=== PATIENT | female | born 1960 | race Caucasian/White ===

== ENCOUNTER → 2020-06-10 09:47 | Outpatient (CLI) | payer MEDICAID, SELFPAY ==
[2020-06-10 11:53] LABS: Absolute Lymphocyte Count 2.56 X10^3/uL (0.83-4.51); Basophil# 0.05 X10^3/uL; Basophil% 0.7 % (0-1); Eosinophil# 0.15 X10^3/uL; Hematocrit 39.7 % (37-47); Hemoglobin 12.9 g/dL (12.0-15.0); Lymphocyte # 2.56 X10^3/ul (4.0); Mean Corp Hgb Conc 32.5 g/dL (32-36); Mean Corpuscular Hgb 30.7 pg (27.0-32.0); Mean Corpuscular Volume 94.5 fL (81-99); Mean Platelet Vol. 10.2 fl (6.2-12.0); Monocyte# 0.74 X10^3/uL; Monocyte% 9.8 % (0-10); NRBC Flagged by Analyzer 0 % (0-5); Neutrophil % 53.2 % (47-70); Platelet Count 291 K/mm3 (150-450); RBC Distribution Width CV 11.9 % (11.6-14.6); RBC Distribution Width SD 41.1 fl (35.1-43.9); White Blood Count 7.5 K/mm3 (4.4-11.0)
[2020-06-10 13:00] LABS: AST(SGOT) 19 U/L (15-37); Alanine Aminotransfer ALT/SGPT 33 U/L (13-56); Albumin, Serum 3.8 g/dL (3.2-5.0); Alkaline Phosphatase 79 U/L (45-117); Anion Gap 7 (5-15); BUN 11 mg/dL (7-18); BUN/Creat Ratio 15.7 RATIO (10-20); Chloride 104 mmol/L (98-107); Cholesterol 204 mg/dL (200); EST Glomerular Filtration Rate 91 mL/min (>60); Est Glom Filt Rate - Afr Amer 110 mL/min (>60); Globulin 3.7 g/dL (2.2-4.2); Glucose 91 mg/dL (74-106); High Density Lipoprotein 48 mg/dL; Potassium 3.7 mmol/L (3.5-5.1); Protein, Total 7.5 g/dL (6.4-8.2); Sodium Level 141 mmol/L (136-145); Triglycerides 190 mg/dL; Very Low Density Lipoprotein 38 mg/dL (5-40)
== END ==
PROVIDERS: Referring Provider Nurse Practitioner Adult Health
DX: I10 Essential (primary) hypertension (principal)
CPT/HCPCS: 36415; 80053; 80061; 84443; 85025

== ENCOUNTER → 2024-01-16 | Outpatient (CLI) | payer MEDICAID, SELFPAY | END | disposition home or self-care (01) | LOC: LAB.FUTURE 12:29 | DX: N39.0 Urinary tract infection, site not specified (principal) ==

== ENCOUNTER → 2024-04-22 | Outpatient (CLI) | payer MEDICARE, SELFPAY | END | disposition home or self-care (01) | LOC: VSLAB 04-23 08:50 → LAB.FUTURE 04-23 08:50 | PROVIDERS: PCP Nurse Practitioner Family; Visit Provider Nurse Practitioner Family | DX: N39.0 Urinary tract infection, site not specified (principal); R81 Glycosuria | CPT/HCPCS: 87086; 87088 ==

== ENCOUNTER → 2024-05-07 | Outpatient (CLI) | payer MEDICARE, SELFPAY ==
[2024-05-07 17:29] LABS: Absolute Lymphocyte Count 2.91 X10^3/uL (0.83-4.51); Absolute Neutrophil Count 4.9 X10^3/uL (2.0-7.7); Basophil# 0.04 X10^3/uL; Basophil% 0.5 % (0-1); Eosinophils% 1.2 % (0-5); Hematocrit 36.6 % (37-47); Hemoglobin 11.6 g/dL (12.0-15.0); Lymphocyte # 2.91 X10^3/ul (0.83-4.51); Lymphocyte % 33.8 % (19-41); Mean Corp Hgb Conc 31.7 g/dL (32-36); Mean Corpuscular Hgb 29.2 pg (27.0-32.0); Mean Corpuscular Volume 92.2 fL (81-99); Mean Platelet Vol. 9.6 fl (6.2-12.0); Monocyte# 0.69 X10^3/uL; NRBC Flagged by Analyzer 0 % (0-5); Neutrophil # 4.86 X10^3/uL (2.7-7.7); Neutrophil % 56.3 % (47-70); Platelet Count 368 K/mm3 (150-450); RBC Distribution Width CV 12.6 % (11.6-14.6); RBC Distribution Width SD 42.6 fl (35.1-43.9); Red Blood Count 3.97 M/mm3 (4.2-5.4); White Blood Count 8.6 K/mm3 (4.4-11.0)
[2024-05-08 01:59] LABS: Anion Gap 14 (5-15); BUN 11 mg/dL (4-19); BUN/Creat Ratio 16.5 RATIO (10-20); Calcium 8.8 mg/dL (7.6-11.0); Carbon Dioxide 21.5 mmol/L (22.0-29.0); Chloride 101 mmol/L (96-108); Creatinine, Serum 0.7 mg/dL (0.6-1.0); EST Glomerular Filtration Rate 97 (>60); Glucose 215 mg/dL (70-99); Sodium Level 136 mmol/L (133-145)
[2024-05-08 19:23] LABS: Hemoglobin A1c 5.9 % (<=5.6)
== END | disposition home or self-care (01) ==
LOC: VSLAB 16:03
PROVIDERS: PCP Nurse Practitioner Family; Referring Provider Nurse Practitioner Family; Visit Provider Nurse Practitioner Family
DX: N39.0 Urinary tract infection, site not specified (principal); R81 Glycosuria
CPT/HCPCS: 36415; 80048; 83036; 85025

== ENCOUNTER → 2024-05-23 | Outpatient (CLI) | payer MEDICARE, SELFPAY ==
--- NOTE | 2024-05-23 13:34 | US_ITS ---
EXAM: US Retroperitoneal Limited, Renal CLINICAL INDICATION: UTI TECHNIQUE: Real-time limited ultrasound of the retroperitoneum with image documentation. COMPARISON: No relevant prior studies available. FINDINGS: RIGHT KIDNEY: Unremarkable. No stones. No hydronephrosis. The right kidney measures 10.9 x 5.4 x 4.6 cm. LEFT KIDNEY: Unremarkable. No stones. No hydronephrosis. The left kidney measures 10.9 x 5.0 x 5.5 cm. BLADDER: Urinary bladder not visualized, likely empty. US/Kidney and Bladder IMPRESSION: Unremarkable exam. Reading Location: [facility]
== END | disposition home or self-care (01) ==
LOC: US 13:33
PROVIDERS: PCP Nurse Practitioner Family; Referring Provider Urology; Visit Provider Urology
DX: N39.0 Urinary tract infection, site not specified (principal)
CPT/HCPCS: 76770

== ENCOUNTER → 2024-06-04 | Outpatient (CLI) | payer MEDICARE, SELFPAY | END | disposition home or self-care (01) | LOC: LABSPEC 16:37 | PROVIDERS: PCP Nurse Practitioner Family; Visit Provider Physician Assistant | DX: R82.90 Unspecified abnormal findings in urine (principal) | CPT/HCPCS: 87077; 87086; 87088; 87186 ==

== ENCOUNTER → 2024-06-08 | Outpatient (CLI) | payer MEDICARE, SELFPAY ==
--- NOTE | 2024-06-08 06:33 | MRI_ITS ---
PROCEDURE: LOWER EXT JOINT ONLY (ROUTINE) 06/08/2024 REASON FOR EXAM: L HIP PAIN AFTER FALL 02/2023; LEG SHORTENING + TECHNIQUE: MRI of the left hip without contrast COMPARISON: Left hip radiographs 05/06/2024. FINDINGS: Bone Marrow: Abnormal marrow signal within the left femoral head epiphysis, with ill-defined marrow replacing mass within the posterolateral femoral head, measuring approximately 3.6 x 2.8 x 2.3 cm (AP x TV x CC, series 6, image 12 and series 5, image 11). There is an additional ill-defined area of T1 hypo enhancing, T2 hyper enhancing marrow signal within the left intertrochanteric region. Well-circumscribed T1 isointense and STIR hyperintense lesions within the left acetabulum. The right hip is grossly unremarkable. Effusion: Small left joint effusion. Soft Tissues: Edema throughout the musculature of the anterior compartment of the thigh (left iliopsoas, vastus medialis, intermedius and lateralis). Left lower pelvic lymphadenopathy. Irregular calcified mass adjacent to the left lower uterus, measuring approximately 2.7 x 2.6 cm (AP x CC, series 8, image 1). The uterus is atrophic with diffuse ill-defined parenchymal thickening and enhancement. Additional incompletely evaluated areas of hypoenhancement throughout the uterus. The visualized lower abdominal bowel loops are normal in caliber. Normal appendix. MRI/Lower Ext Joint Only (Routine) IMPRESSION: 1. Pathologic fracture of the left femoral head with marrow replacing mass, com patible with osseous metastatic disease. Additional marrow lesions throughout the left hip as described, compatible with osseous metastatic disease. 2. Irregularly calcified mass adjacent to the uterus with ill-defined uterine p arenchymal thickening and enhancement, incompletely evaluated by MRI. Additional left lower pelvic lymphadenopathy. 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 CT abdomen pelvis recommended for further evalua tion. Dr. Fagan discussed these findings with Bernard, operational trainer working with Ifrah Ace NP, at 3:55 pm on 06/11/24. Reading Location: [facility]
== END | disposition home or self-care (01) ==
LOC: MRI 06:33
PROVIDERS: PCP Nurse Practitioner Family; Referring Provider Nurse Practitioner Family; Visit Provider Nurse Practitioner Family
DX: M16.9 Osteoarthritis of hip, unspecified (principal); S79.912A Unspecified injury of left hip, initial encounter; S79.922A Unspecified injury of left thigh, initial encounter; X58.XXXA Exposure to other specified factors, initial encounter
CPT/HCPCS: 73721

== ENCOUNTER → 2024-06-17 | Outpatient (CLI) | payer MEDICARE, SELFPAY ==
[2024-06-17 14:58] LABS: Absolute Lymphocyte Count 2.89 X10^3/uL (0.83-4.51); Absolute Neutrophil Count 6.4 X10^3/uL (2.0-7.7); Basophil# 0.04 X10^3/uL; Basophil% 0.4 % (0-1); Eosinophil# 0.13 X10^3/uL; Eosinophils% 1.2 % (0-5); Hematocrit 36.1 % (37-47); Hemoglobin 11.9 g/dL (12.0-15.0); Lymphocyte # 2.89 X10^3/ul (0.83-4.51); Lymphocyte % 27.3 % (19-41); Mean Corpuscular Hgb 30.1 pg (27.0-32.0); Mean Corpuscular Volume 91.4 fL (81-99); Monocyte# 1.12 X10^3/uL; Monocyte% 10.6 % (0-10); NRBC Flagged by Analyzer 0 % (0-5); Neutrophil # 6.38 X10^3/uL (2.7-7.7); Neutrophil % 60.1 % (47-70); Platelet Count 467 K/mm3 (150-450); RBC Distribution Width CV 12.9 % (11.6-14.6); RBC Distribution Width SD 42.9 fl (35.1-43.9); Red Blood Count 3.95 M/mm3 (4.2-5.4); White Blood Count 10.6 K/mm3 (4.4-11.0)
[2024-06-17 16:30] LABS: ALB/GLOB Ratio 1.1 RATIO (0.9-2.4); AST(SGOT) 27 U/L (<=31); Alanine Aminotransfer ALT/SGPT 41 U/L (<=34); Albumin, Serum 4.1 g/dL (3.4-4.8); Alkaline Phosphatase 111 U/L (35-104); Anion Gap 12 (5-15); BUN 18 mg/dL (4-19); BUN/Creat Ratio 23.4 RATIO (10-20); Chloride 106 mmol/L (98-108); Creatinine, Serum 0.77 mg/dL (0.70-1.20); EST Glomerular Filtration Rate 85 (>60); Globulin 3.6 g/dL (2.2-4.2); Glucose 117 mg/dL (70-99); Potassium 4.6 mmol/L (3.3-5.1); Protein, Total 7.7 g/dL (5.9-8.4); Sodium Level 141 mmol/L (133-145)
== END | disposition home or self-care (01) ==
LOC: LAB 14:27
PROVIDERS: PCP Nurse Practitioner Family; Referring Provider Orthopaedic Surgery; Visit Provider Orthopaedic Surgery
DX: M16.12 Unilateral primary osteoarthritis, left hip (principal)
CPT/HCPCS: 36415; 80053; 83036; 85025

== ENCOUNTER → 2024-08-26 | Outpatient (CLI) | payer MEDICARE, SELFPAY | END | disposition home or self-care (01) | LOC: LABSPEC 15:20 | PROVIDERS: PCP Nurse Practitioner Family; Referring Provider Otolaryngology; Visit Provider Otolaryngology | DX: H92.10 Otorrhea, unspecified ear (principal) | CPT/HCPCS: 87070; 87075; 87077; 87186; 87205 ==

== ENCOUNTER → 2024-10-11 | Outpatient (CLI) | payer MEDICARE, SELFPAY | END | disposition home or self-care (01) | LOC: MTRAD 12:03 | PROVIDERS: PCP Nurse Practitioner Family; Referring Provider Orthopaedic Surgery | DX: M16.12 Unilateral primary osteoarthritis, left hip (principal); Z96.642 Presence of left artificial hip joint | CPT/HCPCS: 73502 ==

== ENCOUNTER → 2025-02-20 | Outpatient (CLI) | payer MEDICARE, SELFPAY ==
--- NOTE | 2025-02-20 13:50 | BD_ITS ---
PROCEDURE: DEXA BONE DENSITY STUDY 02/20/2025 REASON FOR EXAM: F, age 64 y/o . Postmenopausal. TECHNIQUE: Procedure Code: BDDBD Modality: DX Procedure: DEXA BONE DENSITY STUDY COMPARISON: None FINDINGS: BMD and T-SCORES Lumbar spine: 1.362 g/cm2, T-score 2.8 Levels: L1 through L4 Right femoral neck: 0.859 g/cm2, T-score 0.1 Femoral neck comparison data not recommended for monitoring change. Right total hip: 1.106 g/cm2, T-score 1.4 The World Health Organization has defined the following categories based on bone density: Normal bone density: T-score equal to or greater than -1.0 Osteopenia: T-score between -1.0 and -2.5 Osteoporosis: T-score equal to or less than -2.5 FRAX (or Comparable) Fracture Risk Assessment: 10 Year Probability of Fracture: Major Osteoporotic Fracture: 19% Hip Fracture: 0.5% (Note: FRAX is not to be reported in setting of normal range bone density, osteoporosis on DEXA, known history of osteoporosis, prior osteoporotic hip or vertebral fracture, or for any patient undergoing pharmacological treatment for bone loss.) The National Osteoporosis Foundation (NOF) recommends pharmacological treatment for patients with a FRAX 10-year risk of 3% or higher for a hip fracture, or 20% or higher for a major osteoporotic fracture, to prevent osteoporosis and reduce fracture risk. The patient does meet the pharmacological treatment recommendations for prevention of osteoporosis. BD/Dexa Bone Density Study IMPRESSION: NORMAL T-SCORES. Recommend follow-up as clinically warranted. Reading Location: [place] [id number]
--- OUTSIDE RECORDS SUMMARY | 2025-02-20 16:52 | XMS RPT_ITS | CCD ---
Author Organization [facility] Care Team Providers Care Payroll Professional Name Role Phone Dalila Pandey CNP Primary Care Provider Carlos PROGRAMMING DEVELOPMENT PROJECT MANAGER-C, Irene Primary Care Provider Carlos PROGRAMMING DEVELOPMENT PROJECT MANAGER-C, Irene Attending Provider Carlos PROGRAMMING DEVELOPMENT PROJECT MANAGER-C, Irene Referring Provider Db PROGRAMMING DEVELOPMENT PROJECT MANAGER-C, Silvina Attending Provider Sudha MOBLEY, Dr. Wesley Attending Provider Laurie MOBLEY, Dr. Reeves Attending Provider Dr. Llaa Sullivan MD Referring Provider Ruslan Pack Attending Provider [phone] Db PROGRAMMING DEVELOPMENT PROJECT MANAGER-C, Silvina Referring Provider [facility], [facility] Primary Care Provider Krishan rKuse MD Attending Provider Krishan Kruse MD Referring Provider Irene Gonzalez Primary Care Provider Zuleika RNSheri Unavailable [facility], [facility] Primary Care Provider [phone] Dalila Pandey CNP Primary Care Provider Krishan Kruse MD Unavailable KRUSE, KRISHAN Admitting Unavailable KRUSE, KRISHAN Attending Unavailable CARLOS, IRENE Primary Care Unavailable AARON LIVINGSTON Consulting Unavailable KRUSE, KRISHAN Attending Unavailable KRUSE, KRISHAN Referring Unavailable CARLOS, IRENE Primary Care Unavailable ANDREA ARROYO Attending Unavailable ANDREA ARROYO Referring Unavailable CARLOS, IRENE Primary Care Unavailable KRUSE, KRISHAN Admitting Unavailable KRUSE, KRISHAN Attending Unavailable CARLOS, IRENE Primary Care Unavailable ANDREA ARROYO Referring Unavailable CARLOS, IRENE Primary Care Unavailable KRUSE, KRISHAN Attending Unavailable ANDREA ARROYO Attending Unavailable CARLOS, IRENE Primary Care Unavailable ANDREA ARROYO Attending Unavailable KRUSE, KRISHAN Admitting Unavailable KRUSE, KRISHAN Attending Unavailable CARLOS, IRENE Primary Care Unavailable Carlos PROGRAMMING DEVELOPMENT PROJECT MANAGER-C, Irene Primary Care Provider Carlos PROGRAMMING DEVELOPMENT PROJECT MANAGER-C, Irene Attending Provider Anselmo MOBLEY, Dr. Mckenzie Attending Provider Dr. Jonah Briones MD Referring Provider TRUNGSWETHA Verma Attending Unavailable PANDEY, DALILA K Primary Care Unavailable TRUNGSWETHA Attending Unavailable PANDEY, DALILA K Primary Care Unavailable Carlos PROGRAMMING DEVELOPMENT PROJECT MANAGER-C, Irene Primary Care Provider Laurie MOBLEY, Dr. Reeves Attending Provider [phone] ANDREA ARROYO Attending Provider Krishan Kruse MD Referring Provider Carlos PROGRAMMING DEVELOPMENT PROJECT MANAGER-C, Irene Referring Provider Carlos PROGRAMMING DEVELOPMENT PROJECT MANAGER-C, Irene Primary Care Physician Anselmo MOBLEY, Dr. Mckenzie Attending Physician Laurie MOBLEY, Dr. Reeves Attending Physician ANDREA ARROYO Attending Physician Carlos VS, Irene Primary Care UnavailLala Amaro Attending Unavailable Lala Sullivan Referring Unavailable Carlos VSC, Irene Primary Care Unavailabl e Kruse, Krishan Referring Unavailable Kruse, Krishan Attending Unavailable Carlos VSC, Irene Primary Care Unavailabl e Carlos VSC, Irene Referring Unavailabl Silvina Thompson Attending Unavailable Carlos VSC, Irene Primary Care Unavailabl e Lupillo Haley Attending Unavailable Carlos VSC, Irene Primary Care Unavailabl e Carlos VSC, Irene Referring Unavailabl Lala Rey Attending Unavailable Carlos VSC, Irene Primary Care Unavailabl e Carlos VSC, Irene Referring Unavailabl Lala Rey Attending Unavailable Carlos VSC, [facility] Care Unavailabl e [facility], Irene Referring Unavailabl e Silvina Ace Attending Unavailable [facility], [facility] Primary Care Unavailabl e [facility], [facility] Referring Unavailabl e Ruslan Pack Attending Unavailable [facility], [facility] Primary Care Unavailabl e Lupillo Haley Attending Unavailable [facility], [facility] Primary Care Unavailabl e Ruslan Pack Attending Unavailable [facility], [facility] Primary Care Unavailabl e WartmannJonah Referring Unavailabl e Jonah Briones Attending Unavailabl e MAGALIEISIDORO INFANTE Attending Unavailable MAGALIEISIDORO INFANTE Primary Care Unavailable [facility], [facility] Primary Care Unavailabl e MAGALIEISIDORO RODAS Attending Unavailable Krishan Kruse Referring Unavailable [facility], [facility] Primary Care Unavailabl e [facility], Irene Attending Unavailabl e [facility], [facility] Primary Care Unavailabl e Silvina Ace Referring Unavailable Silvina Ace Attending Unavailable [facility], [facility] Primary Care Unavailabl e [facility], [facility] Referring Unavailabl e [facility], Irene Attending Unavailabl e Allergies Allergy Classification Reported Allergen(s) Allergy Type Date of Onset Reaction(s) Facility (20 sources) Sulfonamides (Antibiotic); Translations: [SULFA (SULFONAMIDE ANTIBIOTICS)] Drug Allergy 8 Other: See Comments, Other [facility] (9 sources) Pollen Allergy to substance 5 Itchy watery eyes [facility] (9 sources) Sulfonamides (Antibiotic) Allergy to substance 5 PT UNSURE OF REACTION [facility] (18 sources) Pollen Allergy to substance 5 Other [facility] (6 sources) Bee pollen; Translations: [BEE POLLEN] Drug Allergy 5 Unknown [facility] (4 sources) Adhesive Tape; Translations: [ADHESIVE TAPE (ROSINS)] Allergy to substance 5 Itching [facility] (1 source) Pollen Drug allergy (disorder) 5 [facility] (1 source) Sulfonamides (Antibiotic) Drug allergy (disorder) 5 [facility] Medications Current Medications Medication Drug Class(es) Dates Sig (Normalized) Sig (Original) 8 hr acetaminophen 650 mg extended release oral tablet (11 sources) Start: 07-11-2024 End: 08-12-2024 take 1 tablet by mouth every eight hours as needed for pain and pain acetaminophen (Tylenol 8 Hour) 650 MG ER tablet Take 1 tablet (650 mg) by mouth every 8 hours as needed for mild pain (1-3) or moderate pain (4-6) (take as needed for pain). Do not crush, chew, or split. 90 tablet 07/12/2024 10:51 AM EDT 07/11/2024 08/12/2024 Active Start: 07-11-2024 End: 07-12-2024 take 1 tablet by mouth every six hours 650 mg, Oral, Every 6 hours, First dose on [facility] 07/11/24 at 1500, Phase II/On Unit Start: 07-11-2024 End: 07-11-2024 take 1000 mg by mouth once, then take 4000 mg by mouth every twenty-four hours 1,000 mg, Oral, Once, On [facility] 07/11/24 at 0900, For 1 dose, Preprocedure, Maximum dose of acetaminophen is 4000 mg from all sources in 24 hours. Do not administer if patient has taken tylenol ascorbic acid 500 mg chewable tablet (9 sources) Vitamin C take 1 tablet by vanessa th once daily ascorbic acid (Vitamin C) 500 MG tablet Take 500 mg by mouth daily. Active Calcium Carbonate (9 sources) Calcium Carbonat e (CALTRATE 600 PO) Take by mouth daily. Suspended Calcium Carbonat e (CALTRATE 600 PO) Take by mouth daily. Active calcium carbonate 1500 mg / cholecalciferol 800 unt chewable tablet (9 sources) Vitamin D Start: 05-06-2024 Calcium Carbonate-Vitamin D3 (Caltrate 600 Plus D) 600 mg-20 mcg (800 unit) tablet,chewable Active 1 {tbl} PO daily May 06, 2024 1:00am Complies with drug therapy cholecalciferol 0.025 mg oral tablet (20 sources) Vitamin D Start: 05-06-2024 take 1 tablet by mouth once daily Cholecalciferol (Vitamin D3) 25 mcg (1,000 unit) tablet Active 25 ug PO daily May 06, 2024 1:00am Complies with drug therapy take 1 capsule by mouth once delmi ly Cholecalciferol, Vitamin D3, 25 mcg (1,000 unit) cap Take 1,000 Units by mouth once daily. Active Cholecalciferol (Vitamin D3) 25 MCG capsule Take by mouth daily. Active ciprofloxacin 500 mg oral tablet (9 sources) Quinolone Antimicrobial Start: 06-10-2024 take 1 tablet by mouth every twelve hours ciprofloxacin HCl (CIPRO) 500 mg tablet Take 1 tablet by mouth every 12 hours. 06/10/2024 Active Start: 06-10-2024 take 1 tablet by vanessa th twice daily Ciprofloxacin Hcl 500 mg tablet Active 500 mg PO TWICE A DAY 10 June 10, 2024 12:00am Complies with drug therapy clobetasol propionate 0.5 mg/ml topical cream (20 sources) Corticosteroid Start: 08-30-2024 clobetasol (TE MOVATE) 0.05 % cream Apply to affected area 2x/day for 2 weeks, then 1x/day for a week, than 1-3x/week for maintenance. 60 g 08/30/2024 Active Start: 05-16-2024 clobetasol (Te movate) 0.05 % external solution Apply topically 2 times daily. 05/16/2024 Active Start: 05-06-2024 End: 05-06-2024 Clobetasol 0.05 % ointment A ctive 1 NMA TOPICAL TWICE A DAY as needed May 06, 2024 4:13pm Complies with drug therapy Start: 06-21-2021 End: 09-19-2021 clobetasol (TEMOVATE) 0.05 % ointment Apply 1 application to affected area twice daily. 30 g 2 06/21/2021 09/19/2021 Active Comment on above: Apply 1 application to affected area twice daily. cranberry preparation 500 mg oral capsule (9 sources) Non-Standardized Food Allergenic Extract, Non-Standardized Plant Allergenic Extract take 1 capsule by mouth once daily Cranberry 500 MG capsule Take by mouth daily. Active estradiol 0.1 mg/ml vaginal cream (1 source) Estrogen Start: Start: 12-05-2024 fluticasone propionate 0.05 mg/actuat metered dose nasal spray (20 sources) Corticosteroid Start: 05-06-2024 fluticasone (F lonase) 50 MCG/ACT nasal spray Fluticasone Propionate 50 mcg/actuation spray,suspension Active 2 NMA INTRANASAL AT BEDTIME May 06, 2024 1:00am 05/06/2024 Active Start: 05-06-2024 Fluticasone Pr opionate 50 mcg/actuation spray,suspension Active 2 NMA INTRANASAL AT BEDTIME May 06, 2024 1:00am Complies with drug therapy loratadine 10 mg oral tablet (20 sources) Start: 05-06-2024 take 1 tablet by mouth once daily Loratadine (Claritin) 10 mg tablet Active 10 mg PO daily May 06, 2024 1:00am Complies with drug therapy Magnesium (9 sources) Start: 05-06-2024 take 1 tablet by mouth once daily Magnesium 250 mg tablet Active 250 mg PO daily May 06, 2024 1:00am Complies with drug therapy Start: 05-06-2024 take 1 tablet by vanessa th once daily Magnesium 250 mg tablet Active 250 mg PO daily May 06, 2024 1:00am MAGNESIUM GLUCONATE (9 sources) MAGNESIUM GLUCON ATE PO Take by mouth daily. Suspended MAGNESIUM GLUCON ATE PO Take by mouth daily. Active Multiple Vitamins-Minerals ( MULTIVITAMIN GUMMIES WOMENS PO) (9 sources) Multiple Vitamin s-Minerals (MULTIVITAMIN GUMMIES WOMENS PO) Take by mouth daily. Suspended Multiple Vitamin s-Minerals (MULTIVITAMIN GUMMIES WOMENS PO) Take by mouth daily. Active Multivitamin tablet (9 sources) Start: 05-06-2024 Multivitamin t ablet Active 1 {tbl} PO daily May 06, 2024 1:00am Complies with drug therapy Start: 05-06-2024 Multivitamin t ablet Active 1 {tbl} PO daily May 06, 2024 1:00am Potassium Chloride (9 sources) Potassium Chlori de (K+ POTASSIUM PO) Take by mouth daily. Suspended Potassium Chlori de (K+ POTASSIUM PO) Take by mouth daily. Active potassium gluconate 2.5 meq oral tablet (9 sources) Start: 05-06-2024 take 1 tablet by mouth once daily Potassium Gluconate 595 mg (99 mg) tablet Active 595 mg PO daily May 06, 2024 1:00am Complies with drug therapy Probiotic Product (PROBIOTIC BLEND PO) (9 sources) Probiotic Produc t (PROBIOTIC BLEND PO) Take by mouth daily. Suspended Probiotic Produc t (PROBIOTIC BLEND PO) Take by mouth daily. Active psyllium 400 mg oral capsule (9 sources) take 2 capsules by mouth once daily psyllium (Metamucil) 0.36 g capsule Take 2 capsules by mouth daily. Active Turmeric extract (9 sources) Start: 05-06-2024 take 1 capsule by mouth once daily Turmeric 400 mg capsule Active 400 mg PO daily May 06, 2024 1:00am Complies with drug therapy Start: 05-06-2024 take 1 capsule by mo [facility] once daily Turmeric 400 mg capsule Active 400 mg PO daily May 06, 2024 1:00am Completed/Discontinued Medications Medication Drug Class(es) Dates Sig (Normalized) Sig (Original) aspirin 81 mg delayed release oral tablet (9 sources) Platelet Aggregation Inhibitor, Nonsteroidal Anti-inflammatory Drug Start: 07-11-2024 End: 08-12-2024 aspirin (ASPIR) 81 MG EC tablet Take 1 tablet (81 mg) by mouth 2 times daily. Take 2 times a day for 30 days. This is for blood clot prevention. 60 tablet 07/12/2024 10:51 AM EDT 07/11/2024 08/12/2024 Discontinued (Therapy completed) bisacodyl 5 mg delayed release oral tablet (2 sources) Stimulant Laxative Start: 07-11-2024 End: 07-12-2024 take 1 tablet by mouth every twenty-four hours as needed for constipation calcium chloride 0.0014 meq/ml / potassium chloride 0.004 meq/ml / sodium chloride 0.103 meq/ml / sodium lactate 0.028 meq/ml injectable solution (3 sources) Start: 07-11-2024 End: 07-11-2024 take 50 mL intravenously every hour 50 mL/hr, IntraVENous, Continuous, Starting on [facility] 07/11/24 at 0900, Preprocedure, Upon admission to sameday - please start iv if patient does not have iv access. Use 500ml NS for patients on dialysis. cefadroxil 500 mg oral capsule (5 sources) Cephalosporin Antibacterial Start: 07-11-2024 End: 08-12-2024 take 1 capsule by mouth twice daily cefadroxil (Duricef) 500 MG capsule Take 1 capsule (500 mg) by mouth 2 times daily for 7 days. Take 2 times a day for 7 days. Take this entire prescription. 14 capsule 07/12/2024 10:51 AM EDT 07/11/2024 08/12/2024 Discontinued (Therapy completed) ceFAZolin (Ancef) 2,000 mg in sodium chloride 0.9 % 100 mL IVPB (3 sources) Start: 07-11-2024 End: 07-12-2024 take 2000 mg intravenously every eight hours 2,000 mg, IntraVENous, at 200 mL/hr, Administer over 30 Minutes, Every 8 hours, First dose on [facility] 07/11/24 at 1900, For 2 doses, Phase II/On Unit, Mini-Bag Plus bag, Suspected Indication (Select all that apply): Surgical Prophylaxis Start: 07-11-2024 End: 07-11-2024 2,000 mg, IntraVENous, at 20 0 mL/hr, Administer over 30 Minutes, Tank Carpenter to O.R., On [facility] 07/11/24 at 0900, For 1 dose, Preprocedure, Administer within 1 hour prior to incision. Recommend to repeat in 3-4 hours after initial dose if still intra-op. Mini-Bag Plus bag, Suspected Indication (Select all that apply): Surgical Prophylaxis 1 ml dexamethasone phosphate 10 mg/ml injection (3 sources) Corticosteroid Start: 07-11-2024 End: 07-12-2024 take 8 mg intravenously every six hours 8 mg, IntraVENous, Every 6 hours, First dose on [facility] 07/11/24 at 1700, For 2 doses, Phase II/On Unit Start: 07-11-2024 End: 07-11-2024 IntraVENous, As needed, Star ting on [facility] 07/11/24 at 1112, Anesthesia Intraprocedure [id number]-qu inephrine (TAP) syringe (1 source) Start: 07-11-2024 End: 07-11-2024 Injection, Once PRN Procedure, Starting on [facility] 07/11/24 at 1330, For 1 dose, Anesthesia Intraprocedure diphenhydrAMINE (BENADryl) tablet/capsule 25 mg (2 sources) Start: 07-11-2024 End: 07-12-2024 take 1 tablet by mouth every six hours as needed diphenhydrAMINE (BENADryl) tablet/capsule 25 mg docusate sodium 100 mg oral capsule (7 sources) Start: 07-11-2024 End: 08-12-2024 docusate sodium (Colace) 100 MG capsule Take 1 capsule (100 mg) by mouth 2 times daily. Take 2 times a day as needed for constipation. 60 capsule 07/12/2024 10:51 AM EDT 07/11/2024 08/12/2024 Discontinued (Therapy completed) Estrogens, Conjugated ([facility]) (6 sources) Estrogen End: 08-29-2024 estrogens, conjugated (PREMARIN VAGINAL) Use vaginally. 08/29/2024 Discontinued estrogens, conju gated (PREMARIN VAGINAL) Use vaginally. Active estrogens, conju gated (PREMARIN VAGINAL) Use vaginally. 0 Active Comment on above: Use vaginally. famotidine 20 mg oral tablet (4 sources) Histamine-2 Receptor Antagonist Start: 07-11-2024 End: 07-12-2024 take 20 mg by mouth twice daily 20 mg, Oral, 2 times daily, First dose on [facility] 07/11/24 at 2100, Phase II/On Unit Start: 07-11-2024 End: 07-11-2024 take 20 mg by mouth once 20 mg, Oral, Once, On [facility] 07/11/24 at 0900, For 1 dose, Preprocedure 1 ml glycopyrrolate 0.2 mg/ml injection (1 source) Start: 07-11-2024 End: 07-11-2024 IntraVENous, As needed, Starting on [facility] 07/11/24 at 1052, Anesthesia Intraprocedure 1 ml HYDROmorphone hydrochloride 1 mg/ml cartridge (2 sources) Opioid Agonist Start: 07-11-2024 End: 07-11-2024 0.5 mg, IntraVENous, Every 5 min PRN, severe pain (7-10), Starting on [facility] 07/11/24 at 1309, For 4 doses, Recovery (only), Phase I and Phase II- Initial therapy for severe pain (7-10). Restricted to a 90 minute time frame starting when the patient can verbally state their pain score. If after 2 doses the pain score does not decrease by more than one point, then call the provider. If oral meds are utilized, do not return to initial therapy medications. HYDROmorphone (Dilaudid) injection 0.25 mg (2 sources) Start: 07-11-2024 End: 07-12-2024 HYDROmorphone (Dilaudid) injection 0.25 mg ibuprofen 200 mg oral tablet (14 sources) Nonsteroidal Anti-inflammatory Drug End: 07-12-2024 take 2 tablets by mouth three times daily ibuprofen 200 MG tablet Take 400 mg by mouth 3 times daily. 07/12/2024 Discontinued (Stop taking at discharge) isopropyl alcohol 0.7 ml/ml medicated pad (2 sources) Start: 07-11-2024 End: 07-11-2024 2 Swab (1 Package), Topical, Once, On Mon07/11/24 at 0900, For 1 dose, Preprocedure, Flip ampule around in paper sleeve to expose swab tip. Shake well. With sleeve on ampule, crush at dot to pop. Squeeze to wet swab tip. Swab around nostril rims 8 times in each direction. Squeeze to rewet swab tip and repeat. Repeat for other nostril. Caution : Do not extend in nose beyond swab tip. Appy to skin only. Discard after use. 1 ml ketorolac tromethamine 15 mg/ml cartridge (2 sources) Nonsteroidal Anti-inflammatory Drug, Cyclooxygenase Inhibitor Start: 07-11-2024 End: 07-12-2024 take 15 mg intravenously every six hours 15 mg, IntraVENous, Every 6 hours, First dose on Mon07/11/24 at 1500, For 2 doses, Phase II/On Unit lisinopril 20 mg oral tablet (20 sources) Angiotensin Converting Enzyme Inhibitor Start: 07-12-2024 End: 07-12-2024 take 40 mg by mouth once daily 40 mg, Oral, Daily, First dose on Mon07/12/24 at 0900 Start: 09-15-2019 take 1 tablet by [facility] once daily Lisinopril 40 mg tablet Active 40 mg PO daily May 06, 2024 1:00am Complies with drug therapy Comment on above: Take 1 tablet by [facility] once daily. magnesium citrate 58.2 mg/ml oral solution (2 sources) Start: 07-11-2024 End: 07-12-2024 meloxicam 7.5 mg oral tablet (12 sources) Nonsteroidal Anti-inflammatory Drug Start: 07-12-2024 End: 07-12-2024 take 15 mg by mouth once daily 15 mg, Oral, Daily, First dose on Mon07/12/24 at 0900, Phase II/On Unit Start: 07-11-2024 End: 08-12-2024 take 1 tablet by mouth once daily meloxicam (MOBIC) 15 mg tablet Take 15 mg by mouth once daily. 07/11/2024 Active 20 ml mepivacaine hydrochloride 20 mg/ml injection (1 source) Amide Local Anesthetic Start: 07-11-2024 End: 07-11-2024 Intrathecal, Once PRN Procedure, Starting on [facility] 07/11/24 at 1055, For 1 dose, Anesthesia Intraprocedure 2 ml midazolam 1 mg/ml injection (1 source) Benzodiazepine Start: 07-11-2024 End: 07-11-2024 IntraVENous, As needed, Starting on [facility] 07/11/24 at 1052, Anesthesia Intraprocedure 1 ml naloxone hydrochloride 0.4 mg/ml injection (2 sources) Opioid Antagonist Start: 07-11-2024 End: 07-12-2024 nitrofurantoin, macrocrystals 25 mg / nitrofurantoin, monohydrate 75 mg oral capsule (7 sources) Nitrofuran Antibacterial Start: 06-04-2024 End: 06-09-2024 take 1 capsule by mouth every twelve hours at mealtime Nitrofurantoin Monohyd/M-Cryst (Macrobid) 100 mg capsule Discontinued 100 mg PO Q12H 10 5 0 June 04, 2024 12:00am June 08, 2024 12:00am June 09, 2024 6:34am must administer with a meal/food ondansetron 4 mg oral tablet (8 sources) Serotonin-3 Receptor Antagonist Start: 07-11-2024 End: 08-12-2024 take 1 tablet by mouth every eight hours ondansetron (Zofran) 4 MG tablet Take 1 tablet (4 mg) by mouth every 8 hours. Take 1 tablet every 8 hours as needed for nausea and/or vomiting. May take 2 tablets if needed. 10 tablet 07/12/2024 10:51 AM EDT 07/11/2024 08/12/2024 Discontinued (Therapy completed) Start: 07-11-2024 End: 05-01-2025 IntraVENous, As needed, Star ting on [facility] 07/11/24 at 1246, Anesthesia Intraprocedure ondansetron ODT (Zofran-ODT) disintegrating tablet 4 mg (2 sources) Start: 07-11-2024 End: 07-12-2024 take 1 tablet by mouth every eight hours as needed for nausea and vomiting ondansetron ODT (Zofran-ODT) disintegrating tablet 4 mg oxyCODONE hydrochloride 5 mg oral tablet (9 sources) Opioid Agonist Start: 07-11-2024 End: 07-12-2024 take 1 tablet by mouth every four hours as needed for pain 10 mg, Oral, Every 4 hours PRN, severe pain (7-10), Starting on [facility] 07/11/24 at 1455, Phase II/On Unit Start: 07-11-2024 End: 08-12-2024 take 1 tablet by mouth every six hours as needed for pain oxyCODONE (Roxicodone) 5 MG immediate release tablet Indications: Arthritis of left hip Take 1 tablet (5 mg) by mouth every 6 hours as needed for severe pain (7-10) or moderate pain (4-6) for up to 7 days. Continue to wean off as pain becomes more tolerable. 28 tablet 07/12/2024 10:51 AM EDT 07/11/2024 08/12/2024 Discontinued (Therapy completed) pantoprazole 20 mg delayed release oral tablet (7 sources) Proton Pump Inhibitor Start: 07-11-2024 End: 08-12-2024 pantoprazole (Protonix) 20 MG EC tablet Take 1 tablet (20 mg) by mouth every morning (before breakfast). Do not crush, chew, or split. Take 1 time a day. 30 tablet 07/12/2024 10:51 AM EDT 07/11/2024 08/12/2024 Discontinued (Therapy completed) Phenylephrine HCl (Pressors) 1 MG/10ML injection (1 source) Start: 07-11-2024 End: 07-11-2024 IntraVENous, As needed, Starting on [facility] 07/11/24 at 1147, Anesthesia Intraprocedure 20 ml propofol 10 mg/ml injection (1 source) General Anesthetic Start: 07-11-2024 End: 07-11-2024 IntraVENous, Continuous PRN, Starting on [facility] 07/11/24 at 1106, Anesthesia Intraprocedure ropivacaine (Naropin) 5 MG/ML 15 mL, EPINEPHrine (Adrenalin) 30 MG/30ML 0.125 mL, ketorolac (Toradol) 30 MG/ML 0.5 mL in sodium chloride (PF) 0.9 % 15 mL syringe (4 sources) Start: 07-11-2024 End: 07-11-2024 1 Syringe, Intra-artICUlar, Once, On [facility] 07/11/24 at 1100, For 1 dose, Intraprocedure 5 ml sodium chloride 9 mg/ml injection (8 sources) Start: 07-11-2024 End: 07-12-2024 10 mL, IntraVENous, Every 12 hours scheduled (2 times per day), First dose on [facility] 07/11/24 at 2100, Phase II/On Unit Start: 07-11-2024 End: 07-12-2024 take 125 mL intravenously every hour 125 mL/hr, IntraVENous, Continuous, Starting on [facility] 07/11/24 at 1500, Phase II/On Unit Start: 07-11-2024 End: 07-12-2024 Start: 07-11-2024 End: 07-12-2024 traMADol hydrochloride 50 mg oral tablet (7 sources) Opioid Agonist Start: 07-11-2024 End: 08-12-2024 take 1 tablet by mouth every six hours as needed for pain traMADol (Ultram) 50 MG tablet Indications: Arthritis of left hip Take 1 tablet (50 mg) by mouth every 6 hours as needed for severe pain (7-10) or moderate pain (4-6) for up to 7 days. Wean off as pain becomes more tolerable. 28 tablet 07/12/2024 10:51 AM EDT 07/11/2024 08/12/2024 Discontinued (Therapy completed) 10 ml tranexamic acid 100 mg/ml injection (1 source) Antifibrinolytic Agent Start: 07-11-2024 End: 07-11-2024 IntraVENous, As needed, Starting on [facility] 07/11/24 at 1105, Anesthesia Intraprocedure Problems Active Problems Problem Classification Problem Date Documented Da te Episodic/Chronic Allergic reactions (9 sources) Environmental allergy; Translations: [Other allergy status, other than to drugs and biological substances] 05-06-2024 Episodic Benign neoplasm of uterus (2 sources) Uterine leiomyoma; Translations: [Leiomyoma of uterus, unspecified] Onset: 07-09-2024 07-09-2024 Episodic Essential hypertension (9 sources) Hypertensive disorder; Translations: [Essential (primary) hypertension] 05-06-2024 Chronic Inflammatory diseases of female pelvic organs (2 sources) Vaginitis; Translations: [Acute vaginitis] Episodic Menopausal disorders (2 sources) Atrophy of vagina; Translations: [Postmenopausal atrophic vaginitis] Chronic Osteoarthritis (20 sources) Osteoarthritis of hip; Translations: [Osteoarthritis of hip, unspecified] Onset: 06-11-2024 05-06-2024 Chronic Other connective tissue disease (3 sources) History of total hip arthroplasty; Translations: [Presence of left artificial hip joint] 07-26-2024 Chronic Other connective tissue disease (2 sources) Presence of left artificial hip joint; Translations: [Presence of left artificial hip joint] Onset: 08-12-2024 Chronic Other female genital disorders (1 source) Polyp of cervix; Translations: [Polyp of cervix uteri] Episodic Other female genital disorders (2 sources) Leukoplakia of vulva; Translations: [Circumscribed scleroderma] Episodic Other female genital disorders (1 source) Vulval irritation; Translations: [Other specified noninflammatory disorders of vulva and perineum] 08-29-2024 Episodic Other female genital disorders (1 source) Other specified noninflammatory disorders of vulva and perineum; Translations: [Vulvar irritation] Onset: 08-29-2024 Episodic Other gastrointestinal disorders (9 sources) Abdominal mass; Translations: [Intra-abdominal and pelvic swelling, mass and lump, unspecified site] Episodic Other injuries and conditions due to external causes (17 sources) Injury of hip and thigh; Translations: [Unspecified injury of left hip, initial encounter] 05-06-2024 Episodic Other non-traumatic joint disorders (9 sources) Hip pain; Translations: [Pain in left hip] 05-06-2024 Episodic Other skin disorders (9 sources) Lichen sclerosus et atrophicus; Translations: [Lichen sclerosus et atrophicus] 05-06-2024 Chronic Pathological fracture (7 sources) Pathological fracture of femur; Translations: [Pathological fracture, unspecified femur, initial encounter for fracture] 06-12-2024 Episodic Residual codes; unclassified (1 source) Postmenopausal state; Translations: [Asymptomatic menopausal state] Episodic Unclassified (2 sources) R19.09 - Other intra-abdominal and pelvic swelling, mass and lump Unclassified (2 sources) Patient Education; Translations: [Patient Education] Onset: 07-03-2024 Urinary tract infections (1 source) Urinary tract infection, site not specified; Translations: [Urinary tract infection, site not specified] Onset: 11-29-2024 Episodic Past or Other Problems Problem Classification Problem Date Documented Da te Episodic/Chronic Genitourinary symptoms and ill-defined conditions (4 sources) Dysuria; Translations: [Dysuria] Onset: 06-04-2024 08-29-2024 Episodic Other ear and sense organ disorders (1 source) Otorrhea, unspecified ear; Translations: [Otorrhea, unspecified ear] Onset: 08-29-2024 Episodic Other non-traumatic joint disorders (1 source) Pain in left hip; Translations: [Pain in left hip] Onset: 05-06-2024 Episodic Results Test Name Value Interpretation Reference Range Facility /Mikel 11-29-2024 /AD [facility] [address], [address] [place] [address] OFFICE VISIT Date of Service: 11/29/24 MR#: [id number] Acct: [id number] Name: KEIRY MILLER Rep #: [id number] : 1960 Provider: Dr. Lala Haynes i, MD Age/Sex: 64/F Location: [facility] [place] Status: Signed Intake Vital Signs 06/12/24 09:27 11/29/24 12:55 Height 5 ft 6 in 5 ft 6 in Weight: 206 lb BMI 33.2 BP 134/82 H Pulse 68 Temp 98 F Intake Visit Reasons: VAGINAL BURNING Chief Complaint: Vaginal burning Student Records Specialist Required: No Is patient in pain?: Yes Allergies pollen extracts Allergy (Verified 06/04/24 15:50) Itchy watery eyes Sulfa (Sulfonamide Antibiotics) Allergy (Verified 06/04/24 15:50) PT UNSURE OF REACTION Medications ???Medication ???Instructions ???Recorded ???Confirmed ???Type calcium 600 mg (as carbonate)-vit 1 tab PO QDAY 05/06/24 11/29/24 H istory D3 20 mcg (800 unit) chewable tablet (Caltrate plus D) cholecalciferol (vitamin D3) 25 25 mcg PO QDAY 05/06/24 11/29/24 H istory mcg (1,000 unit) tablet clobetasol 0.05 % topical ointment 1 applic topical BID PRN 5 11/29/24 History fluticasone propionate 50 2 spray intranasal QHS 05/06/24 History mcg/actuation nasal spray,suspension lisinopril 40 mg tablet 40 mg PO QDAY 05/06/24 11/29/24 Hi story loratadine 10 mg tablet (Claritin) 10 mg PO QDAY 05/06/24 11/29/24 History magnesium 250 mg tablet 250 mg PO QDAY 05/06/24 11/29/24 H istory multivitamin 1 tab PO QDAY 05/06/24 11/29/24 Hi story potassium gluconate 595 mg (99 mg) 595 mg PO QDAY 05/06/24 11/29/24 History tablet turmeric 400 mg capsule 400 mg PO QDAY 05/06/24 11/29/24 H istory ciprofloxacin HCl 500 mg tablet 500 mg PO BID #10 tabs 06/10/24 Rx estradiol 0.01% (0.1 mg/gram) 1 g vaginal 3XW 3 months #42.5 Rx vaginal cream grams Have you fallen in the past year?: No PFSH Medical History Acute vaginitis Environmental allergies Hypertension Lichen sclerosus Family History Father Heart disease Mother Hypertension Brother Heart disease Social History household members: spouse current occupational status: retired Smoking Status: Never smoker alcohol intake: never substance use type: does not use what type of physical activity do you participate in: none do you feel safe at home: Yes HPI HPI Urology Chief Complaint: Vaginal burning Details: KEIRY MILLER, is a 64 F. Patient having severe burning in external vaginal area, open sores and just raw feeling. There is no vaginal bleeding, discharge or odor present. No sensation of urinary tract infection. No hematuria, dysuria. No fever, chills, nausea or vomiting. ROS Const Constitutional: No chills, fatigue, fever(s), headache(s), night sweats, weakness, weight change, abnormal sleep pattern or change in appetite Eyes Eyes: No change in vision ENT ENT: No headache(s) or dry mouth Resp Respiratory: No cough, chest congestion, shortness of breath or wheezing Cardio Cardiology: Positive for other (No chest pain.); No shortness of breath, irregular heart rhythm or lightheadedness Gastro GI: Positive for other (No nausea.); No abdominal pain, change in bowel habits, constipation, diarrhea or vomiting Musc Musculoskeletal: No abnormal gait Skin Skin: Positive for itchy eyes and sores; No yellowing of the eye, lesions or rash Neuro Neurology: No abnormal gait, confusion, dizziness, weakness, headache(s) or memory loss Psych Psychiatric: No abnormal sleep pattern, No change in appetite, No confusion and No memory loss Endo Endocrine: No fatigue, increased thirst/drinking or weight change Aller/Imm Allergy/Immunologic: Positive for itchy eyes; No wheezing Bo/Lymp Hematologic/Lymphatic: No easy bleeding, easy bruising or enlarged lymph nodes Exam Const General: cooperative, healthy appearing, comfortable and no acute distress [facility] Head: normocephalic and atraumatic Ears: hearing grossly normal bilaterally and external ears normal Nose: external nose normal Eyes General: appearance normal, both eyes and all related structures Neck Neck: normal visual inspection and trachea midline Chest Chest palpation inspection: normal inspection of the chest Resp Effort Inspection: normal respiratory effort, able to speak in complete sentences and symmetric chest movement Cardio Rate: regular rate GI Inspection: normal to inspection Palpation: soft and nontender General: No CVA tenderness External Female Exam: external swelling, lesion (multiple shallow ulcerations with erythema and e (more content not included)... Normal [facility] - Chemistry and C hemistry - challengeOrdered By: Lala Sullivan on 11-25-2024 Bilirubin Ql (U) Negative [facility] Glucose Ql (U) Negative [facility] Ketones Ql (U) Negative [facility] pH (U) 6 [pH] [facility] Specific gravity (U) [Rel density] 1.015 [facility] Urobilinogen (U) [Mass/Vol] 0.4422185 mg/dL [facility] - Hematology and Cell countsOrdered By: Lala Sullivan on 11-25-2024 Hemoglobin Ql (U) Negative [facility] - Specimen inform ationOrdered By: Lala Sullivan on 11-25-2024 Color (U) YELLOW [facility] - UrinalysisOrder ed By: Lala Sullivan on 11-25-2024 Nitrite Ql (U) Negative [facility] Protein Ql (U) Negative [facility] No Panel InformationOrdered By: Lala Sullivan on 11-25-2024 Urine Leukocytes Negatve [facility] Office Visit Reporton 2024 Office Visit Report [facility] [address] [place] [address] OFFICE VISIT Date of Service: 11/25/24 MR#: [id number] Acct: [id number] Patient: KEIRY MILLER Rep #: [id number] : 1960 Provider: Dr. Lala Haynes i, MD Age/Sex: 64/F [place] [facility] [place] Status: Signed Intake Vital Signs 06/12/24 09:27 Height 5 ft 6 in Intake Visit Reasons: POSSIBLE UTI Chief Complaint: MRI result follow-up Allergies pollen extracts Allergy (Verified 06/04/24 15:50) Itchy watery eyes Sulfa (Sulfonamide Antibiotics) Allergy (Verified 06/04/24 15:50) PT UNSURE OF REACTION Have you fallen in the past year?: No Results POC UA Auto w/o Microscopy Office Urine Color YELLOW Last Edit by Pauline Cummings on 11/25/24 16:05 Office Urine Clarity Last Edit by Pauline Cummings on 11/25/24 16:05 Office Urine Glucose Negative Last Edit by Pauline Cummings on 11/25/24 16:05 Office Urine Ketones Negative Last Edit by Pauline Cummings on 11/25/24 16:05 Office Urine Bilirubin Negative Last Edit by Pauline Cummings on 11/25/24 16:05 Office Urine Urobilinogen 0.2 mg/dL Last Edit by Pauline Cummings on 11/25/24 16:05 Off Ur Spec [place] 1.015 Last Edit by Pauline Cummings on 11/25/24 16:05 Office Urine pH 6 Last Edit by Pauline Cummings on 11/25/24 16:05 Office Urine Protein Negative Last Edit by Pauline Cummings on 11/25/24 16:05 Office Urine Blood Negative Last Edit by Pauline Cummings on 11/25/24 16:05 Office Urine Blood Hemolyzed Last Edit by Pauline Cummings on 11/25/24 16:05 Office Urine Nitrate Negative Last Edit by Pauline Cummings on 11/25/24 16:05 Off Ur Leukocytes Negatve Last Edit by Pauline Cummings on 11/25/24 16:05 Nursing Note Patient was here today, possible urinary tract infection. Symptoms started about 4-5 days ago. Burning, voiding razor blades and frequency. No vomiting, no fever and no hematuria. UA and C S was completed. Assessment and Plan Assessment and Plan Orders: Orders POC UA Auto w/o Microscopy 11/25/24 N39.0 - Urinary tract infection, site not specified Clinical Quality Measures Falls Risk Screening/Assistive Devices Have you fallen in the past year?: No 11/26/24 0831 Date Lala Bolden Signature: Date (if applicable) CC: Normal [facility] HIP, UNI W/ Pelvis 2-3 Views on 10-11-2024 HIP, UNI W/ Pelvis 2-3 Views [facility] [address] [place] [address] HIP, UNI W/ Pelvis 2-3 Views MR#: [id number] Acct: [id number] Name: ANGELAKEIRY J Rep #: [id number] : 1960 F 64 From: Bulmaro Bermudez PCP: Irene Gonzalez, [facility], PROGRAMMING DEVELOPMENT PROJECT MANAGER-C Status: REG CLI Study: HIP, UNI W/ Pelvis 2-3 Views Date of Exam: 04/06 Exam# [id number] Ordering Dr: ANDREA ARROYO PROCEDURE: HIP, UNI W/ PELVIS 2-3 VIEWS 10/11/2024 REASON FOR EXAM: S/P KOTA TECHNIQUE: HIP, UNI W/ PELVIS 2-3 VIEWS COMPARISON: Left hip and pelvis series 05/06/2024. RAD/HIP, UNI W/ Pelvis 2-3 Views IMPRESSION: Prominent degenerative changes of the visualized lower lumbar spine noted. Mild sacroiliac joint degenerative changes are seen. Stable mild right hip joint degenerative changes. A left total hip prosthesis remains in place, with stable alignment. No evidence of loosening or metallic fracture. Calcified left uterine fibroid again seen. No fracture or dislocation is evident. Reading Location: [place] [address] CC: [facility] PROGRAMMING DEVELOPMENT PROJECT MANAGER-C Irene Gonzalez; ANDREA ARROYO Shot Peening Operator: Signed [facility] CNPN Telephone (OBGYWM) KEIRY MILLER ([id number]) 1960 F Date Time Provider Department 08/30/24 SWETHA NINO OBGYWRon During your visit today, we recorded the following information about you: Argentina Worrell RN 08/30/2024 8:24 AM Signed Swetha Nino APRN.LOURDES 08/30/24 7:11 AM Note Please let the pt know that her vaginal cultures are negative and I will send in the Clobetasol cream for her to use as discussed at the visit. Swetha Nino APRN.Argentina Richards RN 08/30/2024 8:24 AM Signed Left message for patient to call office. BARRY Perez Lindsey, RN 09/02/2024 10:43 AM Signed Patient notified and voiced understanding. Karmen Yoder RN Allergies As of Date: 08/30/2024 Noted Allergy Reaction ADHESIVE TAPE (ROSINS) 05/27/2024 9 - Itching BEE POLLEN 05/06/2024 16 - Unknown Comments: Other Reaction(s): Itchy watery eyes SULFA (SULFONAMIDE ANTIBIOTICS) 06/26/2017 14 - Other: See Comments Comments: Tightness of chest. Date Reviewed: 08/29/2024 Reviewed by: Augusta Mckinney LPN - Fully Assessed Reason for Visit: Results [95] Prescriptions as of 09/02/2024 - clobetasol (TEMOVATE) 0.05 % cream Apply to affected area 2x/day for 2 weeks, then 1x/day for a week, than 1-3x/week for maintenance. - Cholecalciferol, Vitamin D3, 25 mcg (1,000 unit) cap Take 1,000 Units by mouth once daily. - ciprofloxacin HCl (CIPRO) 500 mg tablet Take 1 tablet by mouth every 12 hours. - loratadine (CLARITIN) 10 mg tablet Take 10 mg by mouth once daily. - meloxicam (MOBIC) 15 mg tablet Take 15 mg by mouth once daily. - lisinopril (ZESTRIL, PRINIVIL) 40 mg tablet Take 1 tablet by mouth once daily. Problem List As Of Date: 08/30/2024 (None) Encounter Status:Closed by KARMEN YODER on 09/02/[address] [facility] Culture, Anaerobic Any Sourc jennifer 08-30-2024 CUAN MUST DO SENSITIVITIE S EAR DRAINAGE No anaerobic bacteria isolated. Normal [facility] Comment on above: Performed By: #### M 100.2000, M100.4001, M100.2700 #### [facility] [address] [place], [address] Ear/Mast Cultureon [facility] MUST DO SENSITIVITIE S EAR DRAINAGE Staphylococcus auricularis Amount Growth Rare Yeast, not Ibrahima albicans Amount Growth Rare Staphylococcus auricularis: REACTION cefOXitin Susc Islt POS Doxycycline Islt WILL <=0.5 S Clindamycin Islt WILL <=0.12 S Clindamycin.induced Susc Islt NEG Erythromycin Islt WILL <=0.25 S Gentamicin Islt WILL <=0.5 S Linezolid Islt WILL 2 S Oxacillin Susc Islt R Tetracycline Islt WILL <=1 S TMP SMX Islt WILL <=10 S Vancomycin Islt WILL <=0.5 S Normal [facility] Comment on above: Performed By: #### M 100.2000, M100.4001, M100.2700 #### [facility] [address] [place], [address] BACTERIAL VAGINOSIS NAATon 0 08-29-2024 Lactobacillus crispatus+gasseri+jense jalen + Gardnerella vaginalis + Atopobium vaginae rRNA EMMA+probe Ql (Vag fld) Not detected Normal Not detected [facility] Comment on above: Order Comment: Speci men Type: SWAB Ordering Facility: [facility] Address: [address] [place] [address] Performed By: #### B VAMP, CVTV #### [facility] CLIA [id number] [address] [place] [address] [place] IBRAHIMA/TRICHOMONAS NAATon 0 08-29-2024 C. glabrata RNA EMMA+probe Ql (Vag fld) Not detected Normal Not detected [facility] Comment on above: Order Comment: Speci men Type: SWAB Ordering Facility: [facility] Address: [address] [place] [address] Performed By: #### B VAMP, CVTV #### [facility] CLIA [id number] [address] [place] [address] [place] Ibrahima sp DNA EMMA+probe Ql (Vag fld) Not detected Normal Not detected [facility] Comment on above: Order Comment: Speci men Type: SWAB Ordering Facility: [facility] Address: [address] [place] [address] Result Comment: The Ibrahima species group target includes C. albicans, C. tropicalis, C. parapsilosis, and C. dubliniensis. Performed By: #### B VAMP, CVTV #### [facility] CLIA [id number] [address] [place] [address] STATES OF [facility] T. vaginalis DNA EMMA+probe Ql (Unsp spec) Not detected Normal Not detected [facility] Comment on above: Order Comment: Speci men Type: SWAB Ordering Facility: [facility] Address: [address] [place] [address] Performed By: #### B VAMP, CVTV #### [facility] CLIA [id number] [address] [place] [address] OF [place] CNOVon 08-29-2024 CNOV Office Visit (OBGYWM ) KEIRY MILLER ([id number]) 1960 F Date Time Provider Department 08/29/24 1:15 PM SWETHA NINO OBTANNERWRon During your visit today, we recorded the following information about you: Blood pressure Weight 148/86 89.9 kg Swetha Nino APRN.INTERNET MARKETING SPECIALIST 08/29/2024 2:01 PM Signed Patient declined microbiology lab technician. Keiry Miller is a 64 year old female who presents for problem visit vaginal irritation, external. HPI: Patient states that she noticed mostly external irritation over the past week or so. She states that when urine hits the skin it campoverde. She has tried several different creams with no resolve of symptoms. Patient had hip replacement done in July and is doing well at this time. OB History Gravida1 Para0 Term0 Preterm0 AB0 Living1 SAB0 IAB0 Ectopic0 Multiple0 Live Births0 Cutter Grinder History LMP: Postmenopausal Age at Menarche: Age at First : Age at Menopause: Cutter Grinder History Comments: Sexual Activity: Not Currently; No partner data on record Contraception: No contraception data on record PAST MEDICAL HISTORY Diagnosis Date H/O cervical polypectomy 06/2021 Hypertension Lichen sclerosus PAST SURGICAL HISTORY Procedure Laterality Date EXTRACTION ERUPTED TOOTH/EXR Pt reproted age 20 HIP SURGERY HX Left Pt reported History reviewed. No pertinent family history. Social History Tobacco Use Smoking status: Never Smokeless tobacco: Never Vaping Use Vaping status: Never Used Substance Use Topics Alcohol use: Never Drug use: Never Current Outpatient Medications Medication Sig Cholecalciferol, Vitamin D3, 25 mcg (1,000 unit) cap Take 1,000 Units by mouth once daily. ciprofloxacin HCl (CIPRO) 500 mg tablet Take 1 tablet by mouth every 12 hours. loratadine (CLARITIN) 10 mg tablet Take 10 mg by mouth once daily. meloxicam (MOBIC) 15 mg tablet Take 15 mg by mouth once daily. lisinopril (ZESTRIL, PRINIVIL) 40 mg tablet Take 1 tablet by mouth once daily. No current facility-administered medications for this visit. Allergies As of Date: 08/29/2024 Allergen Noted Reaction ADHESIVE TAPE (ROSINS) 05/27/2024 Itching BEE POLLEN 05/06/2024 Unknown SULFA (SULFONAMIDE ANTIBIOTICS) 06/26/2017 Other: See Comments Fully Assessed 08/29/2024 REVIEW OF SYSTEMS Expanded ROS: N/A Allergies and current medication updated:Yes SENSITIVE EXAM: The sensitive examination was discussed with the Patient or Patient's Authorized Weights And Measures Inspector. As applicable, any other physician, advance practice provider, medical student, or other health professional student that will be observing or involved in the sensitive examination for educational or training purposes was discussed with the Patient or Authorized Weights And Measures Inspector. The Patient or Authorized Weights And Measures Inspector has agreed to proceed with the sensitive examination. (Sensitive examination includes inspection and/or palpation of the breasts, pelvis, prostate and anorectal regions). EXAM: BP 148/86 Wt 198 lb 3.2 oz (89.9kg) GENERAL: pleasant, female in no apparent distress HEENT: Normocephalic, atraumatic, mucus membranes moist, and no lesions CHEST: Normal inspiratory effort PELVIC: external genitalia normal, normal Bartholin's glands, urethra, Neshkoro's glands, physiologic discharge present, normal appearing perineal body and perianal region, +fissure to lower left groin, sloughing of skin on the inner labia BIMANUAL: deferred NEURO: alert and oriented x3,exam grossly non-focal EXTREMITIES: normal ASSESSMENT/PLAN: 1. Vulvar irritation - ICD9: 624.8, ICD10: N90.89 (primary diagnosis) - IBRAHIMA/TRICHOMONAS NAAT - BACTERIAL VAGINOSIS NAAT If results are negative will order Clobetasol 2. Dysuria - ICD9: 788.1, ICD10: R30.0 acute - UA positive for hanna esterase - Patient education for prevention given - UA DIP, URINE (POC) Will notify patient of test results. Swetha Nino APRN.LOURDES Medical Decision Making: Problems: Low: Acute, uncomplicated illness or injury Data: Unique test(s) ordered: 3+ Risk: Low: Low risk from testing/treatment Medical Decision Making Level: 3 - Low Allergies As of Date: 08/29/2024 Noted Allergy Reaction ADHESIVE TAPE (ROSINS) 05/27/2024 9 - Itching BEE POLLEN 05/06/2024 16 - Unknown Comments: Other Reaction(s): Itchy watery eyes SULFA (SULFONAMIDE ANTIBIOTICS) 06/26/2017 14 - Other: See Comments Comments: Tightness of chest. Date Reviewed: 08/29/2024 Reviewed by: Augusta Mckinney LPN - Fully Assessed Reason for Visit: Problem Visit [Other] Primary Visit Diagnosis:Vulvar irritation [N90.89] Other Visit Diagnosis:Dysuria [R30.0] Order(s):IBRAHIMA/TRICHO MONAS NAAT [SQCVTV] Order #: [id number]. #:[id number] BACTERIAL VAGINOSIS NAAT [SQBVAMP] Order #: [id number]. #:[id number] UA DIP, URINE (POC) [[id number]] Order #: [id number]. #:[id number] (more content not included)... Normal [facility] UA DIP, URINE (POC)on 2024 BILIRUBIN UA (POCT) Negative Negative [facility] CLARITY UA (POCT) Clear [facility] COLOR UA (POCT) Yellow [facility] GLUCOSE UA (POCT) Negative Negative mg/dL [facility] Hemoglobin Ql (U) Negative Negative [facility] Interpretation and review of laboratory results Abnormal [facility] KETONE UA (POCT) Negative Negative mg/dL [facility] LEUKOCYTES UA (POCT) Small Abnormal Negative [facility] NITRITE UA (POCT) Negative Negative [facility] PH UA (POCT) 7 4.5 - 8.0 [facility] Protein Ql (U) Negative Negative mg/dL [facility] SPECIFIC GRAVITY UA (POCT) 1.01 1.005 - 1.030 [facility] UROBILINOGEN UA (POCT) 0.2 Slime l E.U./dL [facility] Location:[facility], [address], [place], [address] [facility] POINT OF CARE [facility] Gram Stainon 08-27-2024 GS MUST DO SENSITIVITIE S EAR DRAINAGE Gram Stain 2+ Gram positive cocci No White Blood Cells Normal [facility] Comment on above: Performed By: #### M 100.2000, M100.4001, M100.2700 #### [facility] [address] [place], [place], [address] Aerobic bacterial ear cultur eOrdered By: Jonah Briones on 08-26-2024 Bacteria identified Aer cx Nom (Ear) Staphylococcus auricularis Abnormal [facility] Bacteria identified Aer cx Nom (Ear) Yeast, not Ibrahima albicans Abnormal [facility] Anaerobic cultureOrdered By: Jonah Briones on 08-26-2024 Bacteria identified Anaer cx Nom (Unsp spec) No anaerobic bacteria isolated. [facility] Gram stainOrdered By: Homero Briones on 08-26-2024 Microscopic observation Gram stain Nom (Unsp spec) [facility] Office Visiton 08-12-2024 Follow-up visit [id number] Lisa Miller 1960 F Date Provider Department Center 08/12/2024 [id number] ARROYO [facility] None Family History Problem Relation Age of Onset Arthritis Mother Hypertension Mother Heart disease Father Stroke Father Stroke Paternal Grandmother Depression Brother Hypertension Brother Hypertension Sister Family Status - Relation Status Age at Mother Father Paternal Grandmother Brother Sister Level of Service:[address] [place] [employer] FOLLOW UP VISIT RELATED TO ORIGINAL PX Reason for Visit and Comments: Post-op [483] - Left total hip arthroplasty, DOS 07/12/2024 Normal [facility] Progress Noteon 08-12-2024 Progress Note [facility] [place] [address] [facility] [address] [place] [address] Dept: [phone] Dept 08/12/2024 Chief Complaint Patient presents with Post-op Left total hip arthroplasty, DOS 07/12/2024 Subjective: Keiry is approximately 4 week(s) out from a left total hip arthroplasty, DOS 07/12/2024. Pain is mild. Patient has noted issues with: nothing out of the ordinary. Assistive device for ambulation: none. Pre-operative symptoms are improved. The patient is able to walk 1 blocks and is able to use stairs. Patient denies calf pain or unusual swelling. ED visit since surgery: No Hospital re-admit since surgery: No Complication since surgery: No Physical Therapy: Home therapy ended last . She does not wish to have additional formal therapy. She performs home exercises. Review of Systems Constitutional: Negative for chills and fever. HENT: Negative for congestion. Respiratory: Negative for cough. Musculoskeletal: Positive for joint swelling. Negative for gait problem. Neurological: Positive for numbness. Negative for weakness. Objective: BP 132/85 (BP Location: Left arm, Patient Position: Sitting, BP Cuff Size: Large adult) Pulse 87 Ht 5' 6.5 (1.689 m) Wt 200 lb (90.7 kg) BMI 31.80 kg/m? Ortho Exam [place] well today and non-toxic. Gait is antalgic. Incision healing well, no significant drainage, no dehiscence. Skin otherwise is warm, dry and intact. Swelling is mild. Hip ROM is smooth and non-tender with no signs or symptoms of instability. Keiry remains neuro intact to the operative leg. No evidence of DVT seen on physical exam. Negative Alex's sign. No cords or calf tenderness. The patient does not appreciate a leg length discrepancy. XRAYS: New images obtained today in office reviewed and interpreted. Indication: Status post left total hip arthroplasty. Exam Ordered: Radiographs taken today include an anteroposterior pelvis, an AP, and lateral view of the left proximal femur including the hip joint. Details of Examination: Exam show a well fixed, well positioned hip arthroplasty with no evidence of wear, osteolysis, fracture, or loosening. Impression: Status post left total hip arthroplasty, implant in good position with no abnormality. Assessment 1. Primary osteoarthritis of left hip 2. S/P total left hip arthroplasty Plan Keiry will continue with WBAT and therapy exercises. I would like to check the patient back in 3 month(s) with a low AP pelvis and lateral of the proximal femur. She [place] further away. Will get new xrays in 3 months rather than following up in person. If any concerns arise then will see in person at that time. Otherwise, she is doing well and minimal to no pain. Treated with tylenol. Finished home PT and will continue exercises on her own. We reviewed signs and symptoms of common post-operative issues including infection. We reviewed the need for prophylaxis with dental or other procedures. She will call and return sooner for questions, issues, or concerns. Andrea Arroyo PA-C Orthopedic Surgery Hip and Knee Reconstruction [facility] 08/12/2024 at 12:48 PM. Normal [facility] XR HIP 2 OR 3 VW LEFTon XR HIP 2 OR 3 VW LEFT Indication: Status post left total hip arthroplasty. Exam Ordered: Radiographs taken today include an anteroposterior pelvis, an AP, and lateral view of the left proximal femur including the hip joint. Details of Examination: Exam show a well fixed, well positioned hip arthroplasty with no evidence of wear, osteolysis, fracture, or loosening. Impression: Status post left total hip arthroplasty, implant in good position with no abnormality. Normal [facility] XR Hip - left 3 Viewson Indication: Status p ost left total hip arthroplasty. Exam Ordered: Radiographs taken today include an anteroposterior pelvis, an AP, and lateral view of the left proximal femur including the hip joint. Details of Examination: Exam show a well fixed, well positioned hip arthroplasty with no evidence of wear, osteolysis, fracture, or loosening. Impression: Status post left total hip arthroplasty, implant in good position with no abnormality. [facility] Radiology Study observation (narrative) Justen salazar Progress Noteon 07-26-2024 Progress Note DOS: 07/11/24 Surgery: Left Total Hip Arthroplasty Surgeon: Teena Assistive devices used: a cane Wound/incision concerns: Denies Erythema, Drainage, and Dehiscence Fevers/Chills/Night sweats: Denies Any new symptoms following surgery: No Any improvement in preoperative symptoms: Yes and she is doing very well. Minimal pain at this time treated with tylenol. She is very happy with recovery. She is working with Pt. No concerns with incision at this time. DVT Prophylaxis: Aspirin 81mg BID x 4 weeks Pain Control: Tylenol and Mobic Any postoperative refills requested: No If narcotics requested, was an OARRS reviewed: No, Not Applicable Post op restrictions reviewed: Weight Bearing As Tolerated Home PT: Yes Outpatient Scheduled: No, will discuss at 4 week post-op visit 4 Week Follow-up Scheduled: Yes I had a discussion with the patient today regarding postoperative care, see above. All questions and concerns were addressed. We will plan to see the patient for their standard 4 week postoperative visit in the office. Should they have any questions or concerns prior to that appointment, they were instructed to contact our office. Andrea Arroyo PA-C TOTAL TIME SPENT ON PATIENT ENCOUNTER TODAY: 5 MINUTES: Chart review and preparation, telephone discussion, and documentation. Patient was identified and seen today via Telehealth by agreement and consent. I used the following Telehealth technology: Audio capability only. Total length of call 5 minutes. The patient was offered and advised video for a more comprehensive evaluation, but the patient declined or was unable to use video. Patient location: Patient Location: Home. This patient encounter is appropriate and reasonable under the circumstances: recent surgery . The patient has been advised of the potential risks and limitations of this mode of treatment (including but not limited to the absence of in-person examination) and has agreed to be treated in a remote fashion in spite of them. Any and all of the patient's/patient's family's questions on this issue have been answered and I have made no promises or guarantees to the patient. The patient has also been advised to contact this office for worsening conditions or problems, and seek emergency medical treatment and/or call 911 if the patient deems either necessary. The patient stated that they are currently in the state [facility]. If the patient is a minor, permission has been obtained by the parent or guardian for the patient to receive medical care at this visit. [facility] 36on 07-22-2024 36 Keiry called to see if she can stopped the meloxicam. Discussed meloxicam is as needed. She was also wondering about protonix. Discussed it is for 1 month while she is on the aspirin. [facility] 36on 07-18-2024 36 POD #7 LTHA Keiry states she is doing great. She has stopped taking the narcotics a couple of days ago. She had been constipated but it has resolved. She has worked with home PT. They are supposed to come again tomorrow and are going to remove the incisional dressing at that time. She verbalized understanding to call with any questions or concerns. [facility] [id number] 07-14-2024 [id number] Patient Choice Patient Name: KEIRY MILLER Date of : 1960 [facility] [id number] 07-12-2024 [id number] POD #1 LTHA Patient ambulating with PT. She has a FWW. She is hoping to be discharged home today with home health. Her daughter will be helping her at home as needed. Primary Caregiver: self If assistance needed, confirmed caregiver ready, willing and able to care for patient at discharge: Yes Confirmed with: sister [facility] 30on 07-12-2024 30 Problem: Pain - Adul t Goal: Verbalizes/displays adequate comfort level or baseline comfort level Outcome: Adequate for Discharge Problem: Safety - Adult Goal: Free from fall injury Outcome: Adequate for Discharge Problem: Discharge Planning Goal: Discharge to home or other facility with appropriate resources Outcome: Adequate for Discharge Problem: Chronic Conditions and Co-morbidities Goal: Patient's chronic conditions and co-morbidity symptoms are monitored and maintained or improved Outcome: Adequate for Discharge Problem: Skin/Tissue Integrity - Adult Goal: Skin integrity remains intact Outcome: Adequate for Discharge Goal: Incisions, wounds, or drain sites healing without S/S of infection Outcome: Adequate for Discharge Problem: Musculoskeletal - Adult Goal: Return mobility to safest level of function Outcome: Adequate for Discharge Goal: Maintain proper alignment of affected body part Outcome: Adequate for Discharge Goal: Return ADL status to a safe level of function Outcome: Adequate for Discharge [facility] [id number] 07-12-2024 [id number] Next Site of Care Admission Date: 07/11/2024 08:40 AM Patient Name: KEIRY MILLER Location: [facility] [id number] A Date of : 1960 - Placement Information - Referral Type:Home Health Care Services - New Referral ID:[id number] Provider Name:[facility] Address 1:[address] [place] [address] Address 2: City:[place] Selection Factors:Patient/Family Choice [facility] 07-12-2024 36 Keiry called because she saw no refills on the pain medication. She was wondering if she needed refills what to do and where they would be sent. Instructed Keiry that if she ends up needing refill on the pain medications to call Dr. Kruse office and refills will be sent to her normal pharmacy. Normal [facility] BASIC METABOLIC PANELon 05-0 Anion gap [Moles/Vol] 9 mmol/L Normal 3-13 [facility] Comment on above: Performed By: #### L AB15 ####Telephone Directory Distributor Driver: DINA NASCIMENTO ([id number])[facility] [place] (SBHLAB)[address] Calcium [Mass/Vol] 8.3 mg/dL Low 8.8-10.0 [facility] Comment on above: Performed By: #### L AB15 ####Telephone Directory Distributor Driver: DINA NASCIMENTO ([id number])[facility] [place] (SBHLAB)[address] Chloride [Moles/Vol] 102 mmol/L Normal 98-107 [facility] Comment on above: Performed By: #### L AB15 ####Telephone Directory Distributor Driver: DINA NASCIMENTO ([id number])[facility] [place] (SBHLAB)[address] [place] [address] [place] CO2 [Moles/Vol] 20 mmol/L Low 23-31 [facility] Comment on above: Performed By: #### L AB15 ####Telephone Directory Distributor Driver: DINA NASCIMENTO ([id number])[facility] [place] (SBHLAB)[address] Creatinine [Mass/Vol] 0.92 mg/dL Normal 0.57-1.11 [facility] Comment on above: Performed By: #### L AB15 ####Telephone Directory Distributor Driver: DINA NASCIMENTO ([phone])[facility] [place] (SBHLAB)[address] [place] [address] [place] GLOMERULAR FILTRATION RATE ML/MIN/1.73 SQ M.PREDICTED 69.2 mL/min/1.73m*2 Normal >60.0 [facility] Comment on above: Result Comment: Calc ulation based on the Chronic Kidney Disease Epidemiology Collaboration (CKD-EPI) equation refit without adjustment for race Performed By: #### L AB15 ####Telephone Directory Distributor Driver: DINA NASCIMENTO ([id number])[facility]ESAD[facility] (SBHLAB)[address] Glucose [Mass/Vol] 211 mg/dL High 82-115 [facility] Comment on above: Performed By: #### L AB15 ####Telephone Directory Distributor Driver: DINA NASCIMENTO ([phone])[facility] (SBHLAB)[address] Potassium [Moles/Vol] 4.5 mmol/L Normal 3.5-5.1 [facility] Comment on above: Result Comment: [facility] potassium values may be up to 0.5 mmol/L lower than serum values. Performed By: #### L AB15 ####Telephone Directory Distributor Driver: DINA NASCIMENTO ([id number])[facility] PAR[facility]ESAV[facility] (SBHLAB)[address] [place] [address] Sodium [Moles/Vol] 131 mmol/L Low 136-145 [facility] Comment on above: Performed By: #### L AB15 ####Telephone Directory Distributor Driver: DINA NASCIMENTO ([id number])[facility] (SBHLAB)[address] Urea nitrogen [Mass/Vol] 20 mg/dL Normal 9-23 [facility] Comment on above: Performed By: #### L AB15 ####Telephone Directory Distributor Driver: DINA NASCIMENTO ([id number])[facility] (SBHLAB)[address] [place] [address] Basic metabolic 1998 panelon 07-12-2024 Anion gap [Moles/Vol] 9 mmol/L 3 - 13 mmol/L [facility] Calcium [Mass/Vol] 8.3 mg/dL Low 8.8 - 10. 0 mg/dL [facility] Chloride [Moles/Vol] 102 mmol/L 98 - 10 7 mmol/L [facility] CO2 [Moles/Vol] 20 mmol/L Low 23 - 31 mmol/L [facility] Creatinine [Mass/Vol] 0.92 mg/dL 0.57 - 1.11 mg/dL [facility] GFR/1.73 sq M.predicted (S/P/Bld) [Vol rate/Area] 69.2 mL/min - PINF [facility] Comment on above: Calculation based on the Chronic Kidney Disease Epidemiology Collaboration (CKD-EPI) equation refit without adjustment for race Glucose [Mass/Vol] 211 mg/dL High 82 - 115 mg/dL [facility] Interpretation and review of laboratory results Abnormal [facility] Potassium [Moles/Vol] 4.5 mmol/L 3.5 - 5.1 mmol/L [facility] Comment on above: Plasma potassium jimmy ues may be up to 0.5 mmol/L lower than serum values. Sodium [Moles/Vol] 131 mmol/L Low 136 - 145 mmol/L [facility] Urea nitrogen [Mass/Vol] 20 mg/dL 9 - 23 mg/dL [facility] HEMOGLOBIN AND HEMATOCRIT, B LOODon 07-12-2024 Hematocrit (Bld) [Volume fraction] 29.1 % Low 35.0-47.0 [facility] Comment on above: Performed By: #### L [id number] #### Telephone Directory Distributor Driver: DINA NASCIMENTO ([id number]) [facility] ([facility]) [address] [place] [address] Hemoglobin (Bld) [Mass/Vol] 9.7 g/dL Low 11.7-16.0 [facility] Comment on above: Performed By: #### L AB753 #### Telephone Directory Distributor Driver: DINA NASCIMENTO ([id number]) [facility] ([facility]) [address] [place] [address] Hemoglobin (Bld) [Mass/Vol]o n 07-12-2024 Hematocrit (Bld) [Volume fraction] 29.1 % Low 35.0 - 47.0 % [facility] Interpretation and review of laboratory results Abnormal [facility] Laboratory - Hematology and Cell countson 07-12-2024 Hemoglobin (Bld) [Mass/Vol] 9.7 g/dL Low 11.7 - 16.0 g/dL [facility] Nursing Noteon 07-12-2024 Nursing Note Reviewed home going instructions with patient. Verbalized understanding. Normal [facility] Progress Noteon 07-12-2024 Progress Note PHYSICAL THERAPY [facility] Treatment Note Name/MRN: Keiry Miller ([id number]) Date of : 1960 Age: 64 y.o. Room/Bed: B1-166/B1-166 A Visit #: 1 out of 6 visits Discharge Recommendation: Home with Home health PT Equipment Needed: No Prior Level of Function Prior Level of ADL Function: Independent Prior Level of Mobility: Independent; Device: Straight Cane and Quad cane Prior Level of Transfers: Independent Assessment Pt demonstrates improvement in functional mobility with achieving goals established. Pt demonstrates independence with all functional goals with need for supervision assist with curb management. Pt demonstrates good teach back of exercises and quad firing with good pain control. All questions answered to pt's satisfaction. Pt safe to return home with assist as needed and continue therapy to further improve strength, ROM and functional independence Subjective Pt agreeable to therapy. Observation Pt dressed, PIV intact Vitals Vitals Heart Rate: 96 Heart Rate Source: Monitor BP: 144/78 MAP (mmHg): 100 Pain: 0-10 pain scale: 1/10 pre ( stiff) and 3 post treatment Location: L hip Medical Precautions: No active isolations Proper PPE donned/doffed in accordance with facility standards. Fall Risk: St Fall Risk Score: 60 (High Risk) Precautions/Restriction s: Left LE Weight Bearing: Weight Bearing As Tolerated Hip Precautions: Anterior Hip Precautions Overall Cognitive Status: WNL Overall Orientation Status: Oriented x4 Family/Caregiver Present: none Objective Bed Mobility Supine to sit: Independent Sit to supine: Independent Pt demonstrated safe transfer with maintaining of hip precautions/alignment on level surface without usage of bed rails. Transfers/Mobility Sit to stand: Modified Independent Stand to sit: Modified Independent Car transfers: unable to assess: Discussed technique with pt able to verbally teach back proper sequencing. Educated on placement of seat and back rest for maintaining of hip precautions and increased leg room for transition. Pt reports needing to climb up 2 steps to get into a truck. But going home in her daughters car. Recommended she practice the truck transfer with [facility] to assure proper and safe technique. Pt verbalizes comprehension Pt demonstrates proper hand and LE placement with good stability and eccentric control during transitions. Device(s) used: Front wheeled walker Ambulation Ambulation 1 Assistive device(s) used: Front wheeled walker Assist level: Modified Independent Distance (ft): 200' x 1 Quality of gait: Pt walks with a semi quick pace and cued to decrease for increased awareness to technique. Pt walks with a reciprocal pattern but with tendency to internally rotate L LE. Pt able to correct with cueing but tends to revert. Pt also required cueing x 1 to remain within walker at all times especially on turns for safety with good carry over. Pt educated on usage of FWW at all times until instructed by future therapists. Pt verbalizes comprehension. Exercises Exercises Straight Leg Raise: Cued to not perform Quad Sets: 1 set / 10 reps in supine L LE Heelslides: 1 set / 10 reps in supine L LE Hip Abduction:1 set / 10 reps in sitting B LE isometrically Hip Adduction: 1 set / 10 reps in sitting B LE isometrically Knee Long Arc Quad: 1 set / 10 reps in sitting L LE Knee Short Arc Quad: 1 set / 10 reps in supine L LE Ankle Pumps: 1 set / 10 reps in supine L LE Comments: . HEP provided and reviewed with pt able to demonstrate good teach back of exercises and quad firing present. Exercises performed to improve strength, joint integrity and circulation for wound healing and mobility. Pt instructed to perform exercises 2 x per day and to walk once an hour when awake. Pt voices comprehension. Curb Curb Height: 6 # of Curbs: 1 x 2 Assistive device(s) used: Front wheeled walker Assist level: Supervision Additional factors: Pt educated on technique with teach back of a step to pattern with ability to manage walker and supervision to ensure safety. Reviewed hip precautions/restriction s with pt able to recall 2/4 without cueing and demonstrated compliance during activities. Plan Discontinue therapy secondary to goals met Safety/Education Safety Safety Devices in place: All fall risk precautions in place, call light within reach, left in chair, gait belt, and nurse notified Restraints: No Education Education Given To: patient Education Provided: PT Role, PT Goals, Gait Training, Plan of Care, Home Exercise Program, Precautions, Transfer Training, Equipment, and Discharge Recommendations Education Method: Verbal, Demonstration, Teach Back, and Printed Information Barriers to Learning: None Education Outcome: Verbalized Understanding and Demonstrated Understanding Outcome Measures AM-PAC AM-PAC Inpatient Mobility Raw Score (No Stairs) : 20 (more content not included)... Normal [facility] Progress Note OCCUPATIONAL THERAPY [facility] Treatment Note Name/MRN: Keiry Miller ([id number]) Date of : 1960 Age: 64 y.o. Room/Bed: B1-166/B1-166 A Visit #: 1 out of 3 visits Discharge Recommendation: Home with Home health OT, Home with assist PRN Equipment Needed: Yes Mobility Devices: Hip kit Prior Level of Function Prior Level of ADL Function: Independent Prior Level of Mobility: Independent; Device: SPC vs quadcane Prior Level of Transfers: Independent Assessment Pt training LE dressing with AE, UE dressing, transfers, toileting, and mob this date at overall Mod I with cues for tech and good teachback. Pt will require a hip kit for completing ADLs at home, however has access to all included AE other than a sock aid, and wishes to purchase on her own. Pt has assist available from at home for socks as well. Pt is adequate for DC from OT this date d/t having met or demonstrated the ability to meet all current OT goals, re-order OT if changes occur. OT rec DC home with [facility] OT and assist PRN. Subjective Pt supine in bed on arrival, pleasant and cooperative with OT tx. Pain: Becerril-Siegel Pain Ratin = Hurts little more Pain Location: L hip Vitals Temp: 37.2 ?C (98.9 ?F) Temp Source: Temporal Heart Rate: 89 SpO2: 97 % Heart Rate Source: Monitor BP: 133/64 MAP (mmHg): 87 Medical Precautions: No active isolations Proper PPE donned/doffed in accordance with facility standards. Fall Risk: St Fall Risk Score: 70 (High Risk) Precautions/Restriction s: Left LE Weight Bearing: Weight Bearing As Tolerated Hip Precautions: Anterior Hip Precautions Family/Caregiver Present: none Objective ADLs LE Dressing: Modified Independent Toileting: Modified Independent UE Dressing: Modified Independent Pt edu on LE dressing with AE completing at Mod I. 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 Pt wishing to purchase sock aid indep of hip kit. Pt demonstrating ability to complete toileting and UE dressing at Mod I. Bed Mobility Supine to sit: Modified Independent HOB Elevated Use of bed rail(s) Pt seated in recliner at end of session. Transfers/Mobility Sit to stand: Modified Independent Stand to sit: Modified Independent Toilet: Modified Independent Shower: decline Standing balance: Modified Independent Functional mobility: Modified Independent Pt training transfers and mob this date at overall Mod I with cues for tech and good teachback. Pt using clarissa grab bars during toilet transfer to simulate at home set up. Pt declining shower transfer this date reporting no concerns d/t owning grab bars, shower seat with a back, and walk-in shower, as well as having assist from for showering. Pt completing bal and mob in raman x3 mins at overall Mod I for completing. Device(s) used: Front wheeled walker and Grab bars Cognition WFL Plan Continue acute OT per plan of care. Safety/Education Safety Safety Devices in place: All fall risk precautions in place, call light within reach, left in chair, gait belt, patient at risk for falls, nurse notified, and no alarms engaged upon entry Restraints: No Education Education Given To: patient Education Provided: OT Role, Plan of Care, Precautions, ADL Adaptive Strategies, Transfer Training, Equipment, Fall Prevention Education, Discharge Recommendations, and Benefits of Increasing Activity Education Method: Verbal, Demonstration, and Teach Back Barriers to Learning: None Education Outcome: Verbalized Understanding and Demonstrated Understanding AM-PAC AM-PAC Inpatient Daily Activity Raw Score: 23 ADL Inpatient CMS G-Code Modifier: CI Goals Patient Stated Goal: to return home. Encounter Problems Encounter Problems (Resolved) Dressing Upper Extremities Patient will complete upper body dressing MOD I (Goal Met) Start: 07/11/24 Expected End: 07/13/24 Resolved: 07/12/24 Dressings Lower Extremities Patient will dress lower body MOD I with AE (Goal Met) Start: 07/11/24 Expected End: 07/13/24 Resolved: 07/12/24 Mobility Patient will demonstrate functional mobility with MOD I and FWW (Goal Met) Start: 07/11/24 Expected End: 07/13/24 Resolved: 07/12/24 Toileting Patient will complete toileting tasks at standard toilet with modified independence. (Goal Met) Start: 07/11/24 Expected End: 07/13/24 Resolved: 07/12/24 Transfers Patient will complete functional transfer with rolling walker with modified independence in order to prepare for ambulation. (Goal Met) Start: 07/11/24 Expected End: 07/13/24 Resolved: 07/12/24 Therapy Time Individual Co-treatment Time In 721 Time Out 0751 Minutes 29 Timed Code Treatment Minutes: 29 Minutes (1ADL, 1ACT) Viktoriya Giraldo I personally guided the care care of this patients treatment with the [employer] student and agree with the above note. PEE Owens/Barb [facility] Progress Note Adult Hip and Knee Reconstruction Service Patient Name: Keiry Miller Date of : 1960 Date: 07/12/24 Assessment: s/p Left KOTA on 07/11/2024 doing well Plan: -Weight bearing: WBAT -Range of motion parameters: Anterior hip precautions, otherwise ROM as tolerated -Immobilization: No immobilization needed -Consults: none -Antibiotics: Abx 24hrs post-op; Duricef at discharge -Dressings: Keep bandage clean dry and intact for 7-10 days post operatively, then ok to leave open to air if incision is without drainage -Diet: no restrictions from ortho standpoint -Continue PT/OT -Pain control -Ice and elevate -DVT prophylaxis: ASA/SCDs -DC planning: home when clears PT -Ortho following, please page it security consulting director resident with questions or concerns. Subjective: Overall patient is doing great this morning. Pain is well controlled with pain medication. Patient has been up to the bathroom. Reports voiding without difficulty. Working with OT this AM. Denies nausea or vomiting. Denies numbness/tingling. Denies SOB or calf pain. Medications: acetaminophen, 650 mg, Oral, q6h aspirin, 81 mg, Oral, BID famotidine, 20 mg, Oral, BID lisinopril, 40 mg, Oral, Daily meloxicam, 15 mg, Oral, Daily sodium chloride 0.9%, 10 mL, IntraVENous, 2 times per day traMADol, 50 mg, Oral, q6h Physical Exam: Vitals: 07/12/24 0804 BP: 144/78 Pulse: 96 Resp: Temp: SpO2: Intake and Output Summary (Last 24 hours) at Date Time Intake/Output Summary (Last 24 hours) at 07/12/2024 0816 Last data filed at 07/11/2024 1316 Gross per 24 hour Intake 1300 ml Output 300 ml Net 1000 ml General appearance - no acute distress Musculoskeletal - Dressing C/D/I Fires quad/TA/EHL/GSC SILT SP/DP/TN WWP distally Posterior tibial pulse 2+ bilaterally Calves soft, nontender bilateral. No edema, erythema or warmth noted to calves. Labs: Lab Results Component Value Date HGB 9.7 (L) 07/12/2024 , Lab Results Component Value Date WBC 8.5 07/03/2024 HGB 9.7 (L) 07/12/2024 HCT 29.1 (L) 07/12/2024 MCV 90.0 07/03/2024 PLT 338 07/03/2024 , Lab Results Component Value Date GLUCOSE 211 (H) 07/12/2024 CALCIUM 8.3 (L) 07/12/2024 NA 131 (L) 07/12/2024 K 4.5 07/12/2024 CO2 20 (L) 07/12/2024 CL 102 07/12/2024 BUN 20 07/12/2024 CREATININE 0.92 07/12/2024 , No results found for: CRP, CREACTIVEPRO , and No results found for: SEDRATE, SEDRATEBYMOD Rads: Radiological Procedure reviewed. Signed by: Delaney Damon PA-C [facility] 30on 07-11-2024 30 Problem: Pain - Adul t Goal: Verbalizes/displays adequate comfort level or baseline comfort level Outcome: Progressing Problem: Safety - Adult Goal: Free from fall injury Outcome: Progressing Problem: Chronic Conditions and Co-morbidities Goal: Patient's chronic conditions and co-morbidity symptoms are monitored and maintained or improved Outcome: Progressing Problem: Musculoskeletal - Adult Goal: Return mobility to safest level of function Outcome: Progressing Normal [facility] [id number] 07-11-2024 [id number] Reviewed chart. Post op LTHA. Therapy evaluated and recommended home with [facility]. tool liaison is following. Will be discharged on ASA for anticoagulation needs. Ortho nurse navigator following for equipment needs. Tentative discharge plan is home with [facility] when medically stable. Case management will continue to follow and assist with discharge planning as needed. .. [facility] Consulton 07-11-2024 Consult --- Attestation signed by Aaron Livingston MD at 07/12/2024 8:14 AM Chart reviewed and agree with treatment plan and discussed with [facility] Hospital Medicine Consult Patient - Keiry Miller, Age - 64 y.o. - 1960 Room Number - [id number] Consulting - Krishan Kruse MD Primary Care Physician - IRENE [facility]ZALEZ [facility] - [id number] Date of Admission - 07/11/2024 8:40 AM Hospital Day - 0 Reason for Consult: Medical Management HISTORY OF PRESENT ILLNESS: Keiry is a 64 y.o. female pmhx OA of left hip, hypertension, prediabetes who is s/p left total hip arthroplasty. Hospital medicine consulted for medical management. Patient was seen and examined in room 166, she sitting up in chair with legs reclined up just finished eating dinner, patient currently denies having any pain, fever/chills, chest pain, shortness of breath, lightheadedness or dizziness, she has been up to the bathroom with assistance to toilet, denies N/V/D, denies calf pain tenderness or swelling. Past Medical History: Past Medical History: Diagnosis Date Arthritis Hypertension Joint pain Motion sickness Prediabetes Past Surgical History: Past Surgical History: Procedure Laterality Date DENTAL SURGERY as teen TOTAL HIP ARTHROPLASTY Left 07/11/2024 Medications: Scheduled PRN acetaminophen, 650 mg, Oral, q6h aspirin, 81 mg, Oral, BID ceFAZolin, 2,000 mg, IntraVENous, q8h dexAMETHasone, 8 mg, IntraVENous, q6h famotidine, 20 mg, Oral, BID ketorolac, 15 mg, IntraVENous, q6h [START ON 07/12/2024] meloxicam, 15 mg, Oral, Daily sodium chloride 0.9%, 10 mL, IntraVENous, 2 times per day traMADol, 50 mg, Oral, q6h PRN medications: bisacodyl, diphenhydrAMINE OR diphenhydrAMINE, HYDROmorphone OR HYDROmorphone, magnesium citrate, naloxone, ondansetron ODT OR ondansetron, oxyCODONE, oxyCODONE, sodium chloride, sodium chloride 0.9% Continuous sodium chloride, 125 mL/hr Allergies: Pollen extract and Sulfa antibiotics Social History: Social History Socioeconomic History Marital status: Spouse name: Not on file Number of children: Not on file Years of education: Not on file Highest education level: Not on file Occupational History Not on file Tobacco Use Smoking status: Never Smokeless tobacco: Never Vaping Use Vaping status: Never Used Substance and Sexual Activity Alcohol use: Never Drug use: Never Sexual activity: Not Currently Partners: Male control/protection: None Other Topics Concern Not on file Social History Narrative Not on file Social Drivers of Health Financial Resource Strain: Not on file Food Insecurity: Not on file Transportation Needs: Not on file Physical Activity: Not on file Stress: Not on file Social Connections: Not on file Intimate Partner Violence: Not At Risk (07/11/2024) Humiliation, Afraid, Rape, and Kick questionnaire Fear of Current or Ex-Partner: No Emotionally Abused: No Physically Abused: No Sexually Abused: No Housing Stability: Not on file Family History: Family History Problem Relation Name Age of Onset Arthritis Mother Argelia Hypertension Mother Argelia Heart disease Father Griffin Stroke Father Griffin Stroke Paternal Grandmother Antonia Depression Brother Oneil Hypertension Brother Oneil Hypertension Sister Caitlin REVIEW OF SYSTEMS: 10 point ROS obtained, as per HPI, otherwise NEG Physical Exam: Vitals: BP 139/70 Pulse 74 Temp 36.4 ?C (97.6 ?F) (Temporal) Resp 18 Ht 1.689 m (5' 6.5) Wt 90.7 kg (200 lb) SpO2 100% BMI 31.80 kg/m? BMI Classification: Obese (BMI 30.0-39.9) Pulse Ox: SpO2 Av.9 % Min: 97 % Max: 100 % Supplemental O2: Physical Exam Vitals and nursing note reviewed. Constitutional: Appearance: She is obese. HENT: Head: Normocephalic. Mouth/Throat: Mouth: Mucous membranes are dry. Eyes: Conjunctiva/sclera: Conjunctivae normal. Pupils: Pupils are equal, round, and reactive to light. Cardiovascular: Rate and Rhythm: Normal rate and regular rhythm. Pulmonary: Effort: Pulmonary effort is normal. Breath sounds: Normal breath sounds. Abdominal: General: Bowel sounds are normal. Palpations: Abdomen is soft. Musculoskeletal: General: Normal range of motion. Comments: S/p left KOTA, both legs are warm 2++ pulses present, can wiggle toes and feet without any concerns Skin: General: Skin is warm and dry. Neurological: General: No focal deficit present. Mental Status: She is alert and oriented to person, place, and time. Psychiatric: Mood and Affect: Mood normal. Thought Content: Thought content normal. LABS: No results found for this or any previous visit (from the past 24 hours). Urine Culture: No results found for this or any previous visit. IM (more content not included)... Normal [facility] No Panel Informationon 07-11 There is no interpretation needed for this exam. IMAGING Nursing Noteon 07-11-2024 Nursing Note Patient educated on importance of coughing/ deep breathing after surgery to reduce risk of pneumonia. Patient educated on importance of early mobility to reduce the risk of blood clots. Falls prevention information reviewed with patient. Post-operative pain control and ways to prevent constipation discussed with patient. Daughter at bedside [facility] Op Noteon 07-11-2024 Op Note [facility] MAIN OR [address] [facility] [address] Dept: [phone] Loc: [phone] Operative Report Patient Name: Keiry Miller Date of : 1960 Date of Surgery: 07/11/24 DATE OF SURGERY: 07/11/24 PREOPERATIVE DIAGNOSIS: LEFT Hip Degenerative Arthritis - M16.12, POSTOPERATIVE DIAGNOSIS: Same PROCEDURE PERFORMED: Primary cementless left total hip arthroplasty, direct anterior approach with Anish robot SURGEON: Krishan Kruse MD ASSISTANTS: Jamilah Arroyo PA-C PGY-V ANESTHESIA: Monitored Anesthesia Care , Spinal Anaesthesia, and Quadratus Lumborum Block Post-op INTRAVENOUS FLUIDS: 1,000 mL ESTIMATED BLOOD LOSS: 300 mL DRAIN: None. COMPLICATIONS: Patient tolerated the procedure well without anesthetic or surgical/operative complications. COMPONENTS: Waqar Trident 2 multi-hole acetabular component size 52 mm, 36 neutral highly crosslinked polyethylene acetabular liner, a 36 +2.5 Biolox delta ceramic femoral head, [place] Insignia femoral component size 3 high offset, four divergent acetabular screws INTRAOPERATIVE FINDINGS: The intra-operative finding confirmed the clinical and radiographic finding of end-stage osteoarthritis characterized by complete bone loss on the femoral head and acetabulum with presence of osteophytes. Significant bone loss, requiring multi-hole cup TISSUE REMOVED OR ALTERED: Femoral head and acetabular reamings removed via standard resection. COMORBIDITIES: No date: Arthritis No date: Hypertension No date: Joint pain No date: Motion sickness No date: Prediabetes SPECIMEN: None OPERATIVE NOTE ADDENDUM: 1) The first-educational program assistant was critical to all steps of the operation, including retraction and leg stabilization during exposure and bone preparation, as well as the deep and superficial wound closure. I understand that section 1842(b)(7)(D) of the Social Security Act generally prohibits Medicare physician fee schedule payment for the services of assistants at surgery in teaching hospitals when qualified residents are available to furnish such services. I certify that the services for which payment is claimed were medically necessary and that no qualified resident was available to perform the services. I further understand that these services are subject to post-payment review by the Medicare carrier. 2) Operative note addendum for unusual increased surgical complexity for a complex surgical case. This particular patient's condition and surgery, satisfies the criteria for unusual and increased surgical complexity and resulted in significantly increased difficulty for this surgical procedure. Due to severity of arthritis and requirement to utilize a multi-hole acetabular component the procedure required additional surgical dissection, additional assistance with tissue retraction, and more complicated exposure techniques to satisfactorily perform the procedure. In addition, the energy expenditure was substantially increased for the surgeon and assistants. These factors increased the complexity, surgical risks, and duration of the procedure. The duration of this procedure in this patient was increased by approximately 40% due to the above-mentioned factors. HISTORY: The patient has progressive and debilitating hip pain secondary to end-stage osteoarthritis, supported by clinical and radiographic evidence and has failed nonoperative management. The patient was deemed appropriate for a total hip arthroplasty. Risks, benefits ,and alternatives to surgical treatment were discussed in detail with the patient and the patient wished to proceed with the total hip arthroplasty. The patient was seen and thoroughly evaluated by a medical asst preoperatively and was optimized for surgical intervention. SURGICAL PROCEDURE: Prior to initiation of the operative procedure a surgical time-out was taken and the patient's name, medical record, number, [id number], and operative side was verified with the surgical consent form. Additionally it was verified that the appropriate doris-operative antibiotic administration was completed, as well as that radiographs were available and the correct operative instrumentation and implants were available. After routine preparation and draping of the patient in the total joint operating room on a regular table, a direct anterior approach was made to the hip joint. The skin and subcutaneous tissues were incised. Electrocautery was utilized to maintain hemostasis along the skin edges. The subcutaneous fat was bluntly dissected. Subsequently the tensor fascia lizzette muscle was visualized and the medial and lateral borders identified. The medial border was identified by the fat strip that lies just medial to the muscle. The tip of the knife blade was used to gently incise the TFL fascia at the junction of the medial third and middle third of the TFL mus (more content not included)... [facility] Peripheral Blockon 5 Ronnell Hung CRNA 07/11/2024 3:45 PM Peripheral Block Time Out: 07/11/2024 1:30 PM Patient location during procedure: post-op Start time: 07/11/2024 1:30 PM End time: 07/11/2024 1:35 PM Reason for block: at surgeon's request and post-op pain management Staffing Performed: MANAGER OF FINANCIAL REPORTING Resident/MANAGER OF FINANCIAL REPORTING: SNEHA Hung CRNA Preanesthetic Checklist Completed: patient identified, IV checked, site marked, risks and benefits discussed, surgical consent, monitors and equipment checked, pre-op evaluation and timeout performed Region: [place] Primary: Quadratus Lumborum Peripheral Block Patient position: right lateral Prep: ChloraPrep Patient monitoring: heart rate, secured entrance monitor, continuous pulse ox and continuous capnometry O2: ETT/LMA Laterality: left Injection technique: single-shot Guidance: ultrasound guided -image retained in chart, tip of the needle identified by ultraound during injection. Needle Needle: 21G X 110 mm Additional Notes 07/11/2024 1:30 PM Assessment Injection assessment: negative aspiration for heme, no paresthesia on injection, incremental injection and local visualized surrounding nerve on ultrasound Paresthesia pain: none Heart rate change: no Slow fractionated injection: yes Required Documentation: Relevant anatomy identified (Nerves, Vessels, Muscles), Local anesthetic spread visualized around nerves or plane., Local anesthetic injected without difficulty, No EKG changes noted, Negative for blood on aspiration, Local anesthetic injected incrementally with intermittent aspiration every 5 mL, No symptoms of toxicity, No paresthesias reported by patient during injection and Normal resistance with injectionMedications dexAMETHasone-bupivacai ne-epinephrine (TAP) syringe - Injection 50 mL - 07/11/2024 1:30:00 PM [facility] Spinal Blockon 07-11-2024 SNEHA Singletary CRNA 07/11/2024 11:43 AM Spinal Block Time Out: 07/11/2024 10:55 AM Patient location during procedure: OR Start time: 07/11/2024 10:55 AM End time: 07/11/2024 11:00 AM Reason for block: primary anesthetic Staffing Performed: [facility] Resident/MANAGER OF FINANCIAL REPORTING: SNEHA Singletary CRNA Other staff: Autumn Haynes RN Preanesthetic Checklist Completed: patient identified, IV checked, site marked, risks and benefits discussed, surgical consent, monitors and equipment checked, pre-op evaluation and timeout performed Spinal Block Patient position: sitting Prep: ChloraPrep Sterility prep: gloves, hand hygiene and mask Sedation level: light sedation Patient monitoring: continuous pulse oximetry and heart rate Approach: midline Location: L3-4 Injection technique: single-shot Needle Needle type: pencil-tip Needle gauge: 24 G Needle length: 10 cm Medications Administered mepivacaine PF (Carbocaine) 2 % injection - Intrathecal 60 mg - 07/11/2024 10:55:00 AM Assessment Sensory level: T10 Block outcome: block to be assessed in the OR Number of attempts: 1 Procedure assessment: patient sedated but conversant throughout procedure Additional Notes Free flow CSF. No Heme. No Parathesia [facility] XR PELVIS 1-2 VIEWSon 2024 XR PELVIS 1-2 VIEWS Patient Name: KEIRY MILLER : 1960 Exam Date/Time: 07/11/2024 13:40 Procedure: XR PELVIS 1-2 VIEWS Ordering Provider: ARROYO WILLIAM Reason For Exam: s/p KOTA EXAMINATION: XR PELVIS 1-2 VIEWS HISTORY: s/p KOTA. TECHNIQUE: XR PELVIS 1-2 VIEWS COMPARISON: Radiograph 07/06/2024, CT 06/28/2024 RESULT: Status post interval left total hip arthroplasty. Hardware is grossly intact. Alignment is satisfactory without acute fracture or dislocation within constraints of AP view. Soft tissue gas present, expected postoperatively. Small osteophytes of the right hip joint which is otherwise grossly intact. Partially imaged degenerative changes of the lower lumbar spine. 3.3 cm calcified lesion projecting over the left pelvis is likely a calcified uterine fibroid. Remainder of the imaged bony pelvis is unchanged. IMPRESSION: Baseline exam status post interval left total hip arthroplasty Report Dictated on Electronically Signed By: Nicho Nathan MD Electronically Signed Date/Time: 07/11/2024 2:41 PM EDT [facility] XR Pelvis 1 or 2 Viewson Baseline exam status post interval left total hip arthroplasty Report Dictated on Electronically Signed By: Nicho Nathan MD Electronically Signed Date/Time: 07/11/2024 2:41 PM EDT [facility] [address] [facility] Patient Name: KEIRY MILLER : 1960 Exam Date/Time: 07/11/2024 13:40 Procedure: XR PELVIS 1-2 VIEWS Ordering Provider: ARROYO WILLIAM Reason For Exam: s/p KOTA EXAMINATION: XR PELVIS 1-2 VIEWS HISTORY: s/p KOTA. TECHNIQUE: XR PELVIS 1-2 VIEWS COMPARISON: Radiograph 07/06/2024, CT 06/28/2024 RESULT: Status post interval left total hip arthroplasty. Hardware is grossly intact. Alignment is satisfactory without acute fracture or dislocation within constraints of AP view. Soft tissue gas present, expected postoperatively. Small osteophytes of the right hip joint which is otherwise grossly intact. Partially imaged degenerative changes of the lower lumbar spine. 3.3 cm calcified lesion projecting over the left pelvis is likely a calcified uterine fibroid. Remainder of the imaged bony pelvis is unchanged. [facility] Nicho Nathan MD - 07/11/2024 Patient Name: KEIRY MILLER : 1960 Exam Date/Time: 07/11/2024 13:40 Procedure: XR PELVIS 1-2 VIEWS Ordering Provider: ARROYO WILLIAM Reason For Exam: s/p KOTA EXAMINATION: XR PELVIS 1-2 VIEWS HISTORY: s/p KOTA. TECHNIQUE: XR PELVIS 1-2 VIEWS COMPARISON: Radiograph 07/06/2024, CT 06/28/2024 RESULT: Status post interval left total hip arthroplasty. Hardware is grossly intact. Alignment is satisfactory without acute fracture or dislocation within constraints of AP view. Soft tissue gas present, expected postoperatively. Small osteophytes of the right hip joint which is otherwise grossly intact. Partially imaged degenerative changes of the lower lumbar spine. 3.3 cm calcified lesion projecting over the left pelvis is likely a calcified uterine fibroid. Remainder of the imaged bony pelvis is unchanged. IMPRESSION: Baseline exam status post interval left total hip arthroplasty Report Dictated on Electronically Signed By: Nicho Nathan MD Electronically Signed Date/Time: 07/11/2024 2:41 PM EDT [facility] Radiology Study observation (narrative) [facility] alth XR Pelvis 1 or 2 ViewsOrdere d By: Nicho Nathan on 07-11-2024 [facility] Work Phone: 36on 07-10-2024 36 Clearance has been scanned in. Normal [facility] 3607-09-2024 36 Keiry called to make sure fax was received from gyn. Gaspar states fax was received and will be scanned into media tab. Normal [facility] CNCOon 07-09-[address] [facility] CNOVon 07-09-2024 CNOV Office Visit (OBGYWM ) KEIRY MILLER ([id number]) 1960 F Date Time Provider Department 07/09/24 9:00 AM SWETHA NINO OBGYWRon During your visit today, we recorded the following information about you: Blood pressure Weight 162/88 90.5 kg Swetha Nino APRN.INTERNET MARKETING SPECIALIST 07/09/2024 9:56 AM Signed Keiry Miller is a 64 year old female who presents for problem visit follow up for Dx fibroid 07/06/2024. HPI: Patient not completely sure why she needed this appointment, she is having hip replacement surgery on July 11. After several conversations with doctors offices by rooming nurse, the concern was for a calcified uterine fibroid. Room nurses understanding was that patient had told to separate doctors office visits that she had cancer. There has been no diagnosis of cancer and this was the reasoning for her appointment today with us. 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 Our office has results of recent Paps or mammograms. OB History No obstetric history on file. 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 Social History Tobacco Use Smoking status: Never Smokeless tobacco: Never Vaping Use Vaping status: Never Used Substance Use Topics Alcohol use: Never Drug use: Never Current Outpatient Medications Medication Sig estrogens, conjugated (PREMARIN VAGINAL) Use vaginally. lisinopril (ZESTRIL, PRINIVIL) 40 mg tablet Take 1 tablet by mouth once daily. No current facility-administered medications for this visit. Allergies As of Date: 07/09/2024 Allergen Noted Reaction BEE POLLEN 05/06/2024 Unknown SULFA (SULFONAMIDE ANTIBIOTICS) 06/26/2017 Other: See Comments Fully Assessed 07/09/2024 REVIEW OF SYSTEMS Expanded ROS: N/A Allergies and current medication updated:Yes SENSITIVE EXAM: Sensitive exam not performed. EXAM: BP 162/88 Wt 199 lb 9.6 oz (90.5kg) GENERAL: pleasant, female in no apparent distress HEENT: Normocephalic, atraumatic, mucus membranes moist, and no lesions CHEST: Normal inspiratory effort NEURO: alert and oriented x3,exam grossly non-focal ASSESSMENT/PLAN: 1. Uterine leiomyoma, unspecified location - ICD9: 218.9, ICD10: D25.9 Letter provided to patient and will be faxed to surgeon's office stating that CT finding of a calcified fibroid is noncancerous finding. This office would be unable to obtain an ultrasound and report for further evaluation prior to surgery on July 11. Swetha Nino APRN.INTERNET MARKETING SPECIALIST Allergies As of Date: 07/09/2024 Noted Allergy Reaction BEE POLLEN 05/06/2024 16 - Unknown Comments: Other Reaction(s): Itchy watery eyes SULFA (SULFONAMIDE ANTIBIOTICS) 06/26/2017 14 - Other: See Comments Comments: Tightness of chest. Date Reviewed: 07/09/2024 Reviewed by: Augusta Mckinney LPN - Fully Assessed Reason for Visit: Problem Visit [Other] Primary Visit Diagnosis:Uterine leiomyoma, unspecified location [D25.9] Prescriptions as of 07/09/2024 - estrogens, conjugated (PREMARIN VAGINAL) Use vaginally. - lisinopril (ZESTRIL, PRINIVIL) 40 mg tablet Take 1 tablet by mouth once daily. Problem List As Of Date: 07/09/2024 (None) Level of Service: OFFICE/OUTPATIENT NEW COUNT INCLUDES THE [facility] 30 MINUTES [39035] LOS History for Encounter - Level of Service: OFFICE/OUTPATIENT NEW LOW [facility] 30 MINUTES[60242] Date AND Time: 07-09-2024 9:55 AM Recorded by User: SWETHA NINO Encounter Status:Closed by SWETHA NINO on 07/09/[address] [facility] [place] 07-09-2024 [facility] Telephone (OBGYWM) KEIRY MILLER ([id number]) 1960 F Date Time Provider Department 07/09/24 SWETHA NINO OBGYWM During your visit today, we recorded the following information about you: Augusta Mckinney LPN 07/09/2024 10:34 AM Signed Patient had office visit on 07/09/2024 requesting note to be faxed to Dr. Kruse office spoke to ([facility]) to review CT scan 3.1 cm presumed fibroid. Letter as requested faxed x [address] with [address] pages [address] Dr. Kruse attn: Chasity [phone]. Augusta Mckinney LPN Allergies As of Date: 07/09/2024 Noted Allergy Reaction BEE POLLEN 05/06/2024 16 - Unknown Comments: Other Reaction(s): Itchy watery eyes SULFA (SULFONAMIDE ANTIBIOTICS) 06/26/2017 14 - Other: See Comments Comments: Tightness of chest. Date Reviewed: 07/09/2024 Reviewed by: Augusta Mckinney LPN - Fully Assessed Prescriptions as of 07/09/2024 - estrogens, conjugated (PREMARIN VAGINAL) Use vaginally. - lisinopril (ZESTRIL, PRINIVIL) 40 mg tablet Take 1 tablet by mouth once daily. Problem List As Of Date: 07/09/2024 (None) Encounter Status:Closed by AUGUSTA MCKINNEY on 07/09/24 [facility] 36on 07-08-2024 36 It's precaution. She had a lot of people saying she had cancer when I don't think she does nor does Dr. Watson. Just wanted her to get checked on to make sure we're playing it safe. Doesn't change surgery date or anything. Just needs to keep us posted if manager gyn has any concerns. Thank you! 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 She states she is unsure why she needs to follow up with gynecology. She states she has had the fibroid for a long time. She states her hip is bothering her more then any gynecological issue. She verbalized understanding to keep appointment for Monday. [facility] ECG 12-LEADon 07-04-2024 ECG 12-LEAD IMPRESSION: Sinus rhythm No previous ECG available for comparison Electronically Signed On 07-04-2024 11:05:34 EDT by Kapil Scherer [facility] [id number] 07-03-2024 [id number] Medication List Accurate as of July 03, 2024 1:58 PM. Always use your most recent med list. ascorbic acid 500 MG tablet Commonly known as: Vitamin C CALTRATE 600 PO clobetasol 0.05 % external solution Commonly known as: Temovate Cranberry 500 MG capsule fluticasone 50 MCG/ACT nasal spray Commonly known as: Flonase Medication Adjustments for Surgery: Take morning of surgery ibuprofen 200 MG tablet Medication Adjustments for Surgery: Stop 1 day before surgery K+ POTASSIUM PO lisinopril 40 MG tablet Medication Adjustments for Surgery: Hold morning of surgery loratadine 10 MG tablet Commonly known as: Claritin Medication Adjustments for Surgery: Take morning of surgery MAGNESIUM GLUCONATE PO MULTIVITAMIN GUMMIES WOMENS PO PROBIOTIC BLEND PO Medication Adjustments for Surgery: Take morning of surgery psyllium 0.36 g capsule Commonly known as: Metamucil Medication Adjustments for Surgery: Hold morning of surgery Vitamin D3 25 MCG capsule Additional Instructions: You may take your prescription pain medication. You may take Tylenol for pain. NO Motrin, ibuprofen or Advil for 24 hours prior to surgery or longer if instructed by your surgeon. NO Aleve or Naprosyn for 5 days prior to surgery or longer if instructed by your surgeon. Hold vitamins starting now Shower with an antibacterial soap such as Dial or Safeguard or shower kit provided to you before coming to the hospital. No makeup, lotion, powder, deodorant or body spays. No hair products. Remove all jewelry and leave it at home. Wear loose comfortable clothing to go home in. You may brush your teeth morning of surgery. Do not wear contacts day of surgery. No marijuana (THC), smoking or alcohol for 24 hours prior to surgery. Please arrange for a responsible adult to drive you home after your surgery and that there is a responsible adult with you for 24 hours post discharge. If you have specific questions, please call your surgeon. You will receive a call the day before your surgery to verify your arrival time and date. You will be asked to arrive at least two hours prior to your scheduled surgery time. Please bring your [facility] Surgical folder and medication list with you day of surgery. We encourage you to write down any questions you may have for the surgeon, anesthesiologist, or other members of the surgical team and bring it with you the day of surgery. Please bring photo ID and insurance information. Normal [facility] 94on 07-03-2024 94 Keiry in attendance for [employer]. Switcher person (daughter) is in attendance with patient. Education given on the coaches' role in surgical process and the importance of having a support person to help after surgery with household tasks, transportation and emotional support. Patient attended Optimizing health prior to surgery: no tobacco use, no alcohol use, no dental procedures 1 month prior or 3 months after surgery. Discussion on importance of proper nutrition. Patient given Ensure Surgery and Ensure Pre-Surgery. Instructions for Ensure Surgery: drink 1 bottle daily for 5 days prior to surgery. If diabetic drink half a bottle of ensure surgery twice a day for 5 days prior to surgery. Instructions for Ensure Pre-Surgery: drink 1 bottle the night before surgery. If diabetic do not drink ensure surgery. Instructed not to drink any ensure on the day of surgery. Discussion on what to prepare at home prior to surgery, preparing for surgery,common discomforts from surgery, same day surgeries, incision care and fall prevention. Patient instructed to not eat after midnight prior to surgery. Patient may drink clear fluids up to 2 hours before surgery. Patient and sustainability coach to arrive 2 hours prior to time of surgery. Patient given chlorhexidine solution at [facility]. Explained the solution is used to reduce the risk of infection at the surgical site. Instructions to patient: Take a normal shower the night before surgery, then apply 1/2 bottle of chlorhexidine solution to mitt and wash body. Keep away from face and privates. Rinse off solution and put on clean clothes. Morning of surgery apply the second half of chlorhexidine solution to rere and massage into skin, do not apply to face or privates. Rinse off solution. Do not apply lotions or deodorant. Put on clean clothes. Presentations from dietary staff, pharmacy staff, physical/occupational therapy staff and transitional childcare center administrator. Keiry given a copy of PowerPoint slides for the [employer]. DME: needs a walker Switcher: daughter Tentative plans after surgery: overnight Attended class in person. All questions answered at this time. Patient and sustainability coach verbalized understanding to call ONN (Orthopedic Nurse Navigator) at [phone] with any questions. Normal [facility] CBC W Auto Differential pane l (Bld)on 07-03-2024 Basophils (Bld) [#/Vol] 0 10*3/uL 0.0 - 0.2 10*3/uL [facility] Basophils/100 WBC (Bld) 0.2 % 0.0 - 2.0 % [facility] Eosinophils (Bld) [#/Vol] 0.1 10*3/uL 0.0 - 0.5 10*3/uL [facility] Eosinophils/100 WBC (Bld) 0.9 % 0.0 - 6.0 % [facility] Erythrocyte distribution width (RBC) [Ratio] 12.9 % 11.5 - 15.0 % [facility] Hematocrit (Bld) [Volume fraction] 36.8 % 35.0 - 47.0 % [facility] Hemoglobin (Bld) [Mass/Vol] 12.4 g/dL 11.7 - 16.0 g/dL [facility] Immature granulocytes (Bld) [#/Vol] 0 10*3/uL NINF - 0.1 10*3/uL [facility] Immature granulocytes/100 WBC (Bld) 0.4 % 0.0 - 2.0 % [facility] Interpretation and review of laboratory results Normal [facility] Lymphocytes (Bld) [#/Vol] 2.2 10*3/uL 1.0 - 4.3 10*3/uL [facility] Lymphocytes/100 WBC (Bld) 26.4 % 15.0 - 45.0 % [facility] MCH (RBC) [Entitic mass] 30.3 pg 26.0 - 34.0 pg [facility] MCHC (RBC) [Mass/Vol] 33.7 % 30.5 - 36.0 % [facility] MCV (RBC) [Entitic vol] 90 fL 77.0 - 99.0 fL [facility] Monocytes (Bld) [#/Vol] 0.6 10*3/uL 0.0 - 0.9 10*3/uL [facility] Monocytes/100 WBC (Bld) 7.2 % 5.0 - 13.0 % [facility] Neutrophils (Bld) [#/Vol] 5.5 10*3/uL 1.8 - 7.5 10*3/uL [facility] Neutrophils/100 WBC (Bld) 64.9 % 38.0 - 82.0 % [facility] Nucleated RBC/100 WBC (Bld) [Ratio] 0 % [facility] Platelet mean volume (Bld) [Entitic vol] 9.2 fL 9.0 - 12.7 fL [facility] Platelets (Bld) [#/Vol] 338 10*3/uL 140 - 440 10*3/uL [facility] RBC (Bld) [#/Vol] 4.09 10*6/uL 3.80 - 5.2 0 10*6/uL [facility] WBC (Bld) [#/Vol] 8.5 10*3/uL 3.6 - 10.7 10*3/uL [facility] CBC WITH AUTO DIFFERENTIALon 07-03-2024 Basophils (Bld) [#/Vol] 0.0 10*3/uL Normal 0.0-0.2 [facility] Comment on above: Performed By: #### L [id number] ####Telephone Directory Distributor Driver: DINA NASCIMENTO ([phone])[facility] (SB[facility])[address] [place] [address] Basophils/100 WBC (Bld) 0.2 % Normal 0.0-2.0 [facility] Comment on above: Performed By: #### L [id number] ####Telephone Directory Distributor Driver: DINA NASCIMENTO ([phone])[facility] ([facility])[address] [place] [address] Eosinophils (Bld) [#/Vol] 0.1 10*3/uL Normal 0.0-0.5 [facility] Comment on above: Performed By: #### L [id number] ####Telephone Directory Distributor Driver: DINA PUGAHarryDEBBY ([phone])[facility] [place] ([facility])[address] [place] [address] Eosinophils/100 WBC (Bld) 0.9 % Normal 0.0-6.0 [facility] Comment on above: Performed By: #### L [id number] ####Telephone Directory Distributor Driver: DINA TERRYDEBBY ([phone])[facility] ([facility])[address] Erythrocyte distribution width (RBC) [Ratio] 12.9 % Normal 11.5-15.0 [facility] Comment on above: Performed By: #### L [id number] ####Telephone Directory Distributor Driver: DINA PILY ([id number])[facility] ([facility])[address] [place] [address] Hematocrit (Bld) [Volume fraction] 36.8 % Normal 35.0-47.0 [facility] Comment on above: Performed By: #### L [id number] ####Telephone Directory Distributor Driver: DINA PILY ([id number])[facility] ([facility])[address] [place] [address] Hemoglobin (Bld) [Mass/Vol] 12.4 g/dL Normal 11.7-16.0 [facility] Comment on above: Performed By: #### L [id number] ####Telephone Directory Distributor Driver: DINA TERRYDEBBY ([phone])[facility] ([facility])[address] [place] [address] IMMATURE GRANS % 0.4 % Normal 0.0-2.0 [facility] Comment on above: Performed By: #### L [id number] ####Telephone Directory Distributor Driver: DINA TERRYDEBBY ([phone])[facility] ([facility])[address] [place] [address] IMMATURE GRANS ABSOLUTE 0.0 10*3/uL Normal <0.1 [facility] Comment on above: Performed By: #### L [id number] ####Telephone Directory Distributor Driver: DINAALTON NASCIMENTO ([phone])[facility] CENTERRonnell PAREDESADVANCED CARE HOS[facility] (SBHLAB)[address] Lymphocytes (Bld) [#/Vol] 2.2 10*3/uL Normal 1.0-4.3 [facility] Comment on above: Performed By: #### L [id number] ####Telephone Directory Distributor Driver: DINA PILY ([phone])[facility] CENTERRonnell BARBADVANCED CARE HOS[facility] (SB[facility])[address] Lymphocytes/100 WBC (Bld) 26.4 % Normal 15.0-45.0 [facility] Comment on above: Performed By: #### L [id number] ####Telephone Directory Distributor Driver: DINA NASCIMENTO ([phone])[facility]ENTERRonnell PAREDESADVANCED [facility] ([facility])[address] [place] [address] MCH (RBC) [Entitic mass] 30.3 pg Normal 26.0-34.0 [facility] Comment on above: Performed By: #### L [id number] ####Telephone Directory Distributor Driver: DINA NASCIMENTO ([phone])[facility]ENT[facility] [place] (SB[facility])[address] [place] [address] MCHC 33.7 % Normal 30.5-36.0 [facility] Comment on above: Performed By: #### L [id number] ####Telephone Directory Distributor Driver: DINA TERRYDEBBY ([phone])[facility]ENT[facility]onnell PAREDESADVANCED [facility] ([facility])[address] [place] [address] MCV (RBC) [Entitic vol] 90.0 fL Normal 77.0-99.0 [facility] Comment on above: Performed By: #### L [id number] ####Telephone Directory Distributor Driver: DINA PILY ([id number])[facility] ([facility])[address] [place] [address] Monocytes (Bld) [#/Vol] 0.6 10*3/uL Normal 0.0-0.9 [facility] Comment on above: Performed By: #### L [id number] ####Telephone Directory Distributor Driver: DINA NASCIMENTO ([id number])[facility] (SB[facility])[address] Monocytes/100 WBC (Bld) 7.2 % Normal 5.0-13.0 [facility] Comment on above: Performed By: #### L [id number] ####Telephone Directory Distributor Driver: DINA NASCIMENTO ([phone])[facility] [place] ([facility])[address] NEUTROPHILS ABSOLUTE 5.5 10*3/uL Normal 1.8-7.5 [facility] Comment on above: Performed By: #### L [id number] ####Telephone Directory Distributor Driver: DINA NASCIMENTO ([id number])[facility] [place] ([facility])[address] Neutrophils/100 WBC (Bld) 64.9 % Normal 38.0-82.0 [facility] Comment on above: Performed By: #### L [id number] ####Telephone Directory Distributor Driver: DINA NASCIMENTO ([phone])[facility] [place] ([facility])[address] NRBC 0.0 /100 WBCs Normal 0.0-2.0 [facility] Comment on above: Performed By: #### L [id number] ####Telephone Directory Distributor Driver: DINA NASCIMENTO ([id number])[facility] [place] ([facility])[address] Platelet mean volume (Bld) [Entitic vol] 9.2 fL Normal 9.0-12.7 [facility] Comment on above: Performed By: #### L [id number] ####Telephone Directory Distributor Driver: DINA NASCIMENTO ([id number])[facility] [place] ([facility])[address] Platelets (Bld) [#/Vol] 338 10*3/uL Normal 140-440 [facility] Comment on above: Performed By: #### L [id number] ####Telephone Directory Distributor Driver: DINA NASCIMENTO ([id number])[facility]ENTERRonnell ELIASN (SB[facility]AB)[address] RBC (Bld) [#/Vol] 4.09 10*6/uL Normal 3.80-5.20 [facility] Comment on above: Performed By: #### L [id number] ####Telephone Directory Distributor Driver: DINA NASCIMENTO ([id number])[facility]ENTERRonnell PAREDESADVANCED CARE [facility] ([facility])[address] WBC (Bld) [#/Vol] 8.5 10*3/uL Normal 3.6-10.7 [facility] Comment on above: Performed By: #### L [id number] ####Telephone Directory Distributor Driver: DINA NASCIMENTO ([id number])[facility]ENTERRonnell PAREDESADVANCED [facility]ARE [facility] ([facility])[address] [place] [address] COMPREHENSIVE METABOLIC PANE Vijay 07-03-2024 Albumin [Mass/Vol] 3.8 g/dL Normal 3.4-4.8 [facility] Comment on above: Performed By: #### L [id number] ####Telephone Directory Distributor Driver: DINA NASCIMENTO ([id number])[facility] [place] ([facility])[address] ALP [Catalytic activity/Vol] 92 U/L Normal 40-150 [facility] Comment on above: Performed By: #### L [id number] ####Telephone Directory Distributor Driver: DINA NASCIMENTO ([id number])[facility] ([facility])[address] ALT [Catalytic activity/Vol] 45 U/L High <30 [facility] Comment on above: Performed By: #### L [id number] ####Telephone Directory Distributor Driver: DINA NASCIMENTO ([id number])[facility] ([facility])[address] Anion gap [Moles/Vol] 11 mmol/L Normal 3-13 [facility] Comment on above: Performed By: #### L [id number] ####Telephone Directory Distributor Driver: DINA NASCIMENTO ([id number])[facility] ([facility])[address] AST [Catalytic activity/Vol] 27 U/L Normal <34 [facility] Comment on above: Performed By: #### L [id number] ####Telephone Directory Distributor Driver: DINA NASCIMENTO ([id number])[facility] [place] ([facility])[address] Bilirubin [Mass/Vol] 0.3 mg/dL Normal <1.2 [facility] Comment on above: Performed By: #### L [id number] ####Telephone Directory Distributor Driver: DINA NASCIMENTO ([id number])[facility] [place] ([facility])[address] Calcium [Mass/Vol] 8.8 mg/dL Normal 8.8-10.0 [facility] Comment on above: Performed By: #### L [id number] ####Telephone Directory Distributor Driver: DINA NASCIMENTO ([id number])[facility] [place] ([facility])[address] Chloride [Moles/Vol] 99 mmol/L Normal 98-107 [facility] Comment on above: Performed By: #### L [id number] ####Telephone Directory Distributor Driver: DINA NASCIMENTO ([id number])[facility] [place] ([facility])[address] CO2 [Moles/Vol] 24 mmol/L Normal 23-31 [facility] Comment on above: Performed By: #### L [id number] ####Telephone Directory Distributor Driver: DINA NASCIMENTO ([id number])[facility] [place] ([facility])[address] Creatinine [Mass/Vol] 0.78 mg/dL Normal 0.57-1.11 [facility] Comment on above: Performed By: #### L [id number] ####Telephone Directory Distributor Driver: DINA NASCIMENTO ([id number])[facility] [place] ([facility])[address] GLOMERULAR FILTRATION RATE ML/MIN/1.73 SQ M.PREDICTED 84.4 mL/min/1.73m*2 Normal >60.0 [facility] Comment on above: Result Comment: Calc ulation based on the Chronic Kidney Disease Epidemiology Collaboration (CKD-EPI) equation refit without adjustment for race Performed By: #### L [id number] ####Telephone Directory Distributor Driver: DINA NASCIMENTO ([phone])[facility] ([facility])[address] Glucose [Mass/Vol] 158 mg/dL High 82-115 [facility] Comment on above: Performed By: #### L [id number] ####Telephone Directory Distributor Driver: DINA NASCIMENTO ([id number])[facility] ([facility])[address] Potassium [Moles/Vol] 4.4 mmol/L Normal 3.5-5.1 [facility] Comment on above: Result Comment: [facility] potassium values may be up to 0.5 mmol/L lower than serum values. Performed By: #### L [id number] ####Telephone Directory Distributor Driver: DINA NASCIMENTO ([id number])[facility] ([facility])[address] Protein [Mass/Vol] 7.6 g/dL Normal 6.4-8.3 [facility] Comment on above: Performed By: #### L [id number] ####Telephone Directory Distributor Driver: DINA NASCIMENTO ([id number])[facility] ([facility])[address] Sodium [Moles/Vol] 134 mmol/L Low 136-145 [facility] Comment on above: Performed By: #### L [id number] ####Telephone Directory Distributor Driver: DINA NASCIMENTO ([id number])[facility] ([facility])[address] Urea nitrogen [Mass/Vol] 11 mg/dL Normal 9-23 [facility] Comment on above: Performed By: #### L [id number] ####Telephone Directory Distributor Driver: DINA NASCIMENTO ([id number])[facility] (SBHLAB)[address] [place] [address] Comprehensive metabolic 1998 panelon 07-03-2024 Albumin [Mass/Vol] 3.8 g/dL 3.4 - 4.8 g/dL [facility] ALP [Catalytic activity/Vol] 92 U/L 40 - 150 U/L [facility] ALT [Catalytic activity/Vol] 45 U/L High NINF - 30 U/L [facility] Anion gap [Moles/Vol] 11 mmol/L 3 - 13 mmol/L [facility] AST [Catalytic activity/Vol] 27 U/L NINF - 34 U/L [facility] Bilirubin [Mass/Vol] 0.3 mg/dL NINF - 1.2 mg/dL [facility] Calcium [Mass/Vol] 8.8 mg/dL 8.8 - 10. 0 mg/dL [facility] Chloride [Moles/Vol] 99 mmol/L 98 - 10 7 mmol/L [facility] CO2 [Moles/Vol] 24 mmol/L 23 - 31 mmol/L [facility] Creatinine [Mass/Vol] 0.78 mg/dL 0.57 - 1.11 mg/dL [facility] GFR/1.73 sq M.predicted (S/P/Bld) [Vol rate/Area] 84.4 mL/min - PINF [facility] Comment on above: Calculation based on the Chronic Kidney Disease Epidemiology Collaboration (CKD-EPI) equation refit without adjustment for race Glucose [Mass/Vol] 158 mg/dL High 82 - 115 mg/dL [facility] Interpretation and review of laboratory results Abnormal [facility] Potassium [Moles/Vol] 4.4 mmol/L 3.5 - 5.1 mmol/L [facility] Comment on above: Plasma potassium jimmy ues may be up to 0.5 mmol/L lower than serum values. Protein [Mass/Vol] 7.6 g/dL 6.4 - 8.3 g/dL [facility] Sodium [Moles/Vol] 134 mmol/L Low 136 - 145 mmol/L [facility] Urea nitrogen [Mass/Vol] 11 mg/dL 9 - 23 mg/dL [facility] HEMOGLOBIN A1Con 07-03-2024 Glucose [Mass/Vol] 114 mg/dL Normal [facility] Comment on above: Result Comment: ORDE R COMMENTS: HbA1c values of 5.7-6.4 percent indicate an increased risk for developing diabetes mellitus. HbA1c values greater than or equal to 6.5 percent are diagnostic of diabetes mellitus. For diagnosis of diabetes in individuals without unequivocal hyperglycemia, results should be confirmed by repeat testing. Performed By: #### L AB90 ####Telephone Directory Distributor Driver: DINA NASCIMENTO ([phone])[facility] ([facility])[address] [place] [address] HEMOGLOBIN A1C 5.6 %HbA1C Normal <5.7 [facility] Comment on above: Result Comment: Norm al less than 5.7% Prediabetes 5.7% to 6.4% Diabetes 6.5% or higher --HgbA1C levels may not be accurate in patients who have renal disease, received recent blood transfusions, are anemic, or who have dyshemoglobinemia. Performed By: #### L AB90 ####Telephone Directory Distributor Driver: DINA NASCIMENTO ([phone])[facility] ([facility])[address] [place] [address] Hemoglobin A1con 07-03-2024 Average glucose Estimated from glycated hemoglobin (Bld) [Mass/Vol] 114 mg/dL [facility] HbA1c (Bld) [Mass fraction] 5.6 % NINF [facility] Comment on above: Normal less than 5.7 % Prediabetes 5.7% to 6.4% Diabetes 6.5% or higher --HgbA1C levels may not be accurate in patients who have renal disease, received recent blood transfusions, are anemic, or who have dyshemoglobinemia. HbA1c values of 5.7- 6.4 percent indicate an increased risk for developing diabetes mellitus. HbA1c values greater than or equal to 6.5 percent are diagnostic of diabetes mellitus. For diagnosis of diabetes in individuals without unequivocal hyperglycemia, results should be confirmed by repeat testing. [facility] Progress Noteon 07-03-2024 Progress Note [facility] Miller : 1960 Primary Care Physician: IRENE GONZALEZ The patient and/or family/surrogate voluntarily agreed to participate in ACP services. Patient?s cognitive capacity: AXO3 Code Status: [x] [FULL CODE - Continue all advanced life support: CPR,intubation,invasive procedures] [_] [DNR-CCA - DO NOT do CPR, intubation] [_] [DNR-TRAINING ENGINEER - Comfort care only] [_] DNR form [was/was not] signed Summary of discussion: The patient health care POA/ surrogate is the following: None . [Condition that instigated the ACP on this DOS, relevant PMH, functional status, goals of care, and whom this was discussed with including names and relationship to the patient, and any relevant advance care documentation discussion] I answered all the patient/family questions that I could within the range and scope of the current medical situation. We discussed the medical conditions, risks, benefits, outcomes, and goals of care at this time for the patient's medical issues at hand in the face of the patient's chronic issues and current presentation. Total time spent: 5 minutes were spent discussing the patient's resuscitation status, advance care planning, and end of life care, with patient and/or family/surrogate. Matt Quiroz PA-C [facility] care [facility] 07/03/2024, 2:04 PM [facility] 36on 07-01-2024 36 Keiry is a 64 y.o. , scheduled for a left total hip replacement with Dr. Kruse on 07/11/2024. Patient notified of the role of the Orthopedic Nurse Navigator (ONN). Discussed with Keiry the importance of having a support person before, during and after joint replacement surgery. Patient states her daughter will be Her support person/sustainability coach for this process. Explained to patient about the [email or web address] being a preoperative class to prepare for elective joint replacement surgery. Class will have further discussion on the entire surgical process and what to except. Keiry will attend the [employer] on 07/03/2024 at 11 am and have a PAT (Pre-Admission Testing) appointment the same day at 1:30 pm. DME: has a walker Switcher: daughter Tentative plans after surgery: ovenright All of Keiry 's questions at this time were answered. Keiry is to call ONN with questions pertaining to joint replacement surgery process. [facility] CT HIP LEFT WO IV CONTRASTon 06-29-2024 CT HIP LEFT WO IV CONTRAST Patient Name: KEIRY MILLER : 1960 Exam Date/Time: 06/28/2024 14:46 Procedure: CT HIP LEFT WO IV CONTRAST Ordering Provider: KRUSE RYAN Reason For Exam: Hip pain, chronic, osteoarthritis suspected Left Hip CT without contrast INDICATION: Presurgical planning according to the ANISH protocol. TECHNIQUE: Transaxial axial images through the pelvis to the level of the mid femur are obtained without contrast. Additional transaxial images through the level of the right and left knees are obtained without contrast. Dose reduction was employed with automated exposure control. COMPARISON: None FINDINGS: No free fluid or lymphadenopathy in the visualized pelvis. No evidence of bowel obstruction or inflammatory change. No aneurysmal dilation of the aortoiliac vessels. Presumed calcified uterine leiomyoma. Advanced left hip osteoarthrosis is present with joint space narrowing, subchondral cystic change, sclerosis, and marginal osteophytosis. No fracture or dislocation. The right hip is intact without evidence of fracture, dislocation, or osteonecrosis. The visualized pelvic ring is intact without evidence of fracture or diastases. No erosion or widening of the sacroiliac joints. Multilevel degenerative changes of the lower lumbar spine/lumbosacral junction. No focal osseous lesions. The knee joints are intact without evidence of fracture or dislocation. IMPRESSION: Limited CT of the pelvis and knees for the purposes of presurgical planning according to the ANISH protocol. Report Dictated on Electronically Signed By: Yves Grayson MD Electronically Signed Date/Time: 06/29/2024 7:26 AM EDT Table formatting from the original note was not included. Hip pain, chronic, osteoarthritis suspected; Hip surgical planning Dx: Primary osteoarthritis of left hip ANISH PROTOCOL [facility] CT Hip - left WO contraston 06-29-[address] of the pelvis and knees for the purposes of presurgical planning according to the ANISH protocol. Report Dictated on Electronically Signed By: Yves Grayson MD Electronically Signed Date/Time: 06/29/2024 7:26 AM EDT [facility] Patient Name: KEIRY MILLER : 1960 Exam Date/Time: 06/28/2024 14:46 Procedure: CT HIP LEFT WO IV CONTRAST Ordering Provider: KRUSE RYAN Reason For Exam: Hip pain, chronic, osteoarthritis suspected Left Hip CT without contrast INDICATION: Presurgical planning according to the ANISH protocol. TECHNIQUE: Transaxial axial images through the pelvis to the level of the mid femur are obtained without contrast. Additional transaxial images through the level of the right and left knees are obtained without contrast. Dose reduction was employed with automated exposure control. COMPARISON: None FINDINGS: No free fluid or lymphadenopathy in the visualized pelvis. No evidence of bowel obstruction or inflammatory change. No aneurysmal dilation of the aortoiliac vessels. Presumed calcified uterine leiomyoma. Advanced left hip osteoarthrosis is present with joint space narrowing, subchondral cystic change, sclerosis, and marginal osteophytosis. No fracture or dislocation. The right hip is intact without evidence of fracture, dislocation, or osteonecrosis. The visualized pelvic ring is intact without evidence of fracture or diastases. No erosion or widening of the sacroiliac joints. Multilevel degenerative changes of the lower lumbar spine/lumbosacral junction. No focal osseous lesions. The knee joints are intact without evidence of fracture or dislocation. [facility] Yves Grayson MD - 06/29/2024 Patient Name: KEIRY MILLER : 1960 Exam Date/Time: 06/28/2024 14:46 Procedure: CT HIP LEFT WO IV CONTRAST Ordering Provider: KRUSE RYAN Reason For Exam: Hip pain, chronic, osteoarthritis suspected Left Hip CT without contrast INDICATION: Presurgical planning according to the ANISH protocol. TECHNIQUE: Transaxial axial images through the pelvis to the level of the mid femur are obtained without contrast. Additional transaxial images through the level of the right and left knees are obtained without contrast. Dose reduction was employed with automated exposure control. COMPARISON: None FINDINGS: No free fluid or lymphadenopathy in the visualized pelvis. No evidence of bowel obstruction or inflammatory change. No aneurysmal dilation of the aortoiliac vessels. Presumed calcified uterine leiomyoma. Advanced left hip osteoarthrosis is present with joint space narrowing, subchondral cystic change, sclerosis, and marginal osteophytosis. No fracture or dislocation. The right hip is intact without evidence of fracture, dislocation, or osteonecrosis. The visualized pelvic ring is intact without evidence of fracture or diastases. No erosion or widening of the sacroiliac joints. Multilevel degenerative changes of the lower lumbar spine/lumbosacral junction. No focal osseous lesions. The knee joints are intact without evidence of fracture or dislocation. IMPRESSION: Limited CT of the pelvis and knees for the purposes of presurgical planning according to the [facility] protocol. Report Dictated on Electronically Signed By: Yves Grayson MD Electronically Signed Date/Time: 06/29/2024 7:26 AM EDT [facility] CT Hip - left WO contrastOrd ered By: Yves Grayson on 06-29-2024 [facility] Work Phone: 36on 06-28-2024 36 Submitted auth higinio Tay. Status approved. Auth# [id number] Normal [facility] CT Hip - left WO contraston 06-28-2024 Radiology Study observation (narrative) [facility] Progress Noteon 06-28-2024 Progress Note Anish scan in Normal [facility] 36on 06-27-2024 36 Insurance Info: MMO PAT: TBD Sx: 07/11 @ 1100 Dx: M16.12 CPT: 20080 Case #: [id number] BOOKING INSTRUCTIONS Procedure: Left Total Hip Arthroplasty - 27556 with anterior approach and robotic assisted guidance - 0055T Time: 1 hour(s) - last case of day Diagnosis: 1. Primary osteoarthritis of left hip Blood: Not anticipated to be given Important Labs to Obtain: Routine PAT protocol Anesthesia: Spinal and quadratus lumborum block DVT Prophylaxis: ASA Return to Office: No Repeat Xrays: Anish CT Anticipated Discharge To: Home, 23-HR Stay Implants: Waqar Trident 2 Cup, Insignia Stem with Anish Equipment: Regular table, fluoro Other: TXA, No Rao, OpSite, Will send femoral head for permanent specimen Normal [facility] 36on 06-20-2024 36 Noted Normal [facility] 36 Hello The following patient called in to cancel her CT hip on 06/27/24 at [place]. Patient is getting test performed elsewhere. If you have any questions, please call Central scheduling Thank you [facility] 36on 06-17-[address] approved via [employer] Normal [facility] 36 Picked SX date for , office note not signed yet. Needs ANISH. Normal [facility] Absolute lymphocyte countOrd ered By: Krishan Kruse on 06-17-2024 Lymphocytes Auto (Unsp spec) [#/Vol] 2.89 10*3/uL 0.83-4.51 [facility] Absolute neutrophil countOrd ered By: Krishan Kruse on 06-17-2024 Neutrophils (Bld) [#/Vol] 6.4 10*3/uL 2.0-7.7 [facility] Anion gap in Serum or Plasma Ordered By: Krishan Kruse on 06-17-2024 Anion gap [Moles/Vol] 12 mmol/L 5-15 [facility] Automated lymphocyte count a s percentage of total leukocytesOrdered By: Krishan Kruse on 06-17-2024 Lymphocytes/100 WBC Auto (Unsp spec) 27.3 % 19-41 [facility] BUN/creatinine ratioOrdered By: Krishan Lemuss on 06-17-2024 Urea nitrogen/Creatinine [Mass ratio] 23.4 mg/mg High 10-20 [facility] Basophil percentageOrdered B y: Krishan Kruse on 06-17-2024 Basophils/100 WBC (Bld) 0.4 % 0-1 [facility] Bilirubin, totalOrdered By: Krishan Kruse on 06-17-2024 Bilirubin [Mass/Vol] 0.20 mg/dL 0.00-1.30 [facility] CBC W/Diff, Automatedon Absolute Lymph 2.89 X10 3/uL Normal 0.83-4.51 [facility] Comment on above: Performed By: #### M 100.2000, M100.4001, M100.2700 #### [facility] [address] [place], [place], [id number] Absolute Neut 6.4 X10 3/uL Normal 2.0-7.7 [facility] Comment on above: Performed By: #### M 100.2000, , M1.2700 #### [facility] [address] [place], [address] Basophils/100 WBC (Bld) 0.4 % Normal 0-1 [facility] Comment on above: Performed By: #### M , , .2700 #### [facility] [address] [place], [address] Eosinophils/100 WBC (Bld) 1.2 % Normal 0-5 [facility] Comment on above: Performed By: #### M , , .2700 #### [facility] [address] [place], [address] Erythrocyte distribution width (RBC) [Ratio] 12.9 % Normal 11.6-14.6 [facility] Comment on above: Performed By: #### M , , 2700 #### [facility] [address] [place], [address] Hematocrit (Bld) [Volume fraction] 36.1 % Low 37-47 [facility] Comment on above: Performed By: #### M , , .2700 #### [facility] [address] [place], [address] Hemoglobin (Bld) [Mass/Vol] 11.9 g/dL Low 12.0-15.0 [facility] Comment on above: Performed By: #### M , , M1.2700 #### [facility] [address] [place], [address] IG% 0.400 Normal 0.0-0.9 [facility] Comment on above: Result Comment: IG% - Immature Granulocytes (promyelocytes, myelocytes and metamyelocytes) > 1% indicates that a LEFT SHIFT is Present. Performed By: #### M , .4000, M1.2700 #### [facility] [address] [place], [address] Lymphocytes/100 WBC (Bld) 27.3 % Normal 19-41 [facility] Comment on above: Performed By: #### M , , .270 #### [facility] [address] [place], [address] MCH (RBC) [Entitic mass] 30.1 pg Normal 27.0-32.0 [facility] Comment on above: Performed By: #### M , , 2700 #### [facility] [address] [place], [address] MCHC (RBC) [Mass/Vol] 33.0 g/dL Normal 32-36 [facility] Comment on above: Performed By: #### M , , 270 #### [facility] [address] [place], [address] MCV (RBC) [Entitic vol] 91.4 fL Normal 81-99 [facility] Comment on above: Performed By: #### M , , 270 #### [facility] [address] [place], [address] Monocytes/100 WBC (Bld) 10.6 % High 0-10 [facility] Comment on above: Performed By: #### M , , 270 #### [facility] [address] [place], [address] Neutrophils/100 WBC (Bld) 60.1 % Normal 47-70 [facility] Comment on above: Performed By: #### M , , #### [facility] [address] [place], [address] Nucleated RBC (Bld) [#/Vol] 0 10*3/uL Normal 0-5 [facility] Comment on above: Performed By: #### M , , #### [facility] [address] [place], [address] Platelet mean volume (Bld) [Entitic vol] 9.0 fL Normal 6.2-12.0 [facility] Comment on above: Performed By: #### M , , #### [facility] [address] [place], [address] Platelets (Bld) [#/Vol] 467 10*3/uL High 150-450 [facility] Comment on above: Performed By: #### M , , #### [facility] [address] [place], [address] RBC (Bld) [#/Vol] 3.95 10*6/uL Low 4.2-5.4 [facility] Comment on above: Performed By: #### M , , #### [facility] [address] [place], [address] RDW SD 42.9 fl Normal 35.1-43.9 [facility] Comment on above: Performed By: #### M , , #### [facility] [address] [place], [address] WBC (Bld) [#/Vol] 10.6 10*3/uL Normal 4.4-11.0 [facility] Comment on above: Performed By: #### M , , #### [facility] [address] [place], [address] Carbon dioxide, total [Moles /volume] in Central venous bloodOrdered By: Krishan Kruse on 06-17-2024 CO2 [Moles/Vol] 23.0 mmol/L 21.0-32.0 [facility] Chloride assayOrdered By: Ady rodas Kruse on 06-17-2024 Chloride [Moles/Vol] 106 mmol/L 98-108 [facility] Comprehensive Metabolic Prof ilon 06-17-2024 Albumin [Mass/Vol] 4.1 g/dL Normal 3.4-4.8 [facility] Comment on above: Performed By: #### M , , #### [facility] [address] [place], [address] Albumin/Globulin [Mass ratio] 1.1 {ratio} Normal 0.9-2.4 [facility] Comment on above: Performed By: #### M , , #### [facility] [address] [place], [address] ALK PHOS 111 U/L High 35-104 [facility] Comment on above: Performed By: #### M , , #### [facility] [address] [place], [address] ALT [Catalytic activity/Vol] 41 U/L High <=34 [facility] Comment on above: Performed By: #### M , , #### [facility] [address] [place], [address] AST [Catalytic activity/Vol] 27 U/L Normal <=31 [facility] Comment on above: Performed By: #### M , , #### [facility] [address] [place], [address] Bilirubin [Mass/Vol] 0.20 mg/dL Normal 0.00-1.30 [facility] Comment on above: Performed By: #### M , , #### [facility] [address] [place], [address] BUN/CRE 23.4 RATIO High 10-20 [facility] Comment on above: Performed By: #### M , , #### [facility] [address] [place], [address] Calcium [Mass/Vol] 9.0 mg/dL Normal 7.6-11.0 [facility] Comment on above: Performed By: #### M , , #### [facility] [address] [place], [address] Chloride [Moles/Vol] 106 mmol/L Normal 98-108 [facility] Comment on above: Performed By: #### M , , #### [facility] [address] [place], [address] CO2 [Moles/Vol] 23.0 mmol/L Normal 21.0-32.0 [facility] Comment on above: Performed By: #### M , , 270 #### [facility] [address] [place], [address] Creatinine [Mass/Vol] 0.77 mg/dL Normal 0.70-1.20 [facility] Comment on above: Performed By: #### M , , #### [facility] [address] [place], [address] GAP 12 Normal 5-15 [facility] Comment on above: Performed By: #### M , , #### [facility] [address] [place], [address] GFR/1.73 sq M.predicted among non-blacks MDRD (S/P/Bld) [Vol rate/Area] 85 mL/min/{1.73_m2} Normal >60 [facility] Comment on above: Result Comment: mL/m in/1.73m2 CKD-EPI Creatinine Equation (2020) Performed By: #### M , , #### [facility] [address] [place], [address] Globulin (S) [Mass/Vol] 3.6 g/dL Normal 2.2-4.2 [facility] Comment on above: Performed By: #### M , , #### [facility] [address] [place], [address] Glucose [Mass/Vol] 117 mg/dL High 70-99 [facility] Comment on above: Performed By: #### M , , #### [facility] [address] [place], [address] Potassium [Moles/Vol] 4.6 mmol/L Normal 3.3-5.1 [facility] Comment on above: Performed By: #### M , , #### [facility] [address] [place], [address] Sodium [Moles/Vol] 141 mmol/L Normal 133-145 [facility] Comment on above: Performed By: #### M , M100.4001, M100.2700 #### [facility] [address] [place], [address] T PROT 7.7 g/dL Normal 5.9-8.4 [facility] Comment on above: Performed By: #### M 100.1999, M100.4001, M100.2700 #### [facility] [address] [place], [address] Urea nitrogen [Mass/Vol] 18 mg/dL Normal 4-19 [facility] Comment on above: Performed By: #### M 100.1999, M100.4001, M100.2700 #### [facility] [address] [place], [address] Eosinophil percentageOrdered By: Krishan Kruse on 06-17-2024 Eosinophils/100 WBC (Bld) 1.2 % 0-5 [facility] Erythrocyte distribution wid th (RBC) [Ratio]Ordered By: Krishan Kruse on 06-17-2024 Erythrocyte distribution width (RBC) [Entitic vol] 42.9 fL 35.1-43.9 [facility] Erythrocyte distribution wid th ratioOrdered By: Krishan Lemuss on 06-17-2024 Erythrocyte distribution width (RBC) [Ratio] 12.9 % 11.6-14.6 [facility] Erythrocyte distribution wid th standard deviationOrdered By: Krishan Lemuss on 06-17-2024 Erythrocyte distribution width (RBC) [Ratio] 42.9 fl 35.1-43.9 [facility] GFR/1.73 sq M.predicted mi g non-blacks MDRD (S/P/Bld) [Vol rate/Area]Ordered By: Krishan Kruse on 06-17-2024 Estimated GFR (MDRD) Non-Af Amer 85 >60 [facility] Comment on above: mL/min/1.73m2 CKD-EP I Creatinine Equation (2020) Glomerular filtration rate ( GFR) estimation/1.73 sq m using serum, plasma, or whole bOrdered By: Krishan Kruse on 06-17-2024 GFR/1.73 sq M.predicted among non-blacks MDRD (S/P/Bld) [Vol rate/Area] 85 mL/min/{1.73_m2} >60 [facility] Comment on above: mL/min/1.73m2 CKD-EP I Creatinine Equation (2020) Hematocrit Auto (Bld) [Volum e fraction]Ordered By: Krishan Kruse on 06-17-2024 Hematocrit (Bld) [Volume fraction] 36.1 % Low 37-47 [facility] Hemoglobin A1con 06-17-2024 HbA1c (Bld) [Mass fraction] 6.0 % Normal <=5.6 [facility] Comment on above: Performed By: #### M 100.2000, M100.4001, M100.2700 #### [facility] [address] [place], [address] Hemoglobin A1c percentageOrd ered By: Krishan Kruse on 06-17-2024 HbA1c (Bld) [Mass fraction] 6.0 % >5.7 [facility] Hemoglobin measurementOrdere d By: Krishan Kruse on 06-17-2024 Hemoglobin (Bld) [Mass/Vol] 11.9 g/dL Low 12.0-15.0 [facility] Immature granulocytes/100 WB C Auto (Bld)Ordered By: Krishan Kruse on 06-17-2024 Immature granulocytes/100 WBC (Bld) 0.400 % 0.0-0.9 [facility] Comment on above: IG% - Immature Granu locytes (promyelocytes, myelocytes and metamyelocytes) > 1% indicates that a LEFT SHIFT is Present. Laboratory - Chemistry and C hemistry - challengeOrdered By: Krishan Kruse on 06-17-2024 AST [Catalytic activity/Vol] 27 U/L <32 [facility] Lymphocytes Auto (Unsp spec) [#/Vol]Ordered By: Krishan Kruse on 06-17-2024 Lymphocytes (Bld) [#/Vol] 2.89 10*3/uL 0.83-4.51 [facility] Lymphocytes/100 WBC Auto (Un sp spec)Ordered By: Krishan Kruse on 06-17-2024 Lymphocytes/100 WBC (Bld) 27.3 % 19-41 [facility] MCV (mean corpuscular volume ) determinationOrdered By: Krishan Kruse on 06-17-2024 MCV (RBC) [Entitic vol] 91.4 fL 81-99 [facility] Mean corpuscular hemoglobin (MCH) determinationOrdered By: Krishan Kruse on 06-17-2024 MCH (RBC) [Entitic mass] 30.1 pg 27.0-32.0 [facility] Mean corpuscular hemoglobin concentration (MCHC) determinationOrdered By: Krishan Kruse on 06-17-2024 MCHC (RBC) [Mass/Vol] 33.0 g/dL 32-36 [facility] Mean platelet volume determi nationOrdered By: Krishan Kruse on 06-17-2024 Platelet mean volume (Bld) [Entitic vol] 9.0 fL 6.2-12.0 [facility] Monocyte percentageOrdered B y: Krishan Kruse on 06-17-2024 Monocytes/100 WBC (Bld) 10.6 % High 0-10 [facility] Neutrophil percentageOrdered By: Krishan Kruse on 06-17-2024 Neutrophils/100 WBC (Bld) 60.1 % 47-70 [facility] Nucleated red blood cell per centageOrdered By: Krishan Kruse on 06-17-2024 Nucleated RBC/100 WBC (Bld) [Ratio] 0 % 0-5 [facility] Office Visiton 06-17-2024 Follow-up visit [id number] Lisa Miller aida 1960 F Date Provider Department Center 06/17/2024 [id number], [facility] None Family History Problem Relation Age of Onset Arthritis Mother Hypertension Mother Heart disease Father Stroke Father Stroke Paternal Grandmother Depression Brother Hypertension Brother Hypertension Sister Family Status - Relation Status Age at Mother Father Paternal Grandmother Brother Sister Level of Service:13710 [place] OFFICE/OUTPATIENT NEW MODERATE MDM 45 MINUTES Reason for Visit and Comments: New Patient [542] - Left hip pain Normal [facility] Platelet countOrdered By: Ady Kruse on 06-17-2024 Platelets (Bld) [#/Vol] 467 10*3/uL High 150-450 [facility] Potassium (Unsp spec) [Mass/ Vol]Ordered By: Krishan Kruse on 06-17-2024 Potassium [Moles/Vol] 4.6 mmol/L 3.3-5.1 [facility] Potassium measurement (mass/ volume)Ordered By: Krishan Kruse on 06-17-2024 Potassium (Unsp spec) [Mass/Vol] 4.6 mmol/L 3.3-5.1 [facility] Progress Noteon 06-17-2024 Progress Note Keiry didn't get a W B pelvis at [facility]. Will need this done prior to surgery. Like literally a day before is fine. Ko likely closest for her? Tell her we're sorry about this getting missed. Normal [facility] Progress Note [facility] [place] [address] [facility] [address] [facility] [address] Dept: [phone] Dept 06/17/2024 Chief Complaint Patient presents with New Patient Left hip pain Subjective: Keiry is a 64 y.o. female who presents for evaluation of the left hip. Symptoms began suddenly 2 years ago. She describes the symptoms as sharp and shooting. Pain location: side of hip/laterally and radiation down the leg. Symptoms improve with rest, heat, physical therapy, the use of a cane, avoiding painful activities. The symptoms are exacerbated by stair climbing, weight bearing. Able to walk 0-1 blocks and is able to use stairs. Overall, the patient feels as if this condition is moderately impacting their quality of life and ability to do activities of daily living. No associated radicular pain contributing nor any radiating hip pain. Previous Surgery: No Non-operative treatment has consisted of: NSAIDS: No Cortisone injections: No Assistive Devices: Yes Therapy: No Narcotics: No Activity modification: No Attempted Weight Loss: No Medications reviewed Review of Systems Constitutional: Negative for activity change. HENT: Negative for congestion. Cardiovascular: Negative for leg swelling. Musculoskeletal: Positive for arthralgias, gait problem and joint swelling. Skin: Negative for wound. Neurological: Negative for weakness. No past medical history on file. No past surgical history on file. Social History Socioeconomic History Marital status: Spouse name: Not on file Number of children: Not on file Years of education: Not on file Highest education level: Not on file Occupational History Not on file Tobacco Use Smoking status: Never Smokeless tobacco: Never Substance and Sexual Activity Alcohol use: Never Drug use: Never Sexual activity: Not on file Other Topics Concern Not on file Social History Narrative Not on file Social Drivers of Health Financial Resource Strain: Not on file Food Insecurity: Not on file Transportation Needs: Not on file Physical Activity: Not on file Stress: Not on file Social Connections: Not on file Intimate Partner Violence: Not on file Housing Stability: Not on file No family history on file. Allergies Allergen Reactions Pollen Extract Other Reaction(s): Itchy watery eyes Sulfa Antibiotics Other Reaction(s): Other (See Comments), Other: See Comments, PT UNSURE OF REACTION Tightness of chest. Objective: Ht 5' 6.5 (1.689 m) Wt 206 lb (93.4 kg) BMI 32.75 kg/m? Pt is a WD/WN female in no acute distress. She appears her stated age. Mood and affect are normal. She is A&O x 3. Gait: antalgic. RIGHT HIP: Skin is warm, dry and intact. There are no rashes, lesions, or obvious scars. No tenderness to palpation. Greater trochanter is not tender. ROM shows flexion 90, IR 30, ER 40, without pain. Stinchfield exam: negative. +PF/DF/EHL. SILT distally. DP/PT palpable. Straight leg raise negative for inciting radicular symptoms. LEFT HIP: Skin is warm, dry and intact. There are no rashes, lesions, or obvious scars. No tenderness to palpation. Greater trochanter is tender. ROM shows flexion 90, IR 5, ER 30, with pain. Stinchfield exam: positive. +PF/DF/EHL. SILT distally. DP/PT palpable. Straight leg raise negative for inciting radicular symptoms. The patient does have a leg length discrepancy and measures 5-6mm short on the left. Lab Findings: RELEVANT LABS: No results found for: HGBA1C Radiology Findings: 05/06/2024 images obtained by outside radiology department independently reviewed by myself today in office. XRAYS: Indication: Left hip pain Exam Ordered: Radiographs include an anteroposterior pelvis, an anteroposterior and lateral view of the proximal femur including the hip joint. Details of Examination: Exam shows evidence of significant joint space narrowing (bone on bone), significant peripheral osteophyte formation, and subchondral sclerosis; all consistent with end-stage degenerative changes of the hip. No other significant findings are noted. Impression: Degenerative Arthritis, left hip MRI reviewed from outside institution, 06/08/2024: Severe degenerative arthritis left hip, severe cystic formation of femoral head and acetabulum. 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 Uterine calcified lesion, appears to be fibroid. Assessment 1. Primary osteoarthritis of left hip Plan Left Total Hip Arthroplasty. Previous MRI read concerning for metastatic disease, however, appears to be degenerative cyst formation in femoral head and acetabulum. Low concern for neoplasm, would be rare to see lesions on both sides of joint and unlikely to spread from uterus. Will send femoral head and possible reamings for pathologic evaluation. Discussed anything encountered that is unusual during the surgery we may have to get (more content not included)... Normal [facility] Progress Note CD UPLOADED, IMAGES IN AGFA DISC RETURNED TO PATIENT Normal [facility] RBC Auto (Bld) [#/Vol]Ordere d By: Krishan Kruse on 06-17-2024 RBC (Bld) [#/Vol] 3.95 10*6/uL Low 4.2-5.4 [facility] Serum creatinine measurement (mass/volume)Ordered By: Krishan Kruse on 06-17-2024 Creatinine [Mass/Vol] 0.77 mg/dL 0.70-1.20 [facility] Serum globulin measurementOr dered By: Krishan Kruse on 06-17-2024 Globulin (S) [Mass/Vol] 3.6 g/dL 2.2-4.2 [facility] Serum glucose measurement (m ass/volume)Ordered By: Krishan Kruse on 06-17-2024 Glucose [Mass/Vol] 117 mg/dL High 70-99 [facility] Serum or plasma alanine mitchell otransferase (ALT) measurementOrdered By: Krishan Kruse on 06-17-2024 ALT [Catalytic activity/Vol] 41 U/L High <35 [facility] Serum or plasma albumin liz urement (mass/volume)Ordered By: Krishan Kruse on 06-17-2024 Albumin [Mass/Vol] 4.1 g/dL 3.4-4.8 [facility] Serum or plasma albumin/glob ulin mass ratioOrdered By: Krishan Kruse on 06-17-2024 Albumin/Globulin [Mass ratio] 1.1 {ratio} 0.9-2.4 [facility] Serum or plasma alkaline marga sphatase measurementOrdered By: Krishan Kruse on 06-17-2024 ALP [Catalytic activity/Vol] 111 U/L High 35-104 [facility] Serum or plasma calcium liz urement (mass/volume)Ordered By: Krishan Kruse on 06-17-2024 Calcium [Mass/Vol] 9.0 mg/dL 7.6-11.0 [facility] Serum or plasma urea nitroge n measurement (mass/volume)Ordered By: Krishan Kruse on 06-17-2024 Urea nitrogen [Mass/Vol] 18 mg/dL 4-19 [facility] Sodium levelOrdered By: Krishan Kruse on 06-17-2024 Sodium [Moles/Vol] 141 mmol/L 133-145 [facility] Total proteinOrdered By: Lakeisha Kruse on 06-17-2024 Protein [Mass/Vol] 7.7 g/dL 5.9-8.4 [facility] White blood cell (WBC) count Ordered By: Krishan Kruse on 06-17-2024 WBC (Bld) [#/Vol] 10.6 10*3/uL 4.4-11.0 [facility] 36on 06-14-2024 36 Noted Normal [facility] 36 Dr Watson reviewed images, also were sent to [facility] he feels DR Kruse should see the patient for KOTA Appt scheduled for Monday06/17/24 @ 10 AM Called Silvina ELMORE with plan DR Watson recommends she see AUTOMOTIVE FUEL INJECTION SERVICER for the uterus issues she will place an urgent referral today for [facility] Spoke to daughter Kasia with plan she will come with her mom on Monday Normal [facility] 36on 06-12-2024 36 Name of caller: Puneet morales Contact phone number: [phone] Relationship to Patient: Daughter Provider: Shirley Practice: Ortho Chief Complaint/Reason for Call: Pt is being referred from Celina Ace NP at [facility] in [place] for pathological fx lt femoral bone with lesions and mass. Kasia called in to see if information has been received to schedule and appt. Pt had an MRI done on Monday. Kasia is asking for a return call. Please advise. Best time of day caller can be reached: Any Patient advised that office/PCP has 24-48 business hours to return their call: N/A Normal [facility] Orthopedic Visit Reporton Orthopedic Visit Report [facility] [address] [place] [id number] OFFICE VISIT Date of Service: 06/12/24 MR#: [id number] Acct: [id number] Name: KEIRY MILLER Rep #: [id number] : 1960 Provider: REMA graves Age/Sex: 64/F Location: [facility] Status: Signed with Addenda ADDENDUM by REMA Ace on 06/12/24 at 1125 Assessment and Plan Assessment and Plan (1) Pathologic femoral fracture: Status: Acute Qualifiers: Pathology associated with fracture: neoplastic disease Encounter type: initial encounter Laterality: left Qualified Code(s): M84.552A - Pathological fracture in neoplastic disease, left femur, initial encounter for fracture Plan: 11:25-spoke with patient's daughter, Kasia, x 14 minutes to review findings, multiple specialty referrals for Ortho oncology at [facility], and [facility] provided with telephone numbers. Encouraged follow-up with PCP for an [facility] appointment, additional testing is indicated. Family or patient to contact our office to assist with referral process once a specialist is selected (2) Abdominal mass: Status: Acute Qualifiers: Abdominal location: other location Qualified Code(s): R19.09 - Other intra-abdominal and pelvic swelling, mass and lump (3) Injury of left hip and thigh: Status: Acute Qualifiers: Encounter type: initial encounter Qualified Code(s): S79.912A - Unspecified injury of left hip, initial encounter; S79.922A - Unspecified injury of left thigh, initial encounter 06/12/24 1125 Date Silvina Ace cc: * Signed Intake Vital Signs 06/04/24 15:49 06/12/24 09:27 Height 5 ft 6 in 5 ft 6 in Intake Visit Reasons: LEFT HIP Chief Complaint: MRI result follow-up Allergies pollen extracts Allergy (Verified 06/04/24 15:50) Itchy watery eyes Sulfa (Sulfonamide Antibiotics) Allergy (Verified 06/04/24 15:50) PT UNSURE OF REACTION Have you fallen in the past year?: Yes PFSH Medical History (Updated 06/12/24 @ 10:09 by REMA Borrero) Environmental allergies Hypertension Lichen sclerosus Family History (Updated 05/06/24 @ 15:15 by Irene Quiroz) Father Heart disease Mother Hypertension Brother Heart disease Social History (Updated 05/06/24 @ 15:16 by Irene Quiroz) household members: spouse current occupational status: retired Smoking Status: Never smoker alcohol intake: never substance use type: does not use what type of physical activity do you participate in: none do you feel safe at home: Yes HPI LEFT HIP Details: This documentation accurately reflects the service provided and the decisions made by me, REMA Borrero 06/12/2428. KEIRY MILLER is a 64 year old F scheduled for a phone follow-up for MRI result review. Today's visit was completed over telephone per pt request. MRI was completed 06/08/2024 and resulted late afternoon yesterday. Patient states her symptoms have progressed since her last visit here, she is having increased difficulty with weightbearing and describes instability sensation of the distal femur with weightbearing and feels like her bone is shifting, increasing pain to the knee. She is currently using 2 canes to bear weight. No new injuries. ROS Const All systems reviewed are unremarkable except as noted in H and other (A O x 3, no apparent distress. No recent illness.) Denies chills, Denies fatigue, Denies fever(s), Denies frequent falls, Denies headache(s) and Reports weakness ENT Denies dizziness or headache(s) Card Denies chest pain, Denies dyspnea, Denies edema and Reports other (No palpitations) Resp Denies cough, Denies dyspnea and Reports other (No recent URI) GI Reports system reviewed and no additional complaints, except as documented, Denies nausea and Denies vomiting Denies urinary incontinence Musc Reports as per HPI, Reports arthralgias, Reports joint swelling, Denies numbness, Reports stiffness and Denies tingling Skin/Breast Denies rash Neuro No dizziness, No frequent falls, No headache(s), No numbness, No tingling and Yes weakness Psych Reports system reviewed and no additional complaints, except as documented Endo Denies fatigue Bo/Lymph Denies easy bleeding and Denies easy bruising Supplemental Info IMPRESSION: 1. Pathologic fracture of the left femoral head with marrow replacing mass, compatible with osseous metastatic disease. Additional marrow lesions throughout the left hip as described, compatible with osseous metastatic disease. 2. Irregularly calcified mass adjacent to the uterus with ill-defined uterine parenchymal thickening and enhancement, incompletely evaluated by MRI. Additional left lower pelvic lymphadenopathy. Findings are most compatible wit (more content not included)... Normal [facility] Magnetic resonance imaging r eportOrdered By: Octavia Fagan on 06-11-2024 Study report [facility] Imaging Services [address] [place], [place] [address] Lower Ext Joint Only (Routine) MR#: [id number] Acct: [id number] Name: KEIRY MILLER Rep #: [id number] : 1960 F 64 From: Tahira Fagan MD PCP: JOSIAH Lassiter, PROGRAMMING DEVELOPMENT PROJECT MANAGER-C Status: REG CLI Study:Lower Ext Joint Only (Routine) Date of Exam: 06/08/24 Exam# [id number] Ordering Dr: Monique Ace PROCEDURE: LOWER EXT JOINT ONLY (ROUTINE) 06/08/2024 REASON FOR EXAM: L HIP PAIN AFTER FALL 02/2023; LEG SHORTENING + TECHNIQUE: MRI of the left hip without contrast COMPARISON: Left hip radiographs 05/06/2024. FINDINGS: Bone Marrow: Abnormal marrow signal within the left femoral head epiphysis, withill-defined marrow replacing mass within the posterolateral femoral head, measuring approximately 3.6 x 2.8 x 2.3 cm (AP x TVx CC, series 6, image 12 and series 5, image 11). There is an additional ill-defined area of T1 hypo enhancing, T2 hyper enhancing marrow signal within the left intertrochanteric region. Well-circumscribed T1 isointense and STIR hyperintense lesions within the left acetabulum. The right hip is grossly unremarkable. Effusion: Small left joint effusion. Soft Tissues: Edema throughout the musculature of the anterior compartment of the thigh (left iliopsoas, vastus medialis, intermedius and lateralis). Left lower pelvic lymphadenopathy. Irregular calcified mass adjacent to the left lower uterus, measuring approximately 2.7 x 2.6 cm (AP x CC, series 8, image 1). The uterus is atrophic with diffuse ill-definedparenchymal thickening and enhancement. Additional incompletely evaluated areas of hypoenhancement throughout the uterus. The visualized lower abdominal bowel loops are normal in caliber. Normal appendix. MRI/Lower Ext Joint Only (Routine) IMPRESSION: 1. Pathologic fracture of the left femoral head with marrow replacing mass, compatible with osseous metastatic disease. Additional marrow lesions throughout the left hip as described, compatible with osseous metastatic disease. 2. Irregularly calcified mass adjacent to the uterus with ill-defined uterine parenchymal thickening and enhancement, incompletely evaluated by MRI. Additional left lower pelvic lymphadenopathy. 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 CT abdomen pelvis recommended for further evaluation. Dr. Fagan discussed these findings with Bernard, it trainer working with Ifrah Ace NP, at 3:55 pm on 06/11/24. Reading Location: [id number] CC: REMA Ace; [facility] LEE ANN-Yessy Gonzalez ~ Shot Peening Operator: Signed [facility] Lower Ext Joint Only (Routin e)on 06-08-2024 Lower Ext Joint Only (Routine) [facility] Imaging Services [address] [place] [address] Lower Ext Joint Only (Routine) MR#: [id number] Acct: [id number] Name: KEIRY MILLER Rep #: [id number] : 1960 F 64 From: Octavia Gaytan nd, MD PCP: JOSIAH Lassiter, LEE ANN-Yessy Status: REG CLI Study: Lower Ext Joint Only (Routine) Date of Exam: 0 06/08/24 Exam# [id number] Ordering Dr: Silvina Ace PROCEDURE: LOWER EXT JOINT ONLY (ROUTINE) 06/08/2024 REASON FOR EXAM: L HIP PAIN AFTER FALL 02/2023; LEG SHORTENING + TECHNIQUE: MRI of the left hip without contrast COMPARISON: Left hip radiographs 05/06/2024. FINDINGS: Bone Marrow: Abnormal marrow signal within the left femoral head epiphysis, with ill-defined marrow replacing mass within the posterolateral femoral head, measuring approximately 3.6 x 2.8 x 2.3 cm (AP x TV x CC, series 6, image 12 and series 5, image 11). There is an additional ill-defined area of T1 hypo enhancing, T2 hyper enhancing marrow signal within the left intertrochanteric region. Well-circumscribed T1 isointense and STIR hyperintense lesions within the left acetabulum. The right hip is grossly unremarkable. Effusion: Small left joint effusion. Soft Tissues: Edema throughout the musculature of the anterior compartment of the thigh (left iliopsoas, vastus medialis, intermedius and lateralis). Left lower pelvic lymphadenopathy. Irregular calcified mass adjacent to the left lower uterus, measuring approximately 2.7 x 2.6 cm (AP x CC, series 8, image 1). The uterus is atrophic with diffuse ill-defined parenchymal thickening and enhancement. Additional incompletely evaluated areas of hypoenhancement throughout the uterus. The visualized lower abdominal bowel loops are normal in caliber. Normal appendix. MRI/Lower Ext Joint Only (Routine) IMPRESSION: 1. Pathologic fracture of the left femoral head with marrow replacing mass, compatible with osseous metastatic disease. Additional marrow lesions throughout the left hip as described, compatible with osseous metastatic disease. 2. Irregularly calcified mass adjacent to the uterus with ill-defined uterine parenchymal thickening and enhancement, incompletely evaluated by MRI. Additional left lower pelvic lymphadenopathy. 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 CT abdomen pelvis recommended for further evaluation. Dr. Fagan discussed these findings with Bernard, it trainer working with Ifrah Ace NP, at 3:55 pm on 06/11/24. Reading Location: [id number] CC: REMA Ace; [facility] REMA Gonzalez Shot Peening Operator: Signed Normal [facility] Urine Cultureon 06-06-2024 URC Klebsiella pneumonia e sp pneum [place] Count 25,000-50,000 Klebsiella pneumoniae sp pneum: REACTION Ampicillin Islt WILL >=32 Ampicillin+Sulbac Islt WILL 4 S Cefepime Islt WILL <=0.12 S cefTRIAXone Islt WILL <=0.25 S Ciprofloxacin Islt WILL <=0.06 S B-Lactamase Extended Susc Islt NEG Gentamicin Islt WILL <=1 S levoFLOXacin Islt WILL <=0.12 S Meropenem Islt WILL <=0.25 S Nitrofurantoin Islt WILL 64 I Pip+Tazo Islt WILL <=4 S TMP SMX Islt WILL <=20 S Normal [facility] Comment on above: Performed By: #### M 100.2200 #### [facility] [address] [place], [address] Laboratory - Chemistry and C hemistry - challengeOrdered By: Ruslan Shay on 06-04-2024 Bilirubin Ql (U) Negative [facility] Glucose Ql (U) Negative [facility] Ketones Ql (U) Negative [facility] pH (U) 6.0 [pH] [facility] Specific gravity (U) [Rel density] 1.020 [facility] Urobilinogen (U) [Mass/Vol] Negative [facility] Laboratory - Hematology and Cell countsOrdered By: Ruslan Shay on 06-04-2024 Hemoglobin Ql (U) Negative [facility] Laboratory - Specimen inform ationOrdered By: Ruslan Shay on 06-04-2024 Clarity (U) Cloudy [facility] Color (U) Dk Yellow [facility] Laboratory - UrinalysisOrder ed By: Ruslan Shay on 06-04-2024 Nitrite Ql (U) Negative [facility] Protein Ql (U) Trace [facility] No Panel InformationOrdered By: Ruslan Shay on 06-04-2024 Urine Leukocytes Positive [facility] Urine Non-Hemolyzed Blood Negative [facility] Urgent Care Visit Reporton 0 06-04-2024 Urgent Care Visit Report [facility] [address] , [address] [place] [address] OFFICE VISIT Date of Service: 06/04/24 MR#: [id number] Acct: [id number] Name: KEIRY MILLER Rep #: [id number] : 1960 Provider: CATARINA Herrera Age/Sex: 64/F Location[facility] Status: Signed Intake Vital Signs 05/06/24 15:25 06/04/24 15:49 Height 5 ft 6.5 in 5 ft 6 in Weight: 206 lb 205 lb 4 oz BMI 32.7 33.1 BP 138/68 H Blood Pressure Location Lt brachial Position Sitting Respiration 17 Pulse 67 Pulse Source NIBP Temp 98.1 F Temp Source Oral Pulse Oximetry (%) 97 Oxygen Delivery Method room air Intake Visit Reasons: CONCERN FOR UTI Chief Complaint: urinary frequency Student Records Specialist Required: No Is patient in pain?: No Allergies pollen extracts Allergy (Verified 06/04/24 15:50) Itchy watery eyes Sulfa (Sulfonamide Antibiotics) Allergy (Verified 06/04/24 15:50) PT UNSURE OF REACTION Is last menstrual period known: No Post menopausal: Yes Patient : No Have you fallen in the past year?: No Nurse's Note: urinary frequency today. denies abd pain, back pain, fever. concern for UTI PFSH Medical History (Updated 05/06/24 @ 16:13 by REMA Borrero) Environmental allergies Hypertension Lichen sclerosus Family History (Updated 05/06/24 @ 15:15 by Irene Quiroz) Father Heart disease Mother Hypertension Brother Heart disease Social History (Updated 05/06/24 @ 15:16 by Irene Quiroz) household members: spouse current occupational status: retired Smoking Status: Never smoker alcohol intake: never substance use type: does not use what type of physical activity do you participate in: none do you feel safe at home: Yes HPI HPI Chief Complaint: urinary frequency Details: KEIRY MILLER, is a 64 F who presents to the office today for initial evaluation at the [facility] for approximately 8-10 hour history of dysuria and urinary frequency with suprapubic pressure - w/ L CVA tender appreciated this morning (but resolved now). No complaints of fever, chills, sweats, lightheadedness/dizzine ss, nausea/vomiting, or chest pain/shortness of breath/dyspnea on exertion/back pain. No changes in color/ character of urine or stool; no urethral/ vaginal discharge. No oewn-ybq-rvnzzsc products taken to assist. No other associated symptoms and no alleviating/aggravating factors. ROS Const Constitutional: No other (As above) Exam Const General: cooperative, healthy appearing and no acute distress Orientation: alert, awake and oriented x3 Chest Chest palpation inspection: normal inspection of the chest Resp Effort Inspection: normal respiratory effort and able to speak in complete sentences Auscultation: Bilateral: Clear to Auscultation Cardio Palpation: normal PMI Rate: regular rate Rhythm: regular rhythm Heart Sounds: S1 normal, S2 normal, no gallops, no murmurs and no rubs Pulses: radial pulses present GI Inspection: normal to inspection Palpation: soft and tender suprapubic (Patient describes upon self-palpation) General: No CVA tenderness Skin General: no rashes or lesions noted Neuro General: patient alert, patient awake and patient oriented x3 Cognition: normal cognition Speech: speech normal Psych Appearance: grossly normal Mental Status: mental status grossly normal Mood: congruent mood Affect: normal affect Speech and Movement: speech and movement normal Attitude: cooperative Diagnoses Urinary tract infection N39.0 Assessment and Plan Assessment and Plan (1) Urinary tract infection: Status: Acute Plan: See POC results; urine sent to lab for UA and C/S. Macrobid as prescribed today. Supportive measures as instructed today. Follow-up with PCP in 3 to 5 days should symptoms not improve, sooner should symptoms only worsen or any other concerns develop. Patient states acknowledging understanding all the above. Coding Level of Care Code Off vis,new,level 3 Assessment and Plan Assessment and Plan Orders: Orders POC Urinalysis Dip (Clinic) Today R35.0 - Frequency of micturition Culture, Urine Today R82.90 - Unspecified abnormal findings in urine Medications: New nitrofurantoin monohyd/m-cryst 100 mg (Macrobid) must administer with a meal/food 100 mg PO Q12H 5 days 10 caps 0RF Clinical Quality Measures Falls Risk Screening/Assistive Devices Have you fallen in the past year?: No 06/04/24 1600 Date Ruslan ELMORE Cosigner Signature: Date (if applicable) CC: Normal [facility] Urine cultureOrdered By: Mal Shay on 06-04-2024 Bacteria identified Cx Nom (U) Klebsiella pneumoniae sp pneum Abnormal [facility] Kidney and Bladderon 025 Kidney and Bladder [facility] Imaging Services [address] [place], [place] [address] Kidney and Bladder MR#: [id number] Acct: [id number] Name: KEIRY MILLER Rep #: [id number] : 1960 F 64 From: Enrico Shafer MD PCP: Irene Gonzalez [facility], PROGRAMMING DEVELOPMENT PROJECT MANAGER-C Status: REG CLI Study: Kidney and Bladder Date of Exam: 05/23/24 Exam# [id number] Ordering Dr: Lala Sullivan MD EXAM: US Retroperitoneal Limited, Renal CLINICAL INDICATION: UTI TECHNIQUE: Real-time limited ultrasound of the retroperitoneum with image documentation. COMPARISON: No relevant prior studies available. FINDINGS: RIGHT KIDNEY: Unremarkable. No stones. No hydronephrosis. The right kidney measures 10.9 x 5.4 x 4.6 cm. LEFT KIDNEY: Unremarkable. No stones. No hydronephrosis. The left kidney measures 10.9 x 5.0 x 5.5 cm. BLADDER: Urinary bladder not visualized, likely empty. US/Kidney and Bladder IMPRESSION: Unremarkable exam. Reading Location: [facility] CC: [facility] PROGRAMMING DEVELOPMENT PROJECT MANAGER-C Irene Gonzalez; Dr. Lala Sullivan MD Shot Peening Operator: Signed Normal [facility] Basic Metabolic Profile (BMP )on 05-08-2024 Anion gap [Moles/Vol] 14 mmol/L Normal 5-15 [facility] Comment on above: Order Comment: A1C Performed By: #### M 100.2000, M100.4001, M100.2700 #### [facility] [address] [place], [address] BUN/CRE 16.5 RATIO Normal 10-20 [facility] Comment on above: Order Comment: A1C Performed By: #### M , , 2700 #### [facility] [address] [place], [address] Calcium [Mass/Vol] 8.8 mg/dL Normal 7.6-11.0 [facility] Comment on above: Order Comment: A1C Performed By: #### M , , 0 #### [facility] [address] [place], [address] Chloride [Moles/Vol] 101 mmol/L Normal 96-108 [facility] Comment on above: Order Comment: A1C Performed By: #### M , , #### [facility] [address] [place], [address] CO2 [Moles/Vol] 21.5 mmol/L Low 22.0-29.0 [facility] Comment on above: Order Comment: A1C Performed By: #### M , , 2700 #### [facility] [address] [place], [address] Creatinine [Mass/Vol] 0.7 mg/dL Normal 0.6-1.0 [facility] Comment on above: Order Comment: A1C Performed By: #### M , , [id number] #### [facility] [address] [place], [address] GFR/1.73 sq M.predicted among non-blacks MDRD (S/P/Bld) [Vol rate/Area] 97 mL/min/{1.73_m2} Normal >60 [facility] Comment on above: Order Comment: A1C Result Comment: mL/m in/1.73m2 CKD-EPI Creatinine Equation (2020) Performed By: #### M , M100.400, M100.2700 #### [facility] [address] [place], [address] Glucose [Mass/Vol] 215 mg/dL High 70-99 [facility] Comment on above: Order Comment: A1C Performed By: #### M , .400, .2700 #### [facility] [address] [place], [address] Potassium [Moles/Vol] 4.0 mmol/L Normal 3.3-5.1 [facility] Comment on above: Order Comment: A1C Performed By: #### M , .400, .2700 #### [facility] [address] [place], [address] Sodium [Moles/Vol] 136 mmol/L Normal 133-145 [facility] Comment on above: Order Comment: A1C Performed By: #### M , .400, M1.2700 #### [facility] [address] [place], [address] Urea nitrogen [Mass/Vol] 11 mg/dL Normal 4-19 [facility] Comment on above: Order Comment: A1C Performed By: #### M , .4000, .2700 #### [facility] [address] [place], [address] Hemoglobin A1con 05-08-2024 HbA1c (Bld) [Mass fraction] 5.9 % Normal <=5.6 [facility] Comment on above: Performed By: #### M , .400, M1.2700 #### [facility] [address] [place], [address] Absolute lymphocyte countOrd ered By: [facility] Irene Gonzalez on 05-07-2024 Lymphocytes Auto (Unsp spec) [#/Vol] 2.91 10*3/uL 0.83-4.51 [facility] Absolute neutrophil countOrd ered By: [facility] Irene Gonzalez on 05-07-2024 Neutrophils (Bld) [#/Vol] 4.9 10*3/uL 2.0-7.7 [facility] Automated lymphocyte count a s percentage of total leukocytesOrdered By: [facility] Irene Gonzalez on 05-07-2024 Lymphocytes/100 WBC Auto (Unsp spec) 33.8 % [facility] BUN/creatinine ratioOrdered By: [facility] Irene Gonzalez on 05-07-2024 Urea nitrogen/Creatinine [Mass ratio] 16.5 mg/mg 10- [facility] Basophil percentageOrdered B y: [facility] Irene Gonzalez on 05-07-2024 Basophils/100 WBC (Bld) 0.5 % 0-1 [facility] CBC W/Diff, Automatedon 04-14 Absolute Lymph 2.91 X10 3/uL Normal 0.83-4.51 [facility] Comment on above: Performed By: #### M 100, M1.4000, M100.2700 #### [facility] [address] [place], [address] Absolute Neut 4.9 X10 3/uL Normal 2.0-7.7 [facility] Comment on above: Performed By: #### M 100.1999, , M1.2700 #### [facility] [address] [place], [address] Basophils/100 WBC (Bld) 0.5 % Normal 0-1 [facility] Comment on above: Performed By: #### M 100.1999, M1.4000, M100.2700 #### [facility] [address] [place], [address] Eosinophils/100 WBC (Bld) 1.2 % Normal 0-5 [facility] Comment on above: Performed By: #### M 100.1999, , #### [facility] [address] [place], [address] Erythrocyte distribution width (RBC) [Ratio] 12.6 % Normal 11.6-14.6 [facility] Comment on above: Performed By: #### M , , #### [facility] [address] [place], [address] Hematocrit (Bld) [Volume fraction] 36.6 % Low 37-47 [facility] Comment on above: Performed By: #### M , , #### [facility] [address] [place], [address] Hemoglobin (Bld) [Mass/Vol] 11.6 g/dL Low 12.0-15.0 [facility] Comment on above: Performed By: #### , , #### [facility] [address] [place], [address] IG% 0.200 Normal 0.0-0.9 [facility] Comment on above: Result Comment: IG% - Immature Granulocytes (promyelocytes, myelocytes and metamyelocytes) > 1% indicates that a LEFT SHIFT is Present. Performed By: #### M , , #### [facility] [address] [place], [address] Lymphocytes/100 WBC (Bld) 33.8 % Normal 19-41 [facility] Comment on above: Performed By: #### M , , #### [facility] [address] [place], [address] MCH (RBC) [Entitic mass] 29.2 pg Normal 27.0-32.0 [facility] Comment on above: Performed By: #### M , , M1.2700 #### [facility] [address] [place], [address] MCHC (RBC) [Mass/Vol] 31.7 g/dL Low 32-36 [facility] Comment on above: Performed By: #### M , , .2700 #### [facility] [address] [place], [address] MCV (RBC) [Entitic vol] 92.2 fL Normal 81-99 [facility] Comment on above: Performed By: #### M , , 2700 #### [facility] [address] [place], [address] Monocytes/100 WBC (Bld) 8.0 % Normal 0-10 [facility] Comment on above: Performed By: #### M , , .2700 #### [facility] [address] [place], [address] Neutrophils/100 WBC (Bld) 56.3 % Normal 47-70 [facility] Comment on above: Performed By: #### M , , 2700 #### [facility] [address] [place], [address] Nucleated RBC (Bld) [#/Vol] 0 10*3/uL Normal 0-5 [facility] Comment on above: Performed By: #### M , , .2700 #### [facility] [address] [place], [address] Platelet mean volume (Bld) [Entitic vol] 9.6 fL Normal 6.2-12.0 [facility] Comment on above: Performed By: #### M , M100.400, M100.2700 #### [facility] [address] [place], [address] Platelets (Bld) [#/Vol] 368 10*3/uL Normal 150-450 [facility] Comment on above: Performed By: #### M , M100.400, M100.2700 #### [facility] [address] [place], [address] RBC (Bld) [#/Vol] 3.97 10*6/uL Low 4.2-5.4 [facility] Comment on above: Performed By: #### M , , M1.2700 #### [facility] [address] [place], [address] RDW SD 42.6 fl Normal 35.1-43.9 [facility] Comment on above: Performed By: #### M , M1, M1.2700 #### [facility] [address] [place], [address] WBC (Bld) [#/Vol] 8.6 10*3/uL Normal 4.4-11.0 [facility] Comment on above: Performed By: #### M , M1, M1.2700 #### [facility] [address] [place], [address] Carbon dioxide measurementOr dered By: [facility] Irene Gonzalez on 05-07-2024 CO2 [Moles/Vol] 21.5 mmol/L Low 22.0-29.0 [facility] Chloride measurementOrdered By: [facility] Irene Gonzalez on 05-07-2024 Chloride [Moles/Vol] 101 mmol/L 96-108 [facility] Creatinine [Moles/Vol]Ordere d By: [facility] Irene Gonzalez on 05-07-2024 Creatinine [Mass/Vol] 0.7 mg/dL 0.6-1.0 [facility] Eosinophil percentageOrdered By: [facility] Irene Gonzalez on 05-07-2024 Eosinophils/100 WBC (Bld) 1.2 % 0-5 [facility] Erythrocyte distribution wid th ratioOrdered By: [facility] Irene Gonzalez on 05-07-2024 Erythrocyte distribution width (RBC) [Ratio] 12.6 % 11.6-14.6 [facility] Erythrocyte distribution wid th standard deviationOrdered By: [facility] Irene Gonzalez on 05-07-2024 Erythrocyte distribution width (RBC) [Entitic vol] 42.6 fL 35.1-43.9 [facility] Erythrocyte distribution width (RBC) [Ratio] 42.6 fl 35.1-43.9 [facility] GFR/1.73 sq M.predicted mi g non-blacks MDRD (S/P/Bld) [Vol rate/Area]Ordered By: [facility] Irene Gonzalez on 05-07-2024 Estimated GFR (MDRD) Non-Af Amer 97 >60 [facility] Comment on above: mL/min/1.73m2 CKD-EP I Creatinine Equation (2020) Glomerular filtration rate ( GFR) estimation/1.73 sq m using serum, plasma, or whole bOrdered By: [facility] Irene Gonzalez on 05-07-2024 GFR/1.73 sq M.predicted among non-blacks MDRD (S/P/Bld) [Vol rate/Area] 97 mL/min/{1.73_m2} >60 [facility] Comment on above: mL/min/1.73m2 CKD-EP I Creatinine Equation (2020) Hematocrit Auto (Bld) [Volum e fraction]Ordered By: [facility] Irene Gonzalez on 05-07-2024 Hematocrit (Bld) [Volume fraction] 36.6 % Low 37-47 [facility] Hemoglobin A1c percentageOrd ered By: [facility] Irene Gonzalez on 05-07-2024 HbA1c (Bld) [Mass fraction] 5.9 % >5.7 [facility] Hemoglobin measurementOrdere d By: [facility] Irene Gonzalez on 05-07-2024 Hemoglobin (Bld) [Mass/Vol] 11.6 g/dL Low 12.0-15.0 [facility] Immature granulocytes/100 WB C Auto (Bld)Ordered By: [facility] Irene Gonzalez on 05-07-2024 Immature granulocytes/100 WBC (Bld) 0.200 % 0.0-0.9 [facility] Comment on above: IG% - Immature Granu locytes (promyelocytes, myelocytes and metamyelocytes) > 1% indicates that a LEFT SHIFT is Present. Lymphocytes Auto (Unsp spec) [#/Vol]Ordered By: [facility] Irene Gonzalez on 05-07-2024 Lymphocytes (Bld) [#/Vol] 2.91 10*3/uL 0.83-4.51 [facility] Lymphocytes/100 WBC Auto (Un sp spec)Ordered By: [facility] Irene Gonzalez on 05-07-2024 Lymphocytes/100 WBC (Bld) 33.8 % 19-41 [facility] MCV (mean corpuscular volume ) determinationOrdered By: [facility] Irene Gonzalez on 05-07-2024 MCV (RBC) [Entitic vol] 92.2 fL 81-99 [facility] Mean corpuscular hemoglobin (MCH) determinationOrdered By: [facility] Irene Gonzalez on 05-07-2024 MCH (RBC) [Entitic mass] 29.2 pg 27.0-32.0 [facility] Mean corpuscular hemoglobin concentration (MCHC) determinationOrdered By: [facility] Irene Gonzalez on 05-07-2024 MCHC (RBC) [Mass/Vol] 31.7 g/dL Low 32-36 [facility] Mean platelet volume determi nationOrdered By: [facility] Irene Gonzalez on 05-07-2024 Platelet mean volume (Bld) [Entitic vol] 9.6 fL 6.2-12.0 [facility] Monocyte percentageOrdered B y: [facility] Irene Gonzalez on 05-07-2024 Monocytes/100 WBC (Bld) 8.0 % 0-10 [facility] Neutrophil percentageOrdered By: [facility] Irene Gonzalez on 05-07-2024 Neutrophils/100 WBC (Bld) 56.3 % 47-70 [facility] Nucleated red blood cell per centageOrdered By: [facility] Irene Gonzalez on 02-25-2025 Nucleated RBC/100 WBC (Bld) [Ratio] 0 % 0-5 [facility] Platelet countOrdered By: [facility] Irene Gonzalez on 05-07-2024 Platelets (Bld) [#/Vol] 368 10*3/uL 150-450 [facility] RBC Auto (Bld) [#/Vol]Ordere d By: [facility] Irene Gonzalez on 05-07-2024 RBC (Bld) [#/Vol] 3.97 10*6/uL Low 4.2-5.4 [facility] Serum glucose measurement (m ass/volume)Ordered By: [facility] Irene Gonzalez on 05-07-2024 Glucose [Mass/Vol] 215 mg/dL High 70-99 [facility] Serum or plasma anion gap de termination (moles/volume)Ordered By: [facility] Irene Gonzalez on 05-07-2024 Anion gap [Moles/Vol] 14 mmol/L 5-15 [facility] Serum or plasma calcium liz urement (mass/volume)Ordered By: [facility] Irene Gonzalez on 05-07-2024 Calcium [Mass/Vol] 8.8 mg/dL 7.6-11.0 [facility] Serum or plasma creatinine m easurement (moles/volume)Ordered By: [facility] Irene Gonzalez on 05-07-2024 Creatinine [Moles/Vol] 0.7 mg/dL 0.6-1.0 [facility] Serum or plasma potassium me asurementOrdered By: [facility] Irene Gonzalez on 05-07-2024 Potassium [Moles/Vol] 4.0 mmol/L 3.3-5.1 [facility] Serum or plasma sodium measu rement (moles/volume)Ordered By: [facility] Irene Gonzalez on 05-07-2024 Sodium [Moles/Vol] 136 mmol/L 133-145 [facility] Serum or plasma urea nitroge n measurement (mass/volume)Ordered By: [facility] Irene Gonzalez on 05-07-2024 Urea nitrogen [Mass/Vol] 11 mg/dL 4-19 [facility] White blood cell (WBC) count Ordered By: [facility] Irene Gonzalez on 05-07-2024 WBC (Bld) [#/Vol] 8.6 10*3/uL 4.4-11.0 [facility] HIP, UNI W/ Pelvis 2-3 Views on 05-06-2024 HIP, UNI W/ Pelvis 2-3 Views [facility] Imaging Services [address] [place] [address] HIP, UNI W/ Pelvis 2-3 Views MR#: [id number] Acct: [id number] Name: KEIRY MILLER Rep #: [id number] : 1960 F 64 From: Scott Maurice i DO PCP: JOSIAH Lassiter, 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 COMPARISON: None. FINDINGS: Three views of the pelvis/left hip were obtained. Bones are osteopenic. Degenerative changes in the lower lumbar spine. No displaced pelvic fracture. 3.1 cm coarse calcification projecting over the left central pelvis, possible degenerated fibroid. Proximal femurs are intact. No acute fracture or dislocation left hip. Severe degenerative change of the left hip joint. RAD/HIP, UNI W/ Pelvis 2-3 Views IMPRESSION: Osteopenia. No acute bony abnormality of the pelvis/left hip. Severe degenerative change of the left hip joint. Reading Location: [facility] CC: REMA Ace; [facility] REMA Gonzalez Shot Peening Operator: Signed Normal [facility] Orthopedic Visit Reporton Orthopedic Visit Report [facility] [address] [place] [address] [address] [place] [address] OFFICE VISIT Date of Service: 05/06/24 MR#: [id number] Acct: [id number] Name: KEIRY MILLER Rep #: [id number] : 1960 Provider: REMA graves Age/Sex: 64/F [place] [facility] [place] Status: Signed Intake Vital Signs 05/06/24 15:25 Height 5 ft 6.5 in Weight: 206 lb BMI 32.7 Intake Visit Reasons: LEFT HIP Student Records Specialist Required: No Accompanied by: Self Is patient in pain?: Yes (left hip/LLE) Pain scale (1-10): 8 Allergies pollen extracts Allergy (Verified 05/06/24 15:10) Itchy watery eyes Sulfa (Sulfonamide Antibiotics) Allergy (Verified 05/06/24 15:10) PT UNSURE OF REACTION Medications ???Medication ???Instructions ???Recorded ???Confirmed ???Type calcium 600 mg (as carbonate)-vit 1 tab PO QDAY 05/06/24 05/06/24 H istory D3 20 mcg (800 unit) chewable tablet (Caltrate plus D) cholecalciferol (vitamin D3) 25 25 mcg PO QDAY 05/06/24 05/06/24 H istory mcg (1,000 unit) tablet clobetasol 0.05 % topical ointment 1 applic topical BID PRN 5 05/06/24 History fluticasone propionate 50 2 spray intranasal QHS 05/06/24 History mcg/actuation nasal spray,suspension lisinopril 40 mg tablet 40 mg PO QDAY 05/06/24 05/06/24 Hi story loratadine 10 mg tablet (Claritin) 10 mg PO QDAY 05/06/24 05/06/24 History magnesium 250 mg tablet 250 mg PO QDAY 05/06/24 05/06/24 H istory multivitamin 1 tab PO QDAY 05/06/24 05/06/24 Hi story potassium gluconate 595 mg (99 mg) 595 mg PO QDAY 05/06/24 05/06/24 History tablet turmeric 400 mg capsule 400 mg PO QDAY 05/06/24 05/06/24 H istory Have you fallen in the past year?: Yes PFSH Medical History (Updated 05/06/24 @ 16:13 by REMA Borrero) Environmental allergies Hypertension Lichen sclerosus Family History (Updated 05/06/24 @ 15:15 by Irene Quiroz) Father Heart disease Mother Hypertension Brother Heart disease Social History (Updated 05/06/24 @ 15:16 by Irene Quiroz) household members: spouse current occupational status: retired Smoking Status: Never smoker alcohol intake: never substance use type: does not use what type of physical activity do you participate in: none do you feel safe at home: Yes HPI LEFT HIP Details: This documentation accurately reflects the service provided and the decisions made by me, Silvina Aec, ALFONSOC 05/06/24 5078. Part of today???s visit was documented by [ ], acting as scribe. KEIRY MILLER is a 64 year old F here today for left hip and LLE pain s/p fall 03/12/2023. left hip pain radiates occasionally to groin or anterior or lateral thigh to knee. Left thigh and LLE tightness in evenings. Walking, stairs or standing exacerbates pain. Seen by PCP and chiropractor seen. Home stretches slightly helpful. LLE weakness. Denies numbness or tingling. Ice, heat, Aspercreme, massage, ibuprofen or tylenol with short term relief. Denies hx of left hip surgeries or injections. Agree with above. Keiry is a pleasant 64-year-old presenting today for initial orthopedic evaluation of left hip pain. She has not had any imaging to date. States symptoms minimally improved since the injury on 03/12/2023. Weakness as noted above. At times, patient states it feels like she has a deep bony pain in the thigh region, other times it is achy. Also reports some sensation of instability or bone moving to the femur, this is less frequent in occurrence than after the fall. Patient notes limited range of motion at the hip with majority of pain to the anterior hip. Patient is wearing a left shoe insert and was told by the chiropractor that her left leg is shorter than her right, patient feels this is slightly advancing since onset. Walks with a straight cane. Difficulty doing previously well-tolerated tasks including getting up from seated position, stair use, being physically active, and inability to sit on the ground to play with her grandchildren. ROS Const All systems reviewed are unremarkable except as noted in H and other (A O x 3, no apparent distress. No recent illness.) Denies chills, Denies fatigue, Denies fever(s), Denies frequent falls, Denies headache(s) and Reports weakness ENT Denies dizziness or headache(s) Card Denies chest pain, Denies dyspnea, Denies edema and Reports other (No palpitations) Resp Denies cough, Denies dyspnea and Reports other (No recent URI) GI Reports system reviewed and no additional complaints, except as documented, Denies nausea and Denies vomiting Denies urinary incontinence Musc Reports as per HPI, Reports arthralgias, Reports joint swelling, Denies numbness, Reports stiffness and Denies tingling Skin/Breast Denies rash Neuro No dizziness, No (more content not included)... Normal [facility] Urine Cultureon 04-25-2024 URC #1 #2 Below infectio n level. Mixed Gram Pos Gram Neg Org [place] Count 11,000-25,000 MIXC Mixed contaminants. Submit a new specimen if indicated. Normal [facility] Comment on above: Performed By: #### M 100.2200 #### [facility] [address] [place], [address] Urine cultureOrdered By: [facility] Irene Gonzalez on 04-22-2024 Bacteria identified Cx Nom (U) Mixed Gram Pos & Gram Neg Org Abnormal [facility] Bacteria Ur Culton 4 Bacteria identified Cx Nom (U) ORGANISM ID: 1 10,000 -<50,000 CFU/ml Mixed microbiota No further workup. Mixed microbiota can be due to???urine???contaminat ion with skin bacteria at time of collection or presence of a long-term urinary catheter. If a new culture is needed, please consider re-education of the patient on proper midstream collection technique or straight catheterization for???urine???collectio n. Normal [facility] Comment on above: Performed By: #### 6 30-4 #### [facility] CLIA [id number] [address] [place], [place] [address] [id number] [address] [place] URINALYSIS, DIPSTICK ONLYon 01-16-2024 Bilirubin Ql (U) Negative Normal Negative [facility] Comment on above: Order Comment: Speci men Type: URINE SPECIMEN Ordering Facility: Josee Slade [facility] Address: [address] [place] [address] Performed By: #### U A #### [facility] CLIA [id number] [address] [place] [address] [place] Clarity (Unsp spec) Clear Normal Clear [facility] Comment on above: Order Comment: Speci men Type: URINE SPECIMEN Ordering Facility: [facility] Address: [address] [place] [address] Performed By: #### U A #### [facility] CLIA [id number] [address] [place] [address] [place] Color (U) Yellow Normal Yellow [facility] Comment on above: Order Comment: Speci men Type: URINE SPECIMEN Ordering Facility: [facility] Address: [address] [place] [address] Performed By: #### U A #### [facility] CLIA [id number] [facility] [place] [address] [place] Glucose Test strip (U) [Mass/Vol] Negative Normal Negative [facility] Comment on above: Order Comment: Speci men Type: URINE SPECIMEN Ordering Facility: [facility] Address: [address] [place] [address] Performed By: #### U A #### [facility] CLIA [id number] [address] [place] [address] [place] Hemoglobin Ql (U) Trace Abnormal Negative [facility] Comment on above: Order Comment: Speci men Type: URINE SPECIMEN Ordering Facility: [facility] Address: [address] [place] [address] Performed By: #### U A #### [facility] CLIA [id number] [address] [place] [address] [place] Ketones Ql (U) Negative Normal Negative [facility] Comment on above: Order Comment: Speci men Type: URINE SPECIMEN Ordering Facility: [facility] Address: [address] [place] [address] Performed By: #### U A #### [facility] CLIA [id number] [address] [place] [address] [place] Leukocyte esterase Test strip Ql (U) 3+ Abnormal Negative [facility] Comment on above: Order Comment: Speci men Type: URINE SPECIMEN Ordering Facility: [facility] Address: [address] [place] [address] Performed By: #### U A #### [facility] CLIA [id number] [facility] [place] [address] [place] Nitrite Ql (U) Negative Normal Negative [facility] Comment on above: Order Comment: Speci men Type: URINE SPECIMEN Ordering Facility: [facility] Address: [address] [place] [address] Performed By: #### U A #### [facility] CLIA [id number] [address] [place] [address] [place] pH (U) 7.0 [pH] Normal <8.5 [facility] Comment on above: Order Comment: Speci men Type: URINE SPECIMEN Ordering Facility: [facility] Address: [address] [place] [address] Performed By: #### U A #### [facility] CLIA [id number] [address] [place] [address] [place] Protein (U) [Mass/Vol] Negative Normal Negative [facility] Comment on above: Order Comment: Speci men Type: URINE SPECIMEN Ordering Facility: [facility] Address: [address] [place] [address] Performed By: #### U A #### [facility] CLIA [id number] [address] [place] [id number] [place] Specific gravity (U) [Rel density] 1.009 Normal 1.005-1.030 [facility] Comment on above: Order Comment: Speci men Type: URINE SPECIMEN Ordering Facility: [facility] Address: [address] [place] [address], [place] [address] Performed By: #### U A #### [facility] CLIA [id number] [address] [place] [address] [place] Urobilinogen Ql (U) 0.2 EU/dL Normal 0.2-1.0 EU/dL [facility] Comment on above: Order Comment: Speci men Type: URINE SPECIMEN Ordering Facility: [facility] Address: [address] [place] [address] Performed By: #### U A #### [facility] CLIA [id number] [address] [place] [address] [place] ALBUMIN/CREATININE RATIO, UR INEon 10-09-2023 Albumin DL <= 20 mg/L (U) [Mass/Vol] mg/dL Normal [facility] Comment on above: Order Comment: Speci men Type: URINE SPECIMEN Ordering Facility: [facility] Address: [address] [place] [address] Performed By: #### U ACR #### [facility] CLIA [id number] [address] [place] [address] [place] Albumin/Creatinine (U) [Mass ratio] <21 Normal <30 [facility] Comment on above: Order Comment: Speci men Type: URINE SPECIMEN Ordering Facility: [facility] Address: [address] [place] [address] Result Comment: Adul t Male and Female Nephrotic Criteria: <30 mg/g is considered normal to mildly increased 30-300 mg/g is considered moderately increased >300 mg/g is considered severely increased KDIGO. (2013). KDIGO 2012 Clinical Practice Guideline for the Evaluation and Management of Chronic Kidney Disease. Official Journal of the International Society of Nephrology, 3(1), 1-150. Performed By: #### U ACR #### [facility] CLIA [id number] [address] [place] [address] [place] Creatinine (U) [Mass/Vol] 57.5 mg/dL Normal 20.0-300.0 [facility] Comment on above: Order Comment: Speci men Type: URINE SPECIMEN Ordering Facility: [facility] Address: [address] [place] [address], [place] [address] Performed By: #### U ACR #### [facility] CLIA [id number] [address] [place], [place] [address] [place] Comprehensive metabolic 2000 panelon 10-09-2023 Albumin [Mass/Vol] 4.4 g/dL Normal 3.9-4.9 [facility] Comment on above: Order Comment: Speci men Type: BLOOD SPECIMEN Ordering Facility: [facility] Address: [address] [place] [address], [place] [address] Performed By: #### 2 4331-1, 45735-6 #### [facility] CLIA [id number] [address] [place] [address] [place] ALP [Catalytic activity/Vol] 103 U/L Normal 34-123 [facility] Comment on above: Order Comment: Speci men Type: BLOOD SPECIMEN Ordering Facility: [facility] Address: [address] [place] [address], [place] [address] Performed By: #### 2 4331-1, 57720-8 #### [facility] CLIA [id number] [address] [place], [place] [address] [place] ALT [Catalytic activity/Vol] 35 U/L Normal 7-38 [facility] Comment on above: Order Comment: Speci men Type: BLOOD SPECIMEN Ordering Facility: [facility] Address: [address] [place] [address], [place] [address] Performed By: #### 2 4331-1, 64287-9 #### [facility] CLIA [id number] [facility] [place] [address] [place] Anion gap [Moles/Vol] 11 mmol/L Normal 8-15 [facility] Comment on above: Order Comment: Speci men Type: BLOOD SPECIMEN Ordering Facility: [facility] Address: [address] [place] [address], [place] [address] Performed By: #### 2 4331-1, #### [facility] CLIA [id number] [address] [place] [address] [place] AST [Catalytic activity/Vol] 34 U/L Normal 13-35 [facility] Comment on above: Order Comment: Speci men Type: BLOOD SPECIMEN Ordering Facility: [facility] Address: [address] [place] [address], [place] [address] Performed By: #### 2 4331-1, 23260-5 #### [facility] CLIA [id number] [address] [place] [address] [place] Bilirubin [Mass/Vol] 0.2 mg/dL Normal 0.2-1.3 [facility] Comment on above: Order Comment: Speci men Type: BLOOD SPECIMEN Ordering Facility: [facility] Address: [address] [place] [address], [place] [address] Performed By: #### 2 4331-1, 18218-0 #### [facility] CLIA [id number] [address] [place] [address] [place] Calcium [Mass/Vol] 9.7 mg/dL Normal 8.5-10.2 [facility] Comment on above: Order Comment: Speci men Type: BLOOD SPECIMEN Ordering Facility: [facility] Address: [address] [place] [address], [place] [address] Performed By: #### 2 4331-1, 31899-0 #### [facility] CLIA [id number] [address] [place] [address] [place] Chloride [Moles/Vol] 100 mmol/L Normal 98-107 [facility] Comment on above: Order Comment: Speci men Type: BLOOD SPECIMEN Ordering Facility: [facility] Address: [address] [place] [address] Performed By: #### 2 4331-1, 10829-4 #### [facility] CLIA [id number] [address] [place] [address] [place] CO2 [Moles/Vol] 26 mmol/L Normal 22-30 [facility] Comment on above: Order Comment: Speci men Type: BLOOD SPECIMEN Ordering Facility: [facility] Address: [address] [place] [address] Performed By: #### 2 4331-1, 03224-7 #### [facility] CLIA [id number] [address] [place] [address] [place] Creatinine [Mass/Vol] 0.71 mg/dL Normal 0.58-0.96 [facility] Comment on above: Order Comment: Speci men Type: BLOOD SPECIMEN Ordering Facility: [facility] Address: [address] [place] [address] Performed By: #### 2 4331-1, 01652-4 #### [facility] CLIA [id number] [address] [place] [address] OF [facility] Creatinine and Glomerular filtration rate.predicted panel (S/P/Bld) 95 mL/min/1.73m??? Normal >=60 [facility] Comment on above: Order Comment: Speci men Type: BLOOD SPECIMEN Ordering Facility: [facility] Address: [address] [place] [address] Result Comment: Neida mated Glomerular Filtration Rate (eGFR) is calculated using the 2020 CKD-EPI creatinine equation. This equation utilizes serum creatinine, sex, and age as parameters. The creatinine assay has traceable calibration to isotope dilution-mass spectrometry. Refer to KDIGO guidelines for clinical interpretation. In patients with unstable renal function, e.g. those with acute kidney injury, the eGFR may not accurately reflect actual GFR. Performed By: #### 2 4331-1, 07472-0 #### [facility] CLIA [id number] [address] [address] [place] Glucose [Mass/Vol] 83 mg/dL Normal 74-99 [facility] Comment on above: Order Comment: Hanane martinez Type: BLOOD SPECIMEN Ordering Facility: [facility] Address: [address] [place] [address], [place] [address] Result Comment: The [place] Diabetes Association (ADA) provides guidance for cutoff values for fasting glucose and random glucose. The ADA defines fasting as no caloric intake for at least 8 hours. Fasting plasma glucose results between 100 to 125 mg/dL indicate increased risk for diabetes (prediabetes). Fasting plasma glucose results greater than or equal to 126 mg/dL meet the criteria for diagnosis of diabetes. In the absence of unequivocal hyperglycemia, results should be confirmed by repeat testing. In a patient with classic symptoms of hyperglycemia or hyperglycemic crisis, random plasma glucose results greater than or equal to 200 mg/dL meet the criteria for diagnosis of diabetes. Reference: Standards of Medical Care in Diabetes 2016, [place] Diabetes Association. Diabetes Care. 2016.39(Suppl 1). Performed By: #### 2 4331-1, 22360-0 #### [facility] CLIA [id number] [address] [place] [address] [place] Potassium [Moles/Vol] 4.6 mmol/L Normal 3.7-5.1 [facility] Comment on above: Order Comment: Hanane martinez Type: BLOOD SPECIMEN Ordering Facility: [facility] Address: [address] [place] [address], [place] [address] Performed By: #### 2 4331-1, 30589-3 #### [facility] CLIA [id number] [address] [address] [place] Protein [Mass/Vol] 6.7 g/dL Normal 6.3-8.0 [facility] Comment on above: Order Comment: Hanane martinez Type: BLOOD SPECIMEN Ordering Facility: [facility] Address: [address] [place] [address], [place] [address] Performed By: #### 2 4331-1, 30970-9 #### [facility] CLIA [id number] [address] [address] [place] Sodium [Moles/Vol] 137 mmol/L Normal 136-144 [facility] Comment on above: Order Comment: Speci men Type: BLOOD SPECIMEN Ordering Facility: [facility] Address: [address] [place] [address] Performed By: #### 2 4331-1, 44594-1 #### [facility] CLIA [id number] [address] [place] [address] [place] Urea nitrogen [Mass/Vol] 10 mg/dL Normal 7-21 [facility] Comment on above: Order Comment: Speci men Type: BLOOD SPECIMEN Ordering Facility: [facility] Address: [address] [place] [address] Performed By: #### 2 4331-1, 48201-1 #### [facility] CLIA [id number] [address] [place], [place] [address] [place] Lipid 1996 panelon 4 Cholesterol [Mass/Vol] 199 mg/dL Normal <200 [facility] Comment on above: Order Comment: Speci men Type: BLOOD SPECIMEN Ordering Facility: [facility] Address: [address] [place] [address], [place] [address] Result Comment: <200 mg/dL, Desirable 200-239 mg/dL, Borderline high >239 mg/dL, High Performed By: #### 2 4331-1, 94230-7 #### [facility] CLIA [id number] [address] [place] [address] [place] Cholesterol in HDL [Mass/Vol] 38 mg/dL Low >39 [facility] Comment on above: Order Comment: Speci men Type: BLOOD SPECIMEN Ordering Facility: [facility] Address: [address] [place] [address], [place] [address] Result Comment: 40-5 9 mg/dL, Acceptable >59 mg/dL, High: Negative risk factor for coronary heart disease <40 mg/dL, Low: Positive risk factor for coronary heart disease Performed By: #### 2 4331-1, 00703-3 #### [facility] CLIA [id number] [address] [place] [address] [place] Cholesterol in LDL [Mass/Vol] 100 mg/dL High <100 [facility] Comment on above: Order Comment: Hanane men Type: BLOOD SPECIMEN Ordering Facility: [facility] Address: [address] [place] [address], [place] [address] Result Comment: <100 mg/dL, Optimal 100-129 mg/dL, Near optimal/above optimal 130-159 mg/dL, Borderline high 160-189 mg/dL, High >189 mg/dL, Very high Secondary prevention optimal LDL Cholesterol levels are recommended to be < 70 mg/dL Performed By: #### 2 4331-1, #### [facility] CLIA [id number] [address] [place] [address] [place] Cholesterol in LDL/Cholesterol in HDL [Mass ratio] 2.63 {ratio} High <2.54 [facility] Comment on above: Order Comment: Hanane men Type: BLOOD SPECIMEN Ordering Facility: [facility] Address: [address] [place] [address], [place] [address] Result Comment: Adarsh wright: 1. National Cholesterol Education Program ATP III Guideline At-A-Glance Quick Desk Reference: National Heart, Lung, and Blood [place]. National Institutes of Health. 2001: NIH Publication No. 01-3305. 2. An International Atherosclerosis Society position paper: global recommendations for the management of dyslipidemia: executive summary, Atherosclerosis. 2014: 232(2):410-413. Performed By: #### 2 4331-1, 91609-2 #### [facility] CLIA [id number] [address] [place] [address] [place] Cholesterol in VLDL [Mass/Vol] 61 mg/dL High <30 [facility] Comment on above: Order Comment: Hanane men Type: BLOOD SPECIMEN Ordering Facility: [facility] Address: [address] [place] [address], [place] [address] Performed By: #### 2 4331-1, #### [facility] CLIA [id number] [address] [place] [address] [place] Cholesterol non HDL [Mass/Vol] 161 mg/dL High <130 [facility] Comment on above: Order Comment: Speci men Type: BLOOD SPECIMEN Ordering Facility: [facility] Address: [address] [place] [address], [place] [address] Result Comment: <130 mg/dL, Optimal 130-159 mg/dL, Near optimal/above optimal 160-189 mg/dL, Borderline high 190-219 mg/dL, High >219 mg/dL, Very high Secondary prevention optimal non HDL Cholesterol levels are recommended to be <100 mg/dL Performed By: #### 2 4331-1, #### [facility] CLIA [id number] [address] [place] [address] [place] Cholesterol.total/Arlette sterol in HDL [Mass ratio] 5.24 {ratio} High <5.10 [facility] Comment on above: Order Comment: Speci men Type: BLOOD SPECIMEN Ordering Facility: [facility] Address: [address] [place] [address], [place] [address] Performed By: #### 2 4331-, #### [facility] CLIA [id number] [address] [place] [address] [place] FASTING TIME unknown Normal [facility] Comment on above: Order Comment: Speci men Type: BLOOD SPECIMEN Ordering Facility: [facility] Address: [address] [place] [address], [place] [address] Performed By: #### 2 4331-1, #### [facility] CLIA [id number] [address] [place] [address] [place] Triglyceride [Mass/Vol] 305 mg/dL High <150 [facility] Comment on above: Order Comment: Speci men Type: BLOOD SPECIMEN Ordering Facility: Josee Slade [facility] Address: [address] [place] [address] Result Comment: <150 mg/dL, Normal 150-199 mg/dL, Borderline high 200-499 mg/dL, High >499 mg/dL, Very high Performed By: #### 2 4331-1, 52330-7 #### [facility] CLIA [id number] [address] [place], [place] [address] [address] [place] Vital Signs Date Time Vital Sign Value Performing Clinician Facility 11-29-2024 12:55-0400 Body height 167.64 cm Irene Gonzalez PROGRAMMING DEVELOPMENT PROJECT MANAGER-C Work Phone: [phone] [place] [address] 11-29-2024 12:55-0400 Body mass index (BMI) [Ratio] 33.2 kg/m2 Irene Gonzalez PROGRAMMING DEVELOPMENT PROJECT MANAGER-C Work Phone: [phone] [address] 11-29-2024 12:55-0400 Body temperature 98 [degF] Irene Gonzalez PROGRAMMING DEVELOPMENT PROJECT MANAGER-C Work Phone: [phone] [place] [address] 11-29-2024 12:55-0400 Body weight 93.44 kg Irene Gonzalez PROGRAMMING DEVELOPMENT PROJECT MANAGER-C Work Phone: [phone] [place] [address] 11-29-2024 12:55-0400 Diastolic blood pressure 82 mm[Hg] Irene Gonzalez PROGRAMMING DEVELOPMENT PROJECT MANAGER-C Work Phone: [phone] [place] [address] 11-29-2024 12:55-0400 Heart rate 68 /min Irene Gonzalez PROGRAMMING DEVELOPMENT PROJECT MANAGER-C Work Phone: [phone] [place] [address] 11-29-2024 12:55-0400 Systolic blood pressure 134 mm[Hg] Irene Gonzalez PROGRAMMING DEVELOPMENT PROJECT MANAGER-C Work Phone: [phone] [place] [address] 08-29-2024 13:08-0400 Body weight 89.9 kg Swetha Trung KENNEL SUPERVISOR.INTERNET MARKETING SPECIALIST Work Phone: [facility] 08-29-2024 13:08-0400 Diastolic blood pressure 86 mm[Hg] Swetha Clio KENNEL SUPERVISOR.INTERNET MARKETING SPECIALIST Work Phone: [facility] 08-29-2024 13:08-0400 Systolic blood pressure 148 mm[Hg] Swetha Muellergiselle BALESINTERNET MARKETING SPECIALIST Work Phone: [facility] 08-12-2024 12:28-0400 Body height 168.9 cm Andrea Arroyo PA-C Work Phone: [facility] [employer] 08-12-2024 12:28-0400 Body mass index (BMI) [Ratio] 31.8 kg/m2 Andrea Arroyo PA-C Work Phone: [facility] [employer] 08-12-2024 12:28-0400 Body weight 90.72 kg Andrea Arroyo PA-C Work Phone: [facility] [employer] 08-12-2024 12:28-0400 Diastolic blood pressure 85 mm[Hg] Andrea Arroyo PA-C Work Phone: [facility] [employer] 08-12-2024 12:28-0400 Heart rate 87 /min Andrea Arroyo PA-C Work Phone: [facility] [employer] 08-12-2024 12:28-0400 Systolic blood pressure 132 mm[Hg] Andrea Arroyo PA-C Work Phone: [facility] [employer] 07-12-2024 08:04-0400 Diastolic blood pressure 78 mm[Hg] Krishan Kruse MD Work Phone: [facility] [employer] 07-12-2024 08:04-0400 Heart rate 96 /min Krishan Kruse MD Work Phone: [facility] [employer] 07-12-2024 08:04-0400 Systolic blood pressure 144 mm[Hg] Krishan Kruse MD Work Phone: [facility] [employer] 07-12-2024 07:27-0400 Body temperature 98.91 [degF] Krishan Kruse MD Work Phone: [facility] [employer] 07-12-2024 07:27-0400 SaO2% (BldA) [Mass fraction] 97 % Krishan Kruse MD Work Phone: [facility] [employer] 07-12-2024 04:22-0400 Respiratory rate 16 /min Krishan Kruse MD Work Phone: [facility] 07-11-2024 09:05-0400 Body height 168.9 cm Krishan Kruse MD Work Phone: [facility] 07-11-2024 09:05-0400 Body mass index (BMI) [Ratio] 31.8 kg/m2 Krishan Kruse MD Work Phone: [facility] 07-11-2024 09:05-0400 Body weight 90.72 kg Krishan Kruse MD Work Phone: [facility] 07-09-2024 09:34-0400 Body weight 90.54 kg Swetha Trung KENNEL SUPERVISOR.INTERNET MARKETING SPECIALIST Work Phone: [facility] 07-09-2024 09:34-0400 Diastolic blood pressure 88 mm[Hg] Swetha Trung KENNEL SUPERVISOR.INTERNET MARKETING SPECIALIST Work Phone: [facility] 07-09-2024 09:34-0400 Systolic blood pressure 162 mm[Hg] Swetha Clio KENNEL SUPERVISOR.INTERNET MARKETING SPECIALIST Work Phone: [facility] 06-17-2024 10:32-0400 Body height 168.9 cm Krishan Kruse MD Work Phone: [facility] 06-17-2024 10:32-0400 Body mass index (BMI) [Ratio] 32.75 kg/m2 Krishan Kruse MD Work Phone: [facility] 06-17-2024 10:32-0400 Body weight 93.44 kg Krishan Kruse MD Work Phone: [facility] 06-12-2024 09:27-0400 Body height 167.64 cm Irene HAMILTONC Work Phone: [facility] 06-04-2024 15:49-0400 Body height 167.64 cm Irene Gonzalez NP-C Work Phone: [facility] 06-04-2024 15:49-0400 Body mass index (BMI) [Ratio] 33.1 kg/m2 Irene Gonzalez NP-C Work Phone: [phone] [place] [address] 06-04-2024 15:49-0400 Body temperature 98.1 [degF] Irene Gonzalez PROGRAMMING DEVELOPMENT PROJECT MANAGER-C Work Phone: [phone] [place] [address] 06-04-2024 15:49-0400 Body weight 93.09 kg Irene Gonzalez PROGRAMMING DEVELOPMENT PROJECT MANAGER-C Work Phone: 6(330)[phone] [place] [address] 06-04-2024 15:49-0400 Diastolic blood pressure 68 mm[Hg] Irene Gonzalez PROGRAMMING DEVELOPMENT PROJECT MANAGER-C Work Phone: 0([phone] [place] [address] 06-04-2024 15:49-0400 Heart rate 67 /min Irene Gonzalez PROGRAMMING DEVELOPMENT PROJECT MANAGER-C Work Phone: 2(022)[phone] [place] [address] 06-04-2024 15:49-0400 Respiratory rate 17 /min Irene Gonzalez PROGRAMMING DEVELOPMENT PROJECT MANAGER-C Work Phone: [phone] [place] [address] 06-04-2024 15:49-0400 SaO2% (BldA) [Mass fraction] 97 % Irene Gonzalez PROGRAMMING DEVELOPMENT PROJECT MANAGER-C Work Phone: [phone] [place] [address] 06-04-2024 15:49-0400 Systolic blood pressure 138 mm[Hg] Irene Gonzalez PROGRAMMING DEVELOPMENT PROJECT MANAGER-C Work Phone: [phone] [place] [address] 05-06-2024 15:25-0500 Body height 168.91 cm Irene Gonzalez PROGRAMMING DEVELOPMENT PROJECT MANAGER-C Work Phone: [phone] [place] [address] 05-06-2024 15:25-0500 Body mass index (BMI) [Ratio] 32.7 kg/m2 Irene Gonzalez PROGRAMMING DEVELOPMENT PROJECT MANAGER-C Work Phone: [phone] [place] [address] 05-06-2024 15:25-0500 Body weight 93.44 kg Irene Gonzalez PROGRAMMING DEVELOPMENT PROJECT MANAGER-C Work Phone: [phone] [place] [address] 09-20-2021 15:56-0400 Body weight 90.72 kg Keturah Otoole APRN.CNM Work Phone: [facility] 09-20-2021 15:56-0400 Diastolic blood pressure 70 mm[Hg] Keturah Otoole APRN.CNM Work Phone: [facility] 09-20-2021 15:56-0400 Systolic blood pressure 126 mm[Hg] Keturah Otoole KENNEL SUPERVISOR.CNM Work Phone: [facility] 06-21-2021 13:54-0400 Body weight 92.99 kg Keturah Otoole KENNEL SUPERVISOR.CNM Work Phone: [facility] 06-21-2021 13:54-0400 Diastolic blood pressure 70 mm[Hg] Keturah Otoole KENNEL SUPERVISOR.CNM Work Phone: [facility] 06-21-2021 13:54-0400 Systolic blood pressure 120 mm[Hg] Keturah Otoole KENNEL SUPERVISOR.CNM Work Phone: [facility] Encounters Encounter Date Encounter Type Care Provider Facility Start: 11-29-2024 End: 11-29-[address] Lala Sullivan MD -[facility] Work Phone: Start: 11-29-2024 End: 11-29-2024 ambulatory Irene Gonzalez PROGRAMMING DEVELOPMENT PROJECT MANAGER-C Work Phone: -[facility] Start: 11-25-2024 End: 11-25-[address] Lala Sullivan MD -[facility] Work Phone: Start: 11-25-2024 End: 11-25-2024 ambulatory Irene Gonzalez PROGRAMMING DEVELOPMENT PROJECT MANAGER-C Work Phone: -[facility] Start: 10-11-2024 End: 10-11-2024 Patient encounter procedure Irene Gonzalez PROGRAMMING DEVELOPMENT PROJECT MANAGER-C Work Phone: -[facility] Work Phone: Start: 10-11-2024 End: 10-11-2024 ambulatory Irene Gonzalez PROGRAMMING DEVELOPMENT PROJECT MANAGER-C Work Phone: -[facility] Start: 10-11-2024 End: 10-11-2024 ambulatory Irene Gonzalez VSC Facility:[facility] Start: 09-10-2024 Non-patient / Non-visit Dr. Lala bowles MD -[facility] Work Phone: Start: 08-30-2024 End: 10-30-2024 Follow-up encounter Swetha Nino KENNEL SUPERVISOR.INTERNET MARKETING SPECIALIST Work Phone: OB/Gynecology Comment on above: Results Start: 08-30-2024 End: 09-02-2024 Telephone encounter Swetha Nino KENNEL SUPERVISOR.INTERNET MARKETING SPECIALIST Work Phone: OB/Gynecology Comment on above: Results Start: 08-29-2024 End: 08-29-2024 Patient encounter procedure Swetha Nino KENNEL SUPERVISOR.INTERNET MARKETING SPECIALIST Work Phone: OB/Gynecology Comment on above: Vulvar irritation (P rimary Dx); Dysuria Start: 08-29-2024 End: 08-29-2024 ambulatory SWETHA NINO Facility:[facility] Start: 08-26-2024 End: 08-26-2024 ambulatory Irene Carlos PROGRAMMING DEVELOPMENT PROJECT MANAGER-C Work Phone: [facility] Work Phone: Start: 08-26-2024 End: 08-26-[address] Jonah Briones MD -[facility] Work Phone: Start: 08-26-2024 End: 08-26-2024 ambulatory Irene Gonzalez VSC Facility:[facility] Start: 08-12-2024 End: 08-12-2024 Postop follow up visit related to original px Andrea Arroyo PA-C Work Phone: [facility] [place] Comment on above: Primary osteoarthrit is of left hip (Primary Dx); S/P total left hip arthroplasty Start: 08-12-2024 End: 08-12-2024 ambulatory [facility] Start: 07-26-2024 End: 07-26-2024 Postop follow up visit related to original px Andrea Arroyo PA-C Work Phone: [facility] [place] Comment on above: Primary osteoarthrit is of left hip (Primary Dx); S/P total left hip arthroplasty Start: 07-26-2024 End: 07-26-2024 ambulatory [facility] Start: 07-18-2024 End: 07-18-2024 Telephone encounter Krishan Kruse MD Work Phone: [facility] Comment on above: Nurse Navigation (ON N follow up call) Start: 07-11-2024 End: 07-11-2024 Anesthesia consultation Dusty Song MD Work Phone: [facility] Start: 07-11-2024 End: 07-12-2024 Subsequent hospital visit by physician Krishan Kruse MD Work Phone: [facility] Comment on above: Arthritis of left hi p (Primary Dx); Unilateral primary osteoarthritis, left hip Start: 07-11-2024 End: 07-12-2024 Unknown [facility] Start: 07-09-2024 End: 07-09-2024 Telephone encounter Swetha Clio KENNEL SUPERVISOR.INTERNET MARKETING SPECIALIST Work Phone: OB/Gynecology Start: 07-09-2024 End: 07-09-2024 Office outpatient new 30 minutes Swetha Clio KENNEL SUPERVISOR.INTERNET MARKETING SPECIALIST Work Phone: OB/Gynecology Comment on above: Uterine leiomyoma, u nspecified location (Primary Dx) Start: 07-09-2024 End: 07-09-2024 ambulatory SWETHA TRUNG Facility:[facility] Start: 07-06-2024 End: 07-06-2024 ambulatory [facility] Start: 07-06-2024 End: 07-06-2024 Subsequent hospital visit by physician Andrea Arroyo PA-C Work Phone: [facility] Comment on above: Arthritis of left hi p Start: 07-03-2024 End: 07-03-2024 ambulatory [facility] Start: 07-03-2024 End: 07-03-2024 Encounter for other preprocedural examination [facility] Start: 07-03-2024 End: 07-03-2024 ambulatory [facility] Start: 06-28-2024 End: 06-28-2024 Subsequent hospital visit by physician Krishan Kruse MD Work Phone: [facility] Comment on above: Primary osteoarthrit is of left hip Start: 06-28-2024 End: 06-28-2024 ambulatory [facility] Start: 06-27-2024 End: 07-09-2024 Telephone encounter Krishan Kruse MD Work Phone: [facility] - [facility] [place] Comment on above: Surgery Scheduling ( LTHA ) Start: 06-17-2024 End: 06-17-2024 ambulatory Irene Gonzalez PROGRAMMING DEVELOPMENT PROJECT MANAGER-C Work Phone: [facility] Work Phone: Start: 06-17-2024 End: 06-17-2024 Patient encounter procedure Krishan Kruse MD -Laboratory Work Phone: Start: 06-17-2024 End: 06-17-2024 Telephone encounter Krishan Kruse MD Work Phone: [facility] - [place] Comment on above: Surgery Scheduling Start: 06-17-2024 End: 06-17-2024 Office outpatient new 45 minutes Krishan Kruse MD Work Phone: [facility] - [place] Comment on above: Primary osteoarthrit is of left hip Start: 06-17-2024 End: 06-17-2024 ambulatory [facility] Start: 06-17-2024 End: 06-17-2024 ambulatory Irene Gonzalez [facility] Facility:[facility] Start: 06-12-2024 End: 06-12-2024 Patient encounter procedure Silvina Ace PROGRAMMING DEVELOPMENT PROJECT MANAGER-C -[facility] Work Phone: Start: 06-12-2024 End: 06-12-2024 ambulatory Irene Gonzalez VSC Facility:[facility] Start: 06-08-2024 End: 06-08-2024 ambulatory Irene Gonzalez PROGRAMMING DEVELOPMENT PROJECT MANAGER-C Work Phone: [facility] Work Phone: Start: 06-08-2024 End: 06-08-2024 Patient encounter procedure Silvina Ace NP-C -MRI - [facility] Work Phone: Start: 06-08-2024 End: 06-08-2024 ambulatory Irene Gonzalez [facility] Facility:[facility] Start: 06-04-2024 End: 06-04-2024 Patient encounter procedure Ruslan Shay PA -[facility] Work Phone: Start: 06-04-2024 End: 06-04-2024 ambulatory Irenerick Gonzalez PROGRAMMING DEVELOPMENT PROJECT MANAGER-C Work Phone: [facility] Work Phone: Start: 06-04-2024 End: 06-04-2024 ambulatory Irene Gonzalez [facility] Facility:[facility] Start: 05-23-2024 End: 05-23-2024 ambulatory Irene Gonzalez PROGRAMMING DEVELOPMENT PROJECT MANAGER-C Work Phone: [facility] Work Phone: Start: 05-23-2024 End: 05-23-[address] Lala Sullivan MD -Ultrasound, [facility] Work Phone: Start: 05-23-2024 End: 05-23-2024 ambulatory Irene Gonzalez [facility] Facility:[facility] Start: 05-07-2024 End: 05-07-2024 ambulatory Irene Gonzalez PROGRAMMING DEVELOPMENT PROJECT MANAGER-C Work Phone: [facility] Work Phone: Start: 05-07-2024 End: 05-07-2024 Patient encounter procedure [facility] Irene Gonzalez NP-C -[facility] Start: 05-06-2024 End: 05-06-2024 Patient encounter procedure Silvina Ace PROGRAMMING DEVELOPMENT PROJECT MANAGER-C -[facility] Work Phone: Start: 05-06-2024 End: 05-07-2024 ambulatory Irene Gonzalez [facility] Facility:[facility] Start: 04-22-2024 End: 04-22-2024 Patient encounter procedure [facility] Irene Gonzalez PROGRAMMING DEVELOPMENT PROJECT MANAGER-C -Laboratory,[facility] Work Phone: Start: 04-22-2024 End: 04-22-2024 ambulatory Irene Gonzalez JOSIAH Facility:[facility] Start: 01-16-2024 End: 01-16-2024 ambulatory ISIDORO MEJIAS Facility:[facility] Start: 09-20-2021 End: 09-20-2021 Patient encounter procedure Keturah Sedalona KENNEL SUPERVISOR.CNM Work Phone: OB/Gynecology Comment on above: Post-menopause (Prim johana Dx); Lichen sclerosus of vulva; Vaginal atrophy Start: 06-28-2021 Telephone encounter Keturah fuentes KENNEL SUPERVISOR.CNM Work Phone: OB/Gynecology Comment on above: Vaginal Problem Start: 06-21-2021 End: 06-21-2021 Patient encounter procedure Keturah Otoole KENNEL SUPERVISOR.CNM Work Phone: OB/Gynecology Comment on above: Recurrent vaginitis (Primary Dx); Polyp of cervix uteri; Vaginal atrophy; Lichen sclerosus of vulva Start: 06-17-2021 Telephone encounter Jyoti Strong MD Work Phone: OB/Gynecology Comment on above: Received Outside Med ical Records Procedures Date Procedure Procedure Detail Performing Clinician Start: 10-11-2024 Plain x-ray of pelvi s and lower extremity Irene Carlos PROGRAMMING DEVELOPMENT PROJECT MANAGER-C Work Phone: Start: 08-29-2024 Urnls dip stick/tabl et rgnt auto w/o microscopy Swetha Clio KENNEL SUPERVISOR.INTERNET MARKETING SPECIALIST Work Phone: Start: 08-26-2024 Aerobic microbial culture Irene Carlos PROGRAMMING DEVELOPMENT PROJECT MANAGER-C Work Phone: Start: 08-26-2024 Anaerobic microbial culture Irene Carlos PROGRAMMING DEVELOPMENT PROJECT MANAGER-C Work Phone: Start: 08-26-2024 Gram stain microscopy Taye laura Carlos PROGRAMMING DEVELOPMENT PROJECT MANAGER-C Work Phone: Start: 07-12-2024 Basic metabolic pane l calcium total Andrea Arroyo PA-C Work Phone: Start: 07-11-2024 Radiologic examinati on pelvis 1/2 views Andrea Arroyo PA-C Work Phone: Start: 07-11-2024 Peripheral block anesthesia Mayur Bone KENNEL SUPERVISOR - MANAGER OF FINANCIAL REPORTING Work Phone: Start: 07-11-2024 FL GUIDANCE OR USE O NLY - NON-RESULTABLE Krishan Kruse MD Work Phone: Start: 07-11-2024 Spinal anesthesia Guevara Eller KENNEL SUPERVISOR - MANAGER OF FINANCIAL REPORTING Work Phone: Start: 07-11-2024 End: 07-11-2024 Arthrp acetblr/prox fem prostc agrft/algrft Krishan Kruse MD Work Phone: Start: 07-03-2024 Comprehensive metabo lic panel Krishan Kruse MD Work Phone: Start: 06-28-2024 Ct lower extremity w /o contrast material Krishan Kruse MD Work Phone: Start: 06-08-2024 MRI of joint of lowe r extremity Irenerick Gonzalez PROGRAMMING DEVELOPMENT PROJECT MANAGER-C Work Phone: Start: 06-04-2024 Urine culture Irene Verma ranklin PROGRAMMING DEVELOPMENT PROJECT MANAGER-C Work Phone: Start: 05-23-2024 Complete ultrasound of kidneys and bladder Irenerick Gonzalez PROGRAMMING DEVELOPMENT PROJECT MANAGER-C Work Phone: Start: 05-06-2024 Plain x-ray of pelvi s and lower extremity Irenerick Gonzalez PROGRAMMING DEVELOPMENT PROJECT MANAGER-C Work Phone: Start: 04-22-2024 Urine culture Irene Verma ranklin PROGRAMMING DEVELOPMENT PROJECT MANAGER-C Work Phone: Start: 10-09-2023 Lipid 1996 panel - S adebayo or Plasma Swethajosefina Nino KENNEL SUPERVISOR.INTERNET MARKETING SPECIALIST Work Phone: Plan of Treatment Date Care Activity Detail Author Start: 2034 RSV Immunization for Adults (1 - 1-dose 75+ series) RSV Immunization for Adults (1 - 1-dose 75+ series) [facility] Start: 2034 RSV Vaccine (1 - 1-d ose 75+ series) RSV Vaccine (1 - 1-dose 75+ series) [facility] Start: 10-08-2028 Lipid panel Lipid Screening [facility] Start: 07-13-2027 Diabetes Screening Diabetes Screenin [facility] Start: 07-04-2027 Diabetes mellitus screening Diabetes Screening [facility] Start: 07-04-2027 Diabetes Screening Diabetes Screenin g [facility] Start: 06-20-2025 Diabetes mellitus screening Diabetes Screening [facility] Start: 11-29-2024 [facility] Start: 11-11-2024 Influenza vaccination S [facility] Start: 08-26-2024 Aerobic microbial culture Ear Culture [facility] Start: 08-26-2024 Anaerobic microbial culture Anaerobic Culture [facility] Start: 08-26-2024 Source specific culture [facility] Start: 08-12-2024 End: 08-12-2025 XR Hip - left 3 Views XR hip left 2 or 3 views Imaging Routine Primary osteoarthritis of left hip S/P total left hip arthroplasty Expected: 08/12/2024, Expires: 08/12/2025 [facility] Work Phone: Comment on above: Expected: 08/12/2024 , Expires: 08/12/2025 Start: 08-12-2024 End: 08-12-2024 Patient encounter procedure [facility] [place] Start: 07-11-2024 End: 07-11-2024 Admission to same day surgery center 07/11/2024 11:00 AM EDT - 07/11/2024 1:00 PM EDT Surgery [facility] [address] [place] [address] Krishan Kruse MD 1 [facility] [address] [place] [id number] LEFT TOTAL HIP ARTHROPLASTY [21404 (CPT )] [facility] Comment on above: LEFT TOTAL HIP ARTHR OPLASTY [43022 (CPT )] Start: 07-11-2024 End: 07-11-2024 Anesthesia consultation 07/11/2024 11:00 AM EDT Anesthesia Event [facility] [address] [place] [address] Matt Quiroz PA-C [address] [place] [address] [facility] Start: 07-11-2024 End: 07-11-2024 Arthrp acetblr/prox fem prostc agrft/algrft [facility] Start: 07-11-2024 Subsequent hospital visit by physician 07/11/2024 9:00 AM EDT Hospital Encounter [facility] [address] [place] [address] Krishan Kruse MD [address] [place] [address] [place] [id number] [facility] Start: 07-03-2024 End: 07-03-2024 Admission to [facility] 07/03/2024 1:30 PM EDT Pre-Admission Testing [facility] Pre-Admit Testing [address] [place] [id number] [facility] Pre-Admit Testing Start: 07-03-2024 End: 07-03-2024 ambulatory 07/03/2024 11:00 AM EDT Education [facility] Pre-[facility]mit Testing [address] [place] [address] [facility] Start: 06-17-2024 End: 06-17-2025 CBC W Auto Differential panel - Blood CBC auto differential Lab Routine Primary osteoarthritis of left hip Expected: 06/17/2024 (Approximate), Expires: 06/17/2025 [employer] Comment on above: Expected: 06/17/2024 (Approximate), Expires: 06/17/2025 Start: 06-17-2024 End: 06-17-2025 Comprehensive metabolic 1998 panel - Serum or Plasma Comprehensive metabolic panel Lab Routine Primary osteoarthritis of left hip Expected: 06/17/2024 (Approximate), Expires: 06/17/2025 [employer] Comment on above: Expected: 06/17/2024 (Approximate), Expires: 06/17/2025 Start: 06-17-2024 End: 06-17-2025 CT Hip - left WO contrast CT hip left wo IV contrast Imaging Routine Primary osteoarthritis of left hip Expected: 06/17/2024, Expires: 06/17/2025 [facility] Work Phone: Comment on above: Expected: 06/17/2024 , Expires: 06/17/2025 Start: 06-17-2024 End: 06-17-2025 Hemoglobin A1c measurement Hemoglobin A1c Lab Routine Primary osteoarthritis of left hip Expected: 06/17/2024 (Approximate), Expires: 06/17/2025 [facility] Comment on above: Expected: 06/17/2024 (Approximate), Expires: 06/17/2025 Start: 06-14-2024 Patient referral [facility] Work Phone: Start: 06-08-2024 MR Lower Extremity Joint [facility] Start: 06-08-2024 MRI of joint of lowe r extremity Lower Ext Joint Only (Routine) [facility] Start: 2024 Advance Directive Discussion Advance Directive Discussion [facility] Start: 2024 Screening for osteoporosis Bone Density Screening [facility] Start: 03-13-2024 Medicare Advantage Annual Wellness Visit Medicare Advantage Annual Wellness Visit [facility] Start: 11-12-2023 COVID-19 Vaccine ( season) COVID-19 Vaccine ( season) [facility] Start: 11-12-2023 Influenza vaccination Influenza Vacc ine (#1) [facility] Start: 11-11-2021 Influenza vaccination [facility] Start: 2009 Pneumococcal Vaccine : 50+ (1 of 1 - PCV) Pneumococcal Vaccine: 50+ (1 of 1 - PCV) [facility] Start: 2009 Pneumococcal Vaccine : 50+ Years (1 of 1 - PCV) Pneumococcal Vaccine: 50+ Years (1 of 1 - PCV) [facility] Start: 2009 SHINGRIX VACCINE (1 of 2) SHINGRIX VACCINE (1 of 2) [facility] Start: 2009 Zoster Vaccines (1 o f 2) Zoster Vaccines (1 of 2) [facility] Start: 2004 COLOGUARD (FIT-DNA) COLOGUARD (FIT-D NA) [facility] Start: 2004 Colonoscopy COLONOSCOPY [facility] Start: 2004 COLORECTAL CANCER SCREENING COLORECTAL CANCER SCREENING [facility] Start: [address] COLONOGRAPHY [facility] Start: 2004 DIABETES SCREEN DIABETES SCREEN [facility] Start: 2004 FECAL OCCULT BLOOD FECAL OCCULT BLOO D [facility] Start: 2004 LIPID SCREEN LIPID SCREEN [facility] Start: 2004 Screening for malign ant neoplasm of colon [facility] Start: 2004 SIGMOIDOSCOPY SIGMOIDOSCOPY [facility] Start: 1999 Mammography MAMMOGRAM [facility] Start: 1999 Screening for malign ant neoplasm of breast [facility] Start: 1989 HPV TESTING HPV TESTING [facility] Start: 1989 Screening for malign ant neoplasm of cervix [facility] Start: 1980 PAP TESTING PAP TESTING [facility] Start: 1980 Screening for malign ant neoplasm of cervix Pap Smear [facility] Start: 1978 DTaP/Tdap/Td Vaccine s (1 - Tdap) DTaP/Tdap/Td Vaccines (1 - Tdap) [facility] Start: 1978 Urine microalbumin profile [facility] Start: 1977 Anxiety Screening Anxiety Screening [facility] Start: 1977 Depression Screening Depression Scre ening [facility] Start: 1977 HEPATITIS C SCREENING HEPATITIS C [facility] Start: 1977 Hepatitis C screening Hepatitis C [facility] Start: 1977 HIV SCREENING HIV SCREENING [facility] Start: 1977 HIV screening HIV Screening [facility] Start: 1971 Adult depression screening assessment DEPRESSION SCREENING [facility] Start: 1964 COVID-19 VACCINE (1) COVID-19 VACCIN E (1) [facility] Start: 1960 MMR Vaccines (1 of 1 - Standard series) MMR Vaccines (1 of 1 - Standard series) [facility] Start: 1959 COVID-19 VACCINE (#1) COVID-19 VACCI NE (#1) [facility] Start: 1959 Annual wellness visit Medicare Initial Physical (IPPE) [facility] Start: 1959 Lipid panel Lipid Panel [facility] Start: 1959 Screening for malign ant neoplasm of colon [facility] Start: 1959 Screening for osteoporosis [facility] [facility] BACTERIAL VAGINOSIS AMPLIFICATION BACTERIAL VAGINOSIS AMPLIFICATION Lab Routine Recurrent vaginitis 06/21/2021 2:55 PM EDT [facility] Work Phone: BACTERIAL VAGINOSIS NAAT BACTERIAL VAGINOSIS NAAT Lab Routine Vulvar irritation 08/29/2024 1:29 PM EDT [facility] IBRAHIMA / TRICHOMONA S AMPLIFICATION IBRAHIMA / TRICHOMONAS AMPLIFICATION Lab Routine Recurrent vaginitis 06/21/2021 2:55 PM EDT [facility] Work Phone: IBRAHIMA/TRICHOMONAS NAAT IBRAHIMA/TRICHOMONAS NAAT Lab Routine Vulvar irritation 08/29/2024 1:29 PM EDT [facility] Work Phone: MR Lower Extremity Joint [facility] Patient referral [facility] Work Phone: SURGICAL PATHOLOGY SURGICAL PATH OLOGY Lab Routine Polyp of cervix uteri 06/21/2021 2:55 PM EDT [facility] Work Phone: Tissue exam [facility] Work Phone: Comment on above: Release Upon Orderin g for 1 Occurrences starting 07/11/2024, 1 completed End: 07-06-2024 XR Pelvis 1 or 2 Views [facility] Work Phone: Comment on above: Once for 1 Occurrenc es starting 07/06/2024 until 07/06/2024 [facility] Payers Date Payer Category Payer Medicare (Managed Care) MMO MEDADVANTAGE HMO Member Subscriber Plan / Payer (Effective 2024-Present) Name: Keiry Miller Relation to Subscriber: Self Name: Keiry Miller Payer ID: Not on file Type: HMO Address: [place] [id number] 2024 Medicare HMO [id number] 2024 Medicare [id number] 2024 Medicaid [id number] 2024 Self-pay 2020 Medicaid [place] MED[place] MEDICAID [id number] 2020-[facility] [phone] [facility] [address] [place] [address] Medicaid [id number] Unknown [id number] 2.16.840.1.831577.3.579.2. 462 Unknown [id number] 2.16.840.1.329026.3.579.2. 462 Unknown [id number] 2.16.840.1.215062.3.579.2. 462 Unknown [id number] 2.16.840.1.096705.3.579.2. 462 Unknown [id number] 2.16.840.1.784016.3.579.2. 462 Unknown [id number] 2.16.840.1.384667.3.579.2. 462 Unknown [id number] 2.16.840.1.420315.3.579.2. 462 Unknown [id number] 2.16.840.1.902754.3.579.2. 462 Unknown [id number] 2.16.840.1.089987.3.579.2. 462 Unknown [id number] 2.16.840.1.920170.3.579.2. 462 Unknown [id number] 2.16.840.1.164056.3.579.2. 462 Unknown [id number] 2.16.840.1.185995.3.579.2. 462 Unknown [id number] 2.16.840.1.625761.3.579.2. 462 Unknown [id number] 2.16.840.1.296006.3.579.2. 462 Unknown [id number] 2.16.840.1.504641.3.579.2. 462 Unknown [id number] 2.16.840.1.570627.3.579.2. 462 Social History Date Type Detail Facility Start: 12-09-2019 End: 05-06-2024 Tobacco smoking status NHIS Never smoked tobacco [facility] Start: 12-09-2019 End: 07-09-2024 Tobacco use and exposure Smokeless tobacco non-user [facility] Start: 1960 Sex Assigned At Not on file [facility] Start: 06-07-2021 End: 06-17-2021 Exposure to SARS-CoV-2 (event) Not sure [facility] Work Phone: Start: 05-20-2024 End: 06-12-2024 Sex Female (finding) [facility] Start: 1960 Sex Assigned At Female [facility] Start: 06-17-2024 End: 08-29-2024 Alcoholic beverage intake Lifetime non-drinker (finding) [facility] Start: 06-17-2024 End: 07-09-2024 History of Social function [facility] Start: 06-17-2024 End: 07-09-2024 Tobacco use panel [facility] Start: 02-12-2012 National Score (1-10 0), lower number is lower risk 48 [facility] Within the last year , have you been afraid of your partner or ex-partner? No [facility] Medical Equipment Procedure Code Equipment Code Equipment Origin al Text Equipment Identifier Dates Comp Cup Tri2 Mu lti Bushra 52mm - [id number] [id number], 137291[facility] FDA Start: 07-11-2024 Comp Liner Tri X 3 0d 36mm Bushra - [id number] [id number], 137300_imp FDA Start: 07-11-2024 Comp Stem Fem Co llar Hi Sz3 - [id number] ()[id number] [id number] , 137303_[facility] FDA Start: 07-11-2024 Comp Head Fem V4 0 36mm +2mm - [id number] ()[id number] [id number] , 137304_[facility] FDA Start: 07-11-2024 Screw Hex Tri2 L opro 6.5x25mm - [id number] ()[id number] [id number], 137295_[facility] FDA Start: 07-11-2024 Screw Hex Tri2 L opro 6.5x30mm - [id number] ()[id number] 7)[id number], 137297_[facility] FDA Start: 07-11-2024 Screw Hex Tri2 L opro 6.5x25mm - [id number] ()[id number] 7)[id number], 137301_[facility] FDA Start: 07-11-2024 Screw Hex Tri2 L opro 6.5x25mm - [id number] ()[id number] 7)[id number], 137302_[facility] FDA Start: 07-11-2024 Clinical Notes 06-17-2021 to 10-11-2024 Telephone Encounter - Karmen Yoder RN - 09/02/2024 10:43 AM EDTTelephone Encounter - Karmen Yoder RN - 09/02/2024 10:43 AM EDTTelephone Encounter - Argentina Worrell RN - 08/30/2024 8:24 AM EDT Note Date & Type Note Facility 10-11-2024 Radiology Diagnostic study note [facility] Imaging Services [address] [place] [address] HIP, UNI W/ Pelvis 2-3 Views MR#: [id number] Acct: [id number] Name: KEIRY MILLER Rep #: [id number] : 1960 F 64 From: Rui Castañeda MD PCP: Irene Gonzalez, [facility], PROGRAMMING DEVELOPMENT PROJECT MANAGER-C Status: REG CLI Study:HIP, UNI W/ Pelvis 2-3 Views Date of Ex am: 10/11/24 Exam# [id number] Ordering Dr: BARRETT ARROYO PROCEDURE: HIP, UNI W/ PELVIS 2-3 VIEWS 10/11/2024 REASON FOR EXAM: S/P KOTA TECHNIQUE: HIP, UNI W/ PELVIS 2-3 VIEWS COMPARISON: Left hip and pelvis series 05/06/2024. RAD/HIP, UNI W/ Pelvis 2-3 Views IMPRESSION: Prominent degenerative changes of the visualized lower lumbar spine noted. Mild sacroiliac joint degenerative changes are seen. Stable mild right hip joint degenerative changes. A left total hip prosthesis remains in place, with stable alignment. No evidence of loosening or metallic fracture. Calcified left uterine fibroid again seen. No fracture or dislocation is evident. Reading Location: [place] [address] CC: [facility] PROGRAMMING DEVELOPMENT PROJECT MANAGER-C Irene Gonzalez; ANDREA ARROYO ~ Shot Peening Operator: Signed [facility] 09-02-2024 Telephone encounter Note Patient notified and voiced understanding. Karmen Yoder RN [facility] 09-02-2024 Miscellaneous Notes Patient notified and voiced understanding. Karmen Yoder RN Left message for patient to call office. Argentina Worrell, BARRY Swetha Nnio APRN.CNP 08/30/24 7:11 AM Note Please let the pt know that her vaginal cultures are negative and I will send in the Clobetasol cream for her to use as discussed at the visit. Swetha Nino APRN.CNP documented in this encounter [facility] 08-30-2024 Telephone encounter Note Left message for patient to call office. Argentina Worrell RN [facility] 08-30-2024 Telephone encounter Note Swetha Nino APRN.CNP 08/30/24 7:11 AM Note Please let the pt know that her vaginal cultures are negative and I will send in the Clobetasol cream for her to use as discussed at the visit. Swetha Nino APRN.CNP [facility] 08-30-2024 Telephone encounter Note Please let the pt know that her vaginal cultures are negative and I will send in the Clobetasol cream for her to use as discussed at the visit. Swetha Nino APRN.CNP [facility] 08-30-2024 Miscellaneous Notes Please let the pt know that her vaginal cultures are negative and I will send in the Clobetasol cream for her to use as discussed at the visit. Swetha Nino APRN.CNP documented in this encounter [facility] 08-29-2024 Note HNO ID: [id number] Author: SWETHA NINO APRN.LOURDES Service: ? Author Type: Nurse Practitioner Type: Progress Notes Filed: 08/29/2024 14:01 Note Text: Patient declined microbiology lab technician. Keiry Miller is a 64 year old female who presents for problem visit vaginal irritation, external. HPI: Patient states that she noticed mostly external irritation over the past week or so. She states that when urine hits the skin it campoverde. She has tried several different creams with no resolve of symptoms. Patient had hip replacement done in July and is doing well at this time. OB History Gravida1 Para0 Term0 Preterm0 AB0 Living1 SAB0 IAB0 Ectopic0 Multiple0 Live Births0 Cutter Grinder History LMP: Postmenopausal Age at Menarche: Age at First : Age at Menopause: Cutter Grinder History Comments: Sexual Activity: Not Currently; No partner data on record Contraception: No contraception data on record PAST MEDICAL HISTORY Diagnosis Date H/O cervical polypectomy 06/2021 Hypertension Lichen sclerosus PAST SURGICAL HISTORY Procedure Laterality Date EXTRACTION ERUPTED TOOTH/EXR Pt reproted age 20 HIP SURGERY HX Left Pt reported History reviewed. No pertinent family history. Social History Tobacco Use Smoking status: Never Smokeless tobacco: Never Vaping Use Vaping status: Never Used Substance Use Topics Alcohol use: Never Drug use: Never Current Outpatient Medications Medication Sig Cholecalciferol, Vitamin D3, 25 mcg (1,000 unit) cap Take 1,000 Units by mouth once daily. ciprofloxacin HCl (CIPRO) 500 mg tablet Take 1 tablet by mouth every 12 hours. loratadine (CLARITIN) 10 mg tablet Take 10 mg by mouth once daily. meloxicam (MOBIC) 15 mg tablet Take 15 mg by mouth once daily. lisinopril (ZESTRIL, PRINIVIL) 40 mg tablet Take 1 tablet by mouth once daily. No current facility-administered medications for this visit. Allergies As of Date: 08/29/2024 Allergen Noted Reaction ADHESIVE TAPE (ROSINS) 05/27/2024 Itching BEE POLLEN 05/06/2024 Unknown SULFA (SULFONAMIDE ANTIBIOTICS) 06/26/2017 Other: See Comments Fully Assessed 08/29/2024 REVIEW OF SYSTEMS Expanded ROS: N/A Allergies and current medication updated:Yes SENSITIVE EXAM: The sensitive examination was discussed with the Patient or Patient's Authorized Weights And Measures Inspector. As applicable, any other physician, advance practice provider, medical student, or other health professional student that will be observing or involved in the sensitive examination for educational or training purposes was discussed with the Patient or Authorized Weights And Measures Inspector. The Patient or Authorized Weights And Measures Inspector has agreed to proceed with the sensitive examination. (Sensitive examination includes inspection and/or palpation of the breasts, pelvis, prostate and anorectal regions). EXAM: BP 148/86 Wt 198 lb 3.2 oz (89.9kg) GENERAL: pleasant, female in no apparent distress HEENT: Normocephalic, atraumatic, mucus membranes moist, and no lesions CHEST: Normal inspiratory effort PELVIC: external genitalia normal, normal Bartholin's glands, urethra, Neshkoro's glands, physiologic discharge present, normal appearing perineal body and perianal region, +fissure to lower left groin, sloughing of skin on the inner labia BIMANUAL: deferred NEURO: alert and oriented x3,exam grossly non-focal EXTREMITIES: normal ASSESSMENT/PLAN: 1. Vulvar irritation - ICD9: 624.8, ICD10: N90.89 (primary diagnosis) - IBRAHIMA/TRICHOMONAS NAAT - BACTERIAL VAGINOSIS NAAT If results are negative will order Clobetasol 2. Dysuria - ICD9: 788.1, ICD10: R30.0 acute - UA positive for hanna esterase - Patient education for prevention given - UA DIP, URINE (POC) Will notify patient of test results. Swetha Nino APRN.INTERNET MARKETING SPECIALIST Medical Decision Making: Problems: Low: Acute, uncomplicated illness or injury Data: Unique test(s) ordered: 3+ Risk: Low: Low risk from testing/treatment Medical Decision Making Level: 3 - Low [facility] 08-29-2024 History of Present illness Narrative Patient declined microbiology lab technician. Keiry Miller is a 64 year old female who presents for problem visit vaginal irritation, external. HPI: Patient states that she noticed mostly external irritation over the past week or so. She states that when urine hits the skin it campoverde. She has tried several different creams with no resolve of symptoms. Patient had hip replacement done in July and is doing well at this time. OB History Gravida1 Para0 Term0 Preterm0 AB0 Living1 SAB0 IAB0 Ectopic0 Multiple0 Live Births0 Cutter Grinder History LMP: Postmenopausal Age at Menarche: Age at First : Age at Menopause: Cutter Grinder History Comments: Sexual Activity: Not Currently; No partner data on record Contraception: No contraception data on record PAST MEDICAL HISTORY Diagnosis Date H/O cervical polypectomy 06/2021 Hypertension Lichen sclerosus PAST SURGICAL HISTORY Procedure Laterality Date EXTRACTION ERUPTED TOOTH/EXR Pt reproted age 20 HIP SURGERY HX Left Pt reported History reviewed. No pertinent family history. Social History Tobacco Use Smoking status: Never Smokeless tobacco: Never Vaping Use Vaping status: Never Used Substance Use Topics Alcohol use: Never Drug use: Never Current Outpatient Medications Medication Sig Cholecalciferol, Vitamin D3, 25 mcg (1,000 unit) cap Take 1,000 Units by mouth once daily. ciprofloxacin HCl (CIPRO) 500 mg tablet Take 1 tablet by mouth every 12 hours. loratadine (CLARITIN) 10 mg tablet Take 10 mg by mouth once daily. meloxicam (MOBIC) 15 mg tablet Take 15 mg by mouth once daily. lisinopril (ZESTRIL, PRINIVIL) 40 mg tablet Take 1 tablet by mouth once daily. No current facility-administered medications for this visit. Allergies As of Date: 08/29/2024 Allergen Noted Reaction ADHESIVE TAPE (ROSINS) 05/27/2024 Itching BEE POLLEN 05/06/2024 Unknown SULFA (SULFONAMIDE ANTIBIOTICS) 06/26/2017 Other: See Comments Fully Assessed 08/29/2024 REVIEW OF SYSTEMS Expanded ROS: N/A Allergies and current medication updated:Yes SENSITIVE EXAM: The sensitive examination was discussed with the Patient or Patient's Authorized Weights And Measures Inspector. As applicable, any other physician, advance practice provider, medical student, or other health professional student that will be observing or involved in the sensitive examination for educational or training purposes was discussed with the Patient or Authorized Weights And Measures Inspector. The Patient or Authorized Weights And Measures Inspector has agreed to proceed with the sensitive examination. (Sensitive examination includes inspection and/or palpation of the breasts, pelvis, prostate and anorectal regions). EXAM: BP 148/86 Wt 198 lb 3.2 oz (89.9kg) GENERAL: pleasant, female in no apparent distress HEENT: Normocephalic, atraumatic, mucus membranes moist, and no lesions CHEST: Normal inspiratory effort PELVIC: external genitalia normal, normal Bartholin's glands, urethra, Neshkoro's glands, physiologic discharge present, normal appearing perineal body and perianal region, +fissure to lower left groin, sloughing of skin on the inner labia BIMANUAL: deferred NEURO: alert and oriented x3,exam grossly non-focal EXTREMITIES: normal ASSESSMENT/PLAN: 1. Vulvar irritation - ICD9: 624.8, ICD10: N90.89 (primary diagnosis) - IBRAHIMA/TRICHOMONAS NAAT - BACTERIAL VAGINOSIS NAAT If results are negative will order Clobetasol 2. Dysuria - ICD9: 788.1, ICD10: R30.0 acute - UA positive for hanna esterase - Patient education for prevention given - UA DIP, URINE (POC) Will notify patient of test results. Swetha Nino APRN.CNP Medical Decision Making: Problems: Low: Acute, uncomplicated illness or injury Data: Unique test(s) ordered: 3+ Risk: Low: Low risk from testing/treatment Medical Decision Making Level: 3 - Low documented in this encounter [facility] 08-12-2024 History of Present illness Narrative [facility] - [address] [place] [id number] Dept: [phone] Dept 08/12/2024 Chief Complaint Patient presents with Post-op Left total hip arthroplasty, DOS 07/12/2024 Subjective: Keiry is approximately 4 week(s) out from a left total hip arthroplasty, DOS 07/12/2024. Pain is mild. Patient has noted issues with: nothing out of the ordinary. Assistive device for ambulation: none. Pre-operative symptoms are improved. The patient is able to walk 1 blocks and is able to use stairs. Patient denies calf pain or unusual swelling. ED visit since surgery: No Hospital re-admit since surgery: No Complication since surgery: No Physical Therapy: Home therapy ended last . She does not wish to have additional formal therapy. She performs home exercises. Review of Systems Constitutional: Negative for chills and fever. HENT: Negative for congestion. Respiratory: Negative for cough. Musculoskeletal: Positive for joint swelling. Negative for gait problem. Neurological: Positive for numbness. Negative for weakness. Objective: BP 132/85 (BP Location: Left arm, Patient Position: Sitting, BP Cuff Size: Large adult) Pulse 87 Ht 5' 6.5 (1.689 m) Wt 200 lb (90.7 kg) BMI 31.80 kg/m Ortho Exam [place] well today and non-toxic. Gait is antalgic. Incision healing well, no significant drainage, no dehiscence. Skin otherwise is warm, dry and intact. Swelling is mild. Hip ROM is smooth and non-tender with no signs or symptoms of instability. Keiry remains neuro intact to the operative leg. No evidence of DVT seen on physical exam. Negative Alex's sign. No cords or calf tenderness. The patient does not appreciate a leg length discrepancy. XRAYS: New images obtained today in office reviewed and interpreted. Indication: Status post left total hip arthroplasty. Exam Ordered: Radiographs taken today include an anteroposterior pelvis, an AP, and lateral view of the left proximal femur including the hip joint. Details of Examination: Exam show a well fixed, well positioned hip arthroplasty with no evidence of wear, osteolysis, fracture, or loosening. Impression: Status post left total hip arthroplasty, implant in good position with no abnormality. Assessment 1. Primary osteoarthritis of left hip 2. S/P total left hip arthroplasty Plan Keiry will continue with WBAT and therapy exercises. I would like to check the patient back in 3 month(s) with a low AP pelvis and lateral of the proximal femur. She [place] further away. Will get new xrays in 3 months rather than following up in person. If any concerns arise then will see in person at that time. Otherwise, she is doing well and minimal to no pain. Treated with tylenol. Finished home PT and will continue exercises on her own. We reviewed signs and symptoms of common post-operative issues including infection. We reviewed the need for prophylaxis with dental or other procedures. She will call and return sooner for questions, issues, or concerns. Andrea Arroyo PA-C Orthopedic Surgery Hip and Knee Reconstruction [facility] 08/12/2024 at 12:48 PM. documented in this encounter [facility] 07-26-2024 History of Present illness Narrative DOS: 07/11/24 Surgery: Left Total Hip Arthroplasty Surgeon: Teena Assistive devices used: a cane Wound/incision concerns: Denies Erythema, Drainage, and Dehiscence Fevers/Chills/Night sweats: Denies Any new symptoms following surgery: No Any improvement in preoperative symptoms: Yes and she is doing very well. Minimal pain at this time treated with tylenol. She is very happy with recovery. She is working with Pt. No concerns with incision at this time. DVT Prophylaxis: Aspirin 81mg BID x 4 weeks Pain Control: Tylenol and Mobic Any postoperative refills requested: No If narcotics requested, was an OARRS reviewed: No, Not Applicable Post op restrictions reviewed: Weight Bearing As Tolerated Home PT: Yes Outpatient Scheduled: No, will discuss at 4 week post-op visit 4 Week Follow-up Scheduled: Yes I had a discussion with the patient today regarding postoperative care, see above. All questions and concerns were addressed. We will plan to see the patient for their standard 4 week postoperative visit in the office. Should they have any questions or concerns prior to that appointment, they were instructed to contact our office. Andrea Arroyo PA-C TOTAL TIME SPENT ON PATIENT ENCOUNTER TODAY: 5 MINUTES: Chart review and preparation, telephone discussion, and documentation. Patient was identified and seen today via Telehealth by agreement and consent. I used the following Telehealth technology: Audio capability only. Total length of call 5 minutes. The patient was offered and advised video for a more comprehensive evaluation, but the patient declined or was unable to use video. Patient location: Patient Location: Home. This patient encounter is appropriate and reasonable under the circumstances: recent surgery . The patient has been advised of the potential risks and limitations of this mode of treatment (including but not limited to the absence of in-person examination) and has agreed to be treated in a remote fashion in spite of them. Any and all of the patient's/patient's family's questions on this issue have been answered and I have made no promises or guarantees to the patient. The patient has also been advised to contact this office for worsening conditions or problems, and seek emergency medical treatment and/or call 911 if the patient deems either necessary. The patient stated that they are currently in the [facility]. If the patient is a minor, permission has been obtained by the parent or guardian for the patient to receive medical care at this visit. documented in this encounter [facility] 07-22-2024 Telephone encounter Note Keiry called to see if she can stopped the meloxicam. Discussed meloxicam is as needed. She was also wondering about protonix. Discussed it is for 1 month while she is on the aspirin. [facility] 07-22-2024 Miscellaneous Notes Keiry called to see if she can stopped the meloxicam. Discussed meloxicam is as needed. She was also wondering about protonix. Discussed it is for 1 month while she is on the aspirin. POD #7 LTRODRIGO Ricci states she is doing great. She has stopped taking the narcotics a couple of days ago. She had been constipated but it has resolved. She has worked with home PT. They are supposed to come again tomorrow and are going to remove the incisional dressing at that time. She verbalized understanding to call with any questions or concerns. documented in this encounter [facility] 07-18-2024 Telephone encounter Note POD #7 LTRODRIGO Ricci states she is doing great. She has stopped taking the narcotics a couple of days ago. She had been constipated but it has resolved. She has worked with home PT. They are supposed to come again tomorrow and are going to remove the incisional dressing at that time. She verbalized understanding to call with any questions or concerns. [facility] 07-12-2024 Nurse Note Reviewed home going instructions with patient. Verbalized understanding. [facility] 07-12-2024 Miscellaneous Notes Patient Choice Patient Name: KEIRY MILLER Date of : 1960 All Providers Sent Referral Name: [facility] Phone: [phone] Address: [address] [place] [id number] [address] PACC Note Home Health Referral Educated patient and Dtr on Home Care and services available. Patient offered choice of available HHC and agreeable [facility]. Care Types: [facility] Isolation Precautions: No active isolations Social Determinates of Health: Tobacco Use: Low Risk (07/11/2024) Patient History Smoking Tobacco Use: Never Smokeless Tobacco Use: Never Passive Exposure: Not on file Social History Substance and Sexual Activity Alcohol Use Never Social History Substance and Sexual Activity Drug Use Never Does the patient have any financial resource strain? No Does the patient have any food insecurities? No Does the patient have any housing instabilities? No If any of the above is noted as yes - consider a HOME SERVICE TECHNICIAN evaluation once the patient returns home. START PATIENT REGISTRATION INFORMATION Order Information Order Signing Physician: Krishan Kruse MD Service Ordered RN ?: No Service Ordered PT ?: Yes Service Ordered OT ?: No Service Ordered ST ?: No Service Ordered HOME SERVICE TECHNICIAN?:No Service Ordered DEHYDROGENATION CONVERTER OPERATOR?: No Following Physician: Krishan Kruse MD Following Physician Overseeing Physician: Krishan Kruse MD (Required for Residents only) Agreeable to Follow? Yes Date/Time of Call 07/12/24 11:23 AM, Spoke with: Yuliya Care Coordination Same Day SOC?: No Primary Care Physician: IRENE GONZALEZ Primary Care Physician Primary Care Physician Address: [address] [place] [address] [place] [address] Visit Instructions: N/A Service Discharge Location Type: Home with Home Care Service Facility Name: N/A Service Floor Facility: N/A Service Room No: N/A Demographics Patient Last Name: Angela Patient First Name: Keiry Language/Communication Barrier: n/a Service Address: [address] [place] [address] [address] Service City: [facility] ST: [place] Service ZIP: [address] Service Other phone numbers: Telephone Information: Emergency Contact: Extended Emergency Contact Information Primary Emergency Contact: Kasia Fagan Mobile Relation: Daughter Preferred language: Palestinian Admission Information Admit Date: 07/11/2024 Patient status at discharge: Post procedure recovery Admitting Diagnosis: Unilateral primary osteoarthritis, left hip [M16.12] Arthritis of left hip [M16.12] Caregiver Information Caregiver First Name: n/a Caregiver Last Name: n/a Caregiver Relationship to Patient n/a Caregiver Phone Number: n/a Caregiver Notes: N/A [employer] HIGHTECH: HI TECH - FRESH ORTHO Procedure: Primary cementless left total hip arthroplasty, direct anterior approach Date of procedure: 07/11/24 Precautions: Hip precautions Surgeon: Krishan Kruse MD END PATIENT REGISTRATION INFORMATION Pt Home Health goal To increase mobility and decrease pain with mobility, leading to an improvement in quality of life. COVID Status 1. Do you have any upper respiratory symptoms (cough, SOB, Fever)? No 2. Have you been exposed to anyone with COVID-19 Virus? No Answer only if pending or positive for COVID-19? 1. Agreeable to wear PPE at each visit? No 2. Is the hospital supplying them with PPE upon Discharge? No Start PACC Summary General Report/ Additional Comments Wound Care-Keep a Dry dressing on for 7-10 day, if no drainage ok to keep incision open to air. If there is drainage call the office. Discharge Date: 07/12/24 Referral Source-PACC: (Hospital/Unit): [facility] / [id number] A End PACC Note Problem: Pain - Adult Goal: Verbalizes/displays adequate comfort level or baseline comfort level Outcome: Adequate for Discharge Problem: Safety - Adult Goal: Free from fall injury Outcome: Adequate for Discharge Problem: Discharge Planning Goal: Discharge to home or other facility with appropriate resources Outcome: Adequate for Discharge Problem: Chronic Conditions and Co-morbidities Goal: Patient's chronic conditions and co-morbidity symptoms are monitored and maintained or improved Outcome: Adequate for Discharge Problem: Skin/Tissue Integrity - Adult Goal: Skin integrity remains intact Outcome: Adequate for Discharge Goal: Incisions, wounds, or drain sites healing without S/S of infection Outcome: Adequate for Discharge Problem: Musculoskeletal - Adult Goal: Return mobility to safest level of function Outcome: Adequate for Discharge Goal: Maintain proper alignment of affected body part Outcome: Adequate for Discharge Goal: Return ADL status to a safe level of function Outcome: Adequate for Discharge POD #1 LTHA Patient ambulating with PT. She has a FWW. She is hoping to be discharged home today with home health. Her daughter will be helping her at home as needed. Primary Caregiver: self If assistance needed, confirmed caregiver ready, willing and able to care for patient at discharge: Yes Confirmed with: sister Problem: Pain - Adult Goal: Verbalizes/displays adequate comfort level or baseline comfort level Outcome: Progressing Problem: Safety - Adult Goal: Free from fall injury Outcome: Progressing Problem: Chronic Conditions and Co-morbidities Goal: Patient's chronic conditions and co-morbidity symptoms are monitored and maintained or improved Outcome: Progressing Problem: Musculoskeletal - Adult Goal: Return mobility to safest level of function Outcome: Progressing Reviewed chart. Post op LTHA. Therapy evaluated and recommended home with [facility]. tool liaison is following. Will be discharged on ASA for anticoagulation needs. Ortho nurse navigator following for equipment needs. Tentative discharge plan is home with [facility] when medically stable. Case management will continue to follow and assist with discharge planning as needed. .. Images from the original note were not included. [facility] MAIN OR [address] [facility] [address] Dept: [phone] Loc: [phone] Operative Report Patient Name: Keiry Miller Date of : 1960 Date of Surgery: 07/11/24 DATE OF SURGERY: 07/11/24 PREOPERATIVE DIAGNOSIS: LEFT Hip Degenerative Arthritis - M16.12, POSTOPERATIVE DIAGNOSIS: Same PROCEDURE PERFORMED: Primary cementless left total hip arthroplasty, direct anterior approach with Anish robot SURGEON: Krishan Kruse MD ASSISTANTS: Dina ALMANZA, Jamilah PGY-V ANESTHESIA: Monitored Anesthesia Care , Spinal Anaesthesia, and Quadratus Lumborum Block Post-op INTRAVENOUS FLUIDS: 1,000 mL ESTIMATED BLOOD LOSS: 300 mL DRAIN: None. COMPLICATIONS: Patient tolerated the procedure well without anesthetic or surgical/operative complications. COMPONENTS: [employer]dale Trident 2 multi-hole acetabular component size 52 mm, 36 neutral highly crosslinked polyethylene acetabular liner, a 36 +2.5 Biolox delta ceramic femoral head, Waqar Insignia femoral component size 3 high offset, four divergent acetabular screws INTRAOPERATIVE FINDINGS: The intra-operative finding confirmed the clinical and radiographic finding of end-stage osteoarthritis characterized by complete bone loss on the femoral head and acetabulum with presence of osteophytes. Significant bone loss, requiring multi-hole cup TISSUE REMOVED OR ALTERED: Femoral head and acetabular reamings removed via standard resection. COMORBIDITIES: No date: Arthritis No date: Hypertension No date: Joint pain No date: Motion sickness No date: Prediabetes SPECIMEN: None OPERATIVE NOTE ADDENDUM: 1) The first-educational program assistant was critical to all steps of the operation, including retraction and leg stabilization during exposure and bone preparation, as well as the deep and superficial wound closure. I understand that section 1842(b)(7)(D) of the Social Security Act generally prohibits Medicare physician fee schedule payment for the services of assistants at surgery in teaching hospitals when qualified residents are available to furnish such services. I certify that the services for which payment is claimed were medically necessary and that no qualified resident was available to perform the services. I further understand that these services are subject to post-payment review by the Medicare carrier. 2) Operative note addendum for unusual increased surgical complexity for a complex surgical case. This particular patient's condition and surgery, satisfies the criteria for unusual and increased surgical complexity and resulted in significantly increased difficulty for this surgical procedure. Due to severity of arthritis and requirement to utilize a multi-hole acetabular component the procedure required additional surgical dissection, additional assistance with tissue retraction, and more complicated exposure techniques to satisfactorily perform the procedure. In addition, the energy expenditure was substantially increased for the surgeon and assistants. These factors increased the complexity, surgical risks, and duration of the procedure. The duration of this procedure in this patient was increased by approximately 40% due to the above-mentioned factors. HISTORY: The patient has progressive and debilitating hip pain secondary to end-stage osteoarthritis, supported by clinical and radiographic evidence and has failed nonoperative management. The patient was deemed appropriate for a total hip arthroplasty. Risks, benefits ,and alternatives to surgical treatment were discussed in detail with the patient and the patient wished to proceed with the total hip arthroplasty. The patient was seen and thoroughly evaluated by a medical asst preoperatively and was optimized for surgical intervention. SURGICAL PROCEDURE: Prior to initiation of the operative procedure a surgical time-out was taken and the patient's name, medical record, number, [id number], and operative side was verified with the surgical consent form. Additionally it was verified that the appropriate doris-operative antibiotic administration was completed, as well as that radiographs were available and the correct operative instrumentation and implants were available. After routine preparation and draping of the patient in the total joint operating room on a regular table, a direct anterior approach was made to the hip joint. The skin and subcutaneous tissues were incised. Electrocautery was utilized to maintain hemostasis along the skin edges. The subcutaneous fat was bluntly dissected. Subsequently the tensor fascia lizzette muscle was visualized and the medial and lateral borders identified. The medial border was identified by the fat strip that lies just medial to the muscle. The tip of the knife blade was used to gently incise the TFL fascia at the junction of the medial third and middle third of the TFL muscle belly. Care was taken to ensure that the musculature was not damaged at the area of the fascial incision. Finger dissection was used to locate the anterior femoral neck. A blunt Cobra retractor was then placed in the split at the level of the piriformis fossa. Subsequently the plane between the TFL and fascia was expanded distally to the inferior aspect of the wound. A sharp Hohmann retractor was placed at the level of the vastus ridge retracting the mid aspect of the TFL. The lateral circumflex vessels were then visualized and cauterized. The interval between the rectus and the anterior hip capsule at the level of the inferior neck was completed and a Kenny and then blunt Cobra retractor was placed. Subsequently the interval between the anterior capsule and the rectus was developed with electrocautery and completed with careful blunt dissection. A Kenny was used to elevate the soft tissues above the mid point of the femoral head, allowing a sharp curved Hohmann retractor to be placed safely. No muscle or superficial soft tissues were interposed under this retractor. The anterior capsule was split in a T formation from the superolateral neck to the inferomedial neck and a capsulectomy completed. The saddle of the proximal femur was identified. The electrocautery was used to enrico the sites of the femoral neck cut based on pre-op measurement. An osteotomy was completed to remove a wafer of bone, following which a power corkscrew was inserting into the remaining femoral head to extract it from the acetabulum. Then, we turned attention to placement of crest pins on the ipsilateral hip. A small incision in line with anterior crest was made. Bony window identified and pins were placed and array assembled, positioned, and tightened. Good fixation noted. A sharp broad Cobra was placed behind the posterior acetabular wall. Then, the inferior capsule was released over a tonsil. A blunt narrow Hohmann was placed under the transverse acetabular ligament. The acetabular labrum was excised with a David and electrocautery. We then acquired our acetabular points with a probe according to protocol. An osteotome was utilized to remove the inferior and medial osteophytes after registration to allow ease of passage of the reamer. The acetabulum was subsequently reamed under robotic guidance according to our pre-operative plan. Acetabulum was debrided and cleared of any interposing debris. Bone graft applied to associated cysts. The shell was impacted into place with the robotic arm with excellent stability. Four screws were placed in the posterior superior quadrant. A highly crosslinked polyethylene liner was inserted into the shell, assuring it locked circumferentially into the shell. The medial and posterior retractors were then removed and the leg brought into adduction and external rotation. The anterior retractor was then removed and a double-footed Romo retractor placed at the level of the calcar. Continue release off of calcar was completed for improved visualization and mobilization of the femur. The superolateral capsule was identified and then released. Subsequently a sharp curved Dian retractor was placed over the greater trochanter to allow for elevation of the proximal femur. Leg was externally rotated for further visualization. The femoral neck cut was clearly identified. A rongeur was used to remove lateral neck. A small blunt canal finder was used to establish the canal. A box osteotome was utilized to remove remaining lateral femoral neck. A starter broach used to start working in a medial to lateral direction for intimate medial-lateral fit and fill of the stem. The femur was then broached in a sequential manner, lateralizing as necessary. The femoral canal was shaped to accept the appropriate sized hip stem, ensuring adequate axial and rotational stability. Good medial/lateral and anteroposterior fit was appreciated. Trial head and neck components were placed and stability, leg length, and range of motion assessed. The component position, offset, and leg length were confirmed with fluoroscopy. The final stem was impacted into place, ensuring no fracture of the calcar. Final femoral head was chosen and impacted onto a clean/dry taper. Trial and final reduction of the hip revealed good leg length, stability, and range of motion. The wound was irrigated with a sterile dilute betadine solution and sterile saline. The wound was inspected for active bleeding and was dry. The wound was closed in layers using #1 Stratafix suture in running fashion for the fascial layer. 2-0 Vicryl utilized for the subcutaneous closure. 3-0 monocryl subcuticular suture, Dermabond, and a sterile dressing was applied. Post-operative Plan: WBAT with assistive device Avoid extremes of motion DVT Proph 24 hrs abx Follow-up in 4 weeks Patient educated on importance of coughing/ deep breathing after surgery to reduce risk of pneumonia. Patient educated on importance of early mobility to reduce the risk of blood clots. Falls prevention information reviewed with patient. Post-operative pain control and ways to prevent constipation discussed with patient. Daughter at bedside documented in this encounter [facility] 07-12-2024 Note Formatting of this n ote might be different from the original. Patient Choice Patient Name: KEIRY MILLER Date of : 1960 All Providers Sent Referral Name: [facility] Phone: [phone] Address: [address] [place] [address] [facility] 07-12-2024 Note Formatting of this n ote is different from the original. Start PACC Note Home Health Referral Educated patient and Dtr on Home Care and services available. Patient offered choice of available HHC and agreeable to PT services with [facility] at Home - Home Care. Care Types: [facility] Isolation Precautions: No active isolations Social Determinates of Health: Tobacco Use: Low Risk (07/11/2024) Patient History Smoking Tobacco Use: Never Smokeless Tobacco Use: Never Passive Exposure: Not on file Social History Substance and Sexual Activity Alcohol Use Never Social History Substance and Sexual Activity Drug Use Never Does the patient have any financial resource strain? No Does the patient have any food insecurities? No Does the patient have any housing instabilities? No If any of the above is noted as yes - consider a HOME SERVICE TECHNICIAN evaluation once the patient returns home. START PATIENT REGISTRATION INFORMATION Order Information Order Signing Physician: Krishan Kruse MD Service Ordered RN ?: No Service Ordered PT ?: Yes Service Ordered OT ?: No Service Ordered ST ?: No Service Ordered HOME SERVICE TECHNICIAN?:No Service Ordered DEHYDROGENATION CONVERTER OPERATOR?: No Following Physician: Krishan Kruse MD Following Physician Overseeing Physician: Krishan Kruse MD (Required for Residents only) Agreeable to Follow? Yes Date/Time of Call 07/12/24 11:23 AM, Spoke with: Yuliya Care Coordination Same Day SOC?: No Primary Care Physician: IRENE GONZALEZ Primary Care Physician Primary Care Physician Address: [address] [facility] [address] Visit Instructions: N/A Service Discharge Location Type: Home with Home Care Service Facility Name: N/A Service Floor Facility: N/A Service Room No: N/A Demographics Patient Last Name: Angela Patient First Name: Keiry Language/Communication Barrier: n/a Service Address: [address] [place] [address] [address] Service City: [facility] ST: [place] Service ZIP: [address] Service Other phone numbers: Telephone Information: Emergency Contact: Extended Emergency Contact Information Primary Emergency Contact: Kasia Fagan Mobile Relation: Daughter Preferred language: Palestinian Admission Information Admit Date: 07/11/2024 Patient status at discharge: Post procedure recovery Admitting Diagnosis: Unilateral primary osteoarthritis, left hip [M16.12] Arthritis of left hip [M16.12] Caregiver Information Caregiver First Name: n/a Caregiver Last Name: n/a Caregiver Relationship to Patient n/a Caregiver Phone Number: n/a Caregiver Notes: N/A [employer] HIGHTECH: HI TECH - FRESH ORTHO Procedure: Primary cementless left total hip arthroplasty, direct anterior approach Date of procedure: 07/11/24 Precautions: Hip precautions Surgeon: Krishan Kruse MD END PATIENT REGISTRATION INFORMATION Pt Home Health goal To increase mobility and decrease pain with mobility, leading to an improvement in quality of life. COVID Status 1. Do you have any upper respiratory symptoms (cough, SOB, Fever)? No 2. Have you been exposed to anyone with COVID-19 Virus? No Answer only if pending or positive for COVID-19? 1. Agreeable to wear PPE at each visit? No 2. Is the hospital supplying them with PPE upon Discharge? No Start PACC Summary General Report/ Additional Comments Wound Care-Keep a Dry dressing on for 7-10 day, if no drainage ok to keep incision open to air. If there is drainage call the office. Discharge Date: 07/12/24 Referral Source-PACC: (Hospital/Unit): [facility] / [id number] A End PACC Note [facility] 07-12-2024 Note Formatting of this n ote might be different from the original. Patient Choice Patient Name: KEIRY MILLER Date of : 1960 All Providers Sent Referral Name: [facility] Phone: [phone] Address: [address] [place] [address] [facility] 07-12-2024 Note Formatting of this n ote is different from the original. Start PACC Note Home Health Referral Educated patient and Dtr on Home Care and services available. Patient offered choice of available HHC and agreeable to [facility]. Care Types: [facility] Isolation Precautions: No active isolations Social Determinates of Health: Tobacco Use: Low Risk (07/11/2024) Patient History Smoking Tobacco Use: Never Smokeless Tobacco Use: Never Passive Exposure: Not on file Social History Substance and Sexual Activity Alcohol Use Never Social History Substance and Sexual Activity Drug Use Never Does the patient have any financial resource strain? No Does the patient have any food insecurities? No Does the patient have any housing instabilities? No If any of the above is noted as yes - consider a HOME SERVICE TECHNICIAN evaluation once the patient returns home. START PATIENT REGISTRATION INFORMATION Order Information Order Signing Physician: Krishan Kruse MD Service Ordered RN ?: No Service Ordered PT ?: Yes Service Ordered OT ?: No Service Ordered ST ?: No Service Ordered HOME SERVICE TECHNICIAN?:No Service Ordered DEHYDROGENATION CONVERTER OPERATOR?: No Following Physician: Krishan Kruse MD Following Physician Overseeing Physician: Krishan Kruse MD (Required for Residents only) Agreeable to Follow? Yes Date/Time of Call 07/12/24 11:23 AM, Spoke with: Yuliya Care Coordination Same Day SOC?: No Primary Care Physician: IRENE GONZALEZ Primary Care Physician Primary Care Physician Address: [address] [place] [address] [facility] [address] Visit Instructions: N/A Service Discharge Location Type: Home with Home Care Service Facility Name: N/A Service Floor Facility: N/A Service Room No: N/A Demographics Patient Last Name: Angela Patient First Name: Keiry Language/Communication Barrier: n/a Service Address: [address] [place] [address] [address] Service City: [facility] ST: [place] Service ZIP: [address] Service Other phone numbers: Telephone Information: Emergency Contact: Extended Emergency Contact Information Primary Emergency Contact: Kasia Fagan Mobile Relation: Daughter Preferred language: Palestinian Admission Information Admit Date: 07/11/2024 Patient status at discharge: Post procedure recovery Admitting Diagnosis: Unilateral primary osteoarthritis, left hip [M16.12] Arthritis of left hip [M16.12] Caregiver Information Caregiver First Name: n/a Caregiver Last Name: n/a Caregiver Relationship to Patient n/a Caregiver Phone Number: n/a Caregiver Notes: N/A [employer] HIGHTECH: HI TECH - FRESH ORTHO Procedure: Primary cementless left total hip arthroplasty, direct anterior approach Date of procedure: 07/11/24 Precautions: Hip precautions Surgeon: Krishan Kruse MD END PATIENT REGISTRATION INFORMATION Pt Home Health goal To increase mobility and decrease pain with mobility, leading to an improvement in quality of life. COVID Status 1. Do you have any upper respiratory symptoms (cough, SOB, Fever)? No 2. Have you been exposed to anyone with COVID-19 Virus? No Answer only if pending or positive for COVID-19? 1. Agreeable to wear PPE at each visit? No 2. Is the hospital supplying them with PPE upon Discharge? No Start PACC Summary General Report/ Additional Comments Wound Care-Keep a Dry dressing on for 7-10 day, if no drainage ok to keep incision open to air. If there is drainage call the office. Discharge Date: 07/12/24 Referral Source-PACC: (Hospital/Unit): [facility] / [id number]/[id number] A End PACC Note [facility] 07-12-2024 Note Start PACC Note Home Health Referral Educated patient and Dtr on Home Care and services available. Patient offered choice of available HHC and agreeable to PT services with [facility] - Home Care. Care Types: [facility] Isolation Precautions: No active isolations Social Determinates of Health: Tobacco Use: Low Risk (07/11/2024) Patient History Smoking Tobacco Use: Never Smokeless Tobacco Use: Never Passive Exposure: Not on file Social History Substance and Sexual Activity Alcohol Use Never Social History Substance and Sexual Activity Drug Use Never Does the patient have any financial resource strain? No Does the patient have any food insecurities? No Does the patient have any housing instabilities? No If any of the above is noted as yes - consider a HOME SERVICE TECHNICIAN evaluation once the patient returns home. START PATIENT REGISTRATION INFORMATION Order Information Order Signing Physician: Krishan Kruse MD Service Ordered RN ?: No Service Ordered PT ?: Yes Service Ordered OT ?: No Service Ordered ST ?: No Service Ordered HOME SERVICE TECHNICIAN?:No Service Ordered DEHYDROGENATION CONVERTER OPERATOR?: No Following Physician: Krishan Kruse MD Following Physician Overseeing Physician: Krishan Kruse MD (Required for Residents only) Agreeable to Follow? Yes Date/Time of Call 07/12/24 11:23 AM, Spoke with: Yuliya Care Coordination Same Day SOC?: No Primary Care Physician: IRENE GONZALEZ Primary Care Physician Primary Care Physician Address: [address] [place] [id number] Visit Instructions: N/A Service Discharge Location Type: Home with Home Care Service Facility Name: N/A Service Floor Facility: N/A Service Room No: N/A Demographics Patient Last Name: Angela Patient First Name: Keiry Language/Communication Barrier: n/a Service Address: [address] [place] [address] [address] Service City: [facility] ST: [place] Service ZIP: [id number] Service Other phone numbers: Telephone Information: Emergency Contact: Extended Emergency Contact Information Primary Emergency Contact: Kasia Fagan Mobile Relation: Daughter Preferred language: Palestinian Admission Information Admit Date: 07/11/2024 Patient status at discharge: Post procedure recovery Admitting Diagnosis: Unilateral primary osteoarthritis, left hip [M16.12] Arthritis of left hip [M16.12] Caregiver Information Caregiver First Name: n/a Caregiver Last Name: n/a Caregiver Relationship to Patient n/a Caregiver Phone Number: n/a Caregiver Notes: N/A [employer]ITECH [employer] HIGHTECH: HI TECH - FRESH ORTHO Procedure: Primary cementless left total hip arthroplasty, direct anterior approach Date of procedure: 07/11/24 Precautions: Hip precautions Surgeon: Krishan Kruse MD END PATIENT REGISTRATION INFORMATION Pt Home Health goal To increase mobility and decrease pain with mobility, leading to an improvement in quality of life. COVID Status 1. Do you have any upper respiratory symptoms (cough, SOB, Fever)? No 2. Have you been exposed to anyone with COVID-19 Virus? No Answer only if pending or positive for COVID-19? 1. Agreeable to wear PPE at each visit? No 2. Is the hospital supplying them with PPE upon Discharge? No Start PACC Summary General Report/ Additional Comments Wound Care-Keep a Dry dressing on for 7-10 day, if no drainage ok to keep incision open to air. If there is drainage call the office. Discharge Date: 07/12/24 Referral Source-PACC: (Hospital/Unit): [facility] / B1-166/B1-166 A End PACC Note [facility] 07-12-2024 Nurse Note Reviewed home going instructions with patient. Verbalized understanding. documented in this encounter [facility] 07-12-2024 Plan of care note Problem: Pain - Adult Goal: Verbalizes/displays adequate comfort level or baseline comfort level Outcome: Adequate for Discharge Problem: Safety - Adult Goal: Free from fall injury Outcome: Adequate for Discharge Problem: Discharge Planning Goal: Discharge to home or other facility with appropriate resources Outcome: Adequate for Discharge Problem: Chronic Conditions and Co-morbidities Goal: Patient's chronic conditions and co-morbidity symptoms are monitored and maintained or improved Outcome: Adequate for Discharge Problem: Skin/Tissue Integrity - Adult Goal: Skin integrity remains intact Outcome: Adequate for Discharge Goal: Incisions, wounds, or drain sites healing without S/S of infection Outcome: Adequate for Discharge Problem: Musculoskeletal - Adult Goal: Return mobility to safest level of function Outcome: Adequate for Discharge Goal: Maintain proper alignment of affected body part Outcome: Adequate for Discharge Goal: Return ADL status to a safe level of function Outcome: Adequate for Discharge [facility] 07-12-2024 Note Formatting of this n ote might be different from the original. POD #1 LTHA Patient ambulating with PT. She has a FWW. She is hoping to be discharged home today with home health. Her daughter will be helping her at home as needed. Primary Caregiver: self If assistance needed, confirmed caregiver ready, willing and able to care for patient at discharge: Yes Confirmed with: sister T [facility] 07-12-2024 Note Formatting of this n ote might be different from the original. POD #1 LTHA Patient ambulating with PT. She has a FWW. She is hoping to be discharged home today with home health. Her daughter will be helping her at home as needed. Primary Caregiver: self If assistance needed, confirmed caregiver ready, willing and able to care for patient at discharge: Yes Confirmed with: sister [facility] 07-12-2024 History of Present illness Narrative Images from the original note were not included. OCCUPATIONAL THERAPY [facility] Treatment Note Name/MRN: Keiry Miller ([id number]) Date of : 1960 Age: 64 y.o. Room/Bed: B1-166/B1-166 A Visit #: 1 out of 3 visits Discharge Recommendation: Home with Home health OT, Home with assist PRN Equipment Needed: Yes Mobility Devices: Hip kit Prior Level of Function Prior Level of ADL Function: Independent Prior Level of Mobility: Independent; Device: SPC vs quadcane Prior Level of Transfers: Independent Assessment Pt training LE dressing with AE, UE dressing, transfers, toileting, and mob this date at overall Mod I with cues for tech and good teachback. Pt will require a hip kit for completing ADLs at home, however has access to all included AE other than a sock aid, and wishes to purchase on her own. Pt has assist available from at home for socks as well. Pt is adequate for DC from OT this date d/t having met or demonstrated the ability to meet all current OT goals, re-order OT if changes occur. OT rec DC home with [facility] OT and assist PRN. Subjective Pt supine in bed on arrival, pleasant and cooperative with OT tx. Pain: Becerril-Siegel Pain Ratin = Hurts little more Pain Location: L hip Vitals Temp: 37.2 C (98.9 F) Temp Source: Temporal Heart Rate: 89 SpO2: 97 % Heart Rate Source: Monitor BP: 133/64 MAP (mmHg): 87 Medical Precautions: No active isolations Proper PPE donned/doffed in accordance with facility standards. Fall Risk: St Fall Risk Score: 70 (High Risk) Precautions/Restrictions: Left LE Weight Bearing: Weight Bearing As Tolerated Hip Precautions: Anterior Hip Precautions Family/Caregiver Present: none Objective ADLs LE Dressing: Modified Independent Toileting: Modified Independent UE Dressing: Modified Independent Pt edu on LE dressing with AE completing at Mod I. 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 Pt wishing to purchase sock aid indep of hip kit. Pt demonstrating ability to complete toileting and UE dressing at Mod I. Bed Mobility Supine to sit: Modified Independent HOB Elevated Use of bed rail(s) Pt seated in recliner at end of session. Transfers/Mobility Sit to stand: Modified Independent Stand to sit: Modified Independent Toilet: Modified Independent Shower: decline Standing balance: Modified Independent Functional mobility: Modified Independent Pt training transfers and mob this date at overall Mod I with cues for tech and good teachback. Pt using clarissa grab bars during toilet transfer to simulate at home set up. Pt declining shower transfer this date reporting no concerns d/t owning grab bars, shower seat with a back, and walk-in shower, as well as having assist from for showering. Pt completing bal and mob in raman x3 mins at overall Mod I for completing. Device(s) used: Front wheeled walker and Grab bars Cognition WFL Plan Continue acute OT per plan of care. Safety/Education Safety Safety Devices in place: All fall risk precautions in place, call light within reach, left in chair, gait belt, patient at risk for falls, nurse notified, and no alarms engaged upon entry Restraints: No Education Education Given To: patient Education Provided: OT Role, Plan of Care, Precautions, ADL Adaptive Strategies, Transfer Training, Equipment, Fall Prevention Education, Discharge Recommendations, and Benefits of Increasing Activity Education Method: Verbal, Demonstration, and Teach Back Barriers to Learning: None Education Outcome: Verbalized Understanding and Demonstrated Understanding AM-PAC AM-PAC Inpatient Daily Activity Raw Score: 23 ADL Inpatient CMS G-Code Modifier: CI Goals Patient Stated Goal: to return home. Encounter Problems Encounter Problems (Resolved) Dressing Upper Extremities Patient will complete upper body dressing MOD I (Goal Met) Start: 07/11/24 Expected End: 07/13/24 Resolved: 07/12/24 Dressings Lower Extremities Patient will dress lower body MOD I with AE (Goal Met) Start: 07/11/24 Expected End: 07/13/24 Resolved: 07/12/24 Mobility Patient will demonstrate functional mobility with MOD I and FWW (Goal Met) Start: 07/11/24 Expected End: 07/13/24 Resolved: 07/12/24 Toileting Patient will complete toileting tasks at standard toilet with modified independence. (Goal Met) Start: 07/11/24 Expected End: 07/13/24 Resolved: 07/12/24 Transfers Patient will complete functional transfer with rolling walker with modified independence in order to prepare for ambulation. (Goal Met) Start: 07/11/24 Expected End: 07/13/24 Resolved: 07/12/24 Therapy Time Individual Co-treatment Time In 721 Time Out 0751 Minutes 29 Timed Code Treatment Minutes: 29 Minutes (1ADL, 1ACT) Viktoriya Giraldo I personally guided the care care of this patients treatment with the DENNY student and agree with the above note. PEE Owens/Barb Cosigned by Harsh Castle OT at 07/12/2024 3:28 PM EDT Images from the original note were not included. Adult Hip and Knee Reconstruction Service Patient Name: Keiry Miller Date of : 1960 Date: 07/12/24 Assessment: s/p Left KOTA on 07/11/2024 doing well Plan: -Weight bearing: WBAT -Range of motion parameters: Anterior hip precautions, otherwise ROM as tolerated -Immobilization: No immobilization needed -Consults: none -Antibiotics: Abx 24hrs post-op; Duricef at discharge -Dressings: Keep bandage clean dry and intact for 7-10 days post operatively, then ok to leave open to air if incision is without drainage -Diet: no restrictions from ortho standpoint -Continue PT/OT -Pain control -Ice and elevate -DVT prophylaxis: ASA/SCDs -DC planning: home when clears PT -Ortho following, please page it security consulting director resident with questions or concerns. Subjective: Overall patient is doing great this morning. Pain is well controlled with pain medication. Patient has been up to the bathroom. Reports voiding without difficulty. Working with OT this AM. Denies nausea or vomiting. Denies numbness/tingling. Denies SOB or calf pain. Medications: acetaminophen, 650 mg, Oral, q6h aspirin, 81 mg, Oral, BID famotidine, 20 mg, Oral, BID lisinopril, 40 mg, Oral, Daily meloxicam, 15 mg, Oral, Daily sodium chloride 0.9%, 10 mL, IntraVENous, 2 times per day traMADol, 50 mg, Oral, q6h Physical Exam: Vitals: 07/12/24 0804 BP: 144/78 Pulse: 96 Resp: Temp: SpO2: Intake and Output Summary (Last 24 hours) at Date Time Intake/Output Summary (Last 24 hours) at 07/12/2024 0816 Last data filed at 07/11/2024 1316 Gross per 24 hour Intake 1300 ml Output 300 ml Net 1000 ml General appearance - no acute distress Musculoskeletal - Dressing C/D/I Fires quad/TA/EHL/GSC SILT SP/DP/TN WWP distally Posterior tibial pulse 2+ bilaterally Calves soft, nontender bilateral. No edema, erythema or warmth noted to calves. Labs: Lab Results Component Value Date HGB 9.7 (L) 07/12/2024 , Lab Results Component Value Date WBC 8.5 07/03/2024 HGB 9.7 (L) 07/12/2024 HCT 29.1 (L) 07/12/2024 MCV 90.0 07/03/2024 PLT 338 07/03/2024 , Lab Results Component Value Date GLUCOSE 211 (H) 07/12/2024 CALCIUM 8.3 (L) 07/12/2024 NA 131 (L) 07/12/2024 K 4.5 07/12/2024 CO2 20 (L) 07/12/2024 CL 102 07/12/2024 BUN 20 07/12/2024 CREATININE 0.92 07/12/2024 , No results found for: CRP, CREACTIVEPRO , and No results found for: SEDRATE, SEDRATEBYMOD Rads: Radiological Procedure reviewed. Signed by: Delaney Damon PA-C Images from the original note were not included. PHYSICAL THERAPY [facility] Initial Evaluation Name/MRN: Keiry Miller ([id number]) Evaluation Date: 07/11/2024 Date of : 1960 Admission Date: 07/11/2024 8:40 AM Age: 64 y.o. Room/Bed: [facility] A Having reviewed the treatment plan and goals for this patient, I certify that the plan of care below is medically necessary and appropriate. Discharge Recommendation: Home with Home health PT Equipment Needed: No Assessment IMPRESSION: Patient is s/p elective L KOTA with anterior approach on 07/11/[address] Kruse. Pt presents with decreased functional mobility, decreased strength, decreased safety awareness with use of assistive device, new post op limitations and decreased balance. Upon evaluation, pt required SBA for bed mobility, SBA for transfers with fww, CGA for gait/ambulation with fww. Pt has medical history as indicated below that contributes to their clinical presentation. At baseline patient is functionally independent with SPC in one hand and quad cane in opposite hand. Currently pt has not met PT goals and requires overnight stay with additional session POD#1, anticipating discharge home with assist and [facility] PT. Admitting Diagnosis: L KOTA with anterior approach Prognosis: good Performance Deficits /Impairments: Increased Pain, Decreased Functional Mobility, Decreased ADL status, Decreased Strength, Decreased Endurance, and Decreased Balance Decision Making: Medium Complexity Subjective Patient pleasant and agreeable to therapy session this date. Per RN patient okay for therapy. Co-eval with OT. Observation: L hip sx dressing clean and intact Vitals: 07/11/24 1510 BP: 139/70 Pulse: 74 Resp: Temp: SpO2: 100% Pain: 0-10 pain scale: 8-7/10 Location: L hip Past Medical History: Past Medical History: Diagnosis Date Arthritis Hypertension Joint pain Motion sickness Prediabetes Past Surgical History: Past Surgical History: Procedure Laterality Date DENTAL SURGERY as teen TOTAL HIP ARTHROPLASTY Left 07/11/2024 Admission Diagnosis: Patient Active Problem List Diagnosis Date Noted Arthritis of left hip 07/11/2024 Medical Precautions: No active isolations Proper PPE donned/doffed in accordance with facility standards. Fall Risk: St Fall Risk Score: 20 (Low Risk) Precautions/Restrictions: Left LE Weight Bearing: Weight Bearing As Tolerated Hip Precautions: Anterior Hip Precautions Family/Caregiver Present: daughter Overall Cognitive Status: WFL Overall Orientation Status: Oriented x4 Vision: wears glasses for reading and and are NOT being used during the eval Hearing: normal Social/Functional History Patient admitted from home. 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: Yes Prior Level of Function Prior Level of ADL Function: Independent Prior Level of Mobility: Independent; Device: Straight Cane and Quad cane Prior Level of Transfers: Independent Objective Lower Extremity Assessment AROM: WFL Strength: Pt demonstrates appropriate B LE and quad strength in order to safely participate in OOB mobility Sensation: WFL Bed Mobility: Supine to sit: SBA Scooting: SBA Transfers Sit to stand: SBA Stand to sit: SBA Toilet: SBA Ambulation Ambulation 1 Assistive device(s) used: Front wheeled walker Assist level: Contact Guard Distance (ft): 10ft x1, 15ft x1 Quality of gait: No LOB, antalgic, step to pattern, B foot clearance, narrow PINKY, slow carlos, postural sway Exercises Quad Sets: 1 set / 10 reps B LE in supine Gluteal Sets: 1 set / 10 reps in supine Ankle Pumps: 1 set / 10 reps B LE in supine Comments: Initiated B LE exercises POD#0 in order to improve strength and activity tolerance for mobility, as well as decreasing risk of post op complications. Pt educated on technique and rationale for exercises in order to improve patients understanding and compliance with exercises. Pt demonstrates good understanding and ability to complete at this time. Pt able to teach back exercises to therapist as well as rationale in order to assure understanding. Pt educated to complete these three exercises 10x per hour awake at this time. Pt verbalized and demonstrates good understanding. [facility] Ambulation Ambulation Day of Surgery or 4 hours from PACU discharge? (At least 10 feet): 1 - Yes, Ambulation Day of Surgery or 4 hours from PACU discharge Outcome Measures AM-PAC How much HELP from another person do you currently need Turning from your back to your side while in a flat bed without using bedrails?: A Little Moving from lying on your back to sitting on the side of a flat bed without using bedrails?: A Little Moving to and from a bed to a chair (including a wheelchair)?: A Little Standing up from a chair using your arms (wheelchair or bedside chair)?: A Little Walking in a hospital room?: A Little Stair climbing assessed?: No AM-PAC Inpatient Mobility Raw Score (No Stairs) : 15 [facility] Score: Walked 10 steps or more (i.e. walked to restroom) Plan Pt would benefit from skilled acute PT services to address Strengthening, Gait Training, Balance Training, Self-Care/ADL Training, Functional Mobility Training, Endurance Training, Safety Education and Training, Stair Training, Pain Management, and Home Management Training. Frequency: 6 visits twice per day Barriers: Pain, Impaired balance, Lower extremity weakness, Decreased endurance, New weightbearing/ROM restrictions, and Stairs at home Safety/Education Safety Safety Devices in place: All fall risk precautions in place, call light within reach, left in chair, gait belt, patient at risk for falls, nurse notified, no alarms engaged upon entry, and senior applications architect present Restraints: N/A Education Education Given To: patient and daughter Education Provided: PT Role, PT Goals, Gait Training, Plan of Care, Home Exercise Program, Precautions, Transfer Training, Energy Conservation, IADL Safety, Family Education, Equipment, Fall Prevention Education, Discharge Recommendations, and Benefits of Increasing Activity Education Method: Verbal, Demonstration, and Teach Back Barriers to Learning: None Education Outcome: Verbalized Understanding, Demonstrated Understanding, and Continued Education Needed Goals Patient Stated Goal: to have less pain Encounter Problems Encounter Problems (Active) Exercise Patient will complete lower extremity exercises for 1-2 sets / 10-15 reps in order to improve strength and activity tolerance for mobility. Start: 07/11/24 Expected End: 07/13/24 Mobility Patient will ambulate 100 feet with modified independence and least restrictive device in order to improve safety and independence with mobility. Start: 07/11/24 Expected End: 07/13/24 Patient will be able to go up and down a curb/step 4-6 with rolling walker and SBA in order to safely negotiate home. Start: 07/11/24 Expected End: 07/13/24 Safety Patient will adhere to hip precautions during all functional mobility and ADLs in order to demonstrate improved understanding and promote healing post op. Start: 07/11/24 Expected End: 07/13/24 Patient will recall/demonstrate weight bearing and/or ROM restrictions with all functional mobility in order to promote healing and safety with functional tasks. Start: 07/11/24 Expected End: 07/13/24 Transfers Patient will perform bed mobility with modified independence in order to improve independence and prepare for out of bed mobility. Start: 07/11/24 Expected End: 07/13/24 Patient will complete functional transfer with least restrictive device with modified independence in order to prepare for ambulation. Start: 07/11/24 Expected End: 07/13/24 Therapy Time Individual Co-Treatment Co-Evaluation Time In 1504 Time Out 1525 Minutes 21 Timed Code Treatment Minutes: 8 Minutes (ther ex x1) José Miguel Vanegas PT Patient's Physical Therapy Plan of Care supervision is transferred to a [facility] Physical Therapist. Goals and/or treatment plan was established in collaboration with patient/family/other representatives. Cosigned by Krishan Kruse MD at 07/11/2024 7:04 PM EDT Images from the original note were not included. OCCUPATIONAL THERAPY [facility] Initial Evaluation Having reviewed the treatment plan and goals for this patient, I certify that the plan of care below is medically necessary and appropriate. Name/MRN: Keiry Miller ([id number]) Evaluation Date: 07/11/2024 Date of : 1960 Admission Date: 07/11/2024 8:40 AM Age: 64 y.o. Room/Bed: [facility] A Discharge Recommendation: Home with Home health OT, Home with assist PRN Equipment Needed: Yes Mobility Devices: Hip kit Assessment IMPRESSION: Pt in 07/11 and seen s/p L KOTA by Dr. Kruse with new WBAT status and anterior hip precautions. She was previously iND for ADLs, functional transfers / mobility a cane / quad cane. She is currently MOD A for LB ADLs, CGA for bathroom level toileting, SBA for seated UB ADLs, and CGA - SBA for transfers / mobility with a FWW. She is limited by increased pain, fatigue, instability, and new precautions at this time. She would benefit from skilled OT services to address the below. Recommend planned discharge for [facility] OT with assist PRN. Admitting Diagnosis: s/p L KOTA with new WBAT status and anterior hip precautions. Performance Deficits /Impairments: Increased Pain, Decreased Functional Mobility, Decreased ADL status, Decreased Strength, Decreased Endurance, Decreased Balance, and Decreased High Level IADLs Prognosis: Good Decision Making: Medium Complexity Subjective Pleasant and cooperative. OK to see per RN. Sx dressing clean, dry, intact. Vitals: BP: 139/70 Pain: 0-10 pain scale: initially 8/10, improving to 7/10 Location: L hip Past Medical History: Past Medical History: Diagnosis Date Arthritis Hypertension Joint pain Motion sickness Prediabetes Past Surgical History: Past Surgical History: Procedure Laterality Date DENTAL SURGERY as teen TOTAL HIP ARTHROPLASTY Left 07/11/2024 Admission Diagnosis: Patient Active Problem List Diagnosis Date Noted Arthritis of left hip 07/11/2024 Medical Precautions: No active isolations Proper PPE donned/doffed in accordance with facility standards. Fall Risk: St Fall Risk Score: 20 (Low Risk) Precautions/Restrictions: Left LE Weight Bearing: Weight Bearing As Tolerated Hip Precautions: Anterior Hip Precautions, No Straight Leg Raises, and Avoid Extremes of Motion Family/Caregiver Present: child(sowmya) Overall Cognitive Status: WFL Overall Orientation Status: Oriented x4 Social/Functional History Patient admitted from home. 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: Yes Prior Level of Function Prior Level of ADL Function: Independent Prior Level of Mobility: Independent; Device: SPC vs quadcane Prior Level of Transfers: Independent Objective ADLs Toileting: Contact Guard Pt demos good ability to maintain precautions throughout the session. Increased time required to complete all functional tasks. She was able to complete bathroom level toileting with CGA overall for stability and safety. No physical assist for clothing management or pericare at this time. She was able to complete hand hygiene in standing at sink level with no physical assist. Good teach back of proper FWW management for standing Adls following initial education. Declines further ADLs at this time. Upper Extremity Assessment AROM: WFL PROM: Not assessed this session Strength: WFL Bed Mobility Supine to sit: SBA Scooting: SBA HOB elevated, increased time required to complete. Pt educated on WBAT status and anterior hip precautions prior to participation in OOB activity. Denies dizziness with OOB activity. Good ability to maintain precautions throughout session. Pt was able to manage BLE and trunk to EOB without assist. Pt up in recliner following session. Transfers/Mobility Sit to stand: SBA, Contact Guard Stand to sit: Contact Guard Toilet: SBA Functional mobility: Contact Guard Functional Transfers: Increased time required to complete. Pt able to maintain precautions throughout session. Pt was educated on proper BLE management, hand placement and device positioning with good teach back noted at this time. Pt demos good hand placement for push up from /reach back for seated surfaces with good BLE management to maintain precautions and proper PINKY. Pt completed sit<>stands x2 this date, progressing from CGA to SBA overall for transfers. Good teach back of transfer education at this time with no c/o dizziness with positional changes. Pt utilizes grab bars simulating home set up. Good carryover of transfer training to completion of bathroom level toilet transfers. SBA for toilet transfer with heavy reliance on grab bars. Functional Mobility: No true LOB noted at this time, good device management with good hand placement at FWW. No noted BLE buckling this date. She completed short mobility to / from bathroom with CGA overall. Noted mild instability in LLE at this time with cueing provided to allow knee to bend with mobility. Pt requires increased time to complete with increased noted offloading through BUE and device. Device(s) used: Front wheeled walker Vision: wears glasses for reading and and are being used during the eval Hearing: normal AM-PAC AM-PAC Inpatient Daily Activity Raw Score: 17 ADL Inpatient CMS G-Code Modifier: CK Plan Pt would benefit from skilled acute OT services to address Strengthening, Balance Training, Self-Care/ADL Training, Functional Mobility Training, Endurance Training, Safety Education and Training, Pain Management, Equipment Evaluation/Education, Home Management Training, and Patient/Caregiver Training. Frequency: 3 visits during current hospital admission or until additional recommendations are made Barriers: Pain, Impaired balance, Lower extremity weakness, Upper extremity weakness, Decreased endurance, New weightbearing/ROM restrictions, and Stairs at home Safety/Education Safety Safety Devices in place: All fall risk precautions in place, call light within reach, left in chair, gait belt, patient at risk for falls, nurse notified, and no alarms engaged upon entry Restraints: No Education Education Given To: patient and daughter Education Provided: OT Role, Plan of Care, Precautions, ADL Adaptive Strategies, Transfer Training, Equipment, Fall Prevention Education, Discharge Recommendations, and Benefits of Increasing Activity Education Method: Verbal, Demonstration, and Teach Back Barriers to Learning: None Education Outcome: Verbalized Understanding and Demonstrated Understanding Goals Patient Stated Goal: to return home. Encounter Problems Encounter Problems (Active) Dressing Upper Extremities Patient will complete upper body dressing MOD I Start: 07/11/24 Expected End: 07/13/24 Dressings Lower Extremities Patient will dress lower body MOD I with AE Start: 07/11/24 Expected End: 07/13/24 Mobility Patient will demonstrate functional mobility with MOD I and FWW Start: 07/11/24 Expected End: 07/13/24 Toileting Patient will complete toileting tasks at standard toilet with modified independence. Start: 07/11/24 Expected End: 07/13/24 Transfers Patient will complete functional transfer with rolling walker with modified independence in order to prepare for ambulation. Start: 07/11/24 Expected End: 07/13/24 Therapy Time Individual Co-Treatment Co-Evaluation Time In 1504 (OT / PT coeval 2/2 initial stand s/p surgery) Time Out 1525 Minutes 21 [place] OT Patient's Occupational Therapy Plan of Care supervision is transferred to a [facility] Occupational Therapist. Goals and/or treatment plan was established in collaboration with patient/family/other representatives. documented in this encounter [facility] 07-11-2024 Plan of care note Problem: Pain - Adult Goal: Verbalizes/displays adequate comfort level or baseline comfort level Outcome: Progressing Problem: Safety - Adult Goal: Free from fall injury Outcome: Progressing Problem: Chronic Conditions and Co-morbidities Goal: Patient's chronic conditions and co-morbidity symptoms are monitored and maintained or improved Outcome: Progressing Problem: Musculoskeletal - Adult Goal: Return mobility to safest level of function Outcome: Progressing [facility] 07-11-2024 Consult note Formatting of th is note is different from the original. Hospital Medicine Consult Patient - Keiry Miller, Age - 64 y.o. - 1960 Room Number - [id number] Consulting - Krishan Kruse MD Primary Care Physician - IRENE GONZALEZ Date of Admission - 07/11/2024 8:40 AM Hospital Day - 0 Reason for Consult: Medical Management HISTORY OF PRESENT ILLNESS: Keiry is a 64 y.o. female pmhx OA of left hip, hypertension, prediabetes who is s/p left total hip arthroplasty. Hospital medicine consulted for medical management. Patient was seen and examined in room 166, she sitting up in chair with legs reclined up just finished eating dinner, patient currently denies having any pain, fever/chills, chest pain, shortness of breath, lightheadedness or dizziness, she has been up to the bathroom with assistance to toilet, denies N/V/D, denies calf pain tenderness or swelling. Past Medical History: Past Medical History: Diagnosis Date Arthritis Hypertension Joint pain Motion sickness Prediabetes Past Surgical History: Past Surgical History: Procedure Laterality Date DENTAL SURGERY as teen TOTAL HIP ARTHROPLASTY Left 07/11/2024 Medications: Scheduled PRN acetaminophen, 650 mg, Oral, q6h aspirin, 81 mg, Oral, BID ceFAZolin, 2,000 mg, IntraVENous, q8h dexAMETHasone, 8 mg, IntraVENous, q6h famotidine, 20 mg, Oral, BID ketorolac, 15 mg, IntraVENous, q6h [START ON 07/12/2024] meloxicam, 15 mg, Oral, Daily sodium chloride 0.9%, 10 mL, IntraVENous, 2 times per day traMADol, 50 mg, Oral, q6h PRN medications: bisacodyl, diphenhydrAMINE OR diphenhydrAMINE, HYDROmorphone OR HYDROmorphone, magnesium citrate, naloxone, ondansetron ODT OR ondansetron, oxyCODONE, oxyCODONE, sodium chloride, sodium chloride 0.9% Continuous sodium chloride, 125 mL/hr Allergies: Pollen extract and Sulfa antibiotics Social History: Social History Socioeconomic History Marital status: Spouse name: Not on file Number of children: Not on file Years of education: Not on file Highest education level: Not on file Occupational History Not on file Tobacco Use Smoking status: Never Smokeless tobacco: Never Vaping Use Vaping status: Never Used Substance and Sexual Activity Alcohol use: Never Drug use: Never Sexual activity: Not Currently Partners: Male control/protection: None Other Topics Concern Not on file Social History Narrative Not on file Social Drivers of Health Financial Resource Strain: Not on file Food Insecurity: Not on file Transportation Needs: Not on file Physical Activity: Not on file Stress: Not on file Social Connections: Not on file Intimate Partner Violence: Not At Risk (07/11/2024) Humiliation, Afraid, Rape, and Kick questionnaire Fear of Current or Ex-Partner: No Emotionally Abused: No Physically Abused: No Sexually Abused: No Housing Stability: Not on file Family History: Family History Problem Relation Name Age of Onset Arthritis Mother Argelia Hypertension Mother Argelia Heart disease Father Griffin Stroke Father Griffin Stroke Paternal Grandmother Antonia Depression Brother Oneil Hypertension Brother Oneil Hypertension Sister Caitlin REVIEW OF SYSTEMS: 10 point ROS obtained, as per HPI, otherwise NEG Physical Exam: Vitals: BP 139/70 Pulse 74 Temp 36.4 C (97.6 F) (Temporal) Resp 18 Ht 1.689 m (5' 6.5) Wt 90.7 kg (200 lb) SpO2 100% BMI 31.80 kg/m BMI Classification: Obese (BMI 30.0-39.9) Pulse Ox: SpO2 Av.9 % Min: 97 % Max: 100 % Supplemental O2: Physical Exam Vitals and nursing note reviewed. Constitutional: Appearance: She is obese. HENT: Head: Normocephalic. Mouth/Throat: Mouth: Mucous membranes are dry. Eyes: Conjunctiva/sclera: Conjunctivae normal. Pupils: Pupils are equal, round, and reactive to light. Cardiovascular: Rate and Rhythm: Normal rate and regular rhythm. Pulmonary: Effort: Pulmonary effort is normal. Breath sounds: Normal breath sounds. Abdominal: General: Bowel sounds are normal. Palpations: Abdomen is soft. Musculoskeletal: General: Normal range of motion. Comments: S/p left KOTA, both legs are warm 2++ pulses present, can wiggle toes and feet without any concerns Skin: General: Skin is warm and dry. Neurological: General: No focal deficit present. Mental Status: She is alert and oriented to person, place, and time. Psychiatric: Mood and Affect: Mood normal. Thought Content: Thought content normal. LABS: No results found for this or any previous visit (from the past 24 hours). Urine Culture: No results found for this or any previous visit. IMAGING: See report Assessment Data: (CAT1) Reviewed 3 or more notes from different specialty or health system (each=1). (CAT1) Reviewed 3 or more labs/studies ordered by another provider not previously counted (each=1, panels count as 1). (CAT2) EKG reviewed & showed sinus rhythm as interpreted by me. (CAT2) XR of left hip reviewed & showed arthroplasty present as interpreted by me. (CAT2) CT of left hip reviewed & showed for surgical purposes as interpreted by me. (LOW: 2x CAT1 or independent historian MOD: 3x CAT1 or 1x CAT3 EXTENSIVE: 3x CAT1 and 1x CAT3) Acute, acute on chronic, unstable/uncontrolled chronic problems/diagnoses: S/p left total hip arthroplasty 2/2 left osteoarthritis Stable chronic problems affecting care, new non-acute diagnoses: Hypertension-restarted lisinopril for tomorrow Class III obesity Seasonal allergies- Plan As a result of the above findings & factors, the following mgmt was pursued: - Patient on orthopedic floor following s/p left KOTA - Orthopedic orders in place for cefazolin IV dexamethasone, Toradol, Tylenol, aspirin, tramadol, meloxicam, and Pepcid -Patient worked with PT/OT recommends in home therapy - Up with assistance - Encourage cough and deep breathing - Use ICS while awake - Full WBAT - Neurovascular checks - hip precautions - ice therapy - am labs, replace lytes prn - PT/OT/CM/SW - delirium precautions: limit nighttime disturbances - DVT prophylaxis: encourage ambulation and ASA Complexity: Chronic illness with mild to moderate exacerbation, progression, or side effect of tx (MOD). Risk: Prescription drug/IVF/colloid was initiated, discontinued, adjusted; or reviewed with decision to maintain current orders (MOD). Advance Directive: Full Code Anticipated Discharge - Date - likely tomorrow - Location - Home with Home Health Care - Pending the following - clearance from ortho Toxic drug monitoring/narrow therapeutic index drug monitoring : # Drug name : # Route administered : # Method of monitoring : Extended Emergency Contact Information Primary Emergency Contact: Kasia Fagan Mobile Relation: Daughter Preferred language: Palestinian SNEHA Guerin CNP Division of Hospitalist Medicine Acute care [facility] Cosigned by Aaron Livingston MD at 07/12/2024 8:14 AM EDT Associated attestation - Aaron Livingston MD - 07/12/2024 8:14 AM EDT Chart reviewed and agree with treatment plan and discussed with TESSA [employer] Phone: 07-11-2024 Consult note Formatting of th is note is different from the original. Hospital Medicine Consult Patient - Keiry Miller, Age - 64 y.o. - 1960 Room Number - [id number] A Consulting - Krishan Kruse MD Primary Care Physician - IRENE GONZALEZ Date of Admission - 07/11/2024 8:40 AM Hospital Day - 0 Reason for Consult: Medical Management HISTORY OF PRESENT ILLNESS: Keiry is a 64 y.o. female pmhx OA of left hip, hypertension, prediabetes who is s/p left total hip arthroplasty. Hospital medicine consulted for medical management. Patient was seen and examined in room 166, she sitting up in chair with legs reclined up just finished eating dinner, patient currently denies having any pain, fever/chills, chest pain, shortness of breath, lightheadedness or dizziness, she has been up to the bathroom with assistance to toilet, denies N/V/D, denies calf pain tenderness or swelling. Past Medical History: Past Medical History: Diagnosis Date Arthritis Hypertension Joint pain Motion sickness Prediabetes Past Surgical History: Past Surgical History: Procedure Laterality Date DENTAL SURGERY as teen TOTAL HIP ARTHROPLASTY Left 07/11/2024 Medications: Scheduled PRN acetaminophen, 650 mg, Oral, q6h aspirin, 81 mg, Oral, BID ceFAZolin, 2,000 mg, IntraVENous, q8h dexAMETHasone, 8 mg, IntraVENous, q6h famotidine, 20 mg, Oral, BID ketorolac, 15 mg, IntraVENous, q6h [START ON 07/12/2024] meloxicam, 15 mg, Oral, Daily sodium chloride 0.9%, 10 mL, IntraVENous, 2 times per day traMADol, 50 mg, Oral, q6h PRN medications: bisacodyl, diphenhydrAMINE OR diphenhydrAMINE, HYDROmorphone OR HYDROmorphone, magnesium citrate, naloxone, ondansetron ODT OR ondansetron, oxyCODONE, oxyCODONE, sodium chloride, sodium chloride 0.9% Continuous sodium chloride, 125 mL/hr Allergies: Pollen extract and Sulfa antibiotics Social History: Social History Socioeconomic History Marital status: Spouse name: Not on file Number of children: Not on file Years of education: Not on file Highest education level: Not on file Occupational History Not on file Tobacco Use Smoking status: Never Smokeless tobacco: Never Vaping Use Vaping status: Never Used Substance and Sexual Activity Alcohol use: Never Drug use: Never Sexual activity: Not Currently Partners: Male control/protection: None Other Topics Concern Not on file Social History Narrative Not on file Social Drivers of Health Financial Resource Strain: Not on file Food Insecurity: Not on file Transportation Needs: Not on file Physical Activity: Not on file Stress: Not on file Social Connections: Not on file Intimate Partner Violence: Not At Risk (07/11/2024) Humiliation, Afraid, Rape, and Kick questionnaire Fear of Current or Ex-Partner: No Emotionally Abused: No Physically Abused: No Sexually Abused: No Housing Stability: Not on file Family History: Family History Problem Relation Name Age of Onset Arthritis Mother Argelia Hypertension Mother Argelia Heart disease Father Griffin Stroke Father Griffin Stroke Paternal Grandmother Antonia Depression Brother Oneil Hypertension Brother Oneil Hypertension Sister Caitlin REVIEW OF SYSTEMS: 10 point ROS obtained, as per HPI, otherwise NEG Physical Exam: Vitals: BP 139/70 Pulse 74 Temp 36.4 C (97.6 F) (Temporal) Resp 18 Ht 1.689 m (5' 6.5) Wt 90.7 kg (200 lb) SpO2 100% BMI 31.80 kg/m BMI Classification: Obese (BMI 30.0-39.9) Pulse Ox: SpO2 Av.9 % Min: 97 % Max: 100 % Supplemental O2: Physical Exam Vitals and nursing note reviewed. Constitutional: Appearance: She is obese. HENT: Head: Normocephalic. Mouth/Throat: Mouth: Mucous membranes are dry. Eyes: Conjunctiva/sclera: Conjunctivae normal. Pupils: Pupils are equal, round, and reactive to light. Cardiovascular: Rate and Rhythm: Normal rate and regular rhythm. Pulmonary: Effort: Pulmonary effort is normal. Breath sounds: Normal breath sounds. Abdominal: General: Bowel sounds are normal. Palpations: Abdomen is soft. Musculoskeletal: General: Normal range of motion. Comments: S/p left KOTA, both legs are warm 2++ pulses present, can wiggle toes and feet without any concerns Skin: General: Skin is warm and dry. Neurological: General: No focal deficit present. Mental Status: She is alert and oriented to person, place, and time. Psychiatric: Mood and Affect: Mood normal. Thought Content: Thought content normal. LABS: No results found for this or any previous visit (from the past 24 hours). Urine Culture: No results found for this or any previous visit. IMAGING: See report Assessment Data: (CAT1) Reviewed 3 or more notes from different specialty or health system (each=1). (CAT1) Reviewed 3 or more labs/studies ordered by another provider not previously counted (each=1, panels count as 1). (CAT2) EKG reviewed & showed sinus rhythm as interpreted by me. (CAT2) XR of left hip reviewed & showed arthroplasty present as interpreted by me. (CAT2) CT of left hip reviewed & showed for surgical purposes as interpreted by me. (LOW: 2x CAT1 or independent historian MOD: 3x CAT1 or 1x CAT3 EXTENSIVE: 3x CAT1 and 1x CAT3) Acute, acute on chronic, unstable/uncontrolled chronic problems/diagnoses: S/p left total hip arthroplasty 2/2 left osteoarthritis Stable chronic problems affecting care, new non-acute diagnoses: Hypertension-restarted lisinopril for tomorrow Class III obesity Seasonal allergies- Plan As a result of the above findings & factors, the following mgmt was pursued: - Patient on orthopedic floor following s/p left KOTA - Orthopedic orders in place for cefazolin IV dexamethasone, Toradol, Tylenol, aspirin, tramadol, meloxicam, and Pepcid -Patient worked with PT/OT recommends in home therapy - Up with assistance - Encourage cough and deep breathing - Use ICS while awake - Full WBAT - Neurovascular checks - hip precautions - ice therapy - am labs, replace lytes prn - PT/OT/CM/SW - delirium precautions: limit nighttime disturbances - DVT prophylaxis: encourage ambulation and ASA Complexity: Chronic illness with mild to moderate exacerbation, progression, or side effect of tx (MOD). Risk: Prescription drug/IVF/colloid was initiated, discontinued, adjusted; or reviewed with decision to maintain current orders (MOD). Advance Directive: Full Code Anticipated Discharge - Date - likely tomorrow - Location - Home with Home Health Care - Pending the following - clearance from ortho Toxic drug monitoring/narrow therapeutic index drug monitoring : # Drug name : # Route administered : # Method of monitoring : Extended Emergency Contact Information Primary Emergency Contact: Kasia Fagan Mobile Relation: Daughter Preferred language: Palestinian SNEHA Guerin CNP Division of Hospitalist Medicine [facility] Cosigned by Aaron Livingston MD at 07/12/2024 8:14 AM EDT Associated attestation - Aaron Livingston MD - 07/12/2024 8:14 AM EDT Chart reviewed and agree with treatment plan and discussed with TESSA documented in this encounter [facility] 07-11-2024 Note Formatting of this n ote might be different from the original. Reviewed chart. Post op LTHA. Therapy evaluated and recommended home with [facility]. tool liaison is following. Will be discharged on ASA for anticoagulation needs. Ortho nurse navigator following for equipment needs. Tentative discharge plan is home with [facility] when medically stable. Case management will continue to follow and assist with discharge planning as needed. .. [facility] 07-11-2024 Note Formatting of this n ote might be different from the original. Reviewed chart. Post op LTHA. Therapy evaluated and recommended home with [facility]. tool liaison is following. Will be discharged on ASA for anticoagulation needs. Ortho nurse navigator following for equipment needs. Tentative discharge plan is home with [facility] when medically stable. Case management will continue to follow and assist with discharge planning as needed. .. [facility] 07-11-2024 Note Formatting of this n ote is different from the original. Addendum created 07/11/241545 by SNEHA Hung CRNA Child order released for a procedure order, Clinical Note Signed, Intraprocedure Blocks edited, Orders acknowledged in Narrator, SmartForm saved [facility] 07-11-2024 Note Addendum created 04/06 by SNEHA Hung CRNA Child order released for a procedure order, Clinical Note Signed, Intraprocedure Blocks edited, Orders acknowledged in Narrator, SmartForm saved [facility] 07-11-2024 Miscellaneous Notes Addendum created 07/11/241545 by SNEHA Hung CRNA Child order released for a procedure order, Clinical Note Signed, Intraprocedure Blocks edited, Orders acknowledged in Narrator, SmartForm saved Patient: Keiry Miller Procedure Summary Date: 07/11/24 Room / Location: [address] Operating Room Anesthesia Start: 1054 Anesthesia Stop: 1316 Procedure: LEFT TOTAL HIP ARTHROPLASTY (Left: Hip) Diagnosis: Unilateral primary osteoarthritis, left hip Surgeons: Krishan Kruse MD Responsible Provider: Dusty Song MD Anesthesia Type: regional, spinal ASA Status: 3 Anesthesia Type: regional, spinal Vitals Value Taken Time BP 110/58 07/11/24 1317 Temp 36.8 C (98.2 F) 07/11/24 1314 Pulse 70 07/11/24 1321 Resp 17 07/11/24 1321 SpO2 98 % 07/11/24 1321 Vitals shown include unfiled device data. Anesthesia Post Evaluation Patient location during evaluation: PACU Patient participation: complete - patient participated Level of consciousness: awake and alert Pain management: satisfactory to patient Airway patency: patent Dental Injury: no Cardiovascular status: acceptable, blood pressure returned to baseline and hemodynamically stable Respiratory status: acceptable, spontaneous ventilation and room air Hydration status: euvolemic Nausea/Vomiting: controlled No notable events documented. Patient can be discharged once all PACU criteria has been met. documented in this encounter [facility] 07-11-2024 Anesthesiology procedure note Associated Order(s): Peripheral Block Peripheral Block Time Out: 07/11/2024 1:30 PM Patient location during procedure: post-op Start time: 07/11/2024 1:30 PM End time: 07/11/2024 1:35 PM Reason for block: at surgeon's request and post-op pain management Staffing Performed: MANAGER OF FINANCIAL REPORTING Resident/MANAGER OF FINANCIAL REPORTING: SNEHA Hung CRNA Preanesthetic Checklist Completed: patient identified, IV checked, site marked, risks and benefits discussed, surgical consent, monitors and equipment checked, pre-op evaluation and timeout performed Region: Truncal Primary: Quadratus Lumborum Peripheral Block Patient position: right lateral Prep: ChloraPrep Patient monitoring: heart rate, secured entrance monitor, continuous pulse ox and continuous capnometry O2: ETT/LMA Laterality: left Injection technique: single-shot Guidance: ultrasound guided -image retained in chart, tip of the needle identified by ultraound during injection. Needle Needle: 21G X 110 mm Additional Notes 07/11/2024 1:30 PM Assessment Injection assessment: negative aspiration for heme, no paresthesia on injection, incremental injection and local visualized surrounding nerve on ultrasound Paresthesia pain: none Heart rate change: no Slow fractionated injection: yes Required Documentation: Relevant anatomy identified (Nerves, Vessels, Muscles), Local anesthetic spread visualized around nerves or plane., Local anesthetic injected without difficulty, No EKG changes noted, Negative for blood on aspiration, Local anesthetic injected incrementally with intermittent aspiration every 5 mL, No symptoms of toxicity, No paresthesias reported by patient during injection and Normal resistance with injectionMedications elaZMCDJsvwjw-nhqnxrumilh-jpgvoskn ine (TAP) syringe - Injection 50 mL - 07/11/2024 1:30:00 PM [facility] Work Phone: 07-11-2024 Note Peripheral Block Time Out: 07/11/2024 1:30 PM Patient location during procedure: post-op Start time: 07/11/2024 1:30 PM End time: 07/11/2024 1:35 PM Reason for block: at surgeon's request and post-op pain management Staffing Performed: MANAGER OF FINANCIAL REPORTING Resident/MANAGER OF FINANCIAL REPORTING: SNEHA Hung CRNA Preanesthetic Checklist Completed: patient identified, IV checked, site marked, risks and benefits discussed, surgical consent, monitors and equipment checked, pre-op evaluation and timeout performed Region: Truncal Primary: Quadratus Lumborum Peripheral Block Patient position: right lateral Prep: ChloraPrep Patient monitoring: heart rate, secured entrance monitor, continuous pulse ox and continuous capnometry O2: ETT/LMA Laterality: left Injection technique: single-shot Guidance: ultrasound guided -image retained in chart, tip of the needle identified by ultraound during injection. Needle Needle: 21G X 110 mm Additional Notes 07/11/2024 1:30 PM Assessment Injection assessment: negative aspiration for heme, no paresthesia on injection, incremental injection and local visualized surrounding nerve on ultrasound Paresthesia pain: none Heart rate change: no Slow fractionated injection: yes Required Documentation: Relevant anatomy identified (Nerves, Vessels, Muscles), Local anesthetic spread visualized around nerves or plane., Local anesthetic injected without difficulty, No EKG changes noted, Negative for blood on aspiration, Local anesthetic injected incrementally with intermittent aspiration every 5 mL, No symptoms of toxicity, No paresthesias reported by patient during injection and Normal resistance with injectionMedications ogqOTJTLicesi-ibrkgifwahd-sosxabre ine (TAP) syringe - Injection 50 mL - 07/11/2024 1:30:00 [facility] Surgical operation note Associated Order(s): Peripheral Block Peripheral Block Time Out: 07/11/2024 1:30 PM Patient location during procedure: post-op Start time: 07/11/2024 1:30 PM End time: 07/11/2024 1:35 PM Reason for block: at surgeon's request and post-op pain management Staffing Performed: MANAGER OF FINANCIAL REPORTING Resident/MANAGER OF FINANCIAL REPORTING: SNEHA Hung CRNA Preanesthetic Checklist Completed: patient identified, IV checked, site marked, risks and benefits discussed, surgical consent, monitors and equipment checked, pre-op evaluation and timeout performed Region: Truncal Primary: Quadratus Lumborum Peripheral Block Patient position: right lateral Prep: ChloraPrep Patient monitoring: heart rate, secured entrance monitor, continuous pulse ox and continuous capnometry O2: ETT/LMA Laterality: left Injection technique: single-shot Guidance: ultrasound guided -image retained in chart, tip of the needle identified by ultraound during injection. Needle Needle: 21G X 110 mm Additional Notes 07/11/2024 1:30 PM Assessment Injection assessment: negative aspiration for heme, no paresthesia on injection, incremental injection and local visualized surrounding nerve on ultrasound Paresthesia pain: none Heart rate change: no Slow fractionated injection: yes Required Documentation: Relevant anatomy identified (Nerves, Vessels, Muscles), Local anesthetic spread visualized around nerves or plane., Local anesthetic injected without difficulty, No EKG changes noted, Negative for blood on aspiration, Local anesthetic injected incrementally with intermittent aspiration every 5 mL, No symptoms of toxicity, No paresthesias reported by patient during injection and Normal resistance with injectionMedications yqkQLUOBfnylp-xnwuuipouql-xdgdrwvf ine (TAP) syringe - Injection 50 mL - 07/11/2024 1:30:00 PM Patient: Keiry Miller Procedure Summary Date: 07/11/24 Room / Location: [address] Operating Room Anesthesia Start: 1054 Anesthesia Stop: Procedure: LEFT TOTAL HIP ARTHROPLASTY (Left: Hip) Diagnosis: Unilateral primary osteoarthritis, left hip Surgeons: Krishan Kruse MD Responsible Provider: SNEHA Singletary CRNA Anesthesia Type: regional, spinal ASA Status: 3 Anesthesia Type: regional, spinal Vitals Value Taken Time BP 110/58 07/11/24 1317 Temp 98.2 07/11/24 1319 Pulse 66 07/11/24 1318 Resp 18 07/11/24 1319 SpO2 97 % 07/11/24 1318 Vitals shown include unfiled device data. Anesthesia Post Evaluation Patient location during evaluation: PACU Patient participation: complete - patient participated Level of consciousness: awake and alert Pain score: 0 Pain management: satisfactory to patient Multimodal analgesia pain management approach Airway patency: patent Two or more strategies used to mitigate risk of obstructive sleep apnea Cardiovascular status: acceptable and hemodynamically stable Respiratory status: acceptable, spontaneous ventilation and room air Hydration status: acceptable No notable events documented. MIPS #430 PONV Patient did not receive an inhalational anesthetic (XX430) MIPS # 424 Perioperative Temperature Management Anesthesia time was 60 minutes or longer (4255F) Anesthesai administered was General (inhalational or TIVA) or Neuraxial block (X0424) At least one body temperature greater than 95.8F/35.5C achieved within the 30 mins immediately prior to or the 15 minutes immediately following anesthesia end time (G9771) MIPS #477 Multimodal Pain Management Not emergent case Patient was administered multimodal pain management (two or more drugs and/or interventions excluding systemic opioids) in the periopeartive period occurring at some time between 6 hours prior to anesthesia start time until discharged from PACU (G2148) MIPS #404 Anesthesiology Smoking Abstinence The patient is not a current smoker (e.g. cigarette, cigar, pipe, e-cigarette/vaping/marijuana) If no stop here (XX404) I completed my handoff to the receiving clinician during which we: 1. Identified the patient 2. Identified the responsible provider 3. Reviewed the pertinent medical history 4. Discussed the surgical course 5. Reviewed intra-op anesthesia management and issues during anesthesia 6. Set expectations for post-procedure period 7. Allowed opportunity for questions and acknowledgement of understanding. Associated Order(s): Spinal Block Spinal Block Time Out: 07/11/2024 10:55 AM Patient location during procedure: OR Start time: 07/11/2024 10:55 AM End time: 07/11/2024 11:00 AM Reason for block: primary anesthetic Staffing Performed: [facility] Resident/MANAGER OF FINANCIAL REPORTING: SNEHA Singletary CRNA Other staff: Autumn Haynes RN Preanesthetic Checklist Completed: patient identified, IV checked, site marked, risks and benefits discussed, surgical consent, monitors and equipment checked, pre-op evaluation and timeout performed Spinal Block Patient position: sitting Prep: ChloraPrep Sterility prep: gloves, hand hygiene and mask Sedation level: light sedation Patient monitoring: continuous pulse oximetry and heart rate Approach: midline Location: L3-4 Injection technique: single-shot Needle Needle type: pencil-tip Needle gauge: 24 G Needle length: 10 cm Medications Administered mepivacaine PF (Carbocaine) 2 % injection - Intrathecal 60 mg - 07/11/2024 10:55:00 AM Assessment Sensory level: T10 Block outcome: block to be assessed in the OR Number of attempts: 1 Procedure assessment: patient sedated but conversant throughout procedure Additional Notes Free flow CSF. No Heme. No Parathesia Patient: Keiry Miller Procedure Information Date/Time: 07/11/24 1100 Procedure: LEFT TOTAL HIP ARTHROPLASTY (Left: Hip) - 60MIN Location: [address] Operating Room Surgeons: Krishan Kruse MD Relevant Problems No relevant active problems Past Medical History: Past Medical History: No date: Arthritis No date: Hypertension No date: Joint pain No date: Motion sickness No date: Prediabetes Past Surgical History: Past Surgical History: No date: DENTAL SURGERY Comment: as teen Social History: TOBACCO: reports that she has never smoked. She has never used smokeless tobacco. ETOH: reports no history of alcohol use. Social History Substance and Sexual Activity Drug Use Never Family History: Family History Problem Relation Name Age of Onset Arthritis Mother Argelia Hypertension Mother Argelia Heart disease Father Griffin Stroke Father Griffin Stroke Paternal Grandmother Antonia Depression Brother Oneil Hypertension Brother Oneil Hypertension Sister Caitlin Screening: Postmenopausal Clinical information reviewed: Tobacco Allergies Meds Med Hx Surg Hx OB Status Fam Hx Soc Hx Physical Exam Airway Mallampati: II TM distance: >3 FB Neck ROM: full Mouth Open: normalendotracheal tube not in place Cardiovascular Dental Comments: Some missing teeth top and bottom Pulmonary Abdominal Anesthesia Plan patient is NPO appropriate Any family history or previous problems with anesthesia no ASA 3 regional and spinal Any family history or previous problems with anesthesia no The patient is not a current smoker. Anesthetic plan and risks discussed with patient and legal guardian. SYLWIA Screening STOP-Bang Total Score: 3 Labs: No results found for: WBC, HGB, HCT, MCV, PLT No results found for: SODIUM, NA, POTASSIUM, K, CHLORIDE, CL, CO2, BUN, CREATININE, GLUCOSE, CALCIUM, PROT, BILIRUBINFL, ALKPHOS, AST, ALT, EGFR, GLOB Pain Score: 8 No echocardiogram results found for the past 14 days 07/03/24 ECG 12-LEAD (Preliminary) This result has not been signed. Information might be incomplete. Impression Sinus rhythm Equipment Requests: Additional Equipment Requests documented in this encounter [facility] 07-11-2024 Note PHYSICAL THERAPY [facility] Initial Evaluation Name/MRN: Keiry Miller ([id number]) Evaluation Date: 07/11/2024 Date of : 1960 Admission Date: 07/11/2024 8:40 AM Age: 64 y.o. Room/Bed: [facility]166/[facility] A Having reviewed the treatment plan and goals for this patient, I certify that the plan of care below is medically necessary and appropriate. Discharge Recommendation: Home with Home health PT Equipment Needed: No Assessment IMPRESSION: Patient is s/p elective L KOTA with anterior approach on 07/11/[address] Kruse. Pt presents with decreased functional mobility, decreased strength, decreased safety awareness with use of assistive device, new post op limitations and decreased balance. Upon evaluation, pt required SBA for bed mobility, SBA for transfers with fww, CGA for gait/ambulation with fww. Pt has medical history as indicated below that contributes to their clinical presentation. At baseline patient is functionally independent with SPC in one hand and quad cane in opposite hand. Currently pt has not met PT goals and requires overnight stay with additional session POD#1, anticipating discharge home with assist and [facility] PT. Admitting Diagnosis: L KOTA with anterior approach Prognosis: good Performance Deficits /Impairments: Increased Pain, Decreased Functional Mobility, Decreased ADL status, Decreased Strength, Decreased Endurance, and Decreased Balance Decision Making: Medium Complexity Subjective Patient pleasant and agreeable to therapy session this date. Per RN patient okay for therapy. Co-eval with OT. Observation: L hip sx dressing clean and intact Vitals: 07/11/24 1510 BP: 139/70 Pulse: 74 Resp: Temp: SpO2: 100% Pain: 0-10 pain scale: 8-7/10 Location: L hip Past Medical History: Past Medical History: Diagnosis Date Arthritis Hypertension Joint pain Motion sickness Prediabetes Past Surgical History: Past Surgical History: Procedure Laterality Date DENTAL SURGERY as teen TOTAL HIP ARTHROPLASTY Left 07/11/2024 Admission Diagnosis: Patient Active Problem List Diagnosis Date Noted Arthritis of left hip 07/11/2024 Medical Precautions: No active isolations Proper PPE donned/doffed in accordance with facility standards. Fall Risk: St Fall Risk Score: 20 (Low Risk) Precautions/Restrictions: Left LE Weight Bearing: Weight Bearing As Tolerated Hip Precautions: Anterior Hip Precautions Family/Caregiver Present: daughter Overall Cognitive Status: WFL Overall Orientation Status: Oriented x4 Vision: wears glasses for reading and and are NOT being used during the eval Hearing: normal Social/Functional History Patient admitted from home. 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: Yes Prior Level of Function Prior Level of ADL Function: Independent Prior Level of Mobility: Independent; Device: Straight Cane and Quad cane Prior Level of Transfers: Independent Objective Lower Extremity Assessment AROM: WFL Strength: Pt demonstrates appropriate B LE and quad strength in order to safely participate in OOB mobility Sensation: WFL Bed Mobility: Supine to sit: SBA Scooting: SBA Transfers Sit to stand: SBA Stand to sit: SBA Toilet: SBA Ambulation Ambulation 1 Assistive device(s) used: Front wheeled walker Assist level: Contact Guard Distance (ft): 10ft x1, 15ft x1 Quality of gait: No LOB, antalgic, step to pattern, B foot clearance, narrow PINKY, slow carlos, postural sway Exercises Quad Sets: 1 set / 10 reps B LE in supine Gluteal Sets: 1 set / 10 reps in supine Ankle Pumps: 1 set / 10 reps B LE in supine Comments: Initiated B LE exercises POD#0 in order to improve strength and activity tolerance for mobility, as well as decreasing risk of post op complications. Pt educated on technique and rationale for exercises in order to improve patients understanding and compliance with exercises. Pt demonstrates good understanding and ability to complete at this time. Pt able to teach back exercises to therapist as well as rationale in order to assure understanding. Pt educated to complete these three exercises 10x per hour awake at this time. Pt verbalized and demonstrates good understanding. [facility] Ambulation Ambulation Day of Surgery or 4 hours from PACU discharge? (At least 10 feet): 1 - Yes, Ambulation Day of Surgery or 4 hours from PACU discharge Outcome Measures AM-PAC How much HELP from another person do you currently need Turning from your back to your side while in a flat bed without using bedrails?: A Little Moving from lying on your (more content not included)... [facility] 07-11-2024 Note OCCUPATIONAL THERAPY [facility] Initial Evaluation Having reviewed the treatment plan and goals for this patient, I certify that the plan of care below is medically necessary and appropriate. Name/MRN: Keiry Miller ([id number]) Evaluation Date: 07/11/2024 Date of : 1960 Admission Date: 07/11/2024 8:40 AM Age: 64 y.o. Room/Bed: B1166/B1166 A Discharge Recommendation: Home with Home health OT, Home with assist PRN Equipment Needed: Yes Mobility Devices: Hip kit Assessment IMPRESSION: Pt in 07/11 and seen s/p L KOTA by Dr. Kruse with new WBAT status and anterior hip precautions. She was previously iND for ADLs, functional transfers / mobility a cane / quad cane. She is currently MOD A for LB ADLs, CGA for bathroom level toileting, SBA for seated UB ADLs, and CGA - SBA for transfers / mobility with a FWW. She is limited by increased pain, fatigue, instability, and new precautions at this time. She would benefit from skilled OT services to address the below. Recommend planned discharge for [facility] OT with assist PRN. Admitting Diagnosis: s/p L KOTA with new WBAT status and anterior hip precautions. Performance Deficits /Impairments: Increased Pain, Decreased Functional Mobility, Decreased ADL status, Decreased Strength, Decreased Endurance, Decreased Balance, and Decreased High Level IADLs Prognosis: Good Decision Making: Medium Complexity Subjective Pleasant and cooperative. OK to see per RN. Sx dressing clean, dry, intact. Vitals: BP: 139/70 Pain: 0-10 pain scale: initially 8/10, improving to 7/10 Location: L hip Past Medical History: Past Medical History: Diagnosis Date Arthritis Hypertension Joint pain Motion sickness Prediabetes Past Surgical History: Past Surgical History: Procedure Laterality Date DENTAL SURGERY as teen TOTAL HIP ARTHROPLASTY Left 07/11/2024 Admission Diagnosis: Patient Active Problem List Diagnosis Date Noted Arthritis of left hip 07/11/2024 Medical Precautions: No active isolations Proper PPE donned/doffed in accordance with facility standards. Fall Risk: St Fall Risk Score: 20 (Low Risk) Precautions/Restrictions: Left LE Weight Bearing: Weight Bearing As Tolerated Hip Precautions: Anterior Hip Precautions, No Straight Leg Raises, and Avoid Extremes of Motion Family/Caregiver Present: child(sowmya) Overall Cognitive Status: WFL Overall Orientation Status: Oriented x4 Social/Functional History Patient admitted from home. 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: Yes Prior Level of Function Prior Level of ADL Function: Independent Prior Level of Mobility: Independent; Device: SPC vs quadcane Prior Level of Transfers: Independent Objective ADLs Toileting: Contact Guard Pt demos good ability to maintain precautions throughout the session. Increased time required to complete all functional tasks. She was able to complete bathroom level toileting with CGA overall for stability and safety. No physical assist for clothing management or pericare at this time. She was able to complete hand hygiene in standing at sink level with no physical assist. Good teach back of proper FWW management for standing Adls following initial education. Declines further ADLs at this time. Upper Extremity Assessment AROM: WFL PROM: Not assessed this session Strength: WFL Bed Mobility Supine to sit: SBA Scooting: SBA HOB elevated, increased time required to complete. Pt educated on WBAT status and anterior hip precautions prior to participation in OOB activity. Denies dizziness with OOB activity. Good ability to maintain precautions throughout session. Pt was able to manage BLE and trunk to EOB without assist. Pt up in recliner following session. Transfers/Mobility Sit to stand: SBA, Contact Guard Stand to sit: Contact Guard Toilet: SBA Functional mobility: Contact Guard Functional Transfers: Increased time required to complete. Pt able to maintain precautions throughout session. Pt was educated on proper BLE management, hand placement and device positioning with good teach back noted at this time. Pt demos good hand placement for push up from /reach back for seated surfaces with good BLE management to maintain precautions and proper PINKY. Pt completed sit<>stands x2 this date, progressing from CGA to SBA overall for transfers. Good teach back of transfer education at this time with no c/o dizziness with positional changes. Pt utilizes grab bars simulating home set up. Good carryover of transfer training to completion of bathroom level toilet transfers. SBA for toilet trans (more content not included)... [facility] 07-11-2024 Note Formatting of this n ote is different from the original. Patient: Keiry Miller Procedure Summary Date: 07/11/24 Room / Location: [address] Operating Room Anesthesia Start: 1053 Anesthesia Stop: 1315 Procedure: LEFT TOTAL HIP ARTHROPLASTY (Left: Hip) Diagnosis: Unilateral primary osteoarthritis, left hip Surgeons: Krishan Kruse MD Responsible Provider: Dusty Song MD Anesthesia Type: regional, spinal ASA Status: 3 Anesthesia Type: regional, spinal Vitals Value Taken Time BP 110/58 07/11/24 1317 Temp 36.8 C (98.2 F) 07/11/24 1314 Pulse 70 07/11/24 1321 Resp 17 07/11/24 1321 SpO2 98 % 07/11/24 1321 Vitals shown include unfiled device data. Anesthesia Post Evaluation Patient location during evaluation: PACU Patient participation: complete - patient participated Level of consciousness: awake and alert Pain management: satisfactory to patient Airway patency: patent Dental Injury: no Cardiovascular status: acceptable, blood pressure returned to baseline and hemodynamically stable Respiratory status: acceptable, spontaneous ventilation and room air Hydration status: euvolemic Nausea/Vomiting: controlled No notable events documented. Patient can be discharged once all PACU criteria has been met. [facility] 07-11-2024 Note Patient: Keiry arteaga Procedure Summary Date: 07/11/24 Room / Location: [address] Operating Room Anesthesia Start: 105 Anesthesia Stop: 131 Procedure: LEFT TOTAL HIP ARTHROPLASTY (Left: Hip) Diagnosis: Unilateral primary osteoarthritis, left hip Surgeons: Krishan Kruse MD Responsible Provider: Dusty Song MD Anesthesia Type: regional, spinal ASA Status: 3 Anesthesia Type: regional, spinal Vitals Value Taken Time BP 110/58 07/11/24 1317 Temp 36.8 ?C (98.2 ?F) 07/11/24 1314 Pulse 70 07/11/24 1321 Resp 17 07/11/24 1321 SpO2 98 % 07/11/24 1321 Vitals shown include unfiled device data. Anesthesia Post Evaluation Patient location during evaluation: PACU Patient participation: complete - patient participated Level of consciousness: awake and alert Pain management: satisfactory to patient Airway patency: patent Dental Injury: no Cardiovascular status: acceptable, blood pressure returned to baseline and hemodynamically stable Respiratory status: acceptable, spontaneous ventilation and room air Hydration status: euvolemic Nausea/Vomiting: controlled No notable events documented. Patient can be discharged once all PACU criteria has been met. [facility] 07-11-2024 Anesthesiology Postoperative evaluation and management note Patient: Keiry Miller Procedure Summary Date: 07/11/24 Room / Location: [address] Operating Room Anesthesia Start: 1053 Anesthesia Stop: Procedure: LEFT TOTAL HIP ARTHROPLASTY (Left: Hip) Diagnosis: Unilateral primary osteoarthritis, left hip Surgeons: Krishan Kruse MD Responsible Provider: SNEHA Singletary CRNA Anesthesia Type: regional, spinal ASA Status: 3 Anesthesia Type: regional, spinal Vitals Value Taken Time BP 110/58 07/11/24 1317 Temp 98.2 07/11/24 1319 Pulse 66 07/11/24 1318 Resp 18 07/11/24 1319 SpO2 97 % 07/11/24 1318 Vitals shown include unfiled device data. Anesthesia Post Evaluation Patient location during evaluation: PACU Patient participation: complete - patient participated Level of consciousness: awake and alert Pain score: 0 Pain management: satisfactory to patient Multimodal analgesia pain management approach Airway patency: patent Two or more strategies used to mitigate risk of obstructive sleep apnea Cardiovascular status: acceptable and hemodynamically stable Respiratory status: acceptable, spontaneous ventilation and room air Hydration status: acceptable No notable events documented. MIPS #430 PONV Patient did not receive an inhalational anesthetic (XX430) MIPS # 424 Perioperative Temperature Management Anesthesia time was 60 minutes or longer (4255F) Anesthesai administered was General (inhalational or TIVA) or Neuraxial block (X0424) At least one body temperature greater than 95.8F/35.5C achieved within the 30 mins immediately prior to or the 15 minutes immediately following anesthesia end time (G9771) MIPS #477 Multimodal Pain Management Not emergent case Patient was administered multimodal pain management (two or more drugs and/or interventions excluding systemic opioids) in the periopeartive period occurring at some time between 6 hours prior to anesthesia start time until discharged from PACU (G2148) MIPS #404 Anesthesiology Smoking Abstinence The patient is not a current smoker (e.g. cigarette, cigar, pipe, e-cigarette/vaping/marijuana) If no stop here (XX404) I completed my handoff to the receiving clinician during which we: 1. Identified the patient 2. Identified the responsible provider 3. Reviewed the pertinent medical history 4. Discussed the surgical course 5. Reviewed intra-op anesthesia management and issues during anesthesia 6. Set expectations for post-procedure period 7. Allowed opportunity for questions and acknowledgement of understanding. [employer] Phone: 07-11-2024 Note Patient: Keiry arteaga Procedure Summary Date: 07/11/24 Room / Location: [address] Operating Room Anesthesia Start: 1054 Anesthesia Stop: Procedure: LEFT TOTAL HIP ARTHROPLASTY (Left: Hip) Diagnosis: Unilateral primary osteoarthritis, left hip Surgeons: Krishan Kruse MD Responsible Provider: SNEHA Singletary CRNA Anesthesia Type: regional, spinal ASA Status: 3 Anesthesia Type: regional, spinal Vitals Value Taken Time BP 110/58 07/11/24 1317 Temp 98.2 07/11/24 1319 Pulse 66 07/11/24 1318 Resp 18 07/11/24 1319 SpO2 97 % 07/11/24 1318 Vitals shown include unfiled device data. Anesthesia Post Evaluation Patient location during evaluation: PACU Patient participation: complete - patient participated Level of consciousness: awake and alert Pain score: 0 Pain management: satisfactory to patient Multimodal analgesia pain management approach Airway patency: patent Two or more strategies used to mitigate risk of obstructive sleep apnea Cardiovascular status: acceptable and hemodynamically stable Respiratory status: acceptable, spontaneous ventilation and room air Hydration status: acceptable No notable events documented. MIPS #430 PONV Patient did not receive an inhalational anesthetic (XX430) MIPS # 424 Perioperative Temperature Management Anesthesia time was 60 minutes or longer (4255F) Anesthesai administered was General (inhalational or TIVA) or Neuraxial block (X0424) At least one body temperature greater than 95.8F/35.5C achieved within the 30 mins immediately prior to or the 15 minutes immediately following anesthesia end time (G9771) MIPS #477 Multimodal Pain Management Not emergent case Patient was administered multimodal pain management (two or more drugs and/or interventions excluding systemic opioids) in the periopeartive period occurring at some time between 6 hours prior to anesthesia start time until discharged from PACU (G2148) MIPS #404 Anesthesiology Smoking Abstinence The patient is not a current smoker (e.g. cigarette, cigar, pipe, e-cigarette/vaping/marijuana) If no stop here (XX404) I completed my handoff to the receiving clinician during which we: 1. Identified the patient 2. Identified the responsible provider 3. Reviewed the pertinent medical history 4. Discussed the surgical course 5. Reviewed intra-op anesthesia management and issues during anesthesia 6. Set expectations for post-procedure period 7. Allowed opportunity for questions and acknowledgement of understanding. [facility] 07-11-2024 Procedure anesthe valdo Narrative Procedure Name Responsible Anesthesiologist Anesthesia Start Time Anesthesia Stop Time LEFT TOTAL HIP ARTHROPLASTY (Left: Hip) Dusty Song MD 07/11/24 1054 07/11/24 1316 Events Date Time Event Comment 07/11/2024 0951 1053 In Room 1054 An Start 1054 An Start Data 1059 Anesthesia Ready 1132 Proc Start 1304 Proc Fin 1313 an stop data 1313 Out of Room 1316 An Stop Meds Name Total propofol (Diprivan) injection 10 mg/mL 1 ,179.1 mg midazolam (Versed) injection 2 mg/2 mL 2 mg ondansetron (Zofran) 2 mg/mL injection 4 mg phenylephrine syringe 1 mg/ 10 mL syring e (IV Push for HYPOTENSION) 700 mcg tranexamic acid (Cyklokapron) 2,000 mg ceFAZolin (Ancef) 2,000 mg in sodium chl oride 0.9 % 100 mL IVPB 2,000 mg glycopyrrolate (Robinul) injection 0.2 m g dexAMETHasone (Decadron) injection 4 mg/ mL 4 mg mepivacaine PF (Carbocaine) 2 % injectio n 60 mg jzwKFBSDpzxly-jwgsuaffgit-byjvssenimj (T AP) syringe 50 mL lactated Ringer's (LR) infusion 1,200 mL * Agents Name O2 * Blood No blood administrations on file. Lines, Drains, and Airways Type Details Placement Removal Wound/Incision 07/11/24; Incision; Hip; Anterior, Left 07/11/24 0000 by Jo-Ann Stauffer RN Peripheral IV Placement Date: 04/06; Placement Time: 929; Catheter Size: 20 G; Orientation: Posterior, Right; Location: Hand; Technique: Anatomical landmarks; Inserted by: Christine REDDY; Insertion Attempts: 1; Difficult Venous Access? No 07/11/24 0930 by Christine Beltrán RN documented in this encounter [id number] Anesthesiology procedure note* Anesthesia Procedure Notes - SNEHA Singletary CRNA - 07/11/2024 11:16 AM EDTAssociated Order(s): Spinal Block Spinal Block Time Out: 07/11/2024 10:55 AM Patient location during procedure: OR Start time: 07/11/2024 10:55 AM End time: 07/11/2024 11:00 AM Reason for block: primary anesthetic Staffing Performed: ERICA Resident/MANAGER OF FINANCIAL REPORTING: SNEHA Singletary CRNA Other staff: Autumn Haynes RN Preanesthetic Checklist Completed: patient identified, IV checked, site marked, risks and benefits discussed, surgical consent, monitors and equipment checked, pre-op evaluation and timeout performed Spinal Block Patient position: sitting Prep: ChloraPrep Sterility prep: gloves, hand hygiene and mask Sedation level: light sedation Patient monitoring: continuous pulse oximetry and heart rate Approach: midline Location: L3-4 Injection technique: single-shot Needle Needle type: pencil-tip Needle gauge: 24 G Needle length: 10 cm Medications Administered mepivacaine PF (Carbocaine) 2 % injection - Intrathecal 60 mg - 07/11/2024 10:55:00 AM Assessment Sensory level: T10 Block outcome: block to be assessed in the OR Number of attempts: 1 Procedure assessment: patient sedated but conversant throughout procedure Additional Notes Free flow CSF. No Heme. No Parathesia [facility] [id number] NoteSpinal Block Time Out: 07/11/2024 10:55 AM Patient location during procedure: OR Start time: 07/11/2024 10:55 AM End time: 07/11/2024 11:00 AM Reason for block: primary anesthetic Staffing Performed: [facility] Resident/MANAGER OF FINANCIAL REPORTING: SNEHA Singletary CRNA Other staff: Autumn Haynes RN Preanesthetic Checklist Completed: patient identified, IV checked, site marked, risks and benefits discussed, surgical consent, monitors and equipment checked, pre-op evaluation and timeout performed Spinal Block Patient position: sitting Prep: ChloraPrep Sterility prep: gloves, hand hygiene and mask Sedation level: light sedation Patient monitoring: continuous pulse oximetry and heart rate Approach: midline Location: L3-4 Injection technique: single-shot Needle Needle type: pencil-tip Needle gauge: 24 G Needle length: 10 cm Medications Administered mepivacaine PF (Carbocaine) 2 % injection - Intrathecal 60 mg - 07/11/2024 10:55:00 AM Assessment Sensory level: T10 Block outcome: block to be assessed in the OR Number of attempts: 1 Procedure assessment: patient sedated but conversant throughout procedure Additional Notes Free flow CSF. No Heme. [facility] Procedure note* Op Note - Krishan Kruse MD - 07/11/2024 10:53 AM EDT Images from the original note were not included. [facility] MAIN OR [address] [facility] [address] Dept: [phone] Loc: [phone] Operative Report Patient Name: Keiry Miller Date of : 1960 Date of Surgery: 07/11/24 DATE OF SURGERY: 07/11/24 PREOPERATIVE DIAGNOSIS: LEFT Hip Degenerative Arthritis - M16.12, POSTOPERATIVE DIAGNOSIS: Same PROCEDURE PERFORMED: Primary cementless left total hip arthroplasty, direct anterior approach with Anish robot SURGEON: Krishan Kruse MD ASSISTANTS: Dina ALMANZA, Jamilah PGY-V ANESTHESIA: Monitored Anesthesia Care , Spinal Anaesthesia, and Quadratus Lumborum Block Post-op INTRAVENOUS FLUIDS: 1,000 mL ESTIMATED BLOOD LOSS: 300 mL DRAIN: None. COMPLICATIONS: Patient tolerated the procedure well without anesthetic or surgical/operative complications. COMPONENTS: Waqar Trident 2 multi-hole acetabular component size 52 mm, 36 neutral highly crosslinked polyethylene acetabular liner, a 36 +2.5 Biolox delta ceramic femoral head, [place] Insignia femoral component size 3 high offset, four divergent acetabular screws INTRAOPERATIVE FINDINGS: The intra-operative finding confirmed the clinical and radiographic finding of end-stage osteoarthritis characterized by complete bone loss on the femoral head and acetabulumwith presence of osteophytes. Significant bone loss, requiring multi-hole cup TISSUE REMOVED OR ALTERED: Femoral head and acetabular reamings removed via standard resection. COMORBIDITIES: No date: Arthritis No date: Hypertension No date: Joint pain No date: Motion sickness No date: Prediabetes SPECIMEN: None OPERATIVE NOTE ADDENDUM: 1) The first-educational program assistant was critical to all steps of the operation, including retraction and leg stabilization during exposure and bone preparation, as well as the deep and superficial wound closure. I understand that section 1842(b)(7)(D) of the Social Security Act generally prohibits Medicare physician fee schedule payment for the services of assistants at surgery in teaching hospitals when qualified residents are available to furnish such services. I certify that the services for which payment is claimed were medically necessary and that no qualified resident was available to perform the services. I further understand that these services are subject to post-payment review by the Medicare carrier. 2) Operative note addendum for unusual increased surgical complexity for a complex surgical case. This particular patient's condition and surgery, satisfies the criteria for unusual and increased surgical complexity and resulted in significantly increased difficulty for this surgical procedure. Due to severity of arthritis and requirement to utilize a multi-hole acetabular component the procedurerequired additional surgical dissection, additional assistance with tissue retraction, and more complicated exposure techniques to satisfactorily perform the procedure. In addition, the energy expenditure was substantially increased for the surgeon and assistants. These factors increased the complexity, surgical risks, and duration of the procedure. The duration of this procedure in this patient was increased by approximately 40% due to the above-mentioned factors. HISTORY: The patient has progressive and debilitating hip pain secondary to end- stage osteoarthritis, supported by clinical and radiographic evidence and has failed nonoperative management. The patient was deemed appropriate for a total hip arthroplasty. Risks, benefits ,and alternatives to surgical treatment were discussed in detail with the patient and the patient wished to proceed with the total hip arthroplasty. The patient was seen and thoroughly evaluated by a medical asst preoperatively and was optimized for surgical intervention. SURGICAL PROCEDURE: Prior to initiation of the operative procedure a surgical time-out was taken and the patient's name, medical record, number, [id number], and operative side was verified with the surgical consent form. Additionally it was verified that the appropriate doris-operative antibiotic administration was completed, as well as that radiographs were available and the correct operative instrumentation and implants were available. After routine preparation and draping of the patient in the total joint operating room on a regulartable, a direct anterior approach was made to the hip joint. The skin and subcutaneous tissues wereincised. Electrocautery was utilized to maintain hemostasis along the skin edges. The subcutaneous fat was bluntly dissected. Subsequently the tensor fascia lizzette muscle was visualized and the medial and lateral borders identified. The medial border was identified by the fat strip that lies just medial to the muscle. The tip of the knife blade was used to gently incise the TFL fascia at the junction of the medial third and middle third of the TFL muscle belly. Care was taken to ensure that the mu sculature was not damaged at the area of the fascial incision. Finger dissection was used to locatethe anterior femoral neck. A blunt Cobra retractor was then placed in the split at the level of thepiriformis fossa. Subsequently the plane between the TFL and fascia was expanded distally to the inferior aspect of the wound. A sharp Hohmann retractor was placed at the level of the vastus ridge ret racting the mid aspect of the TFL. The lateral circumflex vessels were then visualized and cauterized. The interval between the rectus and the anterior hip capsule at the level of the inferior neck was completed and a Kenny and then blunt Cobra retractor was placed. Subsequently the interval betweenthe anterior capsule and the rectus was developed with electrocautery and completed with careful blunt dissection. A Kenny was used to elevate the soft tissues above the mid point of the femoral head, allowing a sharp curved Hohmann retractor to be placed safely. No muscle or superficial soft tissues were interposed under this retractor. The anterior capsule was split in a T formation from the superolateral neckto the inferomedial neck and a capsulectomy completed. The saddle of the proximal femur was identified. The electrocautery was used to enrico the sites of the femoral neck cut based on pre-op measurement. An osteotomy was completed to remove a wafer of bone, following which a power corkscrew was inserting into the remaining femoral head to extract it from the acetabulum. Then, we turned attention to placement of crest pins on the ipsilateral hip. A small incision in line with anterior crest was made. Bony window identified and pins were placed and array assembled, positioned, and tightened. Good fixation noted. A sharp broad Cobra was placed behind the posterior acetabular wall. Then, the inferior capsule wasreleased over a tonsil. A blunt narrow Hohmann was placed under the transverse acetabular ligament.The acetabular labrum was excised with a David and electrocautery. We then acquired our acetabularpoints with a probe according to protocol. An osteotome was utilized to remove the inferior and medi al osteophytes after registration to allow ease of passage of the reamer. The acetabulum was subsequently reamed under robotic guidance according to our pre- operative plan. Acetabulum was debrided and cleared of any interposing debris. Bone graft applied to associated cysts. The shell was impacted into place with the robotic arm with excellent stability. Four screws were placed in the posterior superior quadrant. A highly crosslinked polyethylene liner was inserted into the shell, assuring it locked circumferentially into the shell. The medial and posterior retractors were then removed and the leg brought into adduction and external rotation. The anterior retractor was then removed and a double-footed Romo retractor placed atthe level of the calcar. Continue release off of calcar was completed for improved visualization and mobilization of the femur. The superolateral capsule was identified and then released. Subsequently a sharp curved Dian retractor was placed over the greater trochanter to allow for elevation of the proximal femur. Leg was externally rotated for further visualization. The femoral neck cut was clearly identified. A rongeur was used to remove lateral neck. A small blunt canal finder was used to establish the canal. A box osteotome was utilized to remove remaining lateral femoral neck. A starter broach used to start working in a medial to lateral direction for intimate medial-lateral fit and fill of the stem. The femur was then broached in a sequential manner, lateralizing as necessary. Thefemoral canal was shaped to accept the appropriate sized hip stem, ensuring adequate axial and rotational stability. Good medial/lateral and anteroposterior fit was appreciated. Trial head and neck components were placed and stability, leg length, and range of motion assessed. The component position, offset, and leg length were confirmed with fluoroscopy. The final stem was impacted into place, ensuring no fracture of the calcar. Final femoral head was chosen and impacted onto a clean/dry taper. Trial and final reduction of the hip revealed good leg length, stability, and range of motion. The wound was irrigated with a sterile dilute betadine solution and sterile saline. The wound was inspected for active bleeding and was dry. The wound was closed in layers using #1 Stratafix suture in running fashion for the fascial layer. 2-0 Vicryl utilized for the subcutaneous closure. 3-0 monocryl subcuticular suture, Dermabond, and asterile dressing was applied. Post-operative Plan: WBAT with assistive device Avoid extremes of motion DVT Proph 24 hrs abx Follow-[facility] in 4 weeks [facility] [id number] Attending History and physical note* Krishan Kruse MD - 07/11/2024 9:47 AM EDT H&P reviewed. The patient was examined and there are no changes to the H&P. Source Note - Sat Fer Quiroz PA-C - 07/03/2024 1:30 PM EDT Comprehensive PreSurgical History and Physical ? Name: Keiry Miller : 1960 (Age-64 y.o.) Date of Service: Pt seen/examined on 07/03/2024 Procedure Information Date/Time: 07/11/24 1100 Procedure: LEFT TOTAL HIP ARTHROPLASTY (Left: Hip) - 60MIN Location: [address] Operating Room Surgeons: Krishan Kruse MD Chief Complaint: LEFT HIP PAIN ASSESSMENT/PLAN: Patient is considered intermediate risk for this intermediate risk procedure/surgery noted above ( with no reducible risk factors. Based on the above evaluation, the benefits of the planned procedurelikely exceed the risks. The patient is medically optimized to proceed with the planned procedure without any further cardiopulmonary testing. 1) PRIMARY OSTEOARTHRITIS OF LEFT HIP ; Managed per surgery 2) HTN Typically controlled. Compliant with meds. Taking LISINOPRIL Follows with PCP Labs and EKG done BP Readings from Last 3 Encounters: 07/03/24 135/66 3) SEASONAL ALLERGIES ; ON FLONASE AND CLARITIN F/U WITH PCP 4) OBESITY ;BMI TO-DAY 31.89 5) H/O MOTION SICKNESS 6) SNORE SOMETIMES 7) PRE-DIABETIC ; NO MEDS Visit Type: Pre-Admission Testing Visit Labs Ordered: As ordered by surgeon Do you have a history of chronic opioid use? CHRONIC NARCOTIC USAGE: No The patient meets the criteria for [facility] total joint replacement protocol. Sleep Referral Ordered: NO - NEGATIVE SCREEN PER SLEEP REFERRAL PROTOCOL Total time spent (which include face to face and non face to face encounters) : 40 minutes Toxic drug monitoring/narrow therapeutic index drug monitoring : # Drug name : lisinopril # Route administered : po # Method of monitoring : lab and EKG PAT Protocol referenced includes: 1. Anesthesia Lab Protocol Orders 2. Perioperative Cardiovascular Risk Assessment 3. Anesthesia Assessment 4. Pain Assessment and Acute Pain Service Consult (if appropriate) 5. Medical Clearance/Consult from Internal Medicine ([facility]) 6. Shower/Wash Order (for designated surgeries) 7. SYLWIA Screen and Sleep Clinic Referral (if appropriate) History Of Present Illness: Patient here in the PAT along with her daughter 64 y.o. female who presents with chief complaint mentioned above. Per surgeon's note dated 06/17/2024 Keiry is a 64 y.o. female who presents for evaluation of the left hip. Symptoms began suddenly 2 years ago. She describes the symptoms as sharp and shooting. Pain location: side of hip/laterally and radiation down the leg. Symptoms improve with rest, heat, physical therapy, the use of a cane, avoiding painful activities. The symptoms are exacerbated by stair climbing, weight bearing. Able to walk 0-1 blocks and is able to use stairs. Overall, the patient feels as if this condition is moderately impacting their quality of life and ability to do activities ofdaily living. No associated radicular pain contributing nor any radiating hip pain. Previous Surgery: No Non-operative treatment has consisted of: NSAIDS: No Cortisone injections: No Assistive Devices: Yes Therapy: No Narcotics: No Activity modification: No Attempted Weight Loss: No Pt has seen the surgeon and elected for above procedure. Denies Hx of, DM, Asthma/COPD, SYLWIA, CAD, CHF, a fib, NM, TIA/CVA, DVT/PE Hx problems with anesthesia? -DENIES Past Medical History: Past Medical History: No date: Arthritis No date: Hypertension No date: Joint pain No date: Motion sickness No date: Prediabetes Past Surgical History: Past Surgical History: No date: DENTAL SURGERY Comment: as teen Medications Prior to Admission: Current Outpatient Medications: clobetasol (Temovate) 0.05 % external solution, Apply topically 2 times daily., Disp: , Rfl: ascorbic acid (Vitamin C) 500 MG tablet, Take 500 mg by mouth daily., Disp: , Rfl: Calcium Carbonate (CALTRATE 600 PO), Take by mouth daily., Disp: , Rfl: Cholecalciferol (Vitamin D3) 25 MCG capsule, Take by mouth daily., Disp: , Rfl: Cranberry 500 MG capsule, Take by mouth daily., Disp: , Rfl: fluticasone (Flonase) 50 MCG/ACT nasal spray, Fluticasone Propionate 50 mcg/actuation spray,suspension Active 2 NMA INTRANASAL AT BEDTIME May 06, 2024 1:00am, Disp: , Rfl: ibuprofen 200 MG tablet, Take 400 mg by mouth 3 times daily., Disp: , Rfl: lisinopril 40 MG tablet, 40 mg., Disp: , Rfl: loratadine (Claritin) 10 MG tablet, 10 mg., Disp: , Rfl: MAGNESIUM GLUCONATE PO, Take by mouth daily., Disp: , Rfl: Multiple Vitamins-Minerals (MULTIVITAMIN GUMMIES WOMENS PO), Take by mouth daily., Disp: , Rfl: Potassium Chloride (K+ POTASSIUM PO), Take by mouth daily., Disp: , Rfl: Probiotic Product (PROBIOTIC BLEND PO), Take by mouth daily., Disp: , Rfl: psyllium (Metamucil) 0.36 g capsule, Take 2 capsules by mouth daily., Disp: , Rfl: CHRONIC NARCOTIC USAGE: No Allergies: Pollen extract and Sulfa antibiotics If patient has opioid allergy, is it okay to take Acetaminophen: Yes Social History: TOBACCO: reports that she has never smoked. She has never used smokeless tobacco. ETOH: reports no history of alcohol use. Social History Substance and Sexual Activity Drug Use Never Family History: Family History Problem Relation Name Age of Onset Arthritis Mother Argelia Hypertension Mother Argelia Heart disease Father Griffin Stroke Father Griffin Stroke Paternal Grandmother Antonia Depression Brother Oneil Hypertension Brother Oneil Hypertension Sister Caitlin REVIEW OF SYSTEMS: Review of Systems Constitutional: Negative for chills and fever. Respiratory: Negative for shortness of breath. Gastrointestinal: Negative for nausea and vomiting. Pertinent positives as noted in the HPI. Physical Exam: Physical Exam Vitals and nursing note reviewed. Constitutional: Appearance: Normal appearance. HENT: Head: Normocephalic and atraumatic. Mouth/Throat: Mouth: Mucous membranes are moist. Eyes: Extraocular Movements: Extraocular movements intact. Pupils: Pupils are equal, round, and reactive to light. Cardiovascular: Rate and Rhythm: Normal rate and regular rhythm. Pulses: Normal pulses. Pulmonary: Effort: Pulmonary effort is normal. Abdominal: General: Bowel sounds are normal. Musculoskeletal: Cervical back: Normal range of motion and neck supple. Skin: General: Skin is warm. Neurological: General: No focal deficit present. Mental Status: She is alert. Psychiatric: Mood and Affect: Mood normal. Behavior: Behavior normal. Vitals: Vitals Value Taken Time BP 135/66 07/03/24 1341 Temp 37.1 C (98.8 F) 07/03/24 1341 Pulse 71 07/03/24 1341 Resp 16 07/03/24 1341 SpO2 98 % 07/03/24 1341 BP 135/66 Pulse 71 Temp 37.1 C (98.8 F) (Temporal) Resp 16 Ht 1.689 m (5' 6.5) Wt 91 kg (200 lb 9.6 oz) SpO2 98% BMI 31.89 kg/m Labs: No results found for: WBC, HGB, HCT, MCV, PLT No results found for: NA, K, CL, CO2, BUN, CREATININE, GLUCOSE, CALCIUM, PROT, BILIRUBINFL, ALKPHOS, AST, ALT, EGFR, GLOB Adan's Simple Cardiac Risk Index: Interpretation: 0 Points Class I 0.5% 1 Point Class II 1.3% 2 Points Class III 3.6% 3+ Points Class IV 9.1% METS Walk indoors, such as around the house (1.75 METs), Do light work around the house, such as dusting or washing dishes (2.70 METs), Take care of self, that is eating, dressing, bathing, using the toilet (2.75 METs), Do moderate work around the house such as vacuuming, sweeping floors, or carrying in groceries (3.50 METs), Do yardwork, such as raking leaves, weeding,or pushing a power mower (4.50 METs), Climb a flight of stairs or walk up a hill (5.50 METs) PAT Pain Score: Pain Score: 8 Postop Pain Management Plan (Pain consult ordered?): Pain consult not indicated at this time ? EKG: Done today: Encounter Date: 07/03/24 ECG 12 lead Result Value Heart Rate 68 QRSD Interval 92 QT Interval 397 QTC Interval 424 P [place] 45 QRS [place] 37 T Wave [place] 55 WV Interval 193 Impression Sinus rhythm ECHO and EF:None on file No components found for: LVEF, LVEFMODE Electronically signed by: Matt Quiroz PA-C Date: 07/03/2024 at 1:58 PM Cosigned by Faisal Chung DO at 07/03/2024 10:08 PM EDT [employer] Phone: [phone] History and physical note* Krishan Kruse MD - 07/11/2024 9:47 AM EDT H&P reviewed. The patient was examined and there are no changes to the H&P. Source Note - Matt Quiroz PA-C - 07/03/2024 1:30 PM EDT Comprehensive PreSurgical History and Physical ? Name: Keiry Miller : 1960 (Age-64 y.o.) Date of Service: Pt seen/examined on 07/03/2024 Procedure Information Date/Time: 07/11/24 1100 Procedure: LEFT TOTAL HIP ARTHROPLASTY (Left: Hip) - 60MIN Location: [address] Operating Room Surgeons: Krishan Kruse MD Chief Complaint: LEFT HIP PAIN ASSESSMENT/PLAN: Patient is considered intermediate risk for this intermediate risk procedure/surgery noted above ( with no reducible risk factors. Based on the above evaluation, the benefits of the planned procedurelikely exceed the risks. The patient is medically optimized to proceed with the planned procedure without any further cardiopulmonary testing. 1) PRIMARY OSTEOARTHRITIS OF LEFT HIP ; Managed per surgery 2) HTN Typically controlled. Compliant with meds. Taking LISINOPRIL Follows with PCP Labs and EKG done BP Readings from Last 3 Encounters: 07/03/24 135/66 3) SEASONAL ALLERGIES ; ON FLONASE AND CLARITIN F/U WITH PCP 4) OBESITY ;BMI TO-DAY 31.89 5) H/O MOTION SICKNESS 6) SNORE SOMETIMES 7) PRE-DIABETIC ; NO MEDS Visit Type: Pre-Admission Testing Visit Labs Ordered: As ordered by surgeon Do you have a history of chronic opioid use? CHRONIC NARCOTIC USAGE: No The patient meets the criteria for [facility] total joint replacement protocol. Sleep Referral Ordered: NO - NEGATIVE SCREEN PER SLEEP REFERRAL PROTOCOL Total time spent (which include face to face and non face to face encounters) : 40 minutes Toxic drug monitoring/narrow therapeutic index drug monitoring : # Drug name : lisinopril # Route administered : po # Method of monitoring : lab and EKG PAT Protocol referenced includes: 1. Anesthesia Lab Protocol Orders 2. Perioperative Cardiovascular Risk Assessment 3. Anesthesia Assessment 4. Pain Assessment and Acute Pain Service Consult (if appropriate) 5. Medical Clearance/Consult from Internal Medicine (IMS) 6. Shower/Wash Order (for designated surgeries) 7. SYLWIA Screen and Sleep Clinic Referral (if appropriate) History Of Present Illness: Patient here in the PAT along with her daughter 64 y.o. female who presents with chief complaint mentioned above. Per surgeon's note dated 06/17/2024 Keiry is a 64 y.o. female who presents for evaluation of the left hip. Symptoms began suddenly 2 years ago. She describes the symptoms as sharp and shooting. Pain location: side of hip/laterally and radiation down the leg. Symptoms improve with rest, heat, physical therapy, the use of a cane, avoiding painful activities. The symptoms are exacerbated by stair climbing, weight bearing. Able to walk 0-1 blocks and is able to use stairs. Overall, the patient feels as if this condition is moderately impacting their quality of life and ability to do activities ofdaily living. No associated radicular pain contributing nor any radiating hip pain. Previous Surgery: No Non-operative treatment has consisted of: NSAIDS: No Cortisone injections: No Assistive Devices: Yes Therapy: No Narcotics: No Activity modification: No Attempted Weight Loss: No Pt has seen the surgeon and elected for above procedure. Denies Hx of, DM, Asthma/COPD, SYLWIA, CAD, CHF, a fib, NM, TIA/CVA, DVT/PE Hx problems with anesthesia? -DENIES Past Medical History: Past Medical History: No date: Arthritis No date: Hypertension No date: Joint pain No date: Motion sickness No date: Prediabetes Past Surgical History: Past Surgical History: No date: DENTAL SURGERY Comment: as teen Medications Prior to Admission: Current Outpatient Medications: clobetasol (Temovate) 0.05 % external solution, Apply topically 2 times daily., Disp: , Rfl: ascorbic acid (Vitamin C) 500 MG tablet, Take 500 mg by mouth daily., Disp: , Rfl: Calcium Carbonate (CALTRATE 600 PO), Take by mouth daily., Disp: , Rfl: Cholecalciferol (Vitamin D3) 25 MCG capsule, Take by mouth daily., Disp: , Rfl: Cranberry 500 MG capsule, Take by mouth daily., Disp: , Rfl: fluticasone (Flonase) 50 MCG/ACT nasal spray, Fluticasone Propionate 50 mcg/actuation spray,suspension Active 2 NMA INTRANASAL AT BEDTIME May 06, 2024 1:00am, Disp: , Rfl: ibuprofen 200 MG tablet, Take 400 mg by mouth 3 times daily., Disp: , Rfl: lisinopril 40 MG tablet, 40 mg., Disp: , Rfl: loratadine (Claritin) 10 MG tablet, 10 mg., Disp: , Rfl: MAGNESIUM GLUCONATE PO, Take by mouth daily., Disp: , Rfl: Multiple Vitamins-Minerals (MULTIVITAMIN GUMMIES WOMENS PO), Take by mouth daily., Disp: , Rfl: Potassium Chloride (K+ POTASSIUM PO), Take by mouth daily., Disp: , Rfl: Probiotic Product (PROBIOTIC BLEND PO), Take by mouth daily., Disp: , Rfl: psyllium (Metamucil) 0.36 g capsule, Take 2 capsules by mouth daily., Disp: , Rfl: CHRONIC NARCOTIC USAGE: No Allergies: Pollen extract and Sulfa antibiotics If patient has opioid allergy, is it okay to take Acetaminophen: Yes Social History: TOBACCO: reports that she has never smoked. She has never used smokeless tobacco. ETOH: reports no history of alcohol use. Social History Substance and Sexual Activity Drug Use Never Family History: Family History Problem Relation Name Age of Onset Arthritis Mother Argelia Hypertension Mother Argelia Heart disease Father Griffin Stroke Father Griffin Stroke Paternal Grandmother Antonia Depression Brother Oneil Hypertension Brother Oneil Hypertension Sister Caitlin REVIEW OF SYSTEMS: Review of Systems Constitutional: Negative for chills and fever. Respiratory: Negative for shortness of breath. Gastrointestinal: Negative for nausea and vomiting. Pertinent positives as noted in the HPI. Physical Exam: Physical Exam Vitals and nursing note reviewed. Constitutional: Appearance: Normal appearance. HENT: Head: Normocephalic and atraumatic. Mouth/Throat: Mouth: Mucous membranes are moist. Eyes: Extraocular Movements: Extraocular movements intact. Pupils: Pupils are equal, round, and reactive to light. Cardiovascular: Rate and Rhythm: Normal rate and regular rhythm. Pulses: Normal pulses. Pulmonary: Effort: Pulmonary effort is normal. Abdominal: General: Bowel sounds are normal. Musculoskeletal: Cervical back: Normal range of motion and neck supple. Skin: General: Skin is warm. Neurological: General: No focal deficit present. Mental Status: She is alert. Psychiatric: Mood and Affect: Mood normal. Behavior: Behavior normal. Vitals: Vitals Value Taken Time BP 135/66 07/03/24 1341 Temp 37.1 C (98.8 F) 07/03/24 1341 Pulse 71 07/03/24 1341 Resp 16 07/03/24 1341 SpO2 98 % 07/03/24 1341 BP 135/66 Pulse 71 Temp 37.1 C (98.8 F) (Temporal) Resp 16 Ht 1.689 m (5' 6.5) Wt 91 kg (200 lb 9.6 oz) SpO2 98% BMI 31.89 kg/m Labs: No results found for: WBC, HGB, HCT, MCV, PLT No results found for: NA, K, CL, CO2, BUN, CREATININE, GLUCOSE, CALCIUM, PROT, BILIRUBINFL, ALKPHOS, AST, ALT, EGFR, GLOB Adan's Simple Cardiac Risk Index: Interpretation: 0 Points Class I 0.5% 1 Point Class II 1.3% 2 Points Class III 3.6% 3+ Points Class IV 9.1% METS Walk indoors, such as around the house (1.75 METs), Do light work around the house, such as dusting or washing dishes (2.70 METs), Take care of self, that is eating, dressing, bathing, using the toilet (2.75 METs), Do moderate work around the house such as vacuuming, sweeping floors, or carrying in groceries (3.50 METs), Do yardwork, such as raking leaves, weeding,or pushing a power mower (4.50 METs), Climb a flight of stairs or walk up a hill (5.50 METs) PAT Pain Score: Pain Score: 8 Postop Pain Management Plan (Pain consult ordered?): Pain consult not indicated at this time ? EKG: Done today: Encounter Date: 07/03/24 ECG 12 lead Result Value Heart Rate 68 QRSD Interval 92 QT Interval 397 QTC Interval 424 P [place] 45 QRS [place] 37 T Wave [place] 55 WV Interval 193 Impression Sinus rhythm ECHO and EF:None on file No components found for: LVEF, LVEFMODE Electronically signed by: Matt Quiroz PA-C Date: 07/03/2024 at 1:58 PM Cosigned by Faisal Chung DO at 07/03/2024 10:08 PM EDT documented in this encounterSKettering Health [id number] NoteH&P reviewed. The patient was examined and there are no changes to the H&P.[facility] 07-11-2024 Nurse Note* Perioperative Nursing Note - Christine Beltrán RN - 07/11/2024 9:19 AM EDT Patient educated on importance of coughing/ deep breathing after surgery to reduce risk of pneumonia. Patient educated on importance of early mobility to reduce the risk of blood clots. Falls prevention information reviewed with patient. Post-operative pain control and ways to prevent constipation discussed with patient. Daughter at bedside [id number] [address] [place] [id number] Dept: [phone] Discharge Summary Patient Name: Keiry Miller Date of : 1960 Admit date: 07/11/2024 Discharge date and time: 07/12/2024 11:08 AM Admitting Physician: Krishan Kruse MD Admission Diagnoses: Left Hip Arthritis Discharge Diagnoses: Same as above Operative Procedures: Left Total Hip Arthroplasty Indication for Admission: The patient has a history of the above diagnosis that has become progressively worse and the patient has elected to proceed with the above procedure. Hospital Course: The patient was admitted to the hospital on the day of surgery and underwent the above procedure. Post-operatively, the patient was transferred to the orthopaedic floor. They received prophylactic intravenous antibiotics. DVT prophylaxis included SCDs, early ambulation, and Aspirin was started the evening of surgery. The patient was able to tolerate a regular diet and their pain was reasonably well controlled. The patient progressed well throughout the hospitalization and was deemed stable for discharge on above listed date. Disposition: Stable Discharge Medications: Medication List START taking these medications acetaminophen 650 MG ER tablet Commonly known as: Tylenol 8 Hour Take 1 tablet (650 mg) by mouth every 8 hours as needed for mild pain (1-3) or moderate pain (4-6) (take as needed for pain). Do not crush, chew, or split. Aspirin Low Dose 81 MG EC tablet Generic drug: aspirin Take 1 tablet (81 mg) by mouth 2 times daily. Take 2 times a day for 30 days. This is for blood clot prevention. cefadroxil 500 MG capsule Commonly known as: Duricef Take 1 capsule (500 mg) by mouth 2 times daily for 7 days. Take 2 times a day for 7 days. Take this entire prescription. docusate sodium 100 MG capsule Commonly known as: Colace Take 1 capsule (100 mg) by mouth 2 times daily. Take 2 times a day as needed for constipation. meloxicam 15 MG tablet Commonly known as: Mobic Take 1 tablet (15 mg) by mouth daily. Take as needed for pain and inflammation. Do not take any other NSAID if taking this medication (Ibuprofen, Advil Motrin, Aleve, Naproxen, Celebrex, Voltaren, Diclofenac). ondansetron 4 MG tablet Commonly known as: Zofran Take 1 tablet (4 mg) by mouth every 8 hours. Take 1 tablet every 8 hours as needed for nausea and/or vomiting. May take 2 tablets if needed. oxyCODONE 5 MG immediate release tablet Commonly known as: Roxicodone Take 1 tablet (5 mg) by mouth every 6 hours as needed for severe pain (7-10) or moderate pain (4-6) for up to 7 days. Continue to wean off as pain becomes more tolerable. pantoprazole 20 MG EC tablet Commonly known as: Protonix Take 1 tablet (20 mg) by mouth every morning (before breakfast). Do not crush, chew, or split. Take 1 time a day. traMADol 50 MG tablet Commonly known as: Ultram Take 1 tablet (50 mg) by mouth every 6 hours as needed for severe pain (7-10) or moderate pain (4-6) for up to 7 days. Wean off as pain becomes more tolerable. CONTINUE taking these medications ascorbic acid 500 MG tablet Commonly known as: Vitamin C CALTRATE 600 PO clobetasol 0.05 % external solution Commonly known as: Temovate Cranberry 500 MG capsule fluticasone 50 MCG/ACT nasal spray Commonly known as: Flonase K+ POTASSIUM PO lisinopril 40 MG tablet loratadine 10 MG tablet Commonly known as: Claritin MAGNESIUM GLUCONATE PO MULTIVITAMIN GUMMIES WOMENS PO PROBIOTIC BLEND PO psyllium 0.36 g capsule Commonly known as: Metamucil Vitamin D3 25 MCG capsule STOP taking these medications ibuprofen 200 MG tablet Where to Get Your Medications These medications were sent to [facility] [address] [place] [id number] Hours: Monday to Monday 10 am to 6 pm acetaminophen 650 MG ER tablet Aspirin Low Dose 81 MG EC tablet cefadroxil 500 MG capsule docusate sodium 100 MG capsule meloxicam 15 MG tablet ondansetron 4 MG tablet oxyCODONE 5 MG immediate release tablet pantoprazole 20 MG EC tablet traMADol 50 MG tablet Patient Instructions: The patient will notify me for any increased bleeding, drainage, or progressively worsening pain, or other concerning symptoms. They have been instructed to report to the emergency room immediately for any chest pain or shortness of breath. Activity Precautions: WBAT on operative extremity/extremities . Work on obtaining range of motion as discussed in the discharge instructions. DVT prophylaxis: Aspirin Wound Care: Keep a dry dressing on for 7-10 days, if no drainage ok to keep incision open to air. If there is drainage call the office Follow-up in 4 weeks post-op. Signed: Andrea Arroyo PA-C 07/12/2024 12:28 [facility] [id number] Hospital course Narrative* Andrea Arroyo PA-C - 07/11/2024 8:07 AM EDT Images from the original note were not included. [address] [id number] Dept: [phone] Discharge Summary Patient Name: Keiry Miller Date of : 1960 Admit date: 07/11/2024 Discharge date and time: 07/12/2024 11:08 AM Admitting Physician: Krishan Kruse MD Admission Diagnoses: Left Hip Arthritis Discharge Diagnoses: Same as above Operative Procedures: Left Total Hip Arthroplasty Indication for Admission: The patient has a history of the above diagnosis that has become progressively worse and the patient has elected to proceed with the above procedure. Hospital Course: The patient was admitted to the hospital on the day of surgery and underwent the above procedure. Post-operatively, the patient was transferred to the orthopaedic floor. They received prophylactic intravenous antibiotics. DVT prophylaxis included SCDs, early ambulation, and Aspirinwas started the evening of surgery. The patient was able to tolerate a regular diet and their pain was reasonably well controlled. The patient progressed well throughout the hospitalization and was deemed stable for discharge on above listed date. Disposition: Stable Discharge Medications: Medication List START taking these medications acetaminophen 650 MG ER tablet Commonly known as: Tylenol 8 Hour Take 1 tablet (650 mg) by mouth every 8 hours as needed for mild pain (1-3) or moderate pain (4-6) (take as needed for pain). Do not crush, chew, or split. Aspirin Low Dose 81 MG EC tablet Generic drug: aspirin Take 1 tablet (81 mg) by mouth 2 times daily. Take 2 times a day for 30 days. This is for blood clot prevention. cefadroxil 500 MG capsule Commonly known as: Duricef Take 1 capsule (500 mg) by mouth 2 times daily for 7 days. Take 2 times a day for 7 days. Take thisentire prescription. docusate sodium 100 MG capsule Commonly known as: Colace Take 1 capsule (100 mg) by mouth 2 times daily. Take 2 times a day as needed for constipation. meloxicam 15 MG tablet Commonly known as: Mobic Take 1 tablet (15 mg) by mouth daily. Take as needed for pain and inflammation. Do not take any other NSAID if taking this medication (Ibuprofen, Advil Motrin, Aleve, Naproxen, Celebrex, Voltaren, Diclofenac). ondansetron 4 MG tablet Commonly known as: Zofran Take 1 tablet (4 mg) by mouth every 8 hours. Take 1 tablet every 8 hours as needed for nausea and/or vomiting. May take 2 tablets if needed. oxyCODONE 5 MG immediate release tablet Commonly known as: Roxicodone Take 1 tablet (5 mg) by mouth every 6 hours as needed for severe pain (7-10) or moderate pain (4-6)for up to 7 days. Continue to wean off as pain becomes more tolerable. pantoprazole 20 MG EC tablet Commonly known as: Protonix Take 1 tablet (20 mg) by mouth every morning (before breakfast). Do not crush, chew, or split. Take1 time a day. traMADol 50 MG tablet Commonly known as: Ultram Take 1 tablet (50 mg) by mouth every 6 hours as needed for severe pain (7-10) or moderate pain (4-6) for up to 7 days. Wean off as pain becomes more tolerable. CONTINUE taking these medications ascorbic acid 500 MG tablet Commonly known as: Vitamin C CALTRATE 600 PO clobetasol 0.05 % external solution Commonly known as: Temovate Cranberry 500 MG capsule fluticasone 50 MCG/ACT nasal spray Commonly known as: Flonase K+ POTASSIUM PO lisinopril 40 MG tablet loratadine 10 MG tablet Commonly known as: Claritin MAGNESIUM GLUCONATE PO MULTIVITAMIN GUMMIES WOMENS PO PROBIOTIC BLEND PO psyllium 0.36 g capsule Commonly known as: Metamucil Vitamin D3 25 MCG capsule STOP taking these medications ibuprofen 200 MG tablet Where to Get Your Medications These medications were sent to [facility] [address] [place] [phone] Hours: Monday to Monday 10 am to 6 pm acetaminophen 650 MG ER tablet Aspirin Low Dose 81 MG EC tablet cefadroxil 500 MG capsule docusate sodium 100 MG capsule meloxicam 15 MG tablet ondansetron 4 MG tablet oxyCODONE 5 MG immediate release tablet pantoprazole 20 MG EC tablet traMADol 50 MG tablet Patient Instructions: The patient will notify me for any increased bleeding, drainage, or progressively worsening pain, or other concerning symptoms. They have been instructed to report to the emergency room immediately for any chest pain or shortness of breath. Activity Precautions: WBAT on operative extremity/extremities . Work on obtaining range of motion as discussed in the discharge instructions. DVT prophylaxis: Aspirin Wound Care: Keep a dry dressing on for 7-10 days, if no drainage ok to keep incision open to air. If there is drainage call the office Follow-up in 4 weeks post-op. Signed: Andrea Arroyo PA-C 07/12/2024 12:28 PM Cosigned by Krishan Kruse MD at 07/12/2024 1:30 PM EDT documented in this [id number] Hospital Discharge instructions* Discharge Instructions* Andrea Arroyo PA-C - 07/11/2024 8:07 AM EDT Images from the original note were not included. Dr. Krishan Kruse Adult Hip and Knee Reconstruction [phone] Total Hip Discharge Instruction Physical Therapy Physical Therapy should be arranged for you prior to your discharge. Therapy should begin 1 or 2 days after surgery and continue 1-3 times a week for a month. Do the exercises at home on the days youdo not see a therapist. Dressing Your wound will be covered by a dressing after surgery. It should usually be removed after 10 days.You can shower as long as there is no drainage from the wound. After the dressing is removed it is not recommended to apply any cream, ointment or lotion to the wound unless specifc instructions are given by your surgeon. Things to know Bathing or showering If directed by your healthcare professional, you may occasionally and briefly wet your incision or wound that was treated with OPSITE TRANSPARENT ADHESIVE FILM DRESSING in the shower or bath. Do not soak or scrub your incision or wound. Do not swim or soak your incision or wound in water. After showering or bathing, gently blot your incision or wound dry with a soft towel. If a dry protective dressing is being used, it should be replaced with a fresh, dry protective dressing after showering or bathing as directed by your health care practitioner. Wound healing If you experience any redness, swelling, discomfort, warmth or pus, contact your healthcare professional and he or she will determine how your incision or wound is healing and take the necessary steps to address any issues. Exercise Do not engage in strenuous exercise that may cause additional stress on your incision or wound. Follow your healthcare professional s guidance about when you can return to your normal activities. Removing OPSITE TRANSPARENT ADHESIVE FILM DRESSING Your healthcare professional will determine when the healing process of your incision or wound has been completed and OPSITE TRANSPARENT ADHESIVE FILM DRESSING is usually removed at 7-10 days. You may shower with this bandage on, but do not bathe or submerge the incision until cleared by provider at initial pos-op visit. After this bandage is removed, the dermabond topical skin glue and steri strips will gradually fall off on its own. If there are parts of the steri strips that are peeling off on their own, you may cut these parts with scissors, but do not peel any steri strips off that is not already coming off on its own. This will eventually all fall off with time, or your provider will remove it at your initial post-op visit. You may shower with the bandage, but do not bathe or submerge the incision or rub any lotion, gels or creams over it until cleared by provider at initial pos-op visit. When healing is complete, your healthcare professional will carefully peel off the Steri Strips. Prior to removal, do not scratch, rub or pick at the steri strips or Dermabond Topical Skin Glue. This may loosen the adhesive before skin is healed. Ointments or liquids Topical ointments, liquids or any other product (other than dry bandages) should not be applied to the incision while Opsite bandage is in place. Most of the time, your stitches will be under the skin and will dissolve of their own. If you have curtis or external stitches they can be removed 10 days after surgery as long as there is no drainage. If the wound is draining, the dressing should be changed daily. The wound should be dry and without drainage by about 7 days postoperative. If there is persistent drainage from the wound after this time period, you should call our office immediately. If there is worsening redness around the incision, you should also call the office immediately. These may be signs of a superficial or deep woundinfection and you may have to return to the office for an evaluation by one of our staff. Common concerns after hip replacement surgery include swelling and bruising. These can be quite signifcant in nature and can appear anywhere from the thigh to the toes. These are typically worse at night which can contribute to trouble sleeping comfortably for more than one to two hours at a time. Activity You will be using an assistive device (walker, crutches, or cane). Your physical therapist will help you with this. Most patients are able to get in and out of bed, use the rest room, and go up and down stairs when they go home. We d like you to get up and walk every hour after surgery. For the first 1-2 weeks you will be walking with a walker or two crutches. After that, you can start using a cane. Preventing Postoperative Hip Dislocations Dislocations are rare, but if they occur they most often occur the first 3 months after surgery. Before surgery, the physical therapist begins teaching you special precautions and how to avoid dislocation. After surgery, everyone will be reminding you not to bend the hip too much, not to twist at the waist, and to avoid turning your leg in or out.patients hip joints are so stable after surgery that they do not have dislocation precautions. If you are one of these patients, the therapist will tell you not to worry about dislocation but you should still avoid extreme bending and twisting. Again, your therapist will go over this after surgery. Bathing Your dressing is waterproof. You may take a shower but not a bath. Precautions It is very common to have swelling and bruising in the thigh, lower leg and foot after surgery. Elevating your leg, doing ankle pump exercises, and using ice packs will help. Call us if the swelling does not subside overnight. Call for a temperature over 101. Take the pain medications as needed for pain. Pain pills can cause constipation. Use over the counter stool softeners like Colace to avoid constipation. If Colace is not effective use a gentle over the counter laxative such as Miralx Please refer to your medication sheet for more information regarding any prescriptions you have been given to take after surgery. Follow up office visit The Doctor would like see you in 4 weeks. If the followup appointment is not already made the office will call within 2 weeks. Please avoid any other surgery, procedure or dental procedure until cleared by Dr. Kruse Common Questions About Hip Replacement Question: How long can I expect to have pain after surgery? Answer: The time varies for each patient. Many patients report that there is very little pain rightafter surgery, but postoperative soreness may continue for 3 - 4 weeks. Question. How long until bone ingrowth occurs? Answer. Bone ingrowth occurs between 6 weeks and 1 year. Question. How long after surgery will I have to limit weight bearing on my leg? Answer. The amount of weight you are allowed to put on your leg varies from full weight bearing to just the weight of your foot. Several surgical factors are considered in making this decision and your surgeon will inform you of your weight bearing status following the procedure. Most patients are cleared to be full weightbearing, as tolerated. Question. Why do I have to take a blood thinner after surgery and how long will this continue? Answer. A blood thinning medicine is recommended to prevent blood clots and is usually discontinuedafter your first follow-up appointment. Question: When can I resume sexual activities? Answer. You can resume sexual activity 3 - 6 weeks after surgery. The physical therapist nea baires. Question: Why does the skin feel funny around my incision? Answer: The nerves in the skin cross the front of the hip in an inside-out direction. When an incision is made on the hip, these tiny nerves are divided and the skin on the outside will feel fuzzy ornumb. This sensation will lessen with time and is normal for all patients with hip replacement surgery. Question: Why is my leg discolored? Answer: You may develop some discoloration (like a bruise) in the leg. This discoloration, which may extend to the hip or ankle, will slowly disappear. Question: What about cocoa butter and vitamin E oil? Answer: Do not use either of these until after your four week postoperative visit. Ask for clearance to use during that visit. Question: A stitch is sticking out. What do I do? Answer: We often suture the skin from underneath to reduce scarring. The knot at the end of the stitch sometimes will protrude from the skin. Redness and a small amount of drainage may appear. Cleanse the skin with peroxide. Please notify your surgeon s of office. Question: When can I drive my car? Answer: Usually after 4 weeks. A patient s decision to drive sooner is a personal decision related to their mobility and pain control. You cannot drive while you are taking narcotic pain medicine such as [place], Percocet, Hydrocodone or Oxycodone. Question: When can I go in the swimming pool? Answer: Ordinarily, patients may resume pool activities after the first follow- up visit. Be sure tocheck with the surgeon or fellow at that time. Question. When can I start playing tennis, ski or golf? Answer. Active sports are generally not resumed until 3 - 6 months after surgery.This is to allow for bone ingrowth of your new hip and muscle strengthening. Question. When will I be able to return to work? Answer. This depends on the type of work you do as well as several other factors. This ronen an individual basis and you should discuss with your surgeon. * Discharge Instr - GOGO* Ledy Howard LPN - 07/12/2024 10:42 AM EDT Images from the original note were not included. Continuity of Care Form Patient Name: Keiry Miller : 1960 Admit date: 07/11/2024 Discharge date: Code Status Order: Full Code Advance Directives: N Admitting Physician: Krishan Kruse MD PCP: IRENE GONZALEZ Discharging Nurse: Discharging Hospital Unit/Room#: B1-166/B1-166 A Discharging Unit Phone Number: Emergency Contact: Extended Emergency Contact Information Primary Emergency Contact: Kasia Fagan Mobile Relation: Daughter Preferred language: Palestinian Past Surgical History: Past Surgical History: Procedure Laterality Date DENTAL SURGERY as teen TOTAL HIP ARTHROPLASTY Left 07/11/2024 Immunization History: There is no immunization history on file for this patient. Active Problems: Medical Problems Problem List * (Principal) Arthritis of left hip Isolation/Infection: No active isolations No active infections Nurse Assessment: Last Vital Signs: BP 144/78 Pulse 96 Temp 37.2 C (98.9 F) (Temporal) Resp 16 Ht 1.689 m (5'6.5) Wt 90.7 kg (200 lb) SpO2 97% BMI 31.80 kg/m Last documented pain score (0-10 scale): Last Weight: Wt Readings from Last 1 Encounters: 07/11/24 90.7 kg (200 lb) Mental Status: {GOGO Patient Mental Status:31810} IV Access: {GOGO IV Access:50526} Nursing Mobility/ADLs: Walking {ANNA ADL:17432::Independent} Transfer {ANNA ADL:31464::Independent} Bathing {ANNA ADL:13980::Independent} Dressing {ANNA ADL:::Independent} Toileting {ANNA ADL:37536::Independent} Feeding {ANNA ADL:67166::Independent} Glass Selector {ANNA ADL:41285::Independent} Med Delivery {yes/no:05221} Wound Care Documentation and Therapy: Wound/Incision 07/11/24 Incision Hip Anterior;Left (Active) Site Assessment Unable to assess 07/12/24 0400 Doris-Wound Assessment Clean;Dry;Intact 07/12/24 0400 Odor None 07/12/24 0802 Drainage Amount None 07/12/24 1001 Treatments Ice applied 07/12/24 1001 Primary Dressing Transparent film;Sterile dressing 07/12/24 1001 Dressing Status Clean, dry & intact 07/12/24 1001 Number of days: 1 Elimination: Continence: Bowel: {yes/no:54453} Bladder: {yes/no:05017} Urinary Catheter: {GOGO Urinary Catheter:43985} Colostomy/Ileostomy/Ileal Conduit: {YES / NO:} Date of Last BM: Intake/Output Summary (Last 24 hours) at 07/12/2024 1042 Last data filed at 07/11/2024 1316 Gross per 24 hour Intake 1300 ml Output 300 ml Net 1000 ml I/O last 3 completed shifts: In: 1300 (14.3 mL/kg) [I.V.:1200 (13.2 mL/kg); IV Piggyback:100] Out: 300 (3.3 mL/kg) [Blood:300] Weight: 90.7 kg Safety Concerns: {GOGO Safety Concerns:28541} Impairments/Disabilities: {GOGO Impairments/Disabilities:38674} Nutrition Therapy: Current Nutrition Therapy: {GOGO Diet List:24057} Routes of Feeding: {routes of feedin} Liquids: {liquid consistency:49042} Daily Fluid Restriction: {daily fluid restriction:17638} Last Modified Barium Swallow with Video (Video Swallowing Test): {done not done:74489} Treatments at the Time of Hospital Discharge: Respiratory Treatments: Oxygen Therapy: {Therapy; copd oxygen:43440} Ventilator: {GOGO Ventilator:33300} Rehab Therapies: {GEN THERAPY DISCIPLINE SCAL:7242813} Weight Bearing Status/Restrictions: {POD WEIGHT BEARIN} Other Medical Equipment (for information only, NOT a DME order): {Assistive Devices DME:87676} Other Treatments: Patient's personal belongings (please select all that are sent with patient): {GOGO Patient Belongings:07257} RN SIGNATURE: {E-signature:76003} CASE MANAGEMENT/SOCIAL WORK SECTION Inpatient Status Date: [facility]charg[facility] to [facility] Address: [address] [place] [address] Dialysis Facility (if applicable) Name: Address: Dialysis Schedule: Phone: Fax: Alarm Signal Operator/Carpenter Rough signature: {E-signature:45734} PHYSICIAN SECTION Name: Keiry Miller Prognosis: {Rehab Prognosis:82452} Condition at Discharge: {Patient Condition:02035} Rehab Potential (if transferring to Rehab): {Rehab Prognosis:89220} Recommended Labs or Other Treatments After Discharge: The individual is being admitted to a nursing facility directly from an [facility] or a unit of a [facility] that is not operated by or licensed by [facility] under section 5119.14 or 5160-3-15.1 5 The individual requires the level of services provided by a nursing facility for the condition for which he or she was treated in the hospital and, Physician Certification: I certify the above information and transfer of Keiry Miller is necessary for the continuing treatment of the diagnosis listed and that she requires {GOGO Level of Care:64876}for {greater less than:84922} 30 days. Update Admission H&P: {GOGO Changes in H&P:04082} PHYSICIAN SIGNATURE: {E-signature:12609} documented in this encounterSKettering Health [id number] Telephone encounter Note* Telephone Encounter - Chasity Hinojosa - 07/10/2024 8:34 AM EDT Clearance has been scanned in. [facility] CenterTlydws08-01-1777 Miscellaneous Notes* Telephone Encounter - Chasity Hinojosa - 07/10/2024 8:34 AM EDT Clearance has been scanned in. * Telephone Encounter - Sheri To, BARRY - 07/09/2024 2:34 PM EDT Keiry called to make sure fax was received from manager gyn. Chasity states fax was received and will be scanned into media tab. * Telephone Encounter - Krishan Kruse MD - 07/08/2024 8:00 AM EDT It's precaution. She had a lot of people saying she had cancer when I don't think she does nor doesDrRui La Jose. Just wanted her to get checked on to make sure we're playing it safe. Doesn't change surgery date or anything. Just needs to keep us posted if manager gyn has any concerns. Thank you! 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 She states she is unsure why she needs to follow up with gynecology. She states she has had the fibroid for a long time. She states her hipis bothering her more then any gynecological issue. She verbalized understanding to keep appointment for Monday. * Telephone Encounter - Chasity Hinojosa - 06/28/2024 3:01 PM EDT Images from the original note were not included. Submitted auth through [employer]. Status approved. Auth# [id number] * Telephone Encounter - Chasity Hinojosa - 06/27/2024 11:40 AM EDT Insurance Info: MMO PAT: TBD Sx: 07/11 @ 1100 Dx: M16.12 CPT: 60400 Case #: [id number] BOOKING INSTRUCTIONS Procedure: Left Total Hip Arthroplasty - 9[address]29 with anterior approach and robotic assisted guidance- 0055T Time: 1 hour(s) - last case of day Diagnosis: 1. Primary osteoarthritis of left hip Blood: Not anticipated to be given Important Labs to Obtain: Routine PAT protocol Anesthesia: Spinal and quadratus lumborum block DVT Prophylaxis: ASA Return to Office: No Repeat Xrays: Anish CT Anticipated Discharge To: Home, 23-HR Stay Implants: Waqar Trident 2 Cup, Insignia Stem with Anish Equipment: Regular table, fluoro Other: TXA, No Rao, OpSite, Will send femoral head for permanent specimen documented in this [facility]04-29-2025 Telephone encounter Note* Telephone Encounter - Sheri To RN - 07/09/2024 2:34 PM EDT Keiry called to make sure fax was received from manager gyn. Chasity states fax was received and will be scanned into media tab. [facility] [id number] Miscellaneous Notes* Telephone Encounter - Sheri To RN - 07/09/2024 2:34 PM EDT Keiry called to make sure fax was received from manager gyn. Chasity states fax was received and will be scanned into media tab. * Telephone Encounter - Krishan Kruse MD - 07/08/2024 8:00 AM EDT It's precaution. She had a lot of people saying she had cancer when I don't think she does nor doesDr. Watson. Just wanted her to get checked on to make sure we're playing it safe. Doesn't change surgery date or anything. Just needs to keep us posted if manager gyn has any concerns. Thank you! 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 She states she is unsure why she needs to follow up with gynecology. She states she has had the fibroid for a long time. She states her hipis bothering her more then any gynecological issue. She verbalized understanding to keep appointment for Monday. * Telephone Encounter - Chasity Hinojosa - 06/28/2024 3:01 PM EDT Images from the original note were not included. Submitted auth through [employer]. Status approved. Auth# [id number] * Telephone Encounter - Chasity Hinojosa - 06/27/2024 11:40 AM EDT Insurance Info: MMO PAT: TBD Sx: 07/11 @ 1100 Dx: M16.12 CPT: 11618 Case #: [id number] BOOKING INSTRUCTIONS Procedure: Left Total Hip Arthroplasty - with anterior approach and robotic assisted guidance- 0055T Time: 1 hour(s) - last case of day Diagnosis: 1. Primary osteoarthritis of left hip Blood: Not anticipated to be given Important Labs to Obtain: Routine PAT protocol Anesthesia: Spinal and quadratus lumborum block DVT Prophylaxis: ASA Return to Office: No Repeat Xrays: Anish CT Anticipated Discharge To: Home, 23-HR Stay Implants: Waqar Trident 2 Cup, Insignia Stem with Anish Equipment: Regular table, fluoro Other: TXA, No Rao, OpSite, Will send femoral head for permanent specimen documented in this [facility]04-29-2025 Telephone encounter Note* Telephone Encounter - Augusta Mckinney LPN - 07/09/2024 10:31 AM EDT Patient had office visit on 07/09/2024 requesting note to be faxed to Dr. Kruse office spoke to ([facility]) to review CT scan 3.1 cm presumed fibroid. Letter as requested faxed x [address] Kruse attn: Chasity [phone]. Augusta Mckinney LPN [facility]04-29-2025 Miscellaneous Notes* Telephone Encounter - Augusta Mckinney LPN - 07/09/2024 10:31 AM EDT Patient had office visit on 07/09/2024 requesting note to be faxed to Dr. Kruse office spoke to ([facility]) to review CT scan 3.1 cm presumed fibroid. Letter as requested faxed x [address] Kruse attn: Chasity [phone]. Augusta Mckinney LPN documented in this encounterPremier Health04-29-2025 NoteHNO ID: [id number] Author: SWETHA NINO APRN.INTERNET MARKETING SPECIALIST Service: ? Author Type: Nurse Practitioner Type: Progress Notes Filed: 07/09/2024 09:56 Note Text: Keiry Miller is a 64 year old female who presents for problem visit follow up for Dx fibroid 07/06/2024. HPI: Patient not completely sure why she needed this appointment, she is having hip replacement surgery on July 11. After several conversations with doctors offices by rooming nurse, the concern was for a calcified uterine fibroid. Room nurses understanding was that patient had told to separate doctors office visits that she had cancer. There has been no diagnosis of cancer and this was the reasoning for her appointment today with us. 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 Our office has results of recent Paps or mammograms. OB History No obstetric history on file. 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 Social History Tobacco Use Smoking status: Never Smokeless tobacco: Never Vaping Use Vaping status: Never Used Substance Use Topics Alcohol use: Never Drug use: Never Current Outpatient Medications Medication Sig estrogens, conjugated (PREMARIN VAGINAL) Use vaginally. lisinopril (ZESTRIL, PRINIVIL) 40 mg tablet Take 1 tablet by mouth once daily. No current facility-administered medications for this visit. Allergies As of Date: 07/09/2024 Allergen Noted Reaction BEE POLLEN 05/06/2024 Unknown SULFA (SULFONAMIDE ANTIBIOTICS) 06/26/2017 Other: See Comments Fully Assessed 07/09/2024 REVIEW OF SYSTEMS Expanded ROS: N/A Allergies and current medication updated:Yes SENSITIVE EXAM: Sensitive exam not performed. EXAM: BP 162/88 Wt 199 lb 9.6 oz (90.5kg) GENERAL: pleasant, female in no apparent distress HEENT: Normocephalic, atraumatic, mucus membranes moist, and no lesions CHEST: Normal inspiratory effort NEURO: alert and oriented x3,exam grossly non-focal ASSESSMENT/PLAN: 1. Uterine leiomyoma, unspecified location - ICD9: 218.9, ICD10: D25.9 Letter provided to patient and will be faxed to surgeon's office stating that CT finding of a calcified fibroid is noncancerous finding. This office would be unable to obtain an ultrasound and report for further evaluation prior to surgery on July 11. Swetha Nino APRN.[facility]04-29-2025 History of Present illness Narrative* Swetha Nino APRN.INTERNET MARKETING SPECIALIST - 07/09/2024 8:59 AM EDT Keiry Miller is a 64 year old female who presents for problem visit follow up for Dx fibroid 07/06/2024. HPI: Patient not completely sure why she needed this appointment, she is having hip replacement surgery on July 11. After several conversations with doctors offices by rooming nurse, the concern was for a calcified uterine fibroid. Room nurses understanding was that patient had told to separate doctors office visits that she had cancer. There has been no diagnosis of cancer and this was the reasoning for her appointment today with us. 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 Our office has results of recent Paps or mammograms. OB History No obstetric history on file. 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 Social History Tobacco Use Smoking status: Never Smokeless tobacco: Never Vaping Use Vaping status: Never Used Substance Use Topics Alcohol use: Never Drug use: Never Current Outpatient Medications Medication Sig estrogens, conjugated (PREMARIN VAGINAL) Use vaginally. lisinopril (ZESTRIL, PRINIVIL) 40 mg tablet Take 1 tablet by mouth once daily. No current facility-administered medications for this visit. Allergies As of Date: 07/09/2024 Allergen Noted Reaction BEE POLLEN 05/06/2024 Unknown SULFA (SULFONAMIDE ANTIBIOTICS) 06/26/2017 Other: See Comments Fully Assessed 07/09/2024 REVIEW OF SYSTEMS Expanded ROS: N/A Allergies and current medication updated:Yes SENSITIVE EXAM: Sensitive exam not performed. EXAM: BP 162/88 Wt 199 lb 9.6 oz (90.5kg) GENERAL: pleasant, female in no apparent distress HEENT: Normocephalic, atraumatic, mucus membranes moist, and no lesions CHEST: Normal inspiratory effort NEURO: alert and oriented x3,exam grossly non-focal ASSESSMENT/PLAN: 1. Uterine leiomyoma, unspecified location - ICD9: 218.9, ICD10: D25.9 Letter provided to patient and will be faxed to surgeon's office stating that CT finding of a calcified fibroid is noncancerous finding. This office would be unable to obtain an ultrasound and reportfor further evaluation prior to surgery on July 11. Swetha Nino APRN.INTERNET MARKETING SPECIALIST documented in this encounterPremier Health04-28-2025 Telephone encounter Note * Telephone Encounter - Krishan Kruse MD - 07/08/2024 8:00 AM EDT It's precaution. She had a lot of people saying she had cancer when I don't think she does nor doesDr. Watson. Just wanted her to get checked on to make sure we're playing it safe. Doesn't change surgery date or anything. Just needs to keep us posted if manager gyn has any concerns. Thank you! [employer] Phone: [phone]) 981-612204-25-2025 Telephone encounter Note* Telephone Encounter - Sheri To RN - 07/05/2024 3:22 PM EDT Keiry states she has a senior java software engineer appointment on Monday. She states she is unsure why she needs to follow up with gynecology. She states she has had the fibroid for a long time. She states her hipis bothering her more then any gynecological issue. She verbalized understanding to keep appointment for Monday. [facility] [id number] Anesthesiology Preoperative evaluation and management note* Anesthesia Preprocedure Evaluation - Dusty Song MD - 07/03/2024 2:16 PM EDT Patient: Keiry Miller Procedure Information Date/Time: 07/11/24 1100 Procedure: LEFT TOTAL HIP ARTHROPLASTY (Left: Hip) - 60MIN Location: [address] Operating Room Surgeons: Krishan Kruse MD Relevant Problems No relevant active problems Past Medical History: Past Medical History: No date: Arthritis No date: Hypertension No date: Joint pain No date: Motion sickness No date: Prediabetes Past Surgical History: Past Surgical History: No date: DENTAL SURGERY Comment: as teen Social History: TOBACCO: reports that she has never smoked. She has never used smokeless tobacco. ETOH: reports no history of alcohol use. Social History Substance and Sexual Activity Drug Use Never Family History: Family History Problem Relation Name Age of Onset Arthritis Mother Argelia Hypertension Mother Argelia Heart disease Father Griffin Stroke Father Griffin Stroke Paternal Grandmother Antonia Depression Brother Oneil Hypertension Brother Oneil Hypertension Sister Caitlin Screening: Postmenopausal Clinical information reviewed: Tobacco Allergies Meds Med Hx Surg Hx OB Status Fam Hx Soc Hx Physical Exam Airway Mallampati: II TM distance: >3 FB Neck ROM: full Mouth Open: normalendotracheal tube not in place Cardiovascular Dental Comments: Some missing teeth top and bottom Pulmonary Abdominal Anesthesia Plan patient is NPO appropriate Any family history or previous problems with anesthesia no ASA 3 regional and spinal Any family history or previous problems with anesthesia no The patient is not a current smoker. Anesthetic plan and risks discussed with patient and legal guardian. SYLWIA Screening STOP-Bang Total Score: 3 Labs: No results found for: WBC, HGB, HCT, MCV, PLT No results found for: SODIUM, NA, POTASSIUM, K, CHLORIDE, CL, CO2, BUN, CREATININE, GLUCOSE, CALCIUM, PROT, BILIRUBINFL, ALKPHOS, AST, ALT, EGFR, GLOB Pain Score: 8 No echocardiogram results found for the past 14 days 07/03/24 ECG 12-LEAD (Preliminary) This result has not been signed. Information might be incomplete. Impression Sinus rhythm Equipment Requests: Additional Equipment Requests [employer] Phone: 1(660) 425-150604-23-2025 NotePatient: Keiry Miller Procedure Information Date/Time: 07/11/24 1100 Procedure: LEFT TOTAL HIP ARTHROPLASTY (Left: Hip) - 60MIN Location: [address] Operating Room Surgeons: Krishan Kruse MD Relevant Problems No relevant active problems Past Medical History: Past Medical History: No date: Arthritis No date: Hypertension No date: Joint pain No date: Motion sickness No date: Prediabetes Past Surgical History: Past Surgical History: No date: DENTAL SURGERY Comment: as teen Social History: TOBACCO: reports that she has never smoked. She has never used smokeless tobacco. ETOH: reports no history of alcohol use. Social History Substance and Sexual Activity Drug Use Never Family History: Family History Problem Relation Name Age of Onset Arthritis Mother Argelia Hypertension Mother Argelia Heart disease Father Griffin Stroke Father Griffin Stroke Paternal Grandmother Antonia Depression Brother Oneil Hypertension Brother Oneil Hypertension Sister Caitlin Screening: Postmenopausal Clinical information reviewed: Tobacco Allergies Meds Med Hx Surg Hx OB Status Fam Hx Soc Hx Physical Exam Airway Mallampati: II TM distance: >3 FB Neck ROM: full Mouth Open: normalendotracheal tube not in place Cardiovascular Dental Comments: Some missing teeth top and bottom Pulmonary Abdominal Anesthesia Plan patient is NPO appropriate Any family history or previous problems with anesthesia no ASA 3 regional and spinal Any family history or previous problems with anesthesia no The patient is not a current smoker. Anesthetic plan and risks discussed with patient and legal guardian. SYLWIA Screening STOP-Bang Total Score: 3 Labs: No results found for: WBC, HGB, HCT, MCV, PLT No results found for: SODIUM, NA, POTASSIUM, K, CHLORIDE, CL, CO2, BUN, CREATININE, GLUCOSE, CALCIUM, PROT, BILIRUBINFL, ALKPHOS, AST, ALT, EGFR, GLOB Pain Score: 8 No echocardiogram results found for the past 14 days 07/03/24 ECG 12-LEAD (Preliminary) This result has not been signed. Information might be incomplete. Impression Sinus rhythm Equipment Requests: [facility] NoteComprehensive PreSurgical History and Physical ? Name: Keiry Miller : 1960 (Age-64 y.o.) Date of Service: Pt seen/examined on 07/03/2024 Procedure Information Date/Time: 07/11/24 1100 Procedure: LEFT TOTAL HIP ARTHROPLASTY (Left: Hip) - 60MIN Location: [address] Operating Room Surgeons: Krishan Kruse MD Chief Complaint: LEFT HIP PAIN ASSESSMENT/PLAN: Patient is considered intermediate risk for this intermediate risk procedure/surgery noted above ( with no reducible risk factors. Based on the above evaluation, the benefits of the planned procedure likely exceed the risks. The patient is medically optimized to proceed with the planned procedure without any further cardiopulmonary testing. 1) PRIMARY OSTEOARTHRITIS OF LEFT HIP ; Managed per surgery 2) HTN Typically controlled. Compliant with meds. Taking LISINOPRIL Follows with PCP Labs and EKG done BP Readings from Last 3 Encounters: 07/03/24 135/66 3) SEASONAL ALLERGIES ; ON FLONASE AND CLARITIN F/U WITH PCP 4) OBESITY ;BMI TO-DAY 31.89 5) H/O MOTION SICKNESS 6) SNORE SOMETIMES 7) PRE-DIABETIC ; NO MEDS Visit Type: Pre-Admission Testing Visit Labs Ordered: As ordered by surgeon Do you have a history of chronic opioid use? CHRONIC NARCOTIC USAGE: No The patient meets the criteria for [facility] total joint replacement protocol. Sleep Referral Ordered: NO - NEGATIVE SCREEN PER SLEEP REFERRAL PROTOCOL Total time spent (which include face to face and non face to face encounters) : 40 minutes Toxic drug monitoring/narrow therapeutic index drug monitoring : # Drug name : lisinopril # Route administered : po # Method of monitoring : lab and EKG PAT Protocol referenced includes: 1. Anesthesia Lab Protocol Orders 2. Perioperative Cardiovascular Risk Assessment 3. Anesthesia Assessment 4. Pain Assessment and Acute Pain Service Consult (if appropriate) 5. Medical Clearance/Consult from Internal Medicine (IMS) 6. Shower/Wash Order (for designated surgeries) 7. SYLWIA Screen and Sleep Clinic Referral (if appropriate) History Of Present Illness: Patient here in the PAT along with her daughter 64 y.o. female who presents with chief complaint mentioned above. Per surgeon's note dated 06/17/2024 Keiry is a 64 y.o. female who presents for evaluation of the left hip. Symptoms began suddenly 2 years ago. She describes the symptoms as sharp and shooting. Pain location: side of hip/laterally and radiation down the leg. Symptoms improve with rest, heat, physical therapy, the use of a cane, avoiding painful activities. The symptoms are exacerbated by stair climbing, weight bearing. Able to walk 0-1 blocks and is able to use stairs. Overall, the patient feels as if this condition is moderately impacting their quality of life and ability to do activities of daily living. No associated radicular pain contributing nor any radiating hip pain. Previous Surgery: No Non-operative treatment has consisted of: NSAIDS: No Cortisone injections: No Assistive Devices: Yes Therapy: No Narcotics: No Activity modification: No Attempted Weight Loss: No Pt has seen the surgeon and elected for above procedure. Denies Hx of, DM, Asthma/COPD, SYLWIA, CAD, CHF, a fib, NM, TIA/CVA, DVT/PE Hx problems with anesthesia? -DENIES Past Medical History: Past Medical History: No date: Arthritis No date: Hypertension No date: Joint pain No date: Motion sickness No date: Prediabetes Past Surgical History: Past Surgical History: No date: DENTAL SURGERY Comment: as teen Medications Prior to Admission: Current Outpatient Medications: clobetasol (Temovate) 0.05 % external solution, Apply topically 2 times daily., Disp: , Rfl: ascorbic acid (Vitamin C) 500 MG tablet, Take 500 mg by mouth daily., Disp: , Rfl: Calcium Carbonate (CALTRATE 600 PO), Take by mouth daily., Disp: , Rfl: Cholecalciferol (Vitamin D3) 25 MCG capsule, Take by mouth daily., Disp: , Rfl: Cranberry 500 MG capsule, Take by mouth daily., Disp: , Rfl: fluticasone (Flonase) 50 MCG/ACT nasal spray, Fluticasone Propionate 50 mcg/actuation spray,suspension Active 2 NMA INTRANASAL AT BEDTIME May 06, 2024 1:00am, Disp: , Rfl: ibuprofen 200 MG tablet, Take 400 mg by mouth 3 times daily., Disp: , Rfl: lisinopril 40 MG tablet, 40 mg., Disp: , Rfl: loratadine (Claritin) 10 MG tablet, 10 mg., Disp: , Rfl: MAGNESIUM GLUCONATE PO, Take by mouth daily., Disp: , Rfl: Multiple Vitamins-Minerals (MULTIVITAMIN GUMMIES WOMENS PO), Take by mouth daily., Disp: , Rfl: Potassium Chloride (K+ POTASSIUM PO), Take by mouth daily., Disp: , Rfl: Probiotic Product (PROBIOTIC BLEND PO), Take by mouth daily., Disp: , Rfl: psyllium (Metamucil) 0.36 g capsule, Take 2 capsules by mouth daily., Disp: , Rfl: CHRONIC NARCOTIC USAGE: No Allergies (more content not included)...[facility] [id number] Note Comprehensive PreSurgical History and Physical ? Name: Keiry Miller : 1960 (Age-64 y.o.) Date of Service: Pt seen/examined on 07/03/2024 Procedure Information Date/Time: 07/11/24 1100 Procedure: LEFT TOTAL HIP ARTHROPLASTY (Left: Hip) - 60MIN Location: [address] Operating Room Surgeons: Krishan Kruse MD Chief Complaint: LEFT HIP PAIN ASSESSMENT/PLAN: Patient is considered intermediate risk for this intermediate risk procedure/surgery noted above ( with no reducible risk factors. Based on the above evaluation, the benefits of the planned procedure likely exceed the risks. The patient is medically optimized to proceed with the planned procedure without any further cardiopulmonary testing. 1) PRIMARY OSTEOARTHRITIS OF LEFT HIP ; Managed per surgery 2) HTN Typically controlled. Compliant with meds. Taking LISINOPRIL Follows with PCP Labs and EKG done BP Readings from Last 3 Encounters: 07/03/24 135/66 3) SEASONAL ALLERGIES ; ON FLONASE AND CLARITIN F/U WITH PCP 4) OBESITY ;BMI TO-DAY 31.89 5) H/O MOTION SICKNESS 6) SNORE SOMETIMES 7) PRE-DIABETIC ; NO MEDS Visit Type: Pre-Admission Testing Visit Labs Ordered: As ordered by surgeon Do you have a history of chronic opioid use? CHRONIC NARCOTIC USAGE: No The patient meets the criteria for [facility] total joint replacement protocol. Sleep Referral Ordered: NO - NEGATIVE SCREEN PER SLEEP REFERRAL PROTOCOL Total time spent (which include face to face and non face to face encounters) : 40 minutes Toxic drug monitoring/narrow therapeutic index drug monitoring : # Drug name : lisinopril # Route administered : po # Method of monitoring : lab and EKG PAT Protocol referenced includes: 1. Anesthesia Lab Protocol Orders 2. Perioperative Cardiovascular Risk Assessment 3. Anesthesia Assessment 4. Pain Assessment and Acute Pain Service Consult (if appropriate) 5. Medical Clearance/Consult from Internal Medicine (IMS) 6. Shower/Wash Order (for designated surgeries) 7. SYLWIA Screen and Sleep Clinic Referral (if appropriate) History Of Present Illness: Patient here in the PAT along with her daughter 64 y.o. female who presents with chief complaint mentioned above. Per surgeon's note dated 06/17/2024 Keiry is a 64 y.o. female who presents for evaluation of the left hip. Symptoms began suddenly 2 years ago. She describes the symptoms as sharp and shooting. Pain location: side of hip/laterally and radiation down the leg. Symptoms improve with rest, heat, physical therapy, the use of a cane, avoiding painful activities. The symptoms are exacerbated by stair climbing, weight bearing. Able to walk 0-1 blocks and is able to use stairs. Overall, the patient feels as if this condition is moderately impacting their quality of life and ability to do activities of daily living. No associated radicular pain contributing nor any radiating hip pain. Previous Surgery: No Non-operative treatment has consisted of: NSAIDS: No Cortisone injections: No Assistive Devices: Yes Therapy: No Narcotics: No Activity modification: No Attempted Weight Loss: No Pt has seen the surgeon and elected for above procedure. Denies Hx of, DM, Asthma/COPD, SYLWIA, CAD, CHF, a fib, NM, TIA/CVA, DVT/PE Hx problems with anesthesia? -DENIES Past Medical History: Past Medical History: No date: Arthritis No date: Hypertension No date: Joint pain No date: Motion sickness No date: Prediabetes Past Surgical History: Past Surgical History: No date: DENTAL SURGERY Comment: as teen Medications Prior to Admission: Current Outpatient Medications: clobetasol (Temovate) 0.05 % external solution, Apply topically 2 times daily., Disp: , Rfl: ascorbic acid (Vitamin C) 500 MG tablet, Take 500 mg by mouth daily., Disp: , Rfl: Calcium Carbonate (CALTRATE 600 PO), Take by mouth daily., Disp: , Rfl: Cholecalciferol (Vitamin D3) 25 MCG capsule, Take by mouth daily., Disp: , Rfl: Cranberry 500 MG capsule, Take by mouth daily., Disp: , Rfl: fluticasone (Flonase) 50 MCG/ACT nasal spray, Fluticasone Propionate 50 mcg/actuation spray,suspension Active 2 NMA INTRANASAL AT BEDTIME May 06, 2024 1:00am, Disp: , Rfl: ibuprofen 200 MG tablet, Take 400 mg by mouth 3 times daily., Disp: , Rfl: lisinopril 40 MG tablet, 40 mg., Disp: , Rfl: loratadine (Claritin) 10 MG tablet, 10 mg., Disp: , Rfl: MAGNESIUM GLUCONATE PO, Take by mouth daily., Disp: , Rfl: Multiple Vitamins-Minerals (MULTIVITAMIN GUMMIES WOMENS PO), Take by mouth daily., Disp: , Rfl: Potassium Chloride (K+ POTASSIUM PO), Take by mouth daily., Disp: , Rfl: Probiotic Product (PROBIOTIC BLEND PO), Take by mouth daily., Disp: , Rfl: psyllium (Metamucil) 0.36 g capsule, Take 2 capsules by mouth daily., Disp: , Rfl: CHRONIC NARCOTIC USAGE: No Allergies (more content not included)...[facility] POPAPP [facility] [id number] Telephone encounter Note* Telephone Encounter - Chasity Hinojosa - 06/28/2024 3:01 PM EDT Images from the original note were not included. Submitted auth through [employer]. Status approved. Auth# [id number] [facility] [id number] Telephone encounter Note* Telephone Encounter - Chasity Hinojosa - 06/27/2024 11:40 AM EDT Insurance Info: MMO PAT: TBD Sx: 07/11 @ 1100 Dx: M16.12 CPT: 13093 Case #: [id number] BOOKING INSTRUCTIONS Procedure: Left Total Hip Arthroplasty - 13500 with anterior approach and robotic assisted guidance- 0055T Time: 1 hour(s) - last case of day Diagnosis: 1. Primary osteoarthritis of left hip Blood: Not anticipated to be given Important Labs to Obtain: Routine PAT protocol Anesthesia: Spinal and quadratus lumborum block DVT Prophylaxis: ASA Return to Office: No Repeat Xrays: Anish CT Anticipated Discharge To: Home, 23-HR Stay Implants: [place] Trident 2 Cup, Insignia Stem with Anish Equipment: Regular table, fluoro Other: TXA, No Rao, OpSite, Will send femoral head for permanent specimen [facility] [id number] Telephone encounter Note* Telephone Encounter - Kamaljit Blankenship - 06/17/2024 1:53 PM EDT Images from the original note were not included. CT approved via [employer] [facility] [id number] Miscellaneous Notes* Telephone Encounter - Kamaljit Blankenship - 06/17/2024 1:53 PM EDT Images from the original note were not included. CT approved via [employer] * Telephone Encounter - Kamaljit Blankenship - 06/17/2024 12:17 PM EDT Picked SX date for 07/11, office note not signed yet. Needs ANISH. documented in this encounterSKettering Health [id number] Telephone encounter Note* Telephone Encounter - Kamaljit Blankenship - 06/17/2024 12:17 PM EDT Picked SX date for 07/11, office note not signed yet. Needs ANISH. [facility] [id number] History of Present illness Narrative* Krishan Kruse MD - 06/17/2024 10:00 AM EDT Images from the original note were not included. [facility] [place] [address] [place] [address] [place] [id number] Dept: [phone] Dept 06/17/2024 Chief Complaint Patient presents with New Patient Left hip pain Subjective: Keiry is a 64 y.o. female who presents for evaluation of the left hip. Symptoms began suddenly 2 years ago. She describes the symptoms as sharp and shooting. Pain location: side of hip/laterally and radiation down the leg. Symptoms improve with rest, heat, physical therapy, the use of a cane, avoiding painful activities. The symptoms are exacerbated by stair climbing, weight bearing. Able to walk0-1 blocks and is able to use stairs. Overall, the patient feels as if this condition is moderatelyimpacting their quality of life and ability to do activities of daily living. No associated radicular pain contributing nor any radiating hip pain. Previous Surgery: No Non-operative treatment has consisted of: NSAIDS: No Cortisone injections: No Assistive Devices: Yes Therapy: No Narcotics: No Activity modification: No Attempted Weight Loss: No Medications reviewed Review of Systems Constitutional: Negative for activity change. HENT: Negative for congestion. Cardiovascular: Negative for leg swelling. Musculoskeletal: Positive for arthralgias, gait problem and joint swelling. Skin: Negative for wound. Neurological: Negative for weakness. No past medical history on file. No past surgical history on file. Social History Socioeconomic History Marital status: Spouse name: Not on file Number of children: Not on file Years of education: Not on file Highest education level: Not on file Occupational History Not on file Tobacco Use Smoking status: Never Smokeless tobacco: Never Substance and Sexual Activity Alcohol use: Never Drug use: Never Sexual activity: Not on file Other Topics Concern Not on file Social History Narrative Not on file Social Drivers of Health Financial Resource Strain: Not on file Food Insecurity: Not on file Transportation Needs: Not on file Physical Activity: Not on file Stress: Not on file Social Connections: Not on file Intimate Partner Violence: Not on file Housing Stability: Not on file No family history on file. Allergies Allergen Reactions Pollen Extract Other Reaction(s): Itchy watery eyes Sulfa Antibiotics Other Reaction(s): Other (See Comments), Other: See Comments, PT UNSURE OF REACTION Tightness of chest. Objective: Ht 5' 6.5 (1.689 m) Wt 206 lb (93.4 kg) BMI 32.75 kg/m Pt is a WD/WN female in no acute distress. She appears her stated age. Mood and affect are normal. She is A&O x 3. Gait: antalgic. RIGHT HIP: Skin is warm, dry and intact. There are no rashes, lesions, or obvious scars. No tenderness to palpation. Greater trochanter is not tender. ROM shows flexion 90, IR 30, ER 40, without pain. [facility] exam: negative. +PF/DF/EHL. SILT distally. DP/PT palpable. Straight leg raise negative for inciting radicular symptoms. LEFT HIP: Skin is warm, dry and intact. There are no rashes, lesions, or obvious scars. No tenderness to palpation. Greater trochanter is tender. ROM shows flexion 90, IR 5, ER 30, with pain. On License Of [facility] exam: positive. +PF/DF/EHL. SILT distally. DP/PT palpable. Straight leg raise negative for inciting radicular symptoms. The patient does have a leg length discrepancy and measures 5-6mm short on the left. Lab Findings: RELEVANT LABS: No results found for: HGBA1C Radiology Findings: 05/06/2024 images obtained by outside radiology department independently reviewed by myself today in office. XRAYS: Indication: Left hip pain Exam Ordered: Radiographs include an anteroposterior pelvis, an anteroposterior and lateral view ofthe proximal femur including the hip joint. Details of Examination: Exam shows evidence of significant joint space narrowing (bone on bone), significant peripheral osteophyte formation, and subchondral sclerosis; all consistent with end-stage degenerative changes of the hip. No other significant findings are noted. Impression: Degenerative Arthritis, left hip MRI reviewed from outside institution, 06/08/2024: Severe degenerative arthritis left hip, severe cystic formation of femoral head and acetabulum. 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 Uterine calcified lesion, appears to be fibroid. Assessment 1. Primary osteoarthritis of left hip Plan Left Total Hip Arthroplasty. Previous MRI read concerning for metastatic disease, however, appears to be degenerative cyst formation in femoral head and acetabulum. Low concern for neoplasm, would berare to see lesions on both sides of joint and unlikely to spread from uterus. Will send femoral head and possible reamings for pathologic evaluation. Discussed anything encountered that is unusual during the surgery we may have to get Dr. Watson involved for further help in managing which she understood. This patient has end-stage degenerative joint disease clinically and radiographically. The affectedhip is severely impacting the patient's quality of life and causing them to decrease their daily activities. They have tried non- operative treatment including analgesics, an exercise program, and activity modification, but the symptoms have persisted for beyond three months. The patient meets all of the criteria for a total hip arthroplasty. The risks and benefits of hip arthroplasty have been discussed with the patient. Benefits include potential relief of pain and the associated improvement in quality of life. Improvements in hip rangeof motion may or may not be attained and is less predictable. Risks include, but are not limited to, infections (including severe sequelae), potential component failure and implant loosening, fracture, DVT, pulmonary embolus, hip dislocation, leg length discrepancy, damage to nerves/muscles/tendons/ligaments, osteolysis, persistent pain, wound healing complications, bleeding and need for possibletransfusions, multi-system organ injury/failure, and ultimately . The patient comprehends and u nderstands the risks clearly and wishes to proceed with the indicated total hip procedure. Principal Care Management (PCM) services were recommended to this patient with a diagnosis of osteoarthritis who has failed conservative management and is indicated for, as well as undergone shared decision-making to undergo a total joint arthroplasty procedure. PCM services provided to the patientinclude but not limited to structured recording of patient health information within our electronicmedical record system, 03/10 access and continuity of care to qualified practitioners and/or clinical staff, comprehensive care management and planning to optimize pre-surgical needs, choice of an appropriate surgical facility, preoperative patient education, and coordination of patient-specific doris- operative needs. This will be actively managed by the clinical staff with physician supervision throughout enrollment in the program. The clinical staff will help manage care transitions as well as coordinate home and community-based care as it pertains to the patient's needs. The patient expresses understanding and awareness of PCM services, including but not limited to potential cost- sharing responsibilities; only one practitioner can furnish and bill for PCM services during a calendar month, and the patient can stop these services at any time. The patient understands and has verbally consented to accept PCM services. We will need a 4 week post-op check with WB AP pelvis, AP, and frog leg views of operative hip. Pre-operative planning will include the following: A pre-surgical evaluation by an russian language instructor will be arranged. Pre-operative laboratory tests as well as EKG which will be checked by the russian language instructor. Will make arrangements with the operating room for proper time and staffing. Arrangements with the implant company to make sure the proper implants are made available. Social service arrangements for the patient, to include physical therapy at home versus in the outpatient setting, depending on patient preference. The chance for long-term facility discharge is also plausible pending post-op therapy. Patient Discussion, Scripts, & Risk Assessment Checklist: [x] Detailed Consent Performed [] Cardiology consult prior to surgery (i.e. CHF, stents) [x] Specialist managing patient (i.e. endocrine, nephrology, oncology) Consult gynecology prior to surgery - scheduled to see for fibroid, if anything develops further will need to keep us posted [] PCP consult prior to surgery [x] PT Discussion - Patient prefers: Home PT [] Outpatient PT script provided - Patient to schedule well in advance for 2-3 days after surgery [x] Doris-articular Injection Form Submitted - No significant allergy or intolerance to NSAID's - All Total Joint Procedures [] Dental work to be done - Patient to call back after completed/cleared before scheduling [] Previous Blood Clot: N/A [] Disease Modifying Drugs for *Autoimmune Disease N/A [x] Risk Assessment... No High Risk Factors [x] High Risk Protocol N/A BOOKING INSTRUCTIONS Procedure: Left Total Hip Arthroplasty - 21972 with anterior approach and robotic assisted guidance- 0055T Time: 1 hour(s) - last case of day Diagnosis: 1. Primary osteoarthritis of left hip Blood: Not anticipated to be given Important Labs to Obtain: Routine PAT protocol Anesthesia: Spinal and quadratus lumborum block DVT Prophylaxis: ASA Return to Office: No Repeat Xrays: Anish CT Anticipated Discharge To: Home, 23-HR Stay Implants: [employer] Trident 2 Cup, Insignia Stem with Anish Equipment: Regular table, fluoro Other: TXA, No Rao, OpSite, Will send femoral head for permanent specimen The patient is not a candidate for same day joint replacement. Krishan Kruse M.D. 06/17/2024 at 10:55 AM (Electronically Signed) documented in this [facility]04-07-2025 History of Present illness Narrative* Krishan Kruse MD - 06/17/2024 10:00 AM EDT Images from the original note were not included. [facility] [place] [address] [place] [address] [place] [phone] Dept: [phone] Dept 06/17/2024 Chief Complaint Patient presents with New Patient Left hip pain Subjective: Keiry is a 64 y.o. female who presents for evaluation of the left hip. Symptoms began suddenly 2 years ago. She describes the symptoms as sharp and shooting. Pain location: side of hip/laterally and radiation down the leg. Symptoms improve with rest, heat, physical therapy, the use of a cane, avoiding painful activities. The symptoms are exacerbated by stair climbing, weight bearing. Able to walk0-1 blocks and is able to use stairs. Overall, the patient feels as if this condition is moderatelyimpacting their quality of life and ability to do activities of daily living. No associated radicular pain contributing nor any radiating hip pain. Previous Surgery: No Non-operative treatment has consisted of: NSAIDS: No Cortisone injections: No Assistive Devices: Yes Therapy: No Narcotics: No Activity modification: No Attempted Weight Loss: No Medications reviewed Review of Systems Constitutional: Negative for activity change. HENT: Negative for congestion. Cardiovascular: Negative for leg swelling. Musculoskeletal: Positive for arthralgias, gait problem and joint swelling. Skin: Negative for wound. Neurological: Negative for weakness. No past medical history on file. No past surgical history on file. Social History Socioeconomic History Marital status: Spouse name: Not on file Number of children: Not on file Years of education: Not on file Highest education level: Not on file Occupational History Not on file Tobacco Use Smoking status: Never Smokeless tobacco: Never Substance and Sexual Activity Alcohol use: Never Drug use: Never Sexual activity: Not on file Other Topics Concern Not on file Social History Narrative Not on file Social Drivers of Health Financial Resource Strain: Not on file Food Insecurity: Not on file Transportation Needs: Not on file Physical Activity: Not on file Stress: Not on file Social Connections: Not on file Intimate Partner Violence: Not on file Housing Stability: Not on file No family history on file. Allergies Allergen Reactions Pollen Extract Other Reaction(s): Itchy watery eyes Sulfa Antibiotics Other Reaction(s): Other (See Comments), Other: See Comments, PT UNSURE OF REACTION Tightness of chest. Objective: Ht 5' 6.5 (1.689 m) Wt 206 lb (93.4 kg) BMI 32.75 kg/m Pt is a WD/WN female in no acute distress. She appears her stated age. Mood and affect are normal. She is A&O x 3. Gait: antalgic. RIGHT HIP: Skin is warm, dry and intact. There are no rashes, lesions, or obvious scars. No tenderness to palpation. Greater trochanter is not tender. ROM shows flexion 90, IR 30, ER 40, without pain. Stinchfield exam: negative. +PF/DF/EHL. SILT distally. DP/PT palpable. Straight leg raise negative for inciting radicular symptoms. LEFT HIP: Skin is warm, dry and intact. There are no rashes, lesions, or obvious scars. No tenderness to palpation. Greater trochanter is tender. ROM shows flexion 90, IR 5, ER 30, with pain. Stinchfield exam: positive. +PF/DF/EHL. SILT distally. DP/PT palpable. Straight leg raise negative for inciting radicular symptoms. The patient does have a leg length discrepancy and measures 5-6mm short on the left. Lab Findings: RELEVANT LABS: No results found for: HGBA1C Radiology Findings: 05/06/2024 images obtained by outside radiology department independently reviewed by myself today in office. XRAYS: Indication: Left hip pain Exam Ordered: Radiographs include an anteroposterior pelvis, an anteroposterior and lateral view ofthe proximal femur including the hip joint. Details of Examination: Exam shows evidence of significant joint space narrowing (bone on bone), significant peripheral osteophyte formation, and subchondral sclerosis; all consistent with end-stage degenerative changes of the hip. No other significant findings are noted. Impression: Degenerative Arthritis, left hip MRI reviewed from outside institution, 06/08/2024: Severe degenerative arthritis left hip, severe cystic formation of femoral head and acetabulum. 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 Uterine calcified lesion, appears to be fibroid. Assessment 1. Primary osteoarthritis of left hip Plan Left Total Hip Arthroplasty. Previous MRI read concerning for metastatic disease, however, appears to be degenerative cyst formation in femoral head and acetabulum. Low concern for neoplasm, would berare to see lesions on both sides of joint and unlikely to spread from uterus. Will send femoral head and possible reamings for pathologic evaluation. Discussed anything encountered that is unusual during the surgery we may have to get Dr. Watson involved for further help in managing which she understood. This patient has end-stage degenerative joint disease clinically and radiographically. The affectedhip is severely impacting the patient's quality of life and causing them to decrease their daily activities. They have tried non- operative treatment including analgesics, an exercise program, and activity modification, but the symptoms have persisted for beyond three months. The patient meets all of the criteria for a total hip arthroplasty. The risks and benefits of hip arthroplasty have been discussed with the patient. Benefits include potential relief of pain and the associated improvement in quality of life. Improvements in hip rangeof motion may or may not be attained and is less predictable. Risks include, but are not limited to, infections (including severe sequelae), potential component failure and implant loosening, fracture, DVT, pulmonary embolus, hip dislocation, leg length discrepancy, damage to nerves/muscles/tendons/ligaments, osteolysis, persistent pain, wound healing complications, bleeding and need for possibletransfusions, multi-system organ injury/failure, and ultimately . The patient comprehends and u nderstands the risks clearly and wishes to proceed with the indicated total hip procedure. Principal Care Management (PCM) services were recommended to this patient with a diagnosis of osteoarthritis who has failed conservative management and is indicated for, as well as undergone shared decision-making to undergo a total joint arthroplasty procedure. PCM services provided to the patientinclude but not limited to structured recording of patient health information within our electronicmedical record system, 03/10 access and continuity of care to qualified practitioners and/or clinical staff, comprehensive care management and planning to optimize pre-surgical needs, choice of an appropriate surgical facility, preoperative patient education, and coordination of patient-specific doris- operative needs. This will be actively managed by the clinical staff with physician supervision throughout enrollment in the program. The clinical staff will help manage care transitions as well as coordinate home and community-based care as it pertains to the patient's needs. The patient expresses understanding and awareness of PCM services, including but not limited to potential cost- sharing responsibilities; only one practitioner can furnish and bill for PCM services during a calendar month, and the patient can stop these services at any time. The patient understands and has verbally consented to accept PCM services. We will need a 4 week post-op check with WB AP pelvis, AP, and frog leg views of operative hip. Pre-operative planning will include the following: A pre-surgical evaluation by an russian language instructor will be arranged. Pre-operative laboratory tests as well as EKG which will be checked by the russian language instructor. Will make arrangements with the operating room for proper time and staffing. Arrangements with the implant company to make sure the proper implants are made available. Social service arrangements for the patient, to include physical therapy at home versus in the outpatient setting, depending on patient preference. The chance for long-term facility discharge is also plausible pending post-op therapy. Patient Discussion, Scripts, & Risk Assessment Checklist: [x] Detailed Consent Performed [] Cardiology consult prior to surgery (i.e. CHF, stents) [x] Specialist managing patient (i.e. endocrine, nephrology, oncology) Consult gynecology prior to surgery - scheduled to see for fibroid, if anything develops further will need to keep us posted [] PCP consult prior to surgery [x] PT Discussion - Patient prefers: Home PT [] Outpatient PT script provided - Patient to schedule well in advance for 2-3 days after surgery [x] Doris-articular Injection Form Submitted - No significant allergy or intolerance to NSAID's - All Total Joint Procedures [] Dental work to be done - Patient to call back after completed/cleared before scheduling [] Previous Blood Clot: N/A [] Disease Modifying Drugs for *Autoimmune Disease N/A [x] Risk Assessment... No High Risk Factors [x] High Risk Protocol N/A BOOKING INSTRUCTIONS Procedure: Left Total Hip Arthroplasty - 92013 with anterior approach and robotic assisted guidance- Time: 1 hour(s) - last case of day Diagnosis: 1. Primary osteoarthritis of left hip Blood: Not anticipated to be given Important Labs to Obtain: Routine PAT protocol Anesthesia: Spinal and quadratus lumborum block DVT Prophylaxis: ASA Return to Office: No Repeat Xrays: Anish CT Anticipated Discharge To: Home, 23-HR Stay Implants: [place] Trident 2 Cup, Insignia Stem with Anish Equipment: Regular table, fluoro Other: TXA, No Rao, OpSite, Will send femoral head for permanent specimen The patient is not a candidate for same day joint replacement. Krishan Kruse M.D. 06/17/2024 at 10:55 AM (Electronically Signed) documented in this [facility]04-07-2025 Miscellaneous Notes* Result Encounter Note - Krishan Kruse MD - 06/17/2024 10:00 AM EDT Keiry didn't get a WB pelvis at [facility]. Will need this done prior to surgery. Like literally a day before is fine. Ko likely closest for her? Tell her we're sorry about this getting missed. documented in this [facility]04-07-2025 Progress note* Result Encounter Note - Krishan Kruse MD - 06/17/2024 10:00 AM EDT Keiry didn't get a WB pelvis at [facility]. Will need this done prior to surgery. Like literally a day before is fine. Ko likely closest for her? Tell her we're sorry about this getting missed. [facility] [id number] Radiology Diagnostic study note [facility] Services [address] [place] [address] Kidney and Bladder MR#: [id number] Acct: [id number] Name: KEIRY MILLER Rep #: [id number] : 1960 F 64 From: Sandee Shafer MD PCP: Irene Gonzalez Yessy, PROGRAMMING DEVELOPMENT PROJECT MANAGER-C Status: REG CLI Study:Kidney and Bladder Date of Exam: 0 05/23/24 Exam# [id number] Ordering Dr: Lala Sullivan MD EXAM: US Retroperitoneal Limited, Renal CLINICAL INDICATION: UTI TECHNIQUE: Real-time limited ultrasound of the retroperitoneum with image documentation. COMPARISON: No relevant prior studies available. FINDINGS: RIGHT KIDNEY: Unremarkable. No stones. No hydronephrosis. The right kidney measures 10.9 x 5.4 x 4.6 cm. LEFT KIDNEY: Unremarkable. No stones. No hydronephrosis. The left kidney measures 10.9 x 5.0 x 5.5 cm. BLADDER: Urinary bladder not visualized, likely empty. US/Kidney and Bladder IMPRESSION: Unremarkable exam. Reading Location: [facility] CC: [facility] REMA Gonzalez; Dr. Lala Sullivan MD ~ Shot Peening Operator: Signed [facility]02-24-2025 Evaluation note* Diagnosis Onset Date Resolution Status Admit Date Injury of left hip and thigh acute May 06, 2024 3:03pm Localized osteoarthritis of hip acut e May 06, 2024 3:03pm [facility] Work Phone: 1(329) 299-415602-24-2025 Evaluation note* Diagnosis Onset Date Resolution Status Admit Date Injury of left hip and thigh acute May 06, 2024 3:03pm Localized osteoarthritis of hip acut e May 06, 2024 3:03pm Abdominal mass acute June 12, 2024 9:25am Injury of left hip and thigh acute June 12, 2024 9:25am Pathologic femoral fracture acute June 12, 2024 9:25am [facility] Work Phone: [phone]) 670-233507-11-2022 Instructions* Patient Instructions* Keturah Otoole APRN.ALAN - 09/20/2021 4:10 PM EDT Clobetasol - use daily x 2 weeks, then every other day x 2 weeks, then 1x week for 2 weeks Non-Hormonal Vaginal Lubricants & Vaginal Moisturizers Symptoms of vaginal dryness can be managed by the regular use of vaginal moisturizing agents with supplemental use of vaginal lubricants for sexual intercourse. . Use of vaginal moisturizers and lubricants alone is effective treatment for vaginal dryness or dyspareunia (pain with intercourse) in some patients. Vaginal lubrications- Vaginal lubricants are designed to reduce friction and discomfort from dryness during sexual intercourse. The lubricant is applied inside the vagina and/or on the partner's penis or fingers just before sex. Coconut, Lemhi, Avocado or Peanut oil- natural oils are not recommended for use with latex condoms or diaphragms as they can damage the latex Astroglide- has both water and silicone based KY Jelly- water based Just like me Pure Romance Almost Naked Good Clean Love Bio Nude ultra-sensitive Pjur- silicone ID Millennium- silicone Vaginal Moisturizers- Vaginal moisturizers are intended for use routinely, typically two or three days per week, not just during sexual activity. These products are typically bioadhesives. Many moisturizer products are available in pharmacies and online. MdundoclePhosphagenics Replens John Paul Feminease Moist Again K-Y Liquid beads Products to assist with maintaining vaginal ph IsoFresh [email or web address] [email or web address] Rephresh documented in this encounterPrem[facility]07-11-2022 History of Present illness Narrative* Keturah Otoole APRN.CNM - 09/20/2021 3:55 PM EDT Keiry Miller is a 61 year old female who presents for a follow up visit. Cervical polypectomy in office on 06/21/21. She was also started on Clobetasol vaginally for lichen sclerosis and was supposed to taper off. Stated feeling 100 % better since started clobetasol but continues to use daily. Discussed tapering off. No current insurance and paying out of pocket for visits and medications. Mammogram overdue but patient declining recommendation of yearly screening. 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 No past surgical history on file. No family history on file. Social History Tobacco Use Smoking status: Never Smoker Smokeless tobacco: Never Used Vaping Use Vaping Use: Never used Substance Use Topics Alcohol use: Not on file Drug use: Not on file Current Outpatient Medications Medication Sig estrogens, conjugated (PREMARIN VAGINAL) Use vaginally. lisinopril (ZESTRIL, PRINIVIL) 40 mg tablet Take 1 tablet by mouth once daily. No current facility-administered medications for this visit. Allergies As of Date: 09/20/2021 Allergen Noted Reaction SULFA (SULFONAMIDE ANTIBIOTICS) 06/26/2017 Other: See Comments Fully Assessed 09/20/2021 REVIEW OF SYSTEMS Abdomen: No bloating, early satiety, indigestion, or increased flatulence. No abdominal pain, nausea, vomiting, diarrhea, or constipation. Bladder: No dysuria, gross hematuria, urinary frequency, urinary urgency, or incontinence. Breast: No breast lumps, nipple d/c, overlying skin changes, redness or skin retraction. Expanded ROS: N/A Allergies and current medication updated:Yes EXAM: BP 126/70 Wt 200 lb (90.7kg) GENERAL: pleasant, female in no apparent distress HEENT: Normocephalic, atraumatic and mucus membranes moist NECK: Supple and full range of motion DERMATOLOGY: Normal and without lesions BREAST: deferred CHEST: Normal inspiratory effort ABDOMEN: Deferred PELVIC: deferred BIMANUAL: deferred NEURO: alert and oriented x3,exam grossly non-focal EXTREMITIES: normal ASSESSMENT/PLAN: 1. Post-menopause - ICD9: V49.81, ICD10: Z78.0 (primary diagnosis) 2. Lichen sclerosus of vulva - ICD9: 701.0, ICD10: N90.4 - clobetasol vaginally daily x 4 weeks, then EOD x 4 weeks, then 1x week x 4 weeks- taper off 3. Vaginal atrophy - ICD9: 627.3, ICD10: N95.2 - Premarin vaginally twice weekly RTO- annual exams or as needed Keturah Otoole APRN.CNM documented in this encounterPrem[facility]04-18-2022 Miscellaneous Notes* Telephone Encounter - Amalia Nance RN - 06/28/2021 2:24 PM EDT Patient notified. Voiced understanding. Amalia Nance RN * Telephone Encounter - Keturah Otoole APRN.CNM - 06/28/2021 2:13 PM EDT Patient was screened for yeast and bacterial vaginosis last week and results were negative. If she would like another swab to be completed that is fine as well. Patient should not be using Crisco vaginally. She can use coconut oil or even olive oil. She should try the clobetasol twice daily withoutusing anything else vaginally. None of these things would cause the cramping that she is experiencing. Keturah Otoole APRN.CNM * Telephone Encounter - Karmen Yoder RN - 06/28/2021 11:05 AM EDT Patient was seen in the office on 06/21 and was given Clobetasol for lichen sclersosus to start BID.Patient has been using the medication and states she has lots of stinging and burning every time she uses the medication. She has also been using Crisco as well. Patient states starting last night she had a lot of increased abdominal cramping/pain and states her abdomen feels swollen. Patient states cramping and swelling feels like when you would have a period. Patient states she has done a lot of driving the past couple of days and doesn't know if that would have anything to do with the cramping and pain. Patient states last evening she did notice a little bit of white discharge last night, but states that could be d/t the Crisco, but states she has had a foul odor for 3-4 days. Patient states she was unsure if odor could be from the polyp removal or from a possible vaginal infection as she has been having problems with them for a couple of months. Please address. Karmen Yoder RN documented in this encounterPremier Health04-11-2022 Instructions* Patient Instructions* Keturah Otoole APRN.CNM - 06/21/2021 2:40 PM EDT Guidelines for Vulvar Skin Care NOTE: The goal is to promote healthy vulvar skin. This is done by decreasing and/or removing any chemicals, moisture, or rubbing (friction). Any products listed below have been suggested for use because of their past success in helping to decrease or relieve vulvar/vaginal itching and burning. LAUNDRY PRODUCTS Use a detergent free of dyes, enzymes and perfumes (such as ALL-Free and Clear or Earth-Rite) on any clothing that comes in contact with your vulva such as your underwear, exercise clothes, towels, or pajama bottoms. Use 1/3 to 1/2 the suggested amount per load. Other clothing may be washed in the laundry soap of your choice. Do not use a fabric softener in the washer or dryer on these articles of clothing. If you do use dryer sheets with the rest of your clothes, for any loads, you must hang dry your underwear, towels, and any other clothing that comes in contact with your vulva. Stain Removing Products. Soak and rinse in clear water all underwear and towels on which you have used a stain removing product. Then wash in your regular washing cycle. This removes as much of the product as possible. CLOTHING Wear white all cotton underwear, not nylon with a cotton crotch. Cotton allows air in and moisture out. Avoid pantyhose. If you must wear them, either cut out the finesse crotch (if you cut out the crotch be sure to leave about 1/4 to 1/2 inch of fabric from the seam to prevent running) or wear thigh high hose. Many stores now carry thigh high nylons. Avoid tight clothing, especially clothing made of synthetic fabrics. Remove wet bathing and exercise clothing as soon as you can. BATHING AND HYGIENE Avoid bath soaps, lotions, gels, etc. which contain perfumes. These may smell nice but can be irritating. This includes many baby products and feminine hygiene products marked gentle or mild. We suggest any of the following soaps: Dove-Hypoallergenic, Neutrogena, Basis, or Pears. Do not use soap directly on the vulvar skin just warm water and your hand will keep the vulvar area clean without irritating the skin. Avoid all bubble baths, bath salts and scented oils. Do not scrub vulvar skin with a washcloth, washing with your hand is adequate for good cleaning. Do not use hot water while bathing or showering. Only luke-warm water should only be used. Pat dry rather than rubbing with a towel or use a hairdryer on a cool setting to dry the vulva. Baking Soda soaks. Soak in lukewarm (not hot) bath water with 4-5 tablespoons of baking soda to help soothe vulvar itching and burning. A sitz bath that goes on the toilet is best. Soak 1 to 3 times a day for 10-15 minutes when you have vulvar symptoms. Use white, unscented toilet paper. If paper has a perfumed scent or lotion, avoid using it. Avoid wiping after urinating; blot or dab only. Avoid all feminine hygiene sprays, perfumes, adult, or baby wipes. Pour lukewarm water over the vulva after urinating if urine causes burning of the skin. Pat dry rather than rubbing with a towel. Avoid the use of deodorized pads and tampons. Tampons should be used when the blood flow is heavy enough to soak one tampon in four hours or less. Tampons are safe for most women, but wearing them too long or when the blood flow is light may result in vaginal infection, increased discharge, odor, or toxic shock syndrome. Also, use only pads that have a cotton liner that comes in contact with yourskin (no dry weave pads). Avoid all over the counter creams or ointments, except A&D Ointment (if you have wool allergy do not use A&D). Ask your health care provider first. Small amounts of A&D Ointment or Criscomay be applied to your vulva as often as needed to protect the skin. It may also help to decrease skin irritation during your period and when you urinate. Brands that have been helpful are the Synchroneuron brand, SurgeryEdu brand, boldUnderline. llc brand, or Dermira brand. DO NOT DOUCHE. Baking soda soaks will help rinse away extra discharge and help with odor. DO NOT SHAVE, wax or laser the vulvar area (the bikini line is ok). Some women may have problems with chronic dampness. Keeping dry is important. Choose cotton fabrics whenever you can. Keep an extra pair of underwear with you in a small bag and change if you become damp during the day at work/school. Gold Jones Powder or Zeosorb Powder may be applied to the vulva and groin area one to two times per day to help absorb moisture. Dryness and irritation during intercourse may be helped by using a lubricant. Use a small amount ofa pure vegetable oil/olive oil or Crisco (solid or oil). The vegetable oils contain no chemicals toirritate vulvar/vaginal skin. Vegetable oils will rinse away with water and will not increase your chances of infection. Water-based products like K-Y Jelly are helpful, but may tend to dry before intercourse is over and also contain chemicals that can irritate your vulvar skin. It may be helpful to use a non-lubricated, non-spermicidal condom, and use vegetable oil as the lubricant. This will help keep the semen off the skin which can decrease burning and irritation after intercourse. CONTROL OPTIONS All hormonal contraceptives will have an effect on vaginal secretions but should not increase your frequency of vaginitis. Lubricated condoms, contraceptive jellies, creams, or sponges may cause itching and burning. Ask your health care provider for help. The use of latex condoms with a vegetable oil as a lubricant (#14 above) is suggested to protect your skin. Oil based lubricants may affect the integrity of condoms when used for control or prevention of sexually transmitted diseases. Our experience has not found this to be a problem with vegetable based oils. However, the Centers for Disease Control recommends that condoms not be used withany oil based lubricants for control or prevention of sexually transmitted disease. documented in this encounterPremier Health04-11-2022 History of Present illness Narrative* Keturah Otoole APRN.CNM - 06/21/2021 2:38 PM EDT Keiry Miller presents for removal of a cervical polyp noted on exam. She reports no symptoms. UNIVERSAL PROTOCOL / SAFETY CHECKLIST Procedure to be Performed: polypectomy Sign In: A Moment of CARE was completed. Personnel directly involved with the procedure wore the appropriate PPE (Personal Protective Equipment). Patient/Surrogate Stated/Verified: PATIENT VERIFIED(optional for EMERGENT procedures): Patient name, Date of , Relevant allergies and The intended procedure Time Out Communication: Intended patient and procedure match the source documents. Consent documented and matches the intended procedure. Sign Out: SIGN OUT (optional for EMERGENT procedures): All specimen containers correctly labeled. Post-procedure follow-up management communicated and Plan of Care Visit completed when applicable. Keturah Otoole APRN.CNM PROCEDURE: EXTERNAL GENITALIA: Normal in appearance without lesions VAGINA: Normal in appearance without lesions cervical polyp was grasped with ring forceps and removed with gentle twisting motion. Hemostasis atthe base of the polyp was secured with pressure. Specimen was labeled and sent to pathology. Patient tolerated procedure well. Plan: Specimens labeled and sent to Pathology. Will notify patient of results in 1-2 weeks. Post-procedure instructions reviewed and written material given to the patient. Keturah Otoole APRN.CNM * Keturah Otoole APRN.CNM - 06/21/2021 1:47 PM EDT Keiry Miller is a 61 year old female who presents for problem visit of vaginal irritation. Patient is new to clinic. She was referred from PCP at [facility]. She was seen there earlier this month for what she thought was a yeast infection. She was treated with Diflucan PO without relief. Dx with postmenopausal atrophic vaginitis and started on premarin cream. She continues to have constant vaginal irritation, itching and then burning from scratching. Postmenopausal for 10 years. Notsexually active due to vaginal dryness and pain. 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 No past surgical history on file. No family history on file. Social History Tobacco Use Smoking status: Never Smoker Smokeless tobacco: Never Used Vaping Use Vaping Use: Never used Substance Use Topics Alcohol use: Not on file Drug use: Not on file Current Outpatient Medications Medication Sig estrogens, conjugated (PREMARIN VAGINAL) Use vaginally. lisinopril (ZESTRIL, PRINIVIL) 40 mg tablet Take 1 tablet by mouth once daily. No current facility-administered medications for this visit. Allergies As of Date: 06/21/2021 Allergen Noted Reaction SULFA (SULFONAMIDE ANTIBIOTICS) 06/26/2017 Other: See Comments Fully Assessed 06/21/2021 REVIEW OF SYSTEMS Abdomen: No bloating, early satiety, indigestion, or increased flatulence. No abdominal pain, nausea, vomiting, diarrhea, or constipation. Bladder: No dysuria, gross hematuria, urinary frequency, urinary urgency, or incontinence. Breast: No breast lumps, nipple d/c, overlying skin changes, redness or skin retraction. Expanded ROS: N/A Allergies and current medication updated:Yes EXAM: BP 120/70 Wt 205 lb (93.0kg) GENERAL: pleasant, female in no apparent distress HEENT: Normocephalic and atraumatic NECK: Supple and full range of motion DERMATOLOGY: Normal and without lesions BREAST: deferred CHEST: Normal inspiratory effort ABDOMEN: soft and non-tender PELVIC: normal Bartholin's glands, urethra, Neshkoro's glands, no vulvar lesions, small cervical polypvisualized. atrophic changes noted. stenotic os. Areas of white, atrophic papules noted to labia minora bilaterally. Scant areas of whitening to perineum and around anus. BIMANUAL: uterus normal size, shape and consistency, no adnexal masses, non- tender and no cervical motion tenderness NEURO: alert and oriented x3,exam grossly non-focal EXTREMITIES: normal ASSESSMENT/PLAN: 1. Recurrent vaginitis - ICD9: 616.10, ICD10: N76.0 (primary diagnosis) - IBRAHIMA / TRICHOMONAS AMPLIFICATION - BACTERIAL VAGINOSIS AMPLIFICATION - Vulvar hygiene discussed and hand out provided 2. Polyp of cervix uteri - ICD9: 622.7, ICD10: N84.1 - Verbal and written consent obtained for polypectomy - SURGICAL PATHOLOGY 3. Vaginal atrophy - ICD9: 627.3, ICD10: N95.2 - Premarin PV weekly 4. Lichen sclerosus of vulva - ICD9: 701.0, ICD10: N90.4 - Clobetasol to area- BID x 4 weeks Then every day x 4 weeks Then EOD x 4 weeks - Patient information sheet provided Will notify patient of results- RTO- 3 months for follow up Keturah Otoole APRN.CNM documented in this encounterPremier [facility]04-07-2022 Miscellaneous Notes* Telephone Encounter - Leslie Hall RN - 06/17/2021 4:51 PM EDT Received records from Josee Slade. Patient scheduled with RR 07/12/21 for vaginal irritation, dysuria and vaginal pain. Left message for patient to call office to see if she wants sooner appointment with another provider. Records in binder for upcoming appointment. Leslie Hall RN [facility] Diagnosis Recurrent vaginitis- Primary Vaginitis and vulvovaginitis, unspecified Polyp of cervix uteri Mucous polyp of cervix Vaginal atrophy Postmenopausal atrophic vaginitis Lichen sclerosus of vulva documented in this encounter [facility] note* Diagnosis Post-menopause- Primary Asymptomatic postmenopausal status (age-related) (natural) Lichen sclerosus of vulva Vaginal atrophy Postmenopausal atrophic vaginitis documented in this encounter [facility]* Diagnosis Primary osteoarthritis of left hip documented in this encounter [facility] note* Diagnosis Primary osteoarthritis of left hip Unilateral primary osteoarthritis, left hip documented in this encounter [facility] note* Diagnosis Primary osteoarthritis of left hip Primary osteoarthritis of left hip Unilateral primary osteoarthritis, left hip documented in this encounter [facility] note* Diagnosis Arthritis of left hip Unilateral primary osteoarthritis, left hip documented in this encounter [facility] note* Diagnosis Uterine leiomyoma, unspecified location- Primary documented in this encounter [facility]* Diagnosis Arthritis of left hip- Primary Arthritis of left hip Unilateral primary osteoarthritis, left hip documented in this encounter [facility] note* Diagnosis Primary osteoarthritis of left hip- Primary S/P total left hip arthroplasty documented in this encounter [facility] note* Diagnosis Primary osteoarthritis of left hip- Primary S/P total left hip arthroplasty Primary osteoarthritis of left hip S/P total left hip arthroplasty documented in this encounter [facility] note* Diagnosis Vulvar irritation- Primary 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 Dysuria documented in this encounter [facility] noteNo assessment information availableWTogus VA Medical Center Work Phone: Reason for referral (narrative)No reason for referral information availableWTogus VA Medical Center Work Phone: Reason for visit Narrative* Imaging (Routine) - Closed Specialty Diagnoses / Procedures Referred By Jose M perrin Referred To Contact Radiology Diagnoses Primary osteoarthritis of left hip Procedures CT hip left wo IV contrast Krishan Kruse MD [address] [place] [address] [place] [address] Phone: tel: fax: Referral ID Status Reason Start Date Expiration Date Visits Re quested Visits Authorized [id number] Closed 06/17/2024 08/01/2024 1 1 [facility]* Auth/Cert (Routine) Specialty Diagnoses / Procedures Referred By Jose M t Referred To Contact Diagnoses Unilateral primary osteoarthritis, left hip Procedures [place] ARTHRP ACETBLR/PROX FEM PROSTC AGRFT/ALGRFT LEFT TOTAL HIP ARTHROPLASTY Krishan Kruse MD 1 [facility] [address] [place] [address] Phone: tel: fax: [facility] [address] [place] [address] Phone: tel: Referral ID Status Reason Start Date Expiration Date Visits Re quested Visits Authorized [id number] 1 1 [facility] Chief Complaint and Reason for Visit Chief Complaint Admit Date LEFT HIP May 06, 2024 3:03pm Room 3 May 06, 2024 3:25pm Reason for Visit Admit Date Injury of left hip and thigh May 062024 3:03pm Localized osteoarthritis of hip May 06, 2024 3:03pm Chief Complaint Admit Date LEFT HIP May 06, 2024 3:03pm Room 3 May 06, 2024 3:25pm UTI May 23, 2024 1:3 0pm Chief Complaint Admit Date LEFT HIP May 06, 2024 3:03pm Room 3 May 06, 2024 3:25pm UTI May 23, 2024 1:3 0pm CONCERN FOR UTI June 04, 2024 3:4 4pm LEFT HIP PAIN June 08, 2024 6:3 2am Chief Complaint Admit Date LEFT HIP May 06, 2024 3:03pm Room 3 May 06, 2024 3:25pm UTI May 23, 2024 1:3 0pm CONCERN FOR UTI June 04, 2024 3:4 4pm LEFT HIP PAIN June 08, 2024 6:3 2am LEFT HIP June 12, 2024 9:25 am Reason for Visit Admit Date Injury of left hip and thigh May 062024 3:03pm Localized osteoarthritis of hip May 06, 2024 3:03pm Abdominal mass June 12, 2024 9:25 am Injury of left hip and thigh June 12, 2024 9:25am Pathologic femoral fracture June 12, 025 9:25am Chief Complaint Admit Date LEFT HIP May 06, 2024 3:03pm Room 3 May 06, 2024 3:25pm UTI May 23, 2024 1:3 0pm CONCERN FOR UTI June 04, 2024 3:4 4pm LEFT HIP PAIN June 08, 2024 6:3 2am LEFT HIP June 12, 2024 9:25 am OTORRHEA August 26, 2024 3:18 pm Chief Complaint Admit Date OTORRHEA August 26, 2024 3:18 pm CC RESULTS TO KRISHAN KRUSE PLEASE October 112024 11:58am Chief Complaint Admit Date OTORRHEA August 26, 2024 3:18 pm CC RESULTS TO KRISHAN KRUSE PLEASE October 112024 11:58am POSSIBLE UTI November 25, 2024 4:02pm Chief Complaint Admit Date OTORRHEA August 26, 2024 3:18 pm CC RESULTS TO KRISHAN KRUSE PLEASE October 112024 11:58am POSSIBLE UTI November 25, 2024 4:02pm VAGINAL BURNING November 29, 2024 12:33pm Family History No Family History Records Found Relationship Condition Age at Onset Recorded Date/T frida father Cardiac disease Unknown mother Hypertension Unknown brother Cardiac disease Unknown Advance Directives No Advanced Directives Records Found Date Activated Date Inactivated Comments 07/11/2024 2:55 PM 07/12/2024 1:09 PM Date Activated Date Inactivated Comments 07/11/2024 8:56 AM 07/11/2024 2:55 PM Date Activated Date Inactivated Comments 07/11/2024 2:55 PM Date Activated Date Inactivated Comments 07/11/2024 2:55 PM 07/12/2024 1:09 PM Date Activated Date Inactivated Comments 07/11/2024 8:56 AM 07/11/2024 2:55 PM Summary Purpose Additional Source Comments Source Comments (unrecognize d section and content) In the event this informatio n is protected by the Federal Confidentiality of Alcohol and Drug Abuse Patient Records regulations: The Federal rules restrict any use of the information to criminally investigate or prosecute any alcohol or drug abuse patient.Premier HealthIn the event this information is protected by the Federal Confidentiality of Alcohol and Drug Abuse Patient Records regulations: The Federal rules restrict any use of the information to criminally investigate or prosecute any alcohol or drug abuse patient.Premier HealthIn the event this information is protected by the Federal Confidentiality of Alcohol and Drug Abuse Patient Records regulations: The Federal rules restrict any use of the information to criminally investigate or prosecute any alcohol or drug abuse patient.Premier HealthIn the event this information is protected by the Federal Confidentiality of Alcohol and Drug Abuse Patient Records regulations: The Federal rules restrict any use of the information to criminally investigate or prosecute any alcohol or drug abuse patient.Premier HealthIn the event this information is protected by the Federal Confidentiality of Alcohol and Drug Abuse Patient Records regulations: The Federal rules restrict any use of the information to criminally investigate or prosecute any alcohol or drug abuse patient.Premier HealthIn the event this information is protected by the Federal Confidentiality of Alcohol and Drug Abuse Patient Records regulations: The Federal rules restrict any use of the information to criminally investigate or prosecute any alcohol or drug abuse patient.Premier HealthIn the event this information is protected by the Federal Confidentiality of Alcohol and Drug Abuse Patient Records regulations: The Federal rules restrict any use of the information to criminally investigate or prosecute any alcohol or drug abuse patient.Premier HealthIn the event this information is protected by the Federal Confidentiality of Alcohol and Drug Abuse Patient Records regulations: The Federal rules restrict any use of the information to criminally investigate or prosecute any alcohol or drug abuse patient.Premier HealthIn the event this information is protected by the Federal Confidentiality of Alcohol and Drug Abuse Patient Records regulations: The Federal rules restrict any use of the information to criminally investigate or prosecute any alcohol or drug abuse patient.[facility] Reason for Visit (unrecogniz ed section and content) Reason Comments Received Outside Medical Records Reason Comments Vaginal Problem Reason Comments Follow Up Specialty Diagnoses / Procedures Referred By Contac t Referred To Contact AIRLINE RESERVATIONIST Diagnoses 3 mo f/u 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, 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 [employer] [address] [place] [address] Referral ID Status Reason Start Date Expiration Date Visits Requested Visits Authorized [id number] Authorized Financial Clearance Required - Self Pay Patient Cleared - Qualified 100% FAS 09/15/2021 12/14/2021 99 99 Reason Onset Date Comments Surgery Scheduling 06/17/2024 Reason Comments New Patient Left hip pain Reason Comments Problem Visit Reason Onset Date Comments Surgery Scheduling 06/27/2024 LTHA Reason Onset Date Comments Nurse Navigation 07/18/2024 ONN follow up c all Reason Comments Post-op Left total hip arthr oplasty, DOS 07/12/2024 Reason Comments Results Reason Onset Date Comments Results 08/30/2024 Care Teams (unrecognized sec tion and content) Payroll Professional Relationship Specialty Start Date End Date Dalila Pandey CNP [address] [place] [address] PCP - General Internal Medicine 06/17/21 Payroll Professional Relationship Specialty Start Date End Date Dalila Pandey CNP [address] [place], [place] [address] PCP - General Internal Medicine 06/17/21 Payroll Professional Relationship Specialty Start Date End Date Dalila Pandey CNP [address] [place], [place] [address] PCP - General Internal Medicine 06/17/21 Payroll Professional Relationship Specialty Start Date End Date Dalila Pandey, INTERNET MARKETING SPECIALIST [address] [place] [address] PCP - General Internal Medicine 06/17/21 Team Status: Active Member Role Status Dates Irene Carlos VSC, PROGRAMMING DEVELOPMENT PROJECT MANAGER-C Primary Care Provider Activ e Team Status: Inactive Member Role Status Dates Irene Carlos VSC, PROGRAMMING DEVELOPMENT PROJECT MANAGER-C Primary Care Provider Activ e Start: April 22, 2024 End: April 22, 2024 Irene Gonzalez VSC, PROGRAMMING DEVELOPMENT PROJECT MANAGER-C Attending Provider Active Start: April 22, 2024 End: April 22, 2024 Team Status: Inactive Member Role Status Dates Irene Carlos VSC, PROGRAMMING DEVELOPMENT PROJECT MANAGER-C Primary Care Provider Activ e Start: May 06, 2024 End: May 06, 2024 Irene Gonzalez VSC, PROGRAMMING DEVELOPMENT PROJECT MANAGER-C Referring Provider Active Start: May 06, 2024 End: May 06, 2024 Silvina Ace PROGRAMMING DEVELOPMENT PROJECT MANAGER-C Attending Provider Active Start: May 06, 2024 End: May 06, 2024 Team Status: Inactive Member Role Status Dates Irene Carlos VSC, PROGRAMMING DEVELOPMENT PROJECT MANAGER-C Primary Care Provider Activ e Start: May 06, 2024 End: May 06, 2024 Dr. Lupillo Haley MD Attending Provider Active S tart: May 06, 2024 End: May 06, 2024 Team Status: Inactive Member Role Status Dates Irene Carlos VSC, PROGRAMMING DEVELOPMENT PROJECT MANAGER-C Primary Care Provider Activ e Start: May 07, 2024 End: May 07, 2024 Irene Gonzalez VSC, PROGRAMMING DEVELOPMENT PROJECT MANAGER-C Attending Provider Active Start: May 07, 2024 End: May 07, 2024 Irene Gonzalez VSC, PROGRAMMING DEVELOPMENT PROJECT MANAGER-C Referring Provider Active Start: May 07, 2024 End: May 07, 2024 Team Status: Inactive Member Role Status Dates Irenerick Gonzalez VSC, PROGRAMMING DEVELOPMENT PROJECT MANAGER-C Primary Care Provider Activ e Start: May 23, 2024 End: May 23, 2024 Dr. Lala Sullivan MD Attending Provider Active Start: May 23, 2024 End: May 23, 2024 Dr. Lala Sullivan MD Referring Provider Active Start: May 23, 2024 End: May 23, 2024 Team Status: Inactive Member Role Status Dates Irene Carlos RAHMAN, PROGRAMMING DEVELOPMENT PROJECT MANAGER-C Primary Care Provider Activ e Start: June 04, 2024 End: June 04, 2024 Irene RAHMAN, PROGRAMMING DEVELOPMENT PROJECT MANAGER-C Referring Provider Active Start: June 04, 2024 End: June 04, 2024 Ruslan Shay PA, PA Attending Provider Active Start: June 04, 2024 End: June 04, 2024 Team Status: Inactive Member Role Status Dates Irene Carlos RAHMAN, PROGRAMMING DEVELOPMENT PROJECT MANAGER-C Primary Care Provider Activ e Start: June 04, 2024 End: June 04, 2024 Ruslan ELMORE, PA Attending Provider Active Start: June 04, 2024 End: June 04, 2024 Team Status: Active Member Role Status Dates Irene RAHMAN, PROGRAMMING DEVELOPMENT PROJECT MANAGER-C Primary Care Provider Activ e Start: June 08, 2024 Silvina Ace NP-C Attending Provider Active Start: June 08, 2024 Silvina Ace PROGRAMMING DEVELOPMENT PROJECT MANAGER-C Referring Provider Active Start: June 08, 2024 Team Status: Inactive Member Role Status Dates Irene Carlos RAHMAN, PROGRAMMING DEVELOPMENT PROJECT MANAGER-C Primary Care Provider Activ e Start: June 08, 2024 End: June 08, 2024 Silvina Ace PROGRAMMING DEVELOPMENT PROJECT MANAGER-C Attending Provider Active Start: June 08, 2024 End: June 08, 2024 Silvina Ace PROGRAMMING DEVELOPMENT PROJECT MANAGER-C Referring Provider Active Start: June 08, 2024 End: June 08, 2024 Payroll Professional Relationship Specialty Start Date End Date [facility] [place] [address] [phone] PCP - General 06/12/24 Payroll Professional Relationship Specialty Start Date End Date [facility] [place] [phone] PCP - General 06/12/24 Team Status: Inactive Member Role Status Dates Irene Carlos RAHMAN, PROGRAMMING DEVELOPMENT PROJECT MANAGER-C Primary Care Provider Activ e Start: June 12, 2024 End: June 12, 2024 Irene RAHMAN, PROGRAMMING DEVELOPMENT PROJECT MANAGER-C Referring Provider Active Start: June 12, 2024 End: June 12, 2024 Silvina Ace , PROGRAMMING DEVELOPMENT PROJECT MANAGER-C Attending Provider Active Start: June 12, 2024 End: June 12, 2024 Team Status: Inactive Member Role Status Dates Irene Carlos VSC, PROGRAMMING DEVELOPMENT PROJECT MANAGER-C Primary Care Provider Activ e Start: June 17, 2024 End: June 17, 2024 Krishan Kruse MD Attending Provider Active Start: June 17, 2024 End: June 17, 2024 Krishan Kruse MD Referring Provider Active Start: June 17, 2024 End: June 17, 2024 Payroll Professional Relationship Specialty Start Date End Date CarlosIrene [address] [place] [phone] PCP - General Family Nurse Practitioner 06/21/24 Sheri To, BARRY Nurse Navigator Orthopedic Surgery 06/27/24 10/11/24 Payroll Professional Relationship Specialty Start Date End Date Josee Ho [address] [place] [phone] PCP - General 06/12/24 06/20/24 Payroll Professional Relationship Specialty Start Date End Date Carlos Irene [address] [place] [phone] PCP - General Family Nurse Practitioner 06/21/24 Sheri To RN Nurse Navigator Orthopedic Surgery 06/27/24 10/11/24 Payroll Professional Relationship Specialty Start Date End Date Dalila Pandey CNP [address] [place], [place] [phone] PCP - General Internal Medicine 06/17/21 Payroll Professional Relationship Specialty Start Date End Date Dalila Pandey CNP [address] [place], [place] [address] PCP - General Internal Medicine 06/17/21 Payroll Professional Relationship Specialty Start Date End Date Evens Gonzalezssica [address] [place] [phone] PCP - General Family Nurse Practitioner 06/21/24 Sheri To RN Nurse Navigator Orthopedic Surgery 06/27/24 10/11/24 Payroll Professional Relationship Specialty Start Date End Date Irene Gonzalez [address] [place] [phone] PCP - General Family Nurse Practitioner 06/21/24 Sheri To RN Nurse Navigator Orthopedic Surgery 06/27/24 10/11/24 Payroll Professional Relationship Specialty Start Date End Date Irene Gonzalez [address] [place] [address] PCP - General Family Nurse Practitioner 06/21/24 Sheri To RN Nurse Navigator Orthopedic Surgery 06/27/24 10/11/24 Payroll Professional Relationship Specialty Start Date End Date Irene Gonzalez [address] [place] [phone] PCP - General Family Nurse Practitioner 06/21/24 Sheri To RN Nurse Navigator Orthopedic Surgery 06/27/24 10/11/24 Krishan Kruse MD 1 [facility] [address] [place], [place] [phone] Orthopedic Surgery 07/12/24 10/11/24 Payroll Professional Relationship Specialty Start Date End Date Irene Gonzalez [address] [place] [phone] PCP - General Family Nurse Practitioner 06/21/24 Sheri To RN Nurse Navigator Orthopedic Surgery 06/27/24 10/11/24 Krishan Kruse MD 1 [facility] [address] [place], [place] [phone] Orthopedic Surgery 07/12/24 10/11/24 Payroll Professional Relationship Specialty Start Date End Date Irene Gonzalez [address] [place] [phone] PCP - General Family Nurse Practitioner 06/21/24 Sheri To RN Nurse Navigator Orthopedic Surgery 06/27/24 10/11/24 Krishan Kruse MD 1 [facility] [address] [place], [place] [address] Orthopedic Surgery 07/12/24 10/11/24 Payroll Professional Relationship Specialty Start Date End Date Irene Gonzalez [address] [place] [phone] PCP - General Family Nurse Practitioner 06/21/24 Sheri To RN Nurse Navigator Orthopedic Surgery 06/27/24 10/11/24 Krishan Kruse MD 1 [facility] [address] [place], [place] [phone] Orthopedic Surgery 07/12/24 10/11/24 Team Status: Inactive Member Role Status Dates Irene Carlos VSC, PROGRAMMING DEVELOPMENT PROJECT MANAGER-C Primary Care Provider Activ e Start: August 26, 2024 End: August 26, 2024 Dr. Jonah Briones MD Attending Provider Activ e Start: August 26, 2024 End: August 26, 2024 Dr. Jonah Briones MD Referring Provider Activ e Start: August 26, 2024 End: August 26, 2024 Payroll Professional Relationship Specialty Start Date End Date Dalila Pandey CNP [address] [place], [place] [phone] PCP - General Internal Medicine 06/17/21 Payroll Professional Relationship Specialty Start Date End Date Dalila Pandey INTERNET MARKETING SPECIALIST [address] [place] [address] PCP - General Internal Medicine 06/17/21 Team Status: Active Member Role/Relationship Status Dates Irene SÁNCHEZC, PROGRAMMING DEVELOPMENT PROJECT MANAGER-C Primary Care Provider Activ e Team Status: Inactive Member Role/Relationship Status Dates Irene Carlos VSC, PROGRAMMING DEVELOPMENT PROJECT MANAGER-C Primary Care Provider Activ e Start: August 26, 2024 End: August 26, 2024 Dr. Jonah Briones MD Attending Provider Activ e Start: August 26, 2024 End: August 26, 2024 Dr. Jonah Briones MD Referring Provider Activ e Start: August 26, 2024 End: August 26, 2024 Team Status: Inactive Member Role/Relationship Status Dates Irene Carlos PRINCESSC, PROGRAMMING DEVELOPMENT PROJECT MANAGER-C Primary Care Provider Activ e Start: September 10, 2024 Dr. Lala Sullivan MD Attending Provider Active Start: September 10, 2024 Team Status: Inactive Member Role/Relationship Status Dates DINA OGDEN Attending Provider Active Start: October 11, 2024 End: October 11, 2024 Irene SÁNCHEZC, PROGRAMMING DEVELOPMENT PROJECT MANAGER-C Primary Care Provider Activ e Start: October 11, 2024 End: October 11, 2024 Krishan Kruse MD Referring Provider Active Start: October 11, 2024 End: October 11, 2024 Payroll Professional Relationship Specialty Start Date End Dalila Pandey CNP [id number] [place] [address] PCP - General Internal Medicine 06/17/21 Team Status: Inactive Member Role/Relationship Status Dates Irene Gonzalez VSC, PROGRAMMING DEVELOPMENT PROJECT MANAGER-C Primary Care Provider Activ e Start: November 25, 2024 End: November 25, 2024 Irene Carlos PRINCESSC, PROGRAMMING DEVELOPMENT PROJECT MANAGER-C Referring Provider Active Start: November 25, 2024 End: November 25, 2024 Dr. Lala Sullivan MD Attending Provider Active Start: November 25, 2024 End: November 25, 2024 Team Status: Active Member Role/Relationship Status Dates Irene Carlos VSC, PROGRAMMING DEVELOPMENT PROJECT MANAGER-C Primary care physician Acti ve Team Status: Inactive Member Role/Relationship Status Dates Irene RAHMAN, PROGRAMMING DEVELOPMENT PROJECT MANAGER-C Primary care physician Acti ve Start: August 26, 2024 End: August 26, 2024 Dr. Jonah Briones MD Attending physician Acti ve Start: August 26, 2024 End: August 26, 2024 Dr. Jonah Briones MD Referring Provider Activ e Start: August 26, 2024 End: August 26, 2024 Team Status: Inactive Member Role/Relationship Status Dates Irene Gonzalez VSC, PROGRAMMING DEVELOPMENT PROJECT MANAGER-C Primary care physician Acti ve Start: September 10, 2024 Dr. Lala Sullivan MD Attending physician Active Start: September 10, 2024 Team Status: Inactive Member Role/Relationship Status Dates DINA OGDEN Attending physician Active Start: October 11, 2024 End: October 11, 2024 Irene Gonzalez VSC, PROGRAMMING DEVELOPMENT PROJECT MANAGER-C Primary care physician Acti ve Start: October 11, 2024 End: October 11, 2024 Krishan Kruse MD Referring Provider Active Start: October 11, 2024 End: October 11, 2024 Team Status: Inactive Member Role/Relationship Status Dates Irene Gonzalez VSC, PROGRAMMING DEVELOPMENT PROJECT MANAGER-C Primary care physician Acti ve Start: November 25, 2024 End: November 25, 2024 Irene Gonzalez VSC, PROGRAMMING DEVELOPMENT PROJECT MANAGER-C Referring Provider Active Start: November 25, 2024 End: November 25, 2024 Dr. Lala Sullivan MD Attending physician Active Start: November 25, 2024 End: November 25, 2024 Team Status: Inactive Member Role/Relationship Status Dates Irene Gonzalez VSC, PROGRAMMING DEVELOPMENT PROJECT MANAGER-C Primary care physician Acti ve Start: November 29, 2024 End: November 29, 2024 Irene Gonzalez VSC, PROGRAMMING DEVELOPMENT PROJECT MANAGER-C Referring Provider Active Start: November 29, 2024 End: November 29, 2024 Dr. Lala Sullivan MD Attending physician Active Start: November 29, 2024 End: November 29, 2024 Goals (unrecognized section and content) Goals may be documented in a n alternate sectionGoals may be documented in an alternate sectionGoals may be documented in an alternate sectionGoals may be documented in an alternate sectionGoals may be documented in an alternate sectionGoals may be documented in an alternate sectionGoals may be documented in an alternate sectionGoals may be documented in an alternate sectionGoals may be documented in an alternate section Scheduled Active and Recently Administ ered Medications (unrecognized section and content) Medication Order 07/10/2024 07/11/2024 07/12/2024 acetaminophen (Tylenol) tablet 1,000 mg (COMPLETED) 1,000 mg, Oral, Once, On Raisa 07/11/24 at 0900, For 1 dose, Preprocedure, Maximum dose of acetaminophen is 4000 mg from all sources in 24 hours. Do not administer if patient has taken tylenol <4 hours earlier. Do not give if contraindicated ie. patient has active liver disease or cirrhosis. 923 (Given - Provider: Christine Beltrán, BARRY) acetaminophen (Tylenol) tablet 650 mg 650 mg, Oral, Every 6 hours, First dose on Raisa 07/11/24 at 1500, Phase II/On Unit 1735 (Given - Provider: Daria Aguiar RN) 0026 (Given - Provider: Disha Pearson, BARRY)0441 (Given - Provider: Disha Pearson, BARRY)0955 (Given - Provider: Nena Alarcon, RN) aspirin EC tablet 81 mg 81 mg, Oral, 2 times daily, First dose on Raisa 07/11/24 at 2100, Phase II/On Unit, Do not crush, chew, or split. 2011 (Given - Provider: Disha Pearson RN) 0955 (Given - Provider: Nena Alarcon, RN) ceFAZolin (Ancef) 2,000 mg in sodium chloride 0.9 % 100 mL IVPB (COMPLETED) 2,000 mg, IntraVENous, at 200 mL/hr, Administer over 30 Minutes, Tank Carpenter to O.R., On Raisa 07/11/24 at 0900, For 1 dose, Preprocedure, Administer within 1 hour prior to incision. Recommend to repeat in 3-4 hours after initial dose if still intra-op. Mini-Bag Plus bag, Suspected Indication (Select all that apply): Surgical Prophylaxis 1109 (New Bag - Provider: Guevara Eller APRN - MANAGER OF FINANCIAL REPORTING) ceFAZolin (Ancef) 2,000 mg in sodium chloride 0.9 % 100 mL IVPB (COMPLETED) 2,000 mg, IntraVENous, at 200 mL/hr, Administer over 30 Minutes, Every 8 hours, First dose on Raisa 07/11/24 at 1900, For 2 doses, Phase II/On Unit, Mini-Bag Plus bag, Suspected Indication (Select all that apply): Surgical Prophylaxis 2011 (New Bag - Provider: Disha Pearson RN)2041 (Stopped - Provider: Disha Pearson RN) 441 (New Bag - Provider: Disha Pearson, BARRY)511 (Stopped - Provider: Disha Pearson, BARRY) dexAMETHasone (PF) (Decadron) injection 8 mg (COMPLETED) 8 mg, IntraVENous, Every 6 hours, First dose on Raisa 07/11/24 at 1700, For 2 doses, Phase II/On Unit 1731 (Given - Provider: Daria Aguiar RN) 25 (Given - Provider: Disha Pearson RN) famotidine (Pepcid) tablet 20 mg (COMPLETED) 20 mg, Oral, Once, On Raisa 07/11/24 at 0900, For 1 dose, Preprocedure 923 (Given - Provider: Christine Beltrán RN) famotidine (Pepcid) tablet 20 mg 20 mg, Oral, 2 times daily, First dose on Raisa 07/11/24 at 2100, Phase II/On Unit 2011 (Given - Provider: Disha Pearson RN) 954 (Given - Provider: Nena Alarcon, BARRY) ketorolac (Toradol) injection 15 mg (COMPLETED) 15 mg, IntraVENous, Every 6 hours, First dose on Raisa 07/11/24 at 1500, For 2 doses, Phase II/On Unit 1731 (Given - Provider: Daria Aguiar RN) 25 (Given - Provider: Disha Pearson RN) lisinopril tablet 40 mg 40 mg, Oral, Daily, First dose on Mon07/12/24 at 0900 954 (Given - Provid er: Nena Alarcon RN) meloxicam (Mobic) tablet 15 mg 15 mg, Oral, Daily, First dose on Mon07/12/24 at 0900, Phase II/On Unit 954 (Given - Provid er: Nena Alarcon RN) Nozin Nasal Spike Driver Popswab 2 Swab (COMPLETED) 2 Swab (1 Package), Topical, Once, On Raisa 07/11/24 at 0900, For 1 dose, Preprocedure, Flip ampule around in paper sleeve to expose swab tip. Shake well. With sleeve on ampule, crush at dot to pop. Squeeze to wet swab tip. Swab around nostril rims 8 times in each direction. Squeeze to rewet swab tip and repeat. Repeat for other nostril. Caution : Do not extend in nose beyond swab tip. Appy to skin only. Discard after use. 0924 (Given - Provider: Christine Beltrán RN) ropivacaine (Naropin) 5 MG/ML 15 mL, EPINEPHrine (Adrenalin) 30 MG/30ML 0.125 mL, ketorolac (Toradol) 30 MG/ML 0.5 mL in sodium chloride (PF) 0.9 % 15 mL syringe (COMPLETED) 1 Syringe, Intra-artICUlar, Once, On Raisa 07/11/24 at 1100, For 1 dose, Intraprocedure 1135 (Given - Provider: Jo-Ann Stauffer RN - Comment: LEFT HIP) sodium chloride 0.9% (NS) flush 10 mL 10 mL, IntraVENous, Every 12 hours scheduled (2 times per day), First dose on Raisa 07/11/24 at 2100, Phase II/On Unit 2100 (Given - Provider: Disha Pearson RN) 0900 (Given - Provider: Nena Alarcon, BARRY) traMADol (Ultram) tablet 50 mg 50 mg, Oral, Every 6 hours, First dose on Raisa 07/11/24 at 1500, Phase II/On Unit, DO NOT GIVE IF PATIENT IS ON WELLBUTRIN (BUPROPION) OR SEIZURE DISORDER OR HISTORY, Indications: Pain 1732 (Given - Provider: Daria Aguiar RN) 0026 (Given - Provider: Disha Pearson, BARRY)0441 (Given - Provider: Disha Pearson, BARRY)0955 (Given - Provider: Nena Alarcon, BARRY) Continuous Medication Order 07/10/2024 07/11/2024 07/12/2024 lactated Ringer's (LR) infusion (CANCELED) 50 mL/hr, IntraVENous, Continuous, Starting on Raisa 07/11/24 at 0900, Preprocedure, Upon admission to sameday - please start iv if patient does not have iv access. Use 500ml NS for patients on dialysis. 0941 (New Bag - Provider: Nu Beltrán RN)1054 (Continued by Anesthesia - Provider: Guevara Eller APRN - YINA)1240 (New Bag - Provider: SNEHA Singletary CRNA)1316 (Anesthesia Volume Adjustment - Provider: SNEHA Singletary CRNA) sodium chloride 0.9 % infusion 125 mL/hr, IntraVENous, Continuous, Starting on Raisa 07/11/24 at 1500, Phase II/On Unit 1732 (New Bag - Provider: Daria Aguiar RN) PRN Medication Order 07/10/2024 07/11/2024 07/12/2024 bisacodyl (Dulcolax) EC tablet 5 mg 5 mg, Oral, Daily PRN, constipation, Starting on Raisa 07/11/24 at 1455, Phase II/On Unit, 1st line for treatment of constipation - give scheduled if no bowel movement in past 24 hours. Do not crush, chew, or split. diphenhydrAMINE (BENADryl) injection 25 mg(Linked Group 1) 25 mg, IntraVENous, Every 6 hours PRN, itching, Starting on Raisa 07/11/24 at 1455, Phase II/On Unit, Administer if oral route cannot be used. diphenhydrAMINE (BENADryl) tablet/capsule 25 mg(Linked Group 1) 25 mg, Oral, Every 6 hours PRN, itching, Starting on Raisa 07/11/24 at 1455, Phase II/On Unit HYDROmorphone (Dilaudid) injection 0.25 mg(Linked Group 2) 0.25 mg, IntraVENous, Every 3 hours PRN, moderate pain (4-6), Starting on Raisa 07/11/24 at 1455, Phase II/On Unit, If oral and IV narcotics ordered, use oral first and only use IV if oral is ineffective or cannot take oral. Do Not give oral and IV within 1 hour of each other unless specifically ordered. HYDROmorphone (Dilaudid) injection 0.5 mg (CANCELED) 0.5 mg, IntraVENous, Every 5 min PRN, severe pain (7-10), Starting on Raisa 07/11/24 at 1309, For 4 doses, Recovery (only), Phase I and Phase II- Initial therapy for severe pain (7-10). Restricted to a 90 minute time frame starting when the patient can verbally state their pain score. If after 2 doses the pain score does not decrease by more than one point, then call the provider. If oral meds are utilized, do not return to initial therapy medications. 1330 (Given - Provider: Rosa Siegel, RN)1341 (Given - Provider: Rosa Siegel, RN)1358 (Given - Provider: Rosa Siegel RN) HYDROmorphone (Dilaudid) injection 0.5 mg(Linked Group 2) 0.5 mg, IntraVENous, Every 3 hours PRN, severe pain (7-10), Starting on Raisa 07/11/24 at 1455, Phase II/On Unit, If oral and IV narcotics ordered, use oral first and only use IV if oral is ineffective or cannot take oral. Do Not give oral and IV within 1 hour of each other unless specifically ordered. magnesium citrate solution 297 mL 297 mL, Oral, Once PRN, constipation, constipation, Starting on Raisa 07/11/24 at 1455, For 1 dose, Phase II/On Unit, 2nd line for treatment of constipation - give scheduled (in addition to 1st line agent) if no bowel movement in past 48 hours. If no bowel movement within 3 hours of magnesium citrate administration, contact provider for further instructions. naloxone (Narcan) injection 0.4 mg 0.4 mg, IntraVENous, PRN, opioid reversal, Starting on Raisa 07/11/24 at 1455, Phase II/On Unit, For oversedation/difficult to rouse, pinpoint pupils, RR < 8; notify primary team it security consulting director if used ondansetron (Zofran) injection 4 mg(Linked Group 3) 4 mg, IntraVENous, Every 6 hours PRN, nausea, vomiting, Starting on Raisa 07/11/24 at 1455, Phase II/On Unit, 1st Line. Give IV if patient is unable to take orally. If inadequate response within 60 minutes, proceed to next-line agent or contact provider if no further options ordered. ondansetron ODT (Zofran-ODT) disintegrating tablet 4 mg(Linked Group 3) 4 mg, Oral, Every 8 hours PRN, nausea, vomiting, Starting on Raisa 07/11/24 at 1455, Phase II/On Unit, 1st Line. If inadequate response within 60 minutes, proceed to next-line agent or contact provider if no further options ordered. Patient should allow tablet to dissolve on tongue. Do not remove from blister pack until just before administering. oxyCODONE (Roxicodone) immediate release tablet 10 mg (COMPLETED)(Linked Group 4) 10 mg, Oral, Every 4 hours PRN, severe pain (7-10), Starting on Raisa 07/11/24 at 1309, For 1 dose, Recovery (only), PHASE II 1416 (Given - Provider: Rosa Siegel RN) oxyCODONE (Roxicodone) immediate release tablet 10 mg 10 mg, Oral, Every 4 hours PRN, severe pain (7-10), Starting on Raisa 07/11/24 at 1455, Phase II/On Unit 2011 (Given - Provider: Disha Pearson RN) 002 (Given - Provider: Disha Pearson RN) oxyCODONE (Roxicodone) immediate release tablet 5 mg 5 mg, Oral, Every 4 hours PRN, moderate pain (4-6), Starting on Raisa 07/11/24 at 1455, Phase II/On Unit sodium chloride 0.9 % infusion 5-250 mL/hr, IntraVENous, PRN, if patient receiving piggyback infusions and maintenance fluids are not ordered OR KVO fluids to protect IV site / prevent frequent line interruptions/ long duration, Starting on Raisa 07/11/24 at 1455, Phase II/On Unit, For piggyback infusion, administer at same rate as piggyback for a total of 25 mL. Enter 25 mL into dose field and piggyback rate into rate field of order. If piggyback is infusing at a rate less than 100 mL/hr, enter 25 mL into dose field and 100 mL/hr into rate field of order. For KVO fluids, enter rate of 20 mL/hr or less into rate field of order. sodium chloride 0.9 % irrigation solution (CANCELED) As needed, Starting on Raisa 07/11/24 at 1035, Intraprocedure 1034 (Given - Provider: Krishan Kruse MD)1035 (Given - Provider: Krishan Kruse MD - Comment: TINTED WITH BETADINE) sodium chloride 0.9% (NS) flush 10 mL 10 mL, IntraVENous, PRN, line care, Starting on Raisa 07/11/24 at 1455, Phase II/On Unit, After every IV line use sterile water irrigation solution (CANCELED) As needed, Starting on Raisa 07/11/24 at 1035, Intraprocedure 1035 (Given - Provider: Krishan Kruse MD - Comment: ON TECH TABLE) Linked Groups Order Group 1: diphenhydrAMINE (BENADryl) tablet/capsule 25 mgJump to med 25 mg, Oral, Every 6 hours PRN, itching, Starting on Raisa 07/11/24 at 1455, Phase II/On Unit Or diphenhydrAMINE (BENADryl) injection 25 mgJump to med 25 mg, IntraVENous, Every 6 hours PRN, itching, Starting on Raisa 07/11/24 at 1455, Phase II/On Unit, Administer if oral route cannot be used. Group 2: HYDROmorphone (Dilaudid) injection 0.25 mgJump to med 0.25 mg, IntraVENous, Every 3 hours PRN, moderate pain (4-6), Starting on Raisa 07/11/24 at 1455, Phase II/On Unit, If oral and IV narcotics ordered, use oral first and only use IV if oral is ineffective or cannot take oral. Do Not give oral and IV within 1 hour of each other unless specifically ordered. Or HYDROmorphone (Dilaudid) injection 0.5 mgJump to med 0.5 mg, IntraVENous, Every 3 hours PRN, severe pain (7-10), Starting on Raisa 07/11/24 at 1455, Phase II/On Unit, If oral and IV narcotics ordered, use oral first and only use IV if oral is ineffective or cannot take oral. Do Not give oral and IV within 1 hour of each other unless specifically ordered. Group 3: ondansetron ODT (Zofran-ODT) disintegrating tablet 4 mgJump to med 4 mg, Oral, Every 8 hours PRN, nausea, vomiting, Starting on Raisa 07/11/24 at 1455, Phase II/On Unit, 1st Line. If inadequate response within 60 minutes, proceed to next-line agent or contact provider if no further options ordered. Patient should allow tablet to dissolve on tongue. Do not remove from blister pack until just before administering. Or ondansetron (Zofran) injection 4 mgJump to med 4 mg, IntraVENous, Every 6 hours PRN, nausea, vomiting, Starting on Raisa 07/11/24 at 1455, Phase II/On Unit, 1st Line. Give IV if patient is unable to take orally. If inadequate response within 60 minutes, proceed to next-line agent or contact provider if no further options ordered. Group 4: oxyCODONE (Roxicodone) immediate release tablet 5 mg (COMPLETED) 5 mg, Oral, Every 4 hours PRN, moderate pain (4-6), Starting on Raisa 07/11/24 at 1309, For 1 dose, Recovery (only), PHASE II Or oxyCODONE (Roxicodone) immediate release tablet 10 mg (COMPLETED)Jump to med 10 mg, Oral, Every 4 hours PRN, severe pain (7-10), Starting on Raisa 07/11/24 at 1309, For 1 dose, Recovery (only), PHASE II INFORMATION SOURCE (unrecogn ized section and content) DATE CREATED AUTHOR 08/13/2024 [facility] DATE CREATED AUTHOR AUTHOR'S ORGANIZ ATION 09/03/2024 [facility] DATE CREATED AUTHOR AUTHOR'S ORGANIZ ATION 12/27/2024 [facility] FOR RECORDS PERTAINING TO PATIENTS WHO ARE OR HAVE BEEN ENROLLED IN A CHEMICAL DEPENDENCY/SUBSTANCEABUSE PROGRAM, SOME INFORMATION MAY BE OMITTED. This clinical summary was aggregated from multiple sources. Caution should be exercised in using it in the provision of clinical care. This summary normalizes information from multiple sources, and as a consequence, information in this document may materially change the coding, format and clinical context of patient data. In addition, data may be omitted in some cases. CLINICAL DECISIONS SHOULD BE BASED ON THE PRIMARY CLINICAL RECORDS. [employer] [facility]. provides no warranty or guarantee of the accuracy or completeness of information in this document.
== END | disposition home or self-care (01) ==
LOC: OPBD 13:49
PROVIDERS: PCP Nurse Practitioner Family
DX: Z13.820 Encounter for screening for osteoporosis (principal); Z78.0 Asymptomatic menopausal state
CPT/HCPCS: 77080